=== PATIENT | male | born 1950 | race Caucasian/White ===

== ENCOUNTER 2017-04-28 12:05 | Inpatient (IN) | payer MEDICARE, OTHER ==
[~2017-04-28] VITALS: Ht 185.4 cm; Wt 115.2 kg
[~2017-04-28 12:05] MED LIST: ABILIFY2 MG ORAL; ACETAMINOPHEN120 MG ORAL; ASPIR 8181 MG ORAL; CLONIDINE 0.2M0.2 MG PO; COLACE100 MG ORAL; COZAAR50 MG ORAL; FUROSEMIDE20 M1 ORAL; GLUCOPHAGE500 MG ORAL; HUMULIN R100 UNIT/1 SUBQ; KCL2 MEQ/ML ORAL; LACTULOSE20 GM/301 PO; LANTUS SOL100 UNIT/1 SUBQ; METOPROLOL TART50 M1 ORAL; NORCO 5-325 TA1 EACH ORAL; NORVASC10 MG ORAL; PROZAC20 MG ORAL; RANITIDINE HCL150 MG ORAL; SIMVASTATIN10 MG ORAL; TRUSOPT10 ML BOTH EYES; VALIUM5 M1 ORAL; VIGAMOX1 DROP BOTH EYES
[2017-04-28] MEDS ORDERED: NORVASC10 MG ORAL (12:22)
[2017-04-28] MEDS ORDERED: GLUCOPHAGE500 MG ORAL (12:22)
[2017-04-28] MEDS ORDERED: HUMALOG 75/255 UNIT1 SUBQ (12:22)
[2017-04-28] MEDS ORDERED: LOPERAMIDE2 M1 PO (12:22)
[2017-04-28] MEDS ORDERED: AZOPT10 ML OP (12:22)
[2017-04-28] MEDS ORDERED: ACETAMINOPHEN325 M1 ORAL (12:22)
[2017-04-28] MEDS ORDERED: CRANBERRY TABL1 EACH PO (12:22)
[2017-04-28] MEDS ORDERED: CATAPRES0.1 MG ORAL (12:22)
[2017-04-28] MEDS ORDERED: ARTIFICIAL TEA1 EAC2 OP (12:22)
[2017-04-28] MEDS ORDERED: DULCOLAX10 MG RC (12:22)
[2017-04-28] MEDS ORDERED: COZAAR100 MG ORAL (12:22)
[2017-04-28 12:25] VITALS: BP 146/86
[2017-04-28] MEDS ORDERED: Albuterol ud Inhalation HHN ONE (12:30)
[2017-04-28] MEDS ORDERED: Ipratropium 0.02% Inh Soln 2.5ml UD HHN ONE (12:30)
--- NOTE | 2017-04-28 12:30 | Emergency Room Report ---
History of Present Illness General Chief Complaint: Male Urogenital Problems Source: Patient, Medical Record, EMS Present Illness HPI Patient presents with reports of increased erythema and discomfort to the penile shaft On discussion however patient is extremely short of breath, tachypneic with crackles and rhonchi No reports of vomiting Patient has previous CVA Denies any cough History is limited as the patient is not able to provide full history The note from the nursing facility reported the penile discomfort as noted above Patient denies any chest pain, Allergies: Coded Allergies: No Known Allergies (Unverified , 01/08/14) Patient History Limited by: medical condition Past Medical History: see triage record Pertinent Family History: unable to obtain Reviewed Nursing Documentation: PMH: Agreed, PSxH: Agreed Nursing Documentation-PMH Hx Cardiac Problems: Yes - Cardiomegaly, Hypercholesterolemia, Peripheral Vascular Disease Hx Hypertension: Yes Hx Diabetes: Yes - DM2 Hx Cancer: No Hx Gastrointestinal Problems: Yes - Gtube, Dysphagia, GERD w/o esophagitis Hx Neurological Problems: Yes - OCCIPITAL ENCEPHALOMALACIA,CEREBRAL HEMIPLEGIA , Hemiparesis Hx Cerebrovascular Accident: Yes - CVA/TIA WITH RIGHT HEMIPLEGIA H/O OCCIPITAL ENCEPHALOMALACIA, Review of Systems All Other Systems: limited - Other than the ones mentioned in the history of present illness all others are reviewed however they do stay limited due to the patient's mental status Physical Exam Vital Signs Date Time Temp Pulse Resp B/P (MAP) Pulse Ox O2 Delivery O2 Flow Rate FiO2 04/28/17 12:08 98.8 84 24 143/90 92 Room Air Sp02 EP Interpretation: reviewed, normal General Appearance: no apparent distress Head: normocephalic, atraumatic Eyes: bilateral eye PERRL, bilateral eye EOMI ENT: hearing grossly normal, normal pharynx Neck: full range of motion, supple Respiratory: crackles - Diffusely and appears mildly tachypneic, no obvious retractions Cardiovascular #1: regular rate, rhythm, other - Edema bilateral lower extremity Gastrointestinal: other - Mildly distended abdomen, nontender Musculoskeletal: other - Patient not moving lower extremity on either side, shows edema, questionable previous CVA Neurologic: alert, responsive Skin: other - Edematous in the scrotal area, bilateral lower extremity, no obvious excoriation of the penile shaft Lymphatic: no adenopathy Medical Decision Making Diagnostic Impression: Primary Impression: CHF (congestive heart failure) Additional Impression: Dermatitis ER Course Patient is a fairly complex patient with multiple differential to consideration including but not limited to cardiac cardiopulmonary and vascular emergencies The initial complaint with penile irritation was evaluated patient appears to have some mild excoriation And contact dermatitis however the patient's respirations appeared to be abnormal further workup reveals mild congestion Patient has acute intervention performed and admitted for further care Labs Test 05/01/17 05:15 05/02/17 16:17 White Blood Count 15.0 K/UL (4.8-10.8) Red Blood Count 5.53 M/UL (4.70-6.10) Hemoglobin 15.2 G/DL (14.2-18.0) Hematocrit 46.7 % (42.0-52.0) Mean Corpuscular Volume 84 FL (80-99) Mean Corpuscular Hemoglobin 27.5 PG (27.0-31.0) Mean Corpuscular Hemoglobin Concent 32.5 G/DL (32.0-36.0) Red Cell Distribution Width 13.6 % (11.6-14.8) Platelet Count 362 K/UL (150-450) Mean Platelet Volume 7.1 FL (6.5-10.1) Neutrophils (%) (Auto) 80.1 % (45.0-75.0) Lymphocytes (%) (Auto) 9.6 % (20.0-45.0) Monocytes (%) (Auto) 7.4 % (1.0-10.0) Eosinophils (%) (Auto) 2.1 % (0.0-3.0) Basophils (%) (Auto) 0.8 % (0.0-2.0) Sodium Level 136 MMOL/L (136-145) Potassium Level 5.2 MMOL/L (3.5-5.1) Chloride Level 98 MMOL/L (98-107) Carbon Dioxide Level 25 MMOL/L (21-32) Anion Gap 14 mmol/L (5-15) Blood Urea Nitrogen 73 mg/dL (7-18) Creatinine 2.4 MG/DL (0.55-1.30) Estimat Glomerular Filtration Rate 27.2 mL/min (>60) Glucose Level 211 MG/DL (74-106) Calcium Level 9.1 MG/DL (8.5-10.1) Total Bilirubin 0.4 MG/DL (0.2-1.0) Aspartate Amino Transf (AST/SGOT) 25 U/L (15-37) Alanine Aminotransferase (ALT/SGPT) 20 U/L (12-78) Alkaline Phosphatase 133 U/L (46-116) Pro-B-Type Natriuretic Peptide 271 pg/mL (0-125) Total Protein 6.9 G/DL (6.4-8.2) Albumin 2.8 G/DL (3.4-5.0) Globulin 4.1 g/dL Albumin/Globulin Ratio 0.7 (1.0-2.7) Urine Eosinophils None seen Urine Random Total Protein 1740 MG/DL (< 11.9) Urine Random Sodium 37 MEQ/L (20-110) Urine Creatinine 31.7 MG/DL (30.0-125.0) EKG Diagnostic Results Rate: normal Rhythm: NSR ST Segments: no acute changes Rhythm Strip Diag. Results EP Interpretation: yes Rate: 77 Rhythm: NSR, no PVC's, no ectopy Chest X-Ray Diagnostic Results Chest X-Ray Diagnostic Results : Chest X-Ray Ordered: Yes # of Views/Limited/Complete: 1 View Indication: Shortness of Breath EP Interpretation: Yes Interpretation: no consolidation, no effusion, no pneumothorax, other - mild congestion Impression: Other - mild congestion Last Vital Signs Date Time Temp Pulse Resp B/P (MAP) Pulse Ox O2 Delivery O2 Flow Rate FiO2 04/28/17 12:08 98.8 84 24 143/90 92 Room Air Status: improved Disposition: ADMITTED INPATIENT Condition: Serious AURELIANO HENDERSON D.O. Apr 28, 2017 12:30
[2017-04-28 12:37] LABS: BASOPHILS % (AUTO) 0.5 % (0.0-2.0); EOSINOPHILS % (AUTO) 3.8 % (0.0-3.0); HEMATOCRIT 47.1 % (42.0-52.0); HEMOGLOBIN 15.2 G/DL (14.2-18.0); LYMPHOCYTES % (AUTO) 16.4 % (20.0-45.0); MEAN CORPUSCULAR VOLUME 84 FL (80-99); MONOCYTES % (AUTO) 7.7 % (1.0-10.0); NEUTROPHILS % (AUTO) 71.6 % (45.0-75.0); PLATELET COUNT 368 K/UL (150-450); RED BLOOD COUNT 5.57 M/UL (4.70-6.10); WHITE BLOOD COUNT 14.5 K/UL (4.8-10.8)
[2017-04-28 12:52] LABS: ANION GAP 7 mmol/L (5-15); BLOOD UREA NITROGEN 45 mg/dL (7-18); CALCIUM 8.7 MG/DL (8.5-10.1); CARBON DIOXIDE 28 MMOL/L (21-32); CHLORIDE 102 MMOL/L (98-107); CREATININE 1.4 MG/DL (0.55-1.30); SODIUM 137 MMOL/L (136-145)
[2017-04-28 13:03] LABS: ALANINE AMINOTRANSFERASE 20 U/L (12-78); ALBUMIN 2.5 G/DL (3.4-5.0); ALBUMIN/GLOBULIN RATIO 0.5 (1.0-2.7); ALKALINE PHOSPHATASE 124 U/L (46-116); ASPARTATE AMINO TRANSFERASE 15 U/L (15-37); BILIRUBIN,TOTAL 0.3 MG/DL (0.2-1.0); CKMB 0.5 NG/ML (0.0-3.6); CREATINE KINASE 9 U/L (26-308)
[2017-04-28 13:13] LABS: APPEARANCE,URINE CLEAR; BILIRUBIN, URINE NEGATIVE (NEGATIVE); GLUCOSE, URINE (UA) NEGATIVE (NEGATIVE); KETONES,URINE NEGATIVE (NEGATIVE); LEUKOCYTE ESTERASE ,URINE 3+ (NEGATIVE); NITRITE,URINE NEGATIVE (NEGATIVE); PH,URINE 5 (4.5-8.0); PROTEIN,URINE 4+ (NEGATIVE); UROBILINOGEN,URINE NORMAL MG/DL (0.0-1.0)
[2017-04-28 13:29] LABS: COLOR,URINE YELLOW
[2017-04-28] MEDS ORDERED: HYDROcodone/Acetamin 10/325 tab ORAL ONE (14:30)
[2017-04-28 16:15] VITALS: BP 133/76
[2017-04-28 16:52] VITALS: BP 140/84
[2017-04-28 20:00] VITALS: BP 121/76
[2017-04-28] MEDS: Heparin 5000 units/ml inj SUBQ SCH (22:07)
[2017-04-28] MEDS: NovoLOG Insulin Flexpen SUBQ SCH (22:08)
[2017-04-29] VITALS: BP 130/78
[2017-04-29 04:00] VITALS: BP 125/75
[2017-04-29] MEDS: NovoLOG Insulin Flexpen SUBQ SCH ×4 (06:43→22:03)
[2017-04-29 09:00] VITALS: BP 136/60
[2017-04-29] MEDS ORDERED: Metoprolol Tartrate 50mg tab ORAL SCH ×2 (09:00→11:00)
[2017-04-29] MEDS ORDERED: Losartan 50mg tab ORAL SCH ×2 (09:00→11:00)
[2017-04-29] MEDS: Heparin 5000 units/ml inj SUBQ SCH ×2 (09:24→22:04)
--- NOTE | 2017-04-29 13:05 | Consultation ---
History of Present Illness General Date patient seen: Apr 29, 2017 Chief Complaint: dyspnea Referring physician: Dr. Curry Reason for Consultation: dyspnea Present Illness HPI 66 year old male with hx of CVA, psychiatric disorder, CHF, presented from snf with reports of increased erythema and discomfort to the penile shaft. Pt was also short of breath, tachypneic with crackles and rhonch. His CXR was negative. He is admitted to telemetry for further evaluation. Allergies: Coded Allergies: No Known Allergies (Unverified , 01/08/14) Medication History Scheduled Amlodipine Besylate (Norvasc), 10 MG ORAL DAILY, (Reported) Amlodipine Besylate (Norvasc), 10 MG ORAL DAILY, (Reported) Aripiprazole* (Abilify*), 2 MG ORAL DAILY, (Reported) Aspirin* (Aspir 81*), 81 MG ORAL DAILY, (Reported) Brinzolamide (Azopt), 10 ML OP TID, (Reported) Clonidine HCl (Clonidine HCl), 0.2 MG PO Q6HR, (Reported) Cranberry Conc/C/Bacill Coag (Cranberry Tablet), 2 EACH PO DAILY, (Reported) Diazepam (Diazepam), 5 MG ORAL QHS, (Reported) Docusate Sodium* (Colace*), 100 MG ORAL BID, (Reported) Dorzolamide Hcl* (Trusopt*), 1 DROP BOTH EYES BID Fluoxetine Hcl* (Prozac*), 30 MG ORAL DAILY, (Reported) Furosemide* (Lasix*), 20 MG ORAL DAILY, (Reported) Insulin Glargine (Lantus), 12 SUBQ Q12HR, (Reported) Insulin Human Lispro (Humalog), 0 SUBQ BID, (Reported) Lactulose (Lactulose*), 20 GM PO DAILY Losartan Potassium (Cozaar), 100 MG ORAL DAILY, (Reported) Losartan Potassium* (Cozaar*), 100 MG ORAL DAILY, (Reported) Metformin Hcl* (Glucophage*), 500 MG ORAL TIAC Metformin Hcl* (Glucophage*), 500 MG ORAL TID, (Reported) Metoprolol Tartrate* (Metoprolol Tartrate*), 50 MG ORAL DAILY, (Reported) Moxifloxacin HCl (Vigamox), 1 DROP BOTH EYES Q6HR Potassium Chloride (Potassium Chloride), 10 MEQ ORAL DAILY, (Reported) Ranitidine Hcl* (Zantac*), 150 MG ORAL TWICE A DAY Simvastatin (Zocor), 10 MG ORAL BEDTIME, (Reported) Scheduled PRN Acetaminophen* (Tylenol*), 325 MG ORAL Q4H PRN for Mild Pain/Temp > 100.5, ( Reported) Acetaminophen* (Acetaminophen 325MG Tablet*), 325 MG ORAL Q6H PRN for Fever/ Headache/Mild Pain, (Reported) Bisacodyl (Dulcolax), 10 MG RC DAILY PRN for Constipation, (Reported) Clonidine Hcl* (Catapres*), 0.1 MG ORAL EVERY 6 HOURS PRN for For High Blood Pressure, (Reported) Dextran 70/Hypromellose (Artificial Tears), 1 EACH OP EVERY 4 HOURS PRN for Dry Eyes, (Reported) Hydrocodone Bit/Acetaminophen 5-325* ([place] 5-325*), 1 TAB ORAL Q4H PRN for Moderate Pain (Pain Scale 4-6) Insulin Regular, Human (Humulin R), 0 SUBQ for Sliding Scale, (Reported) Loperamide Hcl (Loperamide), 2 MG PO NEEDED PRN for Diarrhea, (Reported) Patient History Healthcare decision maker Resuscitation status Advanced Directive on File No Past Medical/Surgical History Past Medical/Surgical History: (1) CHF (congestive heart failure) (2) Type II diabetes mellitus, uncontrolled (3) chronic ischemic multiple strokes Review of Systems All Other Systems: negative except mentioned in HPI Physical Exam General Appearance: WD/WN Lines, tubes and drains: peripheral, central line, other - suprapubic tube HEENT: normocephalic Neck: non-tender, normal alignment Respiratory/Chest: chest wall non-tender, lungs clear Breasts: no masses Cardiovascular/Chest: normal peripheral pulses Abdomen: normal bowel sounds Genitourinary/Rectal: normal genital exam Extremities: normal range of motion, trace edema 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 Last 24 Hour Vital Signs Date Time Temp Pulse Resp B/P (MAP) Pulse Ox O2 Delivery O2 Flow Rate FiO2 04/29/17 09:16 64 04/29/17 09:00 97.3 90 20 136/60 93 Room Air 04/29/17 04:00 97.0 91 20 125/75 99 Room Air 04/29/17 00:00 97.0 90 22 130/78 91 Room Air 04/28/17 20:00 97.5 88 21 121/76 90 Room Air 04/28/17 16:52 98.2 82 18 140/84 96 Room Air 04/28/17 16:15 98.2 78 20 133/76 100 Room Air 04/28/17 16:15 72 20 133/76 100 Room Air Intake and Output 04/28/17 04/29/17 19:00 07:00 Intake Total 472 ml Output Total 400 ml Balance 72 ml Intake Oral 472 ml Output Urine Total 400 ml # Voids 1 1 # Bowel Movements 1 Height (Feet): 6 Height (Inches): 1.00 Weight (Pounds): 254 Medications Current Medications Medications (Trade) Dose Ordered Sig/Henrik Route PRN Reason Start Time Stop Time Status Last Admin Dose Admin Acetaminophen (Tylenol) 650 mg Q8HR PRN ORAL Mild Pain/Temp > 100.5 04/28/17 18:00 05/28/17 17:59 Amlodipine Besylate (Norvasc) 10 mg DAILY ORAL 04/29/17 09:00 05/29/17 08:59 04/29/17 09:16 Dextrose (Dextrose 50%) STAT PRN IV Hypoglycemia 04/28/17 18:30 05/28/17 18:29 Furosemide (Lasix) 20 mg DAILY ORAL 04/29/17 09:00 05/29/17 08:59 04/29/17 09:17 Heparin Sodium (Porcine) (Heparin 5000 units/ml) 5,000 units EVERY 12 HOURS SUBQ 04/28/17 21:00 05/28/17 20:59 04/29/17 09:24 Insulin Aspart (NovoLOG) BEFORE MEALS AND HS SUBQ 04/28/17 21:00 05/28/17 20:59 04/29/17 06:43 Losartan Potassium (Cozaar) 100 mg DAILY@1100 ORAL 04/29/17 11:00 05/29/17 10:59 Metoprolol Tartrate (Lopressor) 50 mg DAILY@1100 ORAL 04/29/17 11:00 05/29/17 10:59 Potassium Chloride (K-Dur) 20 meq DAILY ORAL 04/29/17 09:00 05/29/17 08:59 04/29/17 09:17 Temazepam (Restoril) 15 mg HSPRN PRN ORAL Insomnia 04/28/17 18:45 05/05/17 23:59 Assessment/Plan Problem List: (1) Bronchitis ICD Codes: J40 - Bronchitis, not specified as acute or chronic SNOMED: 55731698 (2) ATN (acute tubular necrosis) ICD Codes: N17.0 - Acute kidney failure with tubular necrosis SNOMED: 59363046 (3) chronic ischemic multiple strokes (4) Type II diabetes mellitus, uncontrolled ICD Codes: E11.9 - Type II diabetes mellitus, uncontrolled SNOMED: 968173864 (5) CHF (congestive heart failure) ICD Codes: I50.9 - Heart failure, unspecified SNOMED: 65588816 Assessment/Plan respiratory treatment antitussives check sputum Urology evaluation psych evaluation. BALDEMAR POLANCO Apr 29, 2017 13:05
--- NOTE | 2017-04-29 13:24 | Wound Nurse Progress Note ---
Wound RN Progress Note Wound Consult Pt refused skin assessment. MEYL BEDOYA RN Apr 29, 2017 13:24
[2017-04-29] MEDS ORDERED: NovoLOG Insulin Flexpen SUBQ SCH (16:30)
--- NOTE | 2017-04-29 17:15 | History and Physical Report ---
DATE OF ADMISSION: 04/28/2017 TIME SEEN: At 2 p.m. CONSULTANTS: 1. River Brennan M.D. 2. Ani Barnes M.D. 3. Suraj Tate M.D. 4. Santos Salcido M.D. 5. Dr. Yousif. 6. Dr. Flores. CHIEF COMPLAINT: Penile shaft pain and wound, CHF and confusion. BRIEF HISTORY: This is a 66-year-old male from [facility], presented with above-mentioned diagnoses. The patient was diagnosed with the above and admitted to medical floor for further treatment. Currently, slightly agitated in bed, slightly confused, not talking much. PAST MEDICAL HISTORY: Includes weakness, diabetes, CVA with hemiplegia, diabetes, and ATN. PAST SURGICAL HISTORY: Unknown. MEDICATIONS: Include Cozaar, Lopressor, Norvasc, Lasix, K-Dur, heparin, Restoril, NovoLog, and Tylenol. ALLERGIES: Denies. SOCIAL HISTORY: No smoking. No alcohol. No intravenous drug use. FAMILY HISTORY: Noncontributory. REVIEW OF SYSTEMS: Unavailable. PHYSICAL EXAMINATION: GENERAL: Slightly anxious in bed, oriented x1, in no acute distress. VITAL SIGNS: Temperature is 97, pulse 90, respirations 20, and blood pressure 136/60. CARDIOVASCULAR: No murmur. LUNGS: Poor exchange. ABDOMEN: Bowel sounds distant. EXTREMITIES: No cyanosis, clubbing, or edema. PENILE EXAM: The patient refused. NEUROLOGIC: The patient moves all extremities, slightly weak. LABORATORY DATA: Labs show white count 14 otherwise CBC is normal. BUN and creatinine 45 and 1.4. Otherwise, albumin is 2.5. Urinalysis show 2+ occult blood and 3+ leukocyte esterase. ASSESSMENT: 1. Penile shaft pain and wound. 2. Congestive heart failure. 3. Malnutrition. 4. Confusion. 5. Diabetes. 6. Weakness. 7. Cerebrovascular accident with hemiplegia. 8. Acute tubular necrosis. PLAN: 1. Continue premedications. 2. Wound care. 3. Antibiotics per Infectious Disease. 4. OT, PT and dietary evaluation. 5. Resume home medications. 6. CBC and BMP in the morning. 7. Blood pressure, blood sugar, Pain control. 8. Dietary followup. 9. Dr. Brennan, Dr. Barnes, Dr. Tate, Dr. Salcido, Dr. Yousif, Dr. Flores, and Dr. Jane to consult. Oneil Curry D.O. DR: RA JOB#: [id number] CC:
--- NOTE | 2017-04-29 17:55 | Cardiology Progress Note ---
Assessment/Plan Assessment/Plan The patient is seen and examined, full consult note is dictated. Objective Last 24 Hour Vital Signs Date Time Temp Pulse Resp B/P (MAP) Pulse Ox O2 Delivery O2 Flow Rate FiO2 04/29/17 09:16 64 04/29/17 09:00 97.3 90 20 136/60 93 Room Air 04/29/17 04:00 97.0 91 20 125/75 99 Room Air 04/29/17 00:00 97.0 90 22 130/78 91 Room Air 04/28/17 20:00 97.5 88 21 121/76 90 Room Air Intake and Output 04/28/17 04/29/17 19:00 07:00 Intake Total 472 ml Output Total 400 ml Balance 72 ml Intake Oral 472 ml Output Urine Total 400 ml # Voids 1 1 # Bowel Movements 1 Microbiology Date/Time Source Procedure Growth Status 04/28/17 12:40 Blood Blood Culture - Preliminary Resulted 04/28/17 12:50 Urine,Clean Catch Urine Culture - Preliminary NO GROWTH Resulted ROXANA HILTON Apr 29, 2017 17:55
[2017-04-29] MEDS ORDERED: Heparin 5000 units/ml inj SUBQ SCH (21:00)
--- NOTE | 2017-04-29 21:20 | General Progress Note ---
Progress Note Progress Note patient examined full consult will be dictated SANDOR DELA CRUZ Apr 29, 2017 21:20
--- NOTE | 2017-04-29 21:48 | Diagnostic Imaging Report ---
Indication: Dyspnea Comparison: 01/19/2014 A single view chest radiograph was obtained. Findings: No definite infiltrate or pulmonary vascular congestion identified. Lungs are clear but hypoinflated limiting evaluation. The heart is enlarged. The aorta is mildly enlarged consistent with atherosclerotic vascular disease. The bones are osteopenic. Impression: No acute disease
--- NOTE | 2017-04-29 21:49 | Cardiology Report ---
APPROVED REPORT EKG Measurement Heart [id number] ID [id number] Normal sinus rhythm Left axis deviation Voltage criteria for left ventricular hypertrophy Inferior infarct, age undetermined Anterolateral infarct, age undetermined Abnormal ECG
--- NOTE | 2017-04-29 22:15 | Consultation ---
DATE OF CONSULTATION: 04/29/2017 CARDIOLOGY CONSULTATION CONSULTING PHYSICIAN: Suraj Tate M.D. ATTENDING/REFERRING PHYSICIAN: Oneil Curry D.O. REASON FOR CONSULTATION: Management of shortness of breath. HISTORY OF PRESENT ILLNESS: The patient is a very unfortunate 66-year-old gentleman who is transferred from nursing facility for pain in the penile shaft as well as shortness of breath and tachypnea. The patient is a poor historian and dysphasic due to 2 prior strokes affecting his speech. He is not so much cooperative with history and physical examination. This report is prepared by review of the old medical records. The patient denies any prior history of coronary artery disease or congestive heart failure. His vital signs on arrival to the emergency department was 143/90 mmHg and heart rate was 84 beats per minute. Initial 12-lead electrocardiogram was significant for sinus rhythm and QS changes in the lateral leads suggestive of possible old lateral wall infarct. There were no acute ischemic changes. He was admitted to non-telemetry floor for further evaluation and management. PAST MEDICAL HISTORY: 1. Cerebrovascular accident x2 with right hemiparesis. 2. Peripheral arterial disease, status post right foot amputation. 3. History of diabetes mellitus. 4. History of hypertension. 5. Dysphagia, status post PEG placement. 6. History of GERD. 7. History of anxiety. MEDICATIONS: List of medications at retirement, acetaminophen 320 mg q.4 h. p.r.n. temperature over 100.5, amlodipine 10 mg p.o. daily, Abilify 10 mg p.o. daily, aspirin 81 mg p.o. daily, bisacodyl 10 mg rectal daily p.r.n. constipation, Azopt 10 mL eye drops 3 times a day, clonidine 0.2 mg q.6 h., cranberry 2 tablets daily, Artificial Tears, Valium 5 mg p.o. at bedtime, Colace 100 mg p.o. twice daily, Trusopt eye drops both eyes, Prozac 30 mL daily, Lasix 20 mg p.o. daily, [place] 5/325 mg one tablet q.4 h. p.r.n. pain, Lantus insulin 12 units subcutaneous q.12 h., Humalog insulin twice daily, lactulose 20 g p.o. daily, loperamide 2 mg p.o. p.r.n. diarrhea, Cozaar 100 mg p.o. daily, losartan 100 mg p.o. daily, Glucophage 500 mg 3 times a day, metoprolol 50 mg p.o. daily, moxifloxacin 1 drop both eyes, potassium chloride 10 mEq p.o. daily, Zantac 150 mg twice daily and Zocor 10 mg p.o. at bedtime. ALLERGIES: No known drug allergies. SOCIAL HISTORY: There is no current history of tobacco, alcohol, or illicit drug use. FAMILY HISTORY: No premature coronary artery disease in first-degree relatives. REVIEW OF SYSTEMS: HEENT: Denies any headache, diplopia, or blurred vision. CONSTITUTIONAL: Denies any fever, chills, night sweats, or weight loss. CARDIOVASCULAR: Denies any chest pain, shortness of breath, PND, orthopnea, or leg swelling. PULMONARY: Denies any cough, hemoptysis, or wheezing. GASTROINTESTINAL: Denies any nausea, vomiting, diarrhea, constipation, abdominal pain, or GI bleed. GENITOURINARY: Denies any hematuria, dysuria, or incontinence. Pain in the penile shaft. NEUROLOGIC: He has right-sided weakness with slurred speech. Prior history of stroke. No signs of lateralization. MUSCULOSKELETAL: Amputation of the right foot is reported. PHYSICAL EXAMINATION: VITAL SIGNS: Blood pressure was 143/90, respirations 24, pulse of 84, temperature 98.8 degrees Fahrenheit, and O2 saturation 92% on room air. GENERAL: The patient is a very unfortunate 66-year-old gentleman, in no apparent respiratory distress. Not so cooperative with physical examination. HEENT: Atraumatic and normocephalic. Anicteric. Pupils are equal, round, and reactive to light and accommodation. Extraocular muscles intact. NECK: JVP less than 5 cm. No carotid bruit. Carotid upstrokes 2+ bilaterally. CARDIOVASCULAR: Normal S1 and S2. Regular rate and rhythm. No murmurs, gallops, or rubs. PMI is at fourth intercostal space in the midclavicular line. LUNGS: Clear to auscultation bilaterally. ABDOMEN: Soft, nontender, and nondistended. No hepatosplenomegaly. Positive bowel sounds. Positive G-tube. EXTREMITIES: No evidence of edema, clubbing, or cyanosis. There is 1+ bilateral edema. 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 LABORATORY AND DIAGNOSTIC FINDINGS: WBC of 14.5, hemoglobin of 15.2, hematocrit of 47.1, and platelet count is 368. Sodium is 137, potassium is 4.0, chloride 102, bicarbonate 28, BUN of 45, creatinine 1.4, glucose is 247, and calcium is 8.7. Troponin I is 0.004. ProBNP was 121. A 2D echocardiography from December 2013 shows normal LV systolic function with LVEF of approximately 70% to 75%. There is E to A-wave reversal suggestive of impaired LV relaxation and no wall motion abnormalities. Chest x-ray showed no acute cardiopulmonary disease. ASSESSMENT AND PLAN: The patient is a very unfortunate 66-year-old gentleman, who is seen in Cardiology consultation at the request of Dr. Curry. 1. Dyspnea. This is unlikely to be due to acute heart failure. The patient does not have any clinical criteria for heart failure. Normal beta-natriuretic peptide essentially rules out heart failure. The patient's 2D echocardiography done in 2013 was consistent with normal LV systolic function with LVEF of more than 75%. Chest x-ray on this admission also does not show presence of pulmonary edema. I would continue seeking out pulmonary causes for dyspnea. 2. Diabetes mellitus. 3. Hypertension. 4. Prior history of cerebrovascular accident. 5. A 12-lead ECG shows sinus rhythm. I would like to thank, Dr. Curry, for the courtesy of this consultation. Suraj Tate M.D. DR: SOFIA JOB#: [id number] CC:
--- NOTE | 2017-04-30 01:45 | Consultation ---
DATE OF CONSULTATION: 04/29/2017 NEPHROLOGY CONSULTATION CONSULTING PHYSICIAN: Kerry Jane M.D. REFERRING PHYSICIAN: Oneil Curry D.O. REASON FOR CONSULTATION: Fluid overload and acute renal failure. HISTORY OF PRESENT ILLNESS: The patient is an unfortunate male with past medical history significant for history of CHF, hypertension, history of diabetes, diabetic neuropathy, history of acute renal failure and history of CVA with hemiplegia. He presented to [facility] with increasing shortness of breath for past 2 days. He also complained of increasing swelling around his penile shaft. He complained of orthopnea or PND. The patient was admitted in the hospital, found to have abnormal electrolyte imbalance, and I was called for management of renal disease and electrolyte imbalance. PAST MEDICAL HISTORY: 1. History of acute renal failure. 2. History of hypertension. 3. History of dyslipidemia. 4. History of psychiatric disease. 5. History of CVA. 6. History of CHF. HOME MEDICATIONS: 1. Norvasc 10 mg p.o. daily. 2. Abilify 2 mg p.o. daily. 3. Aspirin 81 mg p.o. daily. 4. Azopt 10 mg daily. 5. Clonidine 0.2 mg p.o. daily. 6. Fluoxetine or Prozac 30 mg p.o. daily. 7. Lasix 20 mg p.o. daily. 8. Losartan 100 mg p.o. daily. 9. Metformin 500 mg p.o. b.i.d. 10. Metoprolol 50 mg p.o. daily. 11. Vigamox one drop in both eyes. 12. Potassium chloride 10 mEq daily. 13. Ranitidine 150 mg p.o. daily. 14. Zocor 10 mg p.o. daily. ALLERGIES: No known drug allergies. SOCIAL HISTORY: He [facility] in a [facility]. There is no current history of tobacco, alcohol, or drug use. FAMILY HISTORY: Noncontributory. REVIEW OF SYSTEMS: GENERAL: Complained of generalized weakness. Denied any fever, chills, or night sweats. HEAD AND NECK: Denies any dysphagia, odynophagia, blurry vision, headache, or neck stiffness. PULMONARY: Complained of shortness of breath, tachypnea, or dyspnea on exertion. Denies any cough or sputum. CARDIOVASCULAR: Denies any chest pain or palpitations. GASTROINTESTINAL: Denied any nausea, vomiting, diarrhea, hematemesis, or hematochezia. GENITOURINARY: Denies any dysuria, frequency, or hematuria. MUSCULOSKELETAL: Denies any weakness or numbness. PHYSICAL EXAMINATION: VITAL SIGNS: The patient had a temperature of 98, blood pressure of 125/75, pulse rate of 93, and respiratory rate of 18. HEAD AND NECK: No JVP. No LAD. No thyromegaly. Extraocular movement intact. Pupils are reactive to light and accommodation. LUNGS: Bilateral crackles. CARDIAC EXAMINATION: Regular rate and rhythm. S1 and S2. No murmur. No rub. ABDOMEN: Soft, nontender, and nondistended. EXTREMITIES: Trace edema. No clubbing. No cyanosis. LABORATORY VALUES: Sodium of 137, potassium of 4, chloride 102, bicarbonate 28, BUN of 45, creatinine of 1.4, and glucose of 247. Calcium of 8.7. AST of 15, ALT of 20, and alkaline phosphatase of 124. Total protein of 7.3. Albumin of 2.5. CBC revealed WBC count of 14,000, hemoglobin of 15.2, hematocrit of 47, and platelet count of 368. UA revealed a specific gravity of 1.020, pH of 6, negative for leukocytes and glucose, blood 2+, leukocyte esterase 3+, and WBC count of 10 to 15. ASSESSMENT: 1. Fluid overload. 2. Acute renal failure. 3. Rule out diabetic nephropathy with 4+ proteinuria, possible nephrotic range. 4. Hematuria. 5. Possible urinary tract infection. 6. Congestive heart failure. PLAN: Plan for the patient is to obtain UA. Check a random urine protein-creatinine ratio to calculate the proteinuria. Check the urine sodium and creatinine to calculate fractional excretion of sodium. Ultrasound of the kidney to evaluate the kidney size. Check A1c, recommended for this patient is 6-7. Check the lipid profile. Avoid any NSAIDs or nephrotoxics. Monitor renal function and electrolytes closely. Again, I would like to thank, Dr. Oneil Curry for allowing me to participate in the care of this patient. Kerry Jane M.D. DR: ANDRY JOB#: [id number] CC:
[2017-04-30] MEDS: NovoLOG Insulin Flexpen SUBQ SCH ×4 (06:37→21:10)
--- NOTE | 2017-04-30 08:54 | Nephrology Progress Note ---
Assessment/Plan Assessment 1. Fluid overload. 2. Acute renal failure. 3. Rule out diabetic nephropathy with 4+ proteinuria, possible nephrotic range. 4. Hematuria. 5. Possible urinary tract infection. 6. Congestive heart failure. Plan Plan to fallow up with urine study monitoring renal function and electrolyte check in and out put avoid any NSAID replace electrolyte as need it Subjective Constitutional: Reports: no symptoms HEENT: Reports: no symptoms Genitourinary: Reports: no symptoms Neurologic/Psychiatric: Reports: no symptoms Objective Objective Last 24 Hour Vital Signs Date Time Temp Pulse Resp B/P (MAP) Pulse Ox O2 Delivery O2 Flow Rate FiO2 04/29/17 09:16 64 04/29/17 09:00 97.3 90 20 136/60 93 Room Air Intake and Output 04/29/17 04/30/17 19:00 07:00 Intake Total 490 ml 360 ml Balance 490 ml 360 ml Intake Oral 490 ml 360 ml # Voids 1 1 Height (Feet): 6 Height (Inches): 1.00 Weight (Pounds): 254 Objective HEAD AND NECK: No JVP. No LAD. No thyromegaly. Extraocular movement intact. Pupils are reactive to light and accommodation. LUNGS: Bilateral crackles. CARDIAC EXAMINATION: Regular rate and rhythm. S1 and S2. No murmur. No rub. ABDOMEN: Soft, nontender, and nondistended. EXTREMITIES: Trace edema. No clubbing. No cyanosis. SANDOR DELA CRUZ Apr 30, 2017 08:54
[2017-04-30] MEDS: Heparin 5000 units/ml inj SUBQ SCH ×2 (09:00→21:10)
[2017-04-30] MEDS: Losartan 50mg tab ORAL SCH (11:00)
[2017-04-30] MEDS ORDERED: Losartan 50mg tab ORAL SCH (11:00)
[2017-04-30] MEDS ORDERED: Metoprolol Tartrate 50mg tab ORAL SCH (11:00)
[2017-04-30] MEDS: Metoprolol Tartrate 50mg tab ORAL SCH (11:00)
--- NOTE | 2017-04-30 11:37 | Consultation ---
History of Present Illness General Date patient seen: Apr 30, 2017 Time patient seen: 11:34 Chief Complaint: Male Urogenital Problems Referring physician: Dr. Curry Reason for Consultation: dyspnea Present Illness HPI 67 yo male, care home bound, apparently transferred for penile swelling and possible lesion. on examination in ED patient found to be dyspneic and evaluation for CHF started. On my evaluation patient refuses to converse. Signals he understands me and why I am here. He refused to allow me to examine his genitals. He refused to even allow me to look. Documentation has been seen in past 24 hours of patient refusing medications and evaluations. Allergies: Coded Allergies: No Known Allergies (Unverified , 01/08/14) Medication History Scheduled Amlodipine Besylate (Norvasc), 10 MG ORAL DAILY, (Reported) Amlodipine Besylate (Norvasc), 10 MG ORAL DAILY, (Reported) Aripiprazole* (Abilify*), 2 MG ORAL DAILY, (Reported) Aspirin* (Aspir 81*), 81 MG ORAL DAILY, (Reported) Brinzolamide (Azopt), 10 ML OP TID, (Reported) Clonidine HCl (Clonidine HCl), 0.2 MG PO Q6HR, (Reported) Cranberry Conc/C/Bacill Coag (Cranberry Tablet), 2 EACH PO DAILY, (Reported) Diazepam (Diazepam), 5 MG ORAL QHS, (Reported) Docusate Sodium* (Colace*), 100 MG ORAL BID, (Reported) Dorzolamide Hcl* (Trusopt*), 1 DROP BOTH EYES BID Fluoxetine Hcl* (Prozac*), 30 MG ORAL DAILY, (Reported) Furosemide* (Lasix*), 20 MG ORAL DAILY, (Reported) Insulin Glargine (Lantus), 12 SUBQ Q12HR, (Reported) Insulin Human Lispro (Humalog), 0 SUBQ BID, (Reported) Lactulose (Lactulose*), 20 GM PO DAILY Losartan Potassium (Cozaar), 100 MG ORAL DAILY, (Reported) Losartan Potassium* (Cozaar*), 100 MG ORAL DAILY, (Reported) Metformin Hcl* (Glucophage*), 500 MG ORAL TIAC Metformin Hcl* (Glucophage*), 500 MG ORAL TID, (Reported) Metoprolol Tartrate* (Metoprolol Tartrate*), 50 MG ORAL DAILY, (Reported) Moxifloxacin HCl (Vigamox), 1 DROP BOTH EYES Q6HR Potassium Chloride (Potassium Chloride), 10 MEQ ORAL DAILY, (Reported) Ranitidine Hcl* (Zantac*), 150 MG ORAL TWICE A DAY Simvastatin (Zocor), 10 MG ORAL BEDTIME, (Reported) Scheduled PRN Acetaminophen* (Tylenol*), 325 MG ORAL Q4H PRN for Mild Pain/Temp > 100.5, ( Reported) Acetaminophen* (Acetaminophen 325MG Tablet*), 325 MG ORAL Q6H PRN for Fever/ Headache/Mild Pain, (Reported) Bisacodyl (Dulcolax), 10 MG RC DAILY PRN for Constipation, (Reported) Clonidine Hcl* (Catapres*), 0.1 MG ORAL EVERY 6 HOURS PRN for For High Blood Pressure, (Reported) Dextran 70/Hypromellose (Artificial Tears), 1 EACH OP EVERY 4 HOURS PRN for Dry Eyes, (Reported) Hydrocodone Bit/Acetaminophen 5-325* ([place] 5-325*), 1 TAB ORAL Q4H PRN for Moderate Pain (Pain Scale 4-6) Insulin Regular, Human (Humulin R), 0 SUBQ for Sliding Scale, (Reported) Loperamide Hcl (Loperamide), 2 MG PO NEEDED PRN for Diarrhea, (Reported) Patient History Limited by: medical condition History Provided By: Medical Record Healthcare decision maker Resuscitation status Advanced Directive on File No Past Medical/Surgical History Past Medical/Surgical History: (1) Trigeminal neuralgia (2) Hemiplegia (3) DM (diabetes mellitus screen) (4) Altered mental status (5) Aphasia due to recent stroke (6) Leukocytosis Review of Systems All Other Systems: negative except mentioned in HPI Physical Exam Physical Exam Narrative refused physical exam Last 24 Hour Vital Signs Date Time Temp Pulse Resp B/P (MAP) Pulse Ox O2 Delivery O2 Flow Rate FiO2 04/30/17 09:00 64 136/60 Intake and Output 04/29/17 04/30/17 19:00 07:00 Intake Total 490 ml 360 ml Balance 490 ml 360 ml Intake Oral 490 ml 360 ml # Voids 1 1 Height (Feet): 6 Height (Inches): 1.00 Weight (Pounds): 254 Medications Current Medications Medications (Trade) Dose Ordered Sig/Henrik Route PRN Reason Start Time Stop Time Status Last Admin Dose Admin Acetaminophen (Tylenol) 650 mg Q8H PRN ORAL Mild Pain/Temp > 100.5 04/29/17 14:00 05/29/17 13:59 Amlodipine Besylate (Norvasc) 10 mg DAILY ORAL 04/30/17 09:00 05/30/17 08:59 Dextrose (Dextrose 50%) STAT PRN IV Hypoglycemia 04/29/17 13:30 05/28/17 13:29 Furosemide (Lasix) 20 mg DAILY ORAL 04/30/17 09:00 05/29/17 08:59 Heparin Sodium (Porcine) (Heparin 5000 units/ml) 5,000 units EVERY 12 HOURS SUBQ 04/29/17 21:00 05/28/17 20:59 04/29/17 22:04 Insulin Aspart (NovoLOG) BEFORE MEALS AND HS SUBQ 04/29/17 16:30 05/28/17 20:59 04/30/17 06:37 Losartan Potassium (Cozaar) 100 mg DAILY@1100 ORAL 04/30/17 11:00 05/29/17 10:59 Metoprolol Tartrate (Lopressor) 50 mg DAILY@1100 ORAL 04/30/17 11:00 05/29/17 10:59 Potassium Chloride (K-Dur) 20 meq DAILY ORAL 04/30/17 09:00 05/29/17 08:59 Temazepam (Restoril) 15 mg HSPRN PRN ORAL Insomnia 04/29/17 18:45 05/05/17 23:59 Assessment/Plan Status: stable Assessment/Plan 67 yo male with what sounds like CHF edema based on ER evaluation. Has refused wound eval, medications, and now my evaluation. 1. no recommendations. Jadiel Machuca M.D. Apr 30, 2017 11:37
--- NOTE | 2017-04-30 15:11 | General Progress Note ---
Assessment/Plan Problem List: (1) Malnutrition ICD Codes: E46 - Unspecified protein-calorie malnutrition SNOMED: 67670353 (2) Penile abrasion ICD Codes: S30.812A - Abrasion of penis, initial encounter SNOMED: 170654469 (3) CVA (cerebral vascular accident) ICD Codes: I63.9 - Cerebral infarction, unspecified SNOMED: 555486305 (4) ATN (acute tubular necrosis) ICD Codes: N17.0 - Acute kidney failure with tubular necrosis SNOMED: 60150250 (5) Hemiplegia ICD Codes: G81.90 - Hemiplegia, unspecified affecting unspecified side SNOMED: 09424312 (6) Weak ICD Codes: R53.1 - Weakness SNOMED: 08783571 (7) Diabetes ICD Codes: E11.9 - Type 2 diabetes mellitus without complications SNOMED: 56514425 (8) Weakness generalized ICD Codes: R53.1 - Weakness SNOMED: 62376733 (9) CHF (congestive heart failure) ICD Codes: I50.9 - Heart failure, unspecified SNOMED: 33550598 Status: stable, progressing, tolerating diet Assessment/Plan ot pt diet abx wound care cbc bmp am Subjective Constitutional: Reports: weakness Allergies: Coded Allergies: No Known Allergies (Unverified , 01/08/14) All Systems: reviewed and negative except above Subjective sleepy calm Objective Last 24 Hour Vital Signs Date Time Temp Pulse Resp B/P (MAP) Pulse Ox O2 Delivery O2 Flow Rate FiO2 04/30/17 09:00 64 136/60 Intake and Output 04/29/17 04/30/17 19:00 07:00 Intake Total 490 ml 360 ml Balance 490 ml 360 ml Intake Oral 490 ml 360 ml # Voids 1 1 Height (Feet): 6 Height (Inches): 1.00 Weight (Pounds): 254 General Appearance: lethargic EENT: normal ENT inspection Neck: normal alignment Cardiovascular: normal peripheral pulses, normal rate, regular rhythm Respiratory/Chest: chest wall non-tender, lungs clear, normal breath sounds Abdomen: normal bowel sounds, non tender, soft Extremities: normal inspection Edema: no edema noted Arm (L), no edema noted Arm (R), no edema noted Leg (L), no edema noted Leg (R), no edema noted Pedal (L), no edema noted Pedal (R), no edema noted Generalized Neurologic: motor weakness Skin: normal pigmentation, warm/dry STACY PRICE Apr 30, 2017 15:11
[2017-04-30 16:00] VITALS: BP 169/95
--- NOTE | 2017-04-30 16:32 | GI Initial Consult Note ---
VanessaNury Cortesoi NJluisPJluis 04/30/17 1632: History of Present Illness General Date patient seen: Apr 30, 2017 Time patient seen: 12:00 Reason for Hospitalization: Male Urogenital Problems Referring physician: Dr. Curry Reason for Consultation: Dysphagia Present Illness HPI Patient presents with reports of increased erythema and discomfort to the penile shaft On discussion however patient is extremely short of breath, tachypneic with crackles and rhonchi No reports of vomiting Patient has previous CVA Denies any cough History is limited as the patient is not able to provide full history The note from the nursing facility reported the penile discomfort as noted above Patient denies any chest pain, GI consulted for dysphagia/GT management. HPI noted above. ROS limited, AMS. Pt seen on floor, awake A&O agitated refusing to answer questions, currently on diet with noted coughing. The patient has GT, however, did not allow me to assess it. He presents today with leukocytosis and elevated alk phos. PEG was placed on Dec, 2013. Home Meds Active Scripts Ranitidine Hcl* (ZANTAC*) 150 Mg Tab, 150 MG ORAL TWICE A DAY, #1 TAB Prov:HI MICHELLE 01/12/14 Moxifloxacin HCl (Vigamox) 1 Drop Drops, 1 DROP BOTH EYES Q6HR, #1 ML Prov:ADAL MICHELLEShantanu 01/12/14 Metformin Hcl* (GLUCOPHAGE*) 500 Mg Tab, 500 MG ORAL TIAC, #1 TAB Prov:HI MICHELLE 01/12/14 Lactulose (LACTULOSE*) 20 Gm/30 Ml Syrp, 20 GM PO DAILY, #1 GM Prov:HI MICHELLE 01/12/14 Hydrocodone Bit/Acetaminophen 5-325* (NORCO 5-325*) 1 Tab Tab, 1 TAB ORAL Q4H Y for Moderate Pain (Pain Scale 4-6), #1 TAB Prov:HI MICHELLE 01/12/14 Dorzolamide Hcl* (TRUSOPT*) 1 Drop Drops, 1 DROP BOTH EYES BID, #1 ML Prov:HI MICHELLE 01/12/14 Reported Medications Amlodipine Besylate (Norvasc) 10 Mg Tablet, 10 MG ORAL DAILY, TAB 04/28/17 Loperamide Hcl (LOPERAMIDE) 2 Mg Tablet, 2 MG PO NEEDED Y for Diarrhea, TAB 04/28/17 Insulin Human Lispro (Humalog) 100 Unit/1 Ml Vial, 0 SUBQ BID, #1 UNIT 0 Refills 04/28/17 Metformin Hcl* (GLUCOPHAGE*) 500 Mg Tablet, 500 MG ORAL TID, TAB 04/28/17 Bisacodyl (DULCOLAX) 10 Mg Supp.rect, 10 MG RC DAILY Y for Constipation, SUPP 04/28/17 Cranberry Conc/C/Bacill Coag (CRANBERRY TABLET) 1 Each Tablet, 2 EACH PO DAILY, TAB 04/28/17 Losartan Potassium (COZAAR) 100 Mg Tablet, 100 MG ORAL DAILY, TAB 04/28/17 Clonidine Hcl* (CATAPRES*) 0.1 Mg Tablet, 0.1 MG ORAL EVERY 6 HOURS Y for For High Blood Pressure, TAB 04/28/17 Brinzolamide (AZOPT) 10 Ml Drops.susp, 10 ML OP TID 04/28/17 Dextran 70/Hypromellose (ARTIFICIAL TEARS) 1 Each Droperette, 1 EACH OP EVERY 4 HOURS Y for Dry Eyes 04/28/17 Acetaminophen* (ACETAMINOPHEN 325MG TABLET*) 325 Mg Tablet, 325 MG ORAL Q6H Y for Fever/Headache/Mild Pain, TAB 04/28/17 Metoprolol Tartrate* (METOPROLOL TARTRATE*) 50 Mg Tablet, 50 MG ORAL DAILY, TAB 01/09/14 Clonidine HCl (Clonidine HCl) 0.2 Mg Tab, 0.2 MG PO Q6HR, TAB 01/09/14 Potassium Chloride (Potassium Chloride) 2 Meq/Ml Vial, 10 MEQ ORAL DAILY, VIAL 01/09/14 Furosemide* (LASIX*) 20 Mg Tablet, 20 MG ORAL DAILY, TAB 01/09/14 Amlodipine Besylate (Norvasc) 10 Mg Tab, 10 MG ORAL DAILY, TAB 01/09/14 Losartan Potassium* (COZAAR*) 50 Mg Tablet, 100 MG ORAL DAILY, TAB 01/09/14 Docusate Sodium* (COLACE*) 100 Mg Capsule, 100 MG ORAL BID, CAP 01/09/14 Aspirin* (ASPIR 81*) 81 Mg Tablet.dr, 81 MG ORAL DAILY, TAB 01/09/14 Simvastatin (ZOCOR) 10 Mg Tablet, 10 MG ORAL BEDTIME, TAB 9/20/14 Insulin Regular, Human (HUMULIN R) 100 Unit/1 Ml Vial, 0 SUBQ Y for Sliding Scale, VIAL 01/09/14 Insulin Glargine (LANTUS) 100 Unit/1 Ml Insuln.pen, 12 SUBQ Q12HR, #1 EA 0 Refills 01/09/14 Fluoxetine Hcl* (PROZAC*) 20 Mg Capsule, 30 MG ORAL DAILY, CAP 01/09/14 Diazepam (Diazepam) 5 Mg Inj, 5 MG ORAL QHS 01/09/14 Aripiprazole* (ABILIFY*) 2 Mg Tablet, 2 MG ORAL DAILY, TAB 01/09/14 Acetaminophen* (TYLENOL*) 120 Mg Supp.rect, 325 MG ORAL Q4H Y for Mild Pain/ Temp > 100.5, SUPP 01/09/14 Med list reviewed/reconciled: Yes Allergies: Coded Allergies: No Known Allergies (Unverified , 01/08/14) Patient History Limited by: medical condition History Provided By: Medical Record PMH Narrative Limited by: medical condition Past Medical History: see triage record Pertinent Family History: unable to obtain Reviewed Nursing Documentation: PMH: Agreed, PSxH: Agreed Nursing Documentation-PMH Hx Cardiac Problems: Yes - Cardiomegaly, Hypercholesterolemia, Peripheral Vascular Disease Hx Hypertension: Yes Hx Diabetes: Yes - DM2 Hx Cancer: No Hx Gastrointestinal Problems: Yes - Gtube, Dysphagia, GERD w/o esophagitis Hx Neurological Problems: Yes - OCCIPITAL ENCEPHALOMALACIA,CEREBRAL HEMIPLEGIA , Hemiparesis Hx Cerebrovascular Accident: Yes - CVA/TIA WITH RIGHT HEMIPLEGIA H/O OCCIPITAL ENCEPHALOMALACIA, Social History: Denies: smoking, alcohol use, drug use, other Review of Systems All Other Systems: limited Physical Exam Vital Signs Date Time Temp Pulse Resp B/P (MAP) Pulse Ox O2 Delivery O2 Flow Rate FiO2 04/28/17 12:08 98.8 84 24 143/90 92 Room Air Sp02 EP Interpretation: reviewed, normal General Appearance: well appearing, no apparent distress, alert, other - agitated Head: normocephalic EENT: PERRL/EOMI, normal ENT inspection Neck: supple Respiratory: normal breath sounds, no respiratory distress Cardiovascular: normal rate Gastrointestinal: normal inspection, non tender, soft, normal bowel sounds, non -distended, gt - unable to assess Rectal: deferred Genitourinary: deferred Musculoskeletal: normal inspection, back normal Neurologic: normal inspection, alert, responsive Psychiatric: normal inspection, judgement/insight normal, memory normal Skin: normal inspection, normal color, no rash, warm/dry, palpation normal, well hydrated Lymphatic: normal inspection, no adenopathy Current Medications Current Medications Medications (Trade) Dose Ordered Sig/Henrik Route PRN Reason Start Time Stop Time Status Last Admin Dose Admin Acetaminophen (Tylenol) 650 mg Q8H PRN ORAL Mild Pain/Temp > 100.5 04/29/17 14:00 05/29/17 13:59 Amlodipine Besylate (Norvasc) 10 mg DAILY ORAL 04/30/17 09:00 05/30/17 08:59 Dextrose (Dextrose 50%) STAT PRN IV Hypoglycemia 04/29/17 13:30 05/28/17 13:29 Furosemide (Lasix) 20 mg DAILY ORAL 04/30/17 09:00 05/29/17 08:59 Heparin Sodium (Porcine) (Heparin 5000 units/ml) 5,000 units EVERY 12 HOURS SUBQ 04/29/17 21:00 05/28/17 20:59 04/29/17 22:04 Insulin Aspart (NovoLOG) BEFORE MEALS AND HS SUBQ 04/29/17 16:30 05/28/17 20:59 04/30/17 06:37 Losartan Potassium (Cozaar) 100 mg DAILY@1100 ORAL 04/30/17 11:00 05/29/17 10:59 Metoprolol Tartrate (Lopressor) 50 mg DAILY@1100 ORAL 04/30/17 11:00 05/29/17 10:59 Potassium Chloride (K-Dur) 20 meq DAILY ORAL 04/30/17 09:00 05/29/17 08:59 Temazepam (Restoril) 15 mg HSPRN PRN ORAL Insomnia 04/29/17 18:45 05/05/17 23:59 GI: Plan Problems: (1) Malnutrition (2) Weak (3) Weakness generalized (4) Altered mental status (5) Sepsis (6) Dysphagia (7) At high risk for aspiration Plan ST evaluation ordered >> will consider GT removal if patient passes. ADA diet strict aspiration precautions symptomatic treatment pain mgmt ppi fu labs Discussed with Dr. Bullard. Thank you for this patient referral, we will follow. KARINA BULLARD 05/02/17 0721: History of Present Illness General Reason for Hospitalization: Male Urogenital Problems Present Illness Home Meds Active Scripts Ranitidine Hcl* (ZANTAC*) 150 Mg Tab, 150 MG ORAL TWICE A DAY, #1 TAB Prov:QUEENIE MICHELLEShantanu 01/12/14 Moxifloxacin HCl (Vigamox) 1 Drop Drops, 1 DROP BOTH EYES Q6HR, #1 ML Prov:ADAL MICHELLEShantanu 01/12/14 Metformin Hcl* (GLUCOPHAGE*) 500 Mg Tab, 500 MG ORAL TIAC, #1 TAB Prov:ADAL MICHELLEShantanu 01/12/14 Lactulose (LACTULOSE*) 20 Gm/30 Ml Syrp, 20 GM PO DAILY, #1 GM Prov:ADAL MICHELLEShantanu 01/12/14 Hydrocodone Bit/Acetaminophen 5-325* (NOR[place] 5-325*) 1 Tab Tab, 1 TAB ORAL Q4H Y for Moderate Pain (Pain Scale 4-6), #1 TAB Prov:ADAL MICHELLEShantanu 01/12/14 Dorzolamide Hcl* (TRUSOPT*) 1 Drop Drops, 1 DROP BOTH EYES BID, #1 ML Prov:QUEENIE MICHELLEShantanu 01/12/14 Reported Medications Amlodipine Besylate (Norvasc) 10 Mg Tablet, 10 MG ORAL DAILY, TAB 04/28/17 Loperamide Hcl (LOPERAMIDE) 2 Mg Tablet, 2 MG PO NEEDED Y for Diarrhea, TAB 04/28/17 Insulin Human Lispro (Humalog) 100 Unit/1 Ml Vial, 0 SUBQ BID, #1 UNIT 0 Refills 04/28/17 Metformin Hcl* (GLUCOPHAGE*) 500 Mg Tablet, 500 MG ORAL TID, TAB 04/28/17 Bisacodyl (DULCOLAX) 10 Mg Supp.rect, 10 MG RC DAILY Y for Constipation, SUPP 04/28/17 Cranberry Conc/C/Bacill Coag (CRANBERRY TABLET) 1 Each Tablet, 2 EACH PO DAILY, TAB 04/28/17 Losartan Potassium (COZAAR) 100 Mg Tablet, 100 MG ORAL DAILY, TAB 04/28/17 Clonidine Hcl* (CATAPRES*) 0.1 Mg Tablet, 0.1 MG ORAL EVERY 6 HOURS Y for For High Blood Pressure, TAB 04/28/17 Brinzolamide (AZOPT) 10 Ml Drops.susp, 10 ML OP TID 04/28/17 Dextran 70/Hypromellose (ARTIFICIAL TEARS) 1 Each Droperette, 1 EACH OP EVERY 4 HOURS Y for Dry Eyes 04/28/17 Acetaminophen* (ACETAMINOPHEN 325MG TABLET*) 325 Mg Tablet, 325 MG ORAL Q6H Y for Fever/Headache/Mild Pain, TAB 04/28/17 Metoprolol Tartrate* (METOPROLOL TARTRATE*) 50 Mg Tablet, 50 MG ORAL DAILY, TAB 01/09/14 Clonidine HCl (Clonidine HCl) 0.2 Mg Tab, 0.2 MG PO Q6HR, TAB 01/09/14 Potassium Chloride (Potassium Chloride) 2 Meq/Ml Vial, 10 MEQ ORAL DAILY, VIAL 01/09/14 Furosemide* (LASIX*) 20 Mg Tablet, 20 MG ORAL DAILY, TAB 01/09/14 Amlodipine Besylate (Norvasc) 10 Mg Tab, 10 MG ORAL DAILY, TAB 01/09/14 Losartan Potassium* (COZAAR*) 50 Mg Tablet, 100 MG ORAL DAILY, TAB 01/09/14 Docusate Sodium* (COLACE*) 100 Mg Capsule, 100 MG ORAL BID, CAP 01/09/14 Aspirin* (ASPIR 81*) 81 Mg Tablet.dr, 81 MG ORAL DAILY, TAB 01/09/14 Simvastatin (ZOCOR) 10 Mg Tablet, 10 MG ORAL BEDTIME, TAB 01/09/14 Insulin Regular, Human (HUMULIN R) 100 Unit/1 Ml Vial, 0 SUBQ Y for Sliding Scale, VIAL 01/09/14 Insulin Glargine (LANTUS) 100 Unit/1 Ml Insuln.pen, 12 SUBQ Q12HR, #1 EA 0 Refills 01/09/14 Fluoxetine Hcl* (PROZAC*) 20 Mg Capsule, 30 MG ORAL DAILY, CAP 01/09/14 Diazepam (Diazepam) 5 Mg Inj, 5 MG ORAL QHS 01/09/14 Aripiprazole* (ABILIFY*) 2 Mg Tablet, 2 MG ORAL DAILY, TAB 01/09/14 Acetaminophen* (TYLENOL*) 120 Mg Supp.rect, 325 MG ORAL Q4H Y for Mild Pain/ Temp > 100.5, SUPP 01/09/14 Allergies: Coded Allergies: No Known Allergies (Unverified , 01/08/14) GI: Plan Plan The patient was seen and examined at bedside and all new and available data was reviewed in the patients chart. I agree with the above findings, impression and plan. (Patient seen earlier today. Signature stamp does not reflect patient encounter time.). - MD [facility] Crhis Alegria Apr 30, 2017 16:32 KARINA BULLARD May 02, 2017 07:21
--- NOTE | 2017-04-30 16:59 | Pulmonology Progress Note ---
Assessment/Plan Problems: (1) Bronchitis (2) ATN (acute tubular necrosis) (3) chronic ischemic multiple strokes (4) Type II diabetes mellitus, uncontrolled (5) CHF (congestive heart failure) Assessment/Plan no new complains refused all labs today US for abdominal pain refusing vitals tool Subjective ROS Limited/Unobtainable: No Constitutional: Reports: no symptoms HEENT: Repors: no symptoms Respiratory: Reports: no symptoms Allergies: Coded Allergies: No Known Allergies (Unverified , 01/08/14) Objective Last 24 Hour Vital Signs Date Time Temp Pulse Resp B/P (MAP) Pulse Ox O2 Delivery O2 Flow Rate FiO2 04/30/17 09:00 64 136/60 Intake and Output 04/29/17 04/30/17 19:00 07:00 Intake Total 490 ml 360 ml Balance 490 ml 360 ml Intake Oral 490 ml 360 ml # Voids 1 1 General Appearance: WD/WN HEENT: normocephalic Respiratory/Chest: chest wall non-tender, normal breath sounds, chest wall tender Cardiovascular: normal peripheral pulses, normal rate Abdomen: normal bowel sounds, soft, non tender, no organomegaly Genitourinary: normal external genitalia Extremities: no clubbing Skin: no lesions Neurologic/Psychiatric: director of 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 Complete Current Medications Medications (Trade) Dose Ordered Sig/Henrik Route PRN Reason Start Time Stop Time Status Last Admin Dose Admin Acetaminophen (Tylenol) 650 mg Q8H PRN ORAL Mild Pain/Temp > 100.5 04/29/17 14:00 05/29/17 13:59 Amlodipine Besylate (Norvasc) 10 mg DAILY ORAL 04/30/17 09:00 05/30/17 08:59 Dextrose (Dextrose 50%) STAT PRN IV Hypoglycemia 04/29/17 13:30 05/28/17 13:29 Furosemide (Lasix) 20 mg DAILY ORAL 04/30/17 09:00 05/29/17 08:59 Heparin Sodium (Porcine) (Heparin 5000 units/ml) 5,000 units EVERY 12 HOURS SUBQ 04/29/17 21:00 05/28/17 20:59 04/29/17 22:04 Insulin Aspart (NovoLOG) BEFORE MEALS AND HS SUBQ 04/29/17 16:30 05/28/17 20:59 04/30/17 06:37 Losartan Potassium (Cozaar) 100 mg DAILY@1100 ORAL 04/30/17 11:00 05/29/17 10:59 Metoprolol Tartrate (Lopressor) 50 mg DAILY@1100 ORAL 04/30/17 11:00 05/29/17 10:59 Potassium Chloride (K-Dur) 20 meq DAILY ORAL 04/30/17 09:00 05/29/17 08:59 Temazepam (Restoril) 15 mg HSPRN PRN ORAL Insomnia 04/29/17 18:45 05/05/17 23:59 BALDEMAR POLANCO Apr 30, 2017 16:59
[2017-04-30 20:00] VITALS: BP 143/90
[2017-05-01 04:00] VITALS: BP 134/86
[2017-05-01] MEDS ORDERED: LORazepam 1mg tab ORAL PRN (04:15)
[2017-05-01] MEDS: NovoLOG Insulin Flexpen SUBQ SCH ×4 (06:38→20:40)
[2017-05-01 07:37] LABS: BASOPHILS % (AUTO) 0.8 % (0.0-2.0); EOSINOPHILS % (AUTO) 2.1 % (0.0-3.0); HEMATOCRIT 46.7 % (42.0-52.0); HEMOGLOBIN 15.2 G/DL (14.2-18.0); LYMPHOCYTES % (AUTO) 9.6 % (20.0-45.0); MEAN CORPUSCULAR VOLUME 84 FL (80-99); MONOCYTES % (AUTO) 7.4 % (1.0-10.0); NEUTROPHILS % (AUTO) 80.1 % (45.0-75.0); PLATELET COUNT 362 K/UL (150-450); RED BLOOD COUNT 5.53 M/UL (4.70-6.10); RED CELL DISTRIBUTION WIDTH 13.6 % (11.6-14.8)
[2017-05-01 07:46] LABS: ALANINE AMINOTRANSFERASE 20 U/L (12-78); ALBUMIN 2.8 G/DL (3.4-5.0); ALBUMIN/GLOBULIN RATIO 0.7 (1.0-2.7); ALKALINE PHOSPHATASE 133 U/L (46-116); ANION GAP 14 mmol/L (5-15); ASPARTATE AMINO TRANSFERASE 25 U/L (15-37); BILIRUBIN,TOTAL 0.4 MG/DL (0.2-1.0); BLOOD UREA NITROGEN 73 mg/dL (7-18); CALCIUM 9.1 MG/DL (8.5-10.1); CARBON DIOXIDE 25 MMOL/L (21-32); CHLORIDE 98 MMOL/L (98-107); CREATININE 2.4 MG/DL (0.55-1.30); POTASSIUM 5.2 MMOL/L (3.5-5.1); SODIUM 136 MMOL/L (136-145)
[2017-05-01 08:00] VITALS: BP 165/104
--- NOTE | 2017-05-01 08:15 | Nephrology Progress Note ---
Assessment/Plan Assessment 1. Fluid overload. 2. Acute renal failure worsen 3. Rule out diabetic nephropathy with 4+ proteinuria, possible nephrotic range. 4. hyperkalemia 5. Possible urinary tract infection. 6. Congestive heart failure. Plan Plan Hold kcl,losrtan,lasix to fallow up with urine study monitoring renal function and electrolyte check in and out put avoid any NSAID replace electrolyte as need it Subjective Constitutional: Reports: no symptoms HEENT: Reports: no symptoms Genitourinary: Reports: no symptoms Neurologic/Psychiatric: Reports: no symptoms Subjective no acute events dines any complaints a Objective Objective Last 24 Hour Vital Signs Date Time Temp Pulse Resp B/P (MAP) Pulse Ox O2 Delivery O2 Flow Rate FiO2 05/01/17 04:00 97.8 105 20 134/86 94 04/30/17 20:00 98.1 99 20 143/90 91 04/30/17 16:00 98.4 101 20 169/95 94 04/30/17 09:00 64 136/60 Intake and Output 04/30/17 05/01/17 19:00 07:00 Intake Total 720 ml 300 ml Balance 720 ml 300 ml Intake Oral 720 ml 300 ml # Voids 3 4 Laboratory Tests 05/01/17 05:15: White Blood Count 15.0H, Red Blood Count 5.53, Hemoglobin 15.2, Hematocrit 46.7 , Mean Corpuscular Volume 84, Mean Corpuscular Hemoglobin 27.5, Mean Corpuscular Hemoglobin Concent 32.5, Red Cell Distribution Width 13.6, Platelet Count 362, Mean Platelet Volume 7.1, Neutrophils (%) (Auto) 80.1H, Lymphocytes ( %) (Auto) 9.6L, Monocytes (%) (Auto) 7.4, Eosinophils (%) (Auto) 2.1, Basophils (%) (Auto) 0.8, Sodium Level 136, Potassium Level 5.2H, Chloride Level 98, Carbon Dioxide Level 25, Anion Gap 14, Blood Urea Nitrogen 73H, Creatinine 2.4H , Estimat Glomerular Filtration Rate 27.2, Glucose Level 211H, Calcium Level 9.1 , Total Bilirubin 0.4, Aspartate Amino Transf (AST/SGOT) 25, Alanine Aminotransferase (ALT/SGPT) 20, Alkaline Phosphatase 133H, Pro-B-Type Natriuretic Peptide [Pending], Total Protein 6.9, Albumin 2.8L, Globulin 4.1, Albumin/Globulin Ratio 0.7L Height (Feet): 6 Height (Inches): 1.00 Weight (Pounds): 254 Objective HEAD AND NECK: No JVP. No LAD. No thyromegaly. Extraocular movement intact. Pupils are reactive to light and accommodation. LUNGS: Bilateral crackles. CARDIAC EXAMINATION: Regular rate and rhythm. S1 and S2. No murmur. No rub. ABDOMEN: Soft, nontender, and nondistended. EXTREMITIES: Trace edema. No clubbing. No cyanosis. SANDOR DELA CRUZ May 01, 2017 08:15
[2017-05-01] MEDS: ARIPiprazole 2mg tab ORAL SCH (09:00)
[2017-05-01] MEDS: Heparin 5000 units/ml inj SUBQ SCH ×2 (09:10→20:41)
[2017-05-01] MEDS: Losartan 50mg tab ORAL SCH ×2 (11:00→12:46)
[2017-05-01] MEDS: Metoprolol Tartrate 50mg tab ORAL SCH ×2 (11:00→12:47)
--- NOTE | 2017-05-01 11:50 | General Progress Note ---
Assessment/Plan Problem List: (1) Malnutrition ICD Codes: E46 - Unspecified protein-calorie malnutrition SNOMED: 16508715 (2) Penile abrasion ICD Codes: S30.812A - Abrasion of penis, initial encounter SNOMED: 872633205 (3) CVA (cerebral vascular accident) ICD Codes: I63.9 - Cerebral infarction, unspecified SNOMED: 243783418 (4) ATN (acute tubular necrosis) ICD Codes: N17.0 - Acute kidney failure with tubular necrosis SNOMED: 15357342 (5) Hemiplegia ICD Codes: G81.90 - Hemiplegia, unspecified affecting unspecified side SNOMED: 97905838 (6) Weak ICD Codes: R53.1 - Weakness SNOMED: 09018635 (7) Diabetes ICD Codes: E11.9 - Type 2 diabetes mellitus without complications SNOMED: 51354774 (8) Weakness generalized ICD Codes: R53.1 - Weakness SNOMED: 11883219 (9) CHF (congestive heart failure) ICD Codes: I50.9 - Heart failure, unspecified SNOMED: 41684458 Status: unchanged Assessment/Plan ot pt diet abx wound care cbc bmp am psyc transfer Subjective Constitutional: Reports: weakness Allergies: Coded Allergies: No Known Allergies (Unverified , 01/08/14) All Systems: reviewed and negative except above Subjective sleepy calm Objective Last 24 Hour Vital Signs Date Time Temp Pulse Resp B/P (MAP) Pulse Ox O2 Delivery O2 Flow Rate FiO2 05/01/17 09:05 110 155/95 05/01/17 08:00 98.7 116 20 165/104 95 05/01/17 04:00 97.8 105 20 134/86 94 04/30/17 20:00 98.1 99 20 143/90 91 04/30/17 16:00 98.4 101 20 169/95 94 Intake and Output 04/30/17 05/01/17 19:00 07:00 Intake Total 720 ml 300 ml Balance 720 ml 300 ml Intake Oral 720 ml 300 ml # Voids 3 4 Laboratory Tests 05/01/17 05:15: White Blood Count 15.0H, Red Blood Count 5.53, Hemoglobin 15.2, Hematocrit 46.7 , Mean Corpuscular Volume 84, Mean Corpuscular Hemoglobin 27.5, Mean Corpuscular Hemoglobin Concent 32.5, Red Cell Distribution Width 13.6, Platelet Count 362, Mean Platelet Volume 7.1, Neutrophils (%) (Auto) 80.1H, Lymphocytes ( %) (Auto) 9.6L, Monocytes (%) (Auto) 7.4, Eosinophils (%) (Auto) 2.1, Basophils (%) (Auto) 0.8, Sodium Level 136, Potassium Level 5.2H, Chloride Level 98, Carbon Dioxide Level 25, Anion Gap 14, Blood Urea Nitrogen 73H, Creatinine 2.4H , Estimat Glomerular Filtration Rate 27.2, Glucose Level 211H, Calcium Level 9.1 , Total Bilirubin 0.4, Aspartate Amino Transf (AST/SGOT) 25, Alanine Aminotransferase (ALT/SGPT) 20, Alkaline Phosphatase 133H, Pro-B-Type Natriuretic Peptide 271H, Total Protein 6.9, Albumin 2.8L, Globulin 4.1, Albumin /Globulin Ratio 0.7L Height (Feet): 6 Height (Inches): 1.00 Weight (Pounds): 254 General Appearance: lethargic EENT: normal ENT inspection Neck: normal alignment Cardiovascular: normal peripheral pulses, normal rate, regular rhythm Respiratory/Chest: chest wall non-tender, lungs clear, normal breath sounds Abdomen: normal bowel sounds, non tender, soft Extremities: normal inspection Edema: no edema noted Arm (L), no edema noted Arm (R), no edema noted Leg (L), no edema noted Leg (R), no edema noted Pedal (L), no edema noted Pedal (R), no edema noted Generalized Neurologic: motor weakness Skin: normal pigmentation, warm/dry STACY PRICE May 01, 2017 11:50
--- NOTE | 2017-05-01 12:03 | Diagnostic Imaging Report ---
Indication: Dyspnea Technique: XRAY Chest 1v Comparison: 718 Findings: Low lung volumes. Heart size and mediastinal contours appear stable. There is interval development of patchy right medial basilar airspace opacities. These findings may be artifactually exaggerated due to low lung volumes. No pleural effusion. No pneumothorax. No acute bony lesion appreciated. Impression: Interval development of patchy right basilar opacities, possibly exaggerated by low lung volumes. Subsegmental atelectasis may be considered, pneumonia not entirely excluded. Clinical correlation and follow-up exam recommended.
[2017-05-01] MEDS: Norco 5mg/325mg tab ORAL PRN (12:48)
[2017-05-01 13:00] VITALS: BP 155/95
--- NOTE | 2017-05-01 14:16 | GI Progress Note ---
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 Salcido. Assessment/Plan fu ST evaluation >> will consider GT removal if patient passes. ADA diet strict aspiration precautions symptomatic treatment pain mgmt ppi fu labs Subjective Subjective refusing care Objective Last 24 Hour Vital Signs Date Time Temp Pulse Resp B/P (MAP) Pulse Ox O2 Delivery O2 Flow Rate FiO2 05/01/17 13:00 98.7 115 20 155/95 96 05/01/17 12:47 110 155/95 05/01/17 12:46 155/95 05/01/17 09:05 110 155/95 05/01/17 08:00 98.7 116 20 165/104 95 05/01/17 04:00 97.8 105 20 134/86 94 04/30/17 20:00 98.1 99 20 143/90 91 04/30/17 16:00 98.4 101 20 169/95 94 Intake and Output 04/30/17 05/01/17 19:00 07:00 Intake Total 720 ml 300 ml Balance 720 ml 300 ml Intake Oral 720 ml 300 ml # Voids 3 4 Laboratory Tests Test 05/01/17 05:15 White Blood Count 15.0 K/UL (4.8-10.8) H Red Blood Count 5.53 M/UL (4.70-6.10) Hemoglobin 15.2 G/DL (14.2-18.0) Hematocrit 46.7 % (42.0-52.0) Mean Corpuscular Volume 84 FL (80-99) Mean Corpuscular Hemoglobin 27.5 PG (27.0-31.0) Mean Corpuscular Hemoglobin Concent 32.5 G/DL (32.0-36.0) Red Cell Distribution Width 13.6 % (11.6-14.8) Platelet Count 362 K/UL (150-450) Mean Platelet Volume 7.1 FL (6.5-10.1) Neutrophils (%) (Auto) 80.1 % (45.0-75.0) H Lymphocytes (%) (Auto) 9.6 % (20.0-45.0) L Monocytes (%) (Auto) 7.4 % (1.0-10.0) Eosinophils (%) (Auto) 2.1 % (0.0-3.0) Basophils (%) (Auto) 0.8 % (0.0-2.0) Sodium Level 136 MMOL/L (136-145) Potassium Level 5.2 MMOL/L (3.5-5.1) H Chloride Level 98 MMOL/L (98-107) Carbon Dioxide Level 25 MMOL/L (21-32) Anion Gap 14 mmol/L (5-15) Blood Urea Nitrogen 73 mg/dL (7-18) H Creatinine 2.4 MG/DL (0.55-1.30) H Estimat Glomerular Filtration Rate 27.2 mL/min (>60) Glucose Level 211 MG/DL (74-106) H Calcium Level 9.1 MG/DL (8.5-10.1) Total Bilirubin 0.4 MG/DL (0.2-1.0) Aspartate Amino Transf (AST/SGOT) 25 U/L (15-37) Alanine Aminotransferase (ALT/SGPT) 20 U/L (12-78) Alkaline Phosphatase 133 U/L (46-116) H Pro-B-Type Natriuretic Peptide 271 pg/mL (0-125) H Total Protein 6.9 G/DL (6.4-8.2) Albumin 2.8 G/DL (3.4-5.0) L Globulin 4.1 g/dL Albumin/Globulin Ratio 0.7 (1.0-2.7) L Height (Feet): 6 Height (Inches): 1.00 Weight (Pounds): 254 General Appearance: no apparent distress, alert, confused - non compliant Cardiovascular: normal rate Respiratory/Chest: no respiratory distress Abdominal Exam: site Nury Mendez N.P. May 01, 2017 14:16
--- NOTE | 2017-05-01 15:03 | Consultation ---
DATE OF CONSULTATION: 05/01/2017 CONSULTING PHYSICIAN: Rosa Yousif M.D. HISTORY OF PRESENT ILLNESS: The patient is a 67-year-old male patient with congestive heart failure. This patient came into the hospital primarily because he has a genital pain, congestive heart failure, and confusion. He came in from his longterm. He is slightly agitated, very confused, disorganized, very poor historian. His cognition has declined below baseline secondary to the progression of his medical illness and increased disorganized thought process and agitation. That is why, his attending physician has requested daily psychiatric consultation for this patient throughout hospital course and monitor his behavior and try to prevent any further decline in his cognition. MEDICAL HISTORY: Includes diabetes, status post CVA, and hemiplegia. He also has hypertension as well. ALLERGIES: No known drug allergies. SOCIAL HISTORY: Lives at [facility]. Financially supported by [employer] and Medicare. SUBSTANCE ABUSE HISTORY: Denies drug or alcohol use. PSYCHIATRIC HISTORY: Paranoid schizophrenia, rule out dementia with psychosis. MENTAL STATUS EXAMINATION: A 67-year-old male with psychomotor retardation. Mood is depressed. Affect guarded and restricted. Thought process disorganized and illogical. Thought content, continued to have paranoid delusions. Denies any current suicidal or homicidal thoughts. Insight and judgment is poor. Orientation x2. Speech is low. Volume is slurred. DIAGNOSIS: Paranoid schizophrenia with acute exacerbation, rule out dementia with psychosis. PLAN: My plan for this patient is I am going to restart him on Abilify 2 mg daily, Prozac 20 mg daily, and then also since he has intermittent bouts of agitation, I am also going to start this patient on Ativan 1 mg every six hours as needed for anxiety. He will continue to be followed by Psychiatry throughout hospital course. Chart reviewed. Discussed with staff. The patient was seen and assessed at bedside. I would like to thank Dr. Oneil Curry for this interesting consultation. Rosa Yousif M.D. : TREVOR JOB#: [id number] CC:
[2017-05-01 16:00] VITALS: BP 129/110
[2017-05-01] MEDS: cefTRIAXone 1 GM in D5W 55 ML IVPB SCH (16:00)
--- NOTE | 2017-05-01 16:09 | Pulmonology Progress Note ---
Assessment/Plan Problems: (1) Bronchitis (2) ATN (acute tubular necrosis) (3) chronic ischemic multiple strokes (4) Type II diabetes mellitus, uncontrolled (5) CHF (congestive heart failure) Assessment/Plan blood in the [place] no new complains refused all labs today refusing vitals tool checke electrolytes urology evaluation Subjective ROS Limited/Unobtainable: No Constitutional: Reports: no symptoms HEENT: Repors: no symptoms Respiratory: Reports: no symptoms Cardiovascular: Reports: no symptoms Gastrointestinal/Abdominal: Reports: no symptoms Allergies: Coded Allergies: No Known Allergies (Unverified , 01/08/14) Objective Last 24 Hour Vital Signs Date Time Temp Pulse Resp B/P (MAP) Pulse Ox O2 Delivery O2 Flow Rate FiO2 05/01/17 13:00 98.7 115 20 155/95 96 05/01/17 12:47 110 155/95 05/01/17 12:46 155/95 05/01/17 09:05 110 155/95 05/01/17 08:00 98.7 116 20 165/104 95 05/01/17 04:00 97.8 105 20 134/86 94 04/30/17 20:00 98.1 99 20 143/90 91 Intake and Output 04/30/17 05/01/17 19:00 07:00 Intake Total 720 ml 300 ml Balance 720 ml 300 ml Intake Oral 720 ml 300 ml # Voids 3 4 Objective General Appearance: WD/WN HEENT: normocephalic, anicteric Respiratory/Chest: chest wall non-tender, normal breath sounds Breasts: no masses Cardiovascular: regular rhythm Genitourinary: normal external genitalia Extremities: no clubbing Skin: no rash, no lesions Microbiology Date/Time Source Procedure Growth Status 04/28/17 16:48 Rectum VRE Culture - Final NO VANCOMYCIN RESISTANT ENTEROCOCCUS ... Complete Laboratory Tests 05/01/17 05:15: White Blood Count 15.0H, Red Blood Count 5.53, Hemoglobin 15.2, Hematocrit 46.7 , Mean Corpuscular Volume 84, Mean Corpuscular Hemoglobin 27.5, Mean Corpuscular Hemoglobin Concent 32.5, Red Cell Distribution Width 13.6, Platelet Count 362, Mean Platelet Volume 7.1, Neutrophils (%) (Auto) 80.1H, Lymphocytes ( %) (Auto) 9.6L, Monocytes (%) (Auto) 7.4, Eosinophils (%) (Auto) 2.1, Basophils (%) (Auto) 0.8, Sodium Level 136, Potassium Level 5.2H, Chloride Level 98, Carbon Dioxide Level 25, Anion Gap 14, Blood Urea Nitrogen 73H, Creatinine 2.4H , Estimat Glomerular Filtration Rate 27.2, Glucose Level 211H, Calcium Level 9.1 , Total Bilirubin 0.4, Aspartate Amino Transf (AST/SGOT) 25, Alanine Aminotransferase (ALT/SGPT) 20, Alkaline Phosphatase 133H, Pro-B-Type Natriuretic Peptide 271H, Total Protein 6.9, Albumin 2.8L, Globulin 4.1, Albumin /Globulin Ratio 0.7L Current Medications Medications (Trade) Dose Ordered Sig/Henrik Route PRN Reason Start Time Stop Time Status Last Admin Dose Admin Acetaminophen (Tylenol) 650 mg Q8H PRN ORAL Mild Pain/Temp > 100.5 04/29/17 14:00 05/29/17 13:59 Acetaminophen/ Hydrocodone Bitart ([place] 5/325) 1 tab Q6H PRN ORAL For Pain Scale 4-10 05/01/17 11:00 05/08/17 10:59 05/01/17 12:48 Amlodipine Besylate (Norvasc) 10 mg DAILY ORAL 04/30/17 09:00 05/30/17 08:59 05/01/17 09:05 Aripiprazole (Abilify) 2 mg DAILY ORAL 05/01/17 09:00 05/31/17 08:59 Ceftriaxone Sodium 1 gm/ Dextrose 55 ml @ 110 mls/hr Q24H IVPB 05/01/17 15:00 05/08/17 14:59 05/01/17 16:00 Dextrose (Dextrose 50%) STAT PRN IV Hypoglycemia 04/29/17 13:30 05/28/17 13:29 Fluoxetine HCl (PROzac) 20 mg DAILY ORAL 05/01/17 09:00 05/31/17 08:59 05/01/17 09:05 Furosemide (Lasix) 20 mg DAILY ORAL 04/30/17 09:00 05/29/17 08:59 05/01/17 09:04 Heparin Sodium (Porcine) (Heparin 5000 units/ml) 5,000 units EVERY 12 HOURS SUBQ 04/29/17 21:00 05/28/17 20:59 05/01/17 09:10 Insulin Aspart (NovoLOG) BEFORE MEALS AND HS SUBQ 04/29/17 16:30 05/28/17 20:59 05/01/17 06:38 Lorazepam (Ativan) 1 mg Q6H PRN ORAL For Anxiety 05/01/17 04:15 05/08/17 04:14 05/01/17 09:04 Losartan Potassium (Cozaar) 100 mg DAILY@1100 ORAL 04/30/17 11:00 05/29/17 10:59 05/01/17 12:46 Metoprolol Tartrate (Lopressor) 50 mg DAILY@1100 ORAL 04/30/17 11:00 05/29/17 10:59 05/01/17 12:47 Potassium Chloride (K-Dur) 20 meq DAILY ORAL 04/30/17 09:00 05/29/17 08:59 Temazepam (Restoril) 15 mg HSPRN PRN ORAL Insomnia 04/29/17 18:45 05/05/17 23:59 BALDEMAR POLANCO May 01, 2017 16:09
[2017-05-01 20:00] VITALS: BP 109/63
--- NOTE | 2017-05-01 22:01 | Consultation ---
DATE OF CONSULTATION: 04/30/2017 PSYCHOTHERAPY CONSULTATION PROGRESS NOTE CONSULTING PHYSICIAN: Leesa Anderson M.D. TREATING ATTENDING PHYSICIAN: Oneil Curry D.O. HISTORY OF PRESENT ILLNESS: This is a 67-year-old male patient from [facility]. The patient was brought into the hospital with congestive heart failure and dermatitis. The patient was also experiencing confusion and very helpless and for these reasons, he was referred for psychotherapeutic services. This clinician assessed this patient. The patient is confused and slightly disorganized, feeling very helpless, slightly depressed, poorly motivated, had poor energy, fatigue, tired, and has some underlying agitation as well with nursing staff. There is no indication of auditory or visual hallucinations. There is no indication of suicidal or homicidal thoughts of ideation for this patient. The patient has been confused and disorganized. He has been re-directable and able to maintain attention and concentration. PAST MEDICAL HISTORY: Includes a history of status post CVA, diabetes and hypertension. ALLERGIES: The patient has no known drug allergies. SUBSTANCE ABUSE HISTORY: There is no indication of alcohol use, illicit substance use, or smoking cigarettes. PSYCHIATRIC HISTORY: The patient has history of paranoid schizophrenia. The patient has been treated with psychotropic medications in the past. SOCIAL HISTORY: The patient is a 67-year-old male patient from [facility]. The patient is financially sustained through [employer]. He is a single male patient, recently . MENTAL STATUS EXAMINATION: The patient is alert and oriented to person and place. Mood is depressed. Affect blunted. Thought process, disorganized. Thought content, confused. Poor attention and concentration. Poor insight, judgment, and impulse control. DIAGNOSIS: Schizophrenia, paranoid type. PLAN: This clinician assessed this patient, assessed the patient's mental status. Provided the patient with reality orientation, redirection and supportive psychotherapy. Encouraging the patient to participate in treatment milieu. Continue with behavioral management. This clinician has reviewed the patient's chart and discussed the treatment with the treatment team addressing the patient's depression, confusion, as well as agitation. Leesa Anderson PsyD. DR: LAURO JOB#: [id number] CC:
--- NOTE | 2017-05-01 23:51 | Cardiology Progress Note ---
Assessment/Plan Assessment/Plan 1. Dyspnea. This is unlikely to be due to acute heart failure. The patient does not have any clinical criteria for heart failure. Normal beta-natriuretic peptide essentially rules out heart failure. The patient's 2D echocardiography done in 2013 was consistent with normal LV systolic function with LVEF of more than 75%. Chest x-ray on this admission also does not show presence of pulmonary edema. 2. Diabetes mellitus. 3. Hypertension. 4. Prior history of cerebrovascular accident. Subjective Subjective No cardiac events noted. Objective Last 24 Hour Vital Signs Date Time Temp Pulse Resp B/P (MAP) Pulse Ox O2 Delivery O2 Flow Rate FiO2 05/01/17 20:00 97.7 97 18 109/63 91 05/01/17 16:00 99.0 96 20 129/110 96 05/01/17 13:00 98.7 115 20 155/95 96 05/01/17 12:47 110 155/95 05/01/17 12:46 155/95 05/01/17 09:05 110 155/95 05/01/17 08:00 98.7 116 20 165/104 95 05/01/17 04:00 97.8 105 20 134/86 94 Intake and Output 04/30/17 05/01/17 19:00 07:00 Intake Total 720 ml 300 ml Balance 720 ml 300 ml Intake Oral 720 ml 300 ml # Voids 3 4 Laboratory Tests Test 05/01/17 05:15 White Blood Count 15.0 K/UL (4.8-10.8) H Red Blood Count 5.53 M/UL (4.70-6.10) Hemoglobin 15.2 G/DL (14.2-18.0) Hematocrit 46.7 % (42.0-52.0) Mean Corpuscular Volume 84 FL (80-99) Mean Corpuscular Hemoglobin 27.5 PG (27.0-31.0) Mean Corpuscular Hemoglobin Concent 32.5 G/DL (32.0-36.0) Red Cell Distribution Width 13.6 % (11.6-14.8) Platelet Count 362 K/UL (150-450) Mean Platelet Volume 7.1 FL (6.5-10.1) Neutrophils (%) (Auto) 80.1 % (45.0-75.0) H Lymphocytes (%) (Auto) 9.6 % (20.0-45.0) L Monocytes (%) (Auto) 7.4 % (1.0-10.0) Eosinophils (%) (Auto) 2.1 % (0.0-3.0) Basophils (%) (Auto) 0.8 % (0.0-2.0) Sodium Level 136 MMOL/L (136-145) Potassium Level 5.2 MMOL/L (3.5-5.1) H Chloride Level 98 MMOL/L (98-107) Carbon Dioxide Level 25 MMOL/L (21-32) Anion Gap 14 mmol/L (5-15) Blood Urea Nitrogen 73 mg/dL (7-18) H Creatinine 2.4 MG/DL (0.55-1.30) H Estimat Glomerular Filtration Rate 27.2 mL/min (>60) Glucose Level 211 MG/DL (74-106) H Calcium Level 9.1 MG/DL (8.5-10.1) Total Bilirubin 0.4 MG/DL (0.2-1.0) Aspartate Amino Transf (AST/SGOT) 25 U/L (15-37) Alanine Aminotransferase (ALT/SGPT) 20 U/L (12-78) Alkaline Phosphatase 133 U/L (46-116) H Pro-B-Type Natriuretic Peptide 271 pg/mL (0-125) H Total Protein 6.9 G/DL (6.4-8.2) Albumin 2.8 G/DL (3.4-5.0) L Globulin 4.1 g/dL Albumin/Globulin Ratio 0.7 (1.0-2.7) L Objective HEENT: Atraumatic and normocephalic. Anicteric. Pupils are equal, round, and reactive to light and accommodation. Extraocular muscles intact. NECK: JVP less than 5 cm. No carotid bruit. Carotid upstrokes 2+ bilaterally. CARDIOVASCULAR: Normal S1 and S2. Regular rate and rhythm. No murmurs, gallops, or rubs. PMI is at fourth intercostal space in the midclavicular line. LUNGS: Clear to auscultation bilaterally. ABDOMEN: Soft, nontender, and nondistended. No hepatosplenomegaly. Positive bowel sounds. Positive G-tube. EXTREMITIES: No evidence of edema, clubbing, or cyanosis. There is 1+ bilateral edema. 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 ROXANA HILTON May 01, 2017 23:51
[2017-05-02] VITALS: BP 123/59
--- NOTE | 2017-05-02 00:30 | Consultation ---
DATE OF CONSULTATION: 05/01/2017 INFECTIOUS DISEASE CONSULTATION CONSULTING PHYSICIAN: Teo Pérez M.D. PRIMARY ATTENDING PHYSICIAN: Oneil Curry D.O. REASON FOR CONSULTATION: UTI, urinary retention. HISTORY OF PRESENT ILLNESS: The patient is a 66-year-old male admitted on 04/28/2017, from a shelter facility with some genital pain and discomfort, also was tachypneic. The patient has history of CVA and also has some psychiatric problem. He did not let me see him for two days and today complaining of genital pain. PAST MEDICAL HISTORY: Significant for diabetes mellitus type 2, hypertension, and CVA with right-sided hemiparesis/hemiplegia. MEDICATIONS: [place], Prozac, Abilify, Ativan, losartan, metoprolol, amlodipine, Lasix, potassium chloride, heparin, insulin, and Tylenol. ALLERGIES: No known drug allergies. SOCIAL HISTORY: [facility] resident. REVIEW OF SYSTEMS: No fevers. No chills. He has pain in the lower abdomen, genital area including scrotum. PHYSICAL EXAMINATION: VITAL SIGNS: Temperature 98.7 degrees, pulse is 115, and blood pressure is 155/95. HEAD AND NECK: [place] conjunctivae. HEART: S1 and S2, tachycardic. LUNGS: Clear. ABDOMEN: Soft. Bladder is distended. GENITOURINARY: He has some hydrocele. Penile shaft is retracted and cannot be seen EXTREMITIES: He has trace edema of legs. LABORATORY AND DIAGNOSTIC DATA: Bladder exam showed 950 mL urine in the bladder. Sodium 136, potassium 5.2, chloride 98, bicarbonate 25, BUN 73, and creatinine 2.4. WBC 15, hemoglobin 15.2, hematocrit 46.7, and platelets 262,000. UA showed WBC of 10-50, leukocyte esterase positive. Blood culture x2, coagulase-negative Staph. Urine culture is pending. IMPRESSION: Pyuria, likely urinary tract infection. The patient seems to have urinary retention, obstructive uropathy, has acute renal failure, diabetes mellitus type 2, has cerebrovascular accident and right hemiplegia, and has psychiatric issue. RECOMMENDATION: Insert Chavez catheter. We will start empirically on ceftriaxone. We will follow up the culture. At the end of my exam, I thank Dr. Oneil Curry for involving me in the care of this patient. Teo Pérez M.D. DR: VIKKI JOB#: [id number] CC: DEB
[2017-05-02 04:00] VITALS: BP 112/60
[2017-05-02] MEDS: NovoLOG Insulin Flexpen SUBQ SCH ×4 (06:08→21:40)
[2017-05-02 08:00] VITALS: BP 127/44
--- NOTE | 2017-05-02 08:27 | Nephrology Progress Note ---
Assessment/Plan Assessment 1. Fluid overload. 2. Acute renal failure worsen 3. Rule out diabetic nephropathy with 4+ proteinuria, possible nephrotic range. 4. hyperkalemia 5. Possible urinary tract infection. 6. Congestive heart failure. Plan Plan check chem 7 Hold kcl,losrtan,lasix monitoring renal function and electrolyte check in and out put avoid any NSAID replace electrolyte as need it Subjective Constitutional: Reports: no symptoms HEENT: Reports: no symptoms Genitourinary: Reports: no symptoms Neurologic/Psychiatric: Reports: no symptoms Subjective no acute events dines any complaints a Objective Objective Last 24 Hour Vital Signs Date Time Temp Pulse Resp B/P (MAP) Pulse Ox O2 Delivery O2 Flow Rate FiO2 05/02/17 04:00 97.6 90 18 112/60 91 05/02/17 00:00 90 Room Air 05/02/17 00:00 96.4 92 18 123/59 90 05/01/17 20:00 97.7 97 18 109/63 91 05/01/17 20:00 91 Room Air 05/01/17 16:00 99.0 96 20 129/110 96 05/01/17 13:00 98.7 115 20 155/95 96 05/01/17 12:47 110 155/95 05/01/17 12:46 155/95 05/01/17 09:05 110 155/95 Intake and Output 05/01/17 05/02/17 19:00 07:00 Intake Total 500 ml 110 ml Output Total 200 ml Balance 500 ml -90 ml Intake Oral 500 ml 110 ml Output Urine Total 200 ml # Voids 2 # Bowel Movements 1 Height (Feet): 6 Height (Inches): 1.00 Weight (Pounds): 254 Objective HEAD AND NECK: No JVP. No LAD. No thyromegaly. Extraocular movement intact. Pupils are reactive to light and accommodation. LUNGS: Bilateral crackles. CARDIAC EXAMINATION: Regular rate and rhythm. S1 and S2. No murmur. No rub. ABDOMEN: Soft, nontender, and nondistended. EXTREMITIES: Trace edema. No clubbing. No cyanosis. SANDOR DELA CRUZ May 02, 2017 08:27
[2017-05-02] MEDS: Heparin 5000 units/ml inj SUBQ SCH ×2 (08:48→21:00)
[2017-05-02] MEDS: ARIPiprazole 2mg tab ORAL SCH (09:51)
[2017-05-02] MEDS: Metoprolol Tartrate 50mg tab ORAL SCH (11:00)
[2017-05-02] MEDS: Losartan 50mg tab ORAL SCH (11:29)
--- NOTE | 2017-05-02 12:30 | Consultation ---
DATE OF CONSULTATION: 05/02/2017 CONSULTING PHYSICIAN: Rosa Yousif M.D. HISTORY OF PRESENT ILLNESS: The patient is a 67-year-old male patient, who was admitted to [facility] secondary to congestive heart failure. He continues to have altered mental status. His cognition continues to decline below baseline. That is why, his attending physician has requested daily psychological consultation. MENTAL STATUS EXAMINATION: The patient is a 67-year-old male with psychomotor retardation. Mood is depressed. Affect guarded and restricted. Thought process disorganized and illogical. Denies any suicidal or homicidal thoughts at this time. His insight and judgment is poor. DIAGNOSIS: Paranoid schizophrenia with acute exacerbation. PLAN: Continue psychotropic meds to stabilize his mood and encourage him to interact appropriately with staff and other patient. Seen and assessed at the bedside. Chart reviewed and discussed with staff. Rosa Yousif M.D. DR: KIARA JOB#: [id number] CC:
--- NOTE | 2017-05-02 12:48 | Infectious Diseases Prog Note ---
Assessment/Plan Assessment/Plan A; UTI Urinary retention Acute renal failure Paranoid schizophrenia DM P; continue Rocephin add Fluconazole Subjective ROS Limited/Unobtainable: Yes Respiratory: Reports: dry cough Psychiatric: Reports: other - noncooperative Allergies: Coded Allergies: No Known Allergies (Unverified , 01/08/14) Objective Vital Signs Last 24 Hour Vital Signs Date Time Temp Pulse Resp B/P (MAP) Pulse Ox O2 Delivery O2 Flow Rate FiO2 05/02/17 11:29 127/44 05/02/17 11:00 88 127/44 05/02/17 09:50 88 127/44 05/02/17 08:00 97.0 88 20 127/44 92 05/02/17 04:00 97.6 90 18 112/60 91 05/02/17 00:00 90 Room Air 05/02/17 00:00 96.4 92 18 123/59 90 05/01/17 20:00 97.7 97 18 109/63 91 05/01/17 20:00 91 Room Air 05/01/17 16:00 99.0 96 20 129/110 96 05/01/17 13:00 98.7 115 20 155/95 96 05/01/17 12:47 110 155/95 05/01/17 12:46 155/95 Height (Feet): 6 Height (Inches): 1.00 Weight (Pounds): 254 General Appearance: no acute distress HEENT: mucous membranes moist Respiratory/Chest: lungs clear Cardiovascular: normal rate Abdomen: soft, non tender Extremities: other - R foot anputation, edema of legs Neurologic/Psychiatric: alert, responsive Current Medications Medications (Trade) Dose Ordered Sig/Henrik Route PRN Reason Start Time Stop Time Status Last Admin Dose Admin Acetaminophen (Tylenol) 650 mg Q8H PRN ORAL Mild Pain/Temp > 100.5 04/29/17 14:00 05/29/17 13:59 Acetaminophen/ Hydrocodone Bitart ([place] 5/325) 1 tab Q6H PRN ORAL For Pain Scale 4-10 05/01/17 11:00 05/08/17 10:59 05/01/17 12:48 Amlodipine Besylate (Norvasc) 10 mg DAILY ORAL 04/30/17 09:00 05/30/17 08:59 05/02/17 09:50 Aripiprazole (Abilify) 2 mg DAILY ORAL 05/01/17 09:00 05/31/17 08:59 05/02/17 09:51 Ceftriaxone Sodium 1 gm/ Dextrose 55 ml @ 110 mls/hr Q24H IVPB 05/01/17 15:00 05/08/17 14:59 05/01/17 16:00 Dextrose (Dextrose 50%) STAT PRN IV Hypoglycemia 04/29/17 13:30 05/28/17 13:29 Fluoxetine HCl (PROzac) 20 mg DAILY ORAL 05/01/17 09:00 05/31/17 08:59 05/02/17 09:50 Furosemide (Lasix) 20 mg DAILY ORAL 04/30/17 09:00 05/29/17 08:59 05/02/17 09:50 Heparin Sodium (Porcine) (Heparin 5000 units/ml) 5,000 units EVERY 12 HOURS SUBQ 04/29/17 21:00 05/28/17 20:59 05/01/17 09:10 Insulin Aspart (NovoLOG) BEFORE MEALS AND HS SUBQ 04/29/17 16:30 05/28/17 20:59 05/02/17 06:08 Lorazepam (Ativan) 1 mg Q6H PRN ORAL For Anxiety 05/01/17 04:15 05/08/17 04:14 05/01/17 09:04 Losartan Potassium (Cozaar) 100 mg DAILY@1100 ORAL 04/30/17 11:00 05/29/17 10:59 05/02/17 11:29 Metoprolol Tartrate (Lopressor) 50 mg DAILY@1100 ORAL 04/30/17 11:00 05/29/17 10:59 05/01/17 12:47 Potassium Chloride (K-Dur) 20 meq DAILY ORAL 04/30/17 09:00 05/29/17 08:59 Temazepam (Restoril) 15 mg HSPRN PRN ORAL Insomnia 04/29/17 18:45 05/05/17 23:59 ROSALIND ALVAREZ May 02, 2017 12:48
--- NOTE | 2017-05-02 13:43 | General Progress Note ---
Assessment/Plan Problem List: (1) Malnutrition ICD Codes: E46 - Unspecified protein-calorie malnutrition SNOMED: 92566954 (2) Penile abrasion ICD Codes: S30.812A - Abrasion of penis, initial encounter SNOMED: 854392590 (3) CVA (cerebral vascular accident) ICD Codes: I63.9 - Cerebral infarction, unspecified SNOMED: 456873782 (4) ATN (acute tubular necrosis) ICD Codes: N17.0 - Acute kidney failure with tubular necrosis SNOMED: 19259300 (5) Hemiplegia ICD Codes: G81.90 - Hemiplegia, unspecified affecting unspecified side SNOMED: 43669749 (6) Weak ICD Codes: R53.1 - Weakness SNOMED: 08200410 (7) Diabetes ICD Codes: E11.9 - Type 2 diabetes mellitus without complications SNOMED: 24179328 (8) Weakness generalized ICD Codes: R53.1 - Weakness SNOMED: 63359789 (9) CHF (congestive heart failure) ICD Codes: I50.9 - Heart failure, unspecified SNOMED: 05775155 Status: unchanged Assessment/Plan ot pt diet abx wound care cbc bmp am psyc transfer Subjective Constitutional: Reports: weakness Allergies: Coded Allergies: No Known Allergies (Unverified , 01/08/14) All Systems: reviewed and negative except above Subjective sleepy calm Objective Last 24 Hour Vital Signs Date Time Temp Pulse Resp B/P (MAP) Pulse Ox O2 Delivery O2 Flow Rate FiO2 05/02/17 11:29 127/44 05/02/17 11:00 88 127/44 05/02/17 09:50 88 127/44 05/02/17 08:00 97.0 88 20 127/44 92 05/02/17 04:00 97.6 90 18 112/60 91 05/02/17 00:00 90 Room Air 05/02/17 00:00 96.4 92 18 123/59 90 05/01/17 20:00 97.7 97 18 109/63 91 05/01/17 20:00 91 Room Air 05/01/17 16:00 99.0 96 20 129/110 96 Intake and Output 05/01/17 05/02/17 19:00 07:00 Intake Total 500 ml 110 ml Output Total 200 ml Balance 500 ml -90 ml Intake Oral 500 ml 110 ml Output Urine Total 200 ml # Voids 2 # Bowel Movements 1 Height (Feet): 6 Height (Inches): 1.00 Weight (Pounds): 254 General Appearance: lethargic EENT: normal ENT inspection Neck: normal alignment Cardiovascular: normal peripheral pulses, normal rate, regular rhythm Respiratory/Chest: chest wall non-tender, lungs clear, normal breath sounds Abdomen: normal bowel sounds, non tender, soft Extremities: normal inspection Edema: no edema noted Arm (L), no edema noted Arm (R), no edema noted Leg (L), no edema noted Leg (R), no edema noted Pedal (L), no edema noted Pedal (R), no edema noted Generalized Neurologic: motor weakness Skin: normal pigmentation, warm/dry STACY PRICE May 02, 2017 13:43
[2017-05-02] MEDS ORDERED: LORazepam Inj 2mg/ml 1ml IM ONE (14:00)
[2017-05-02] MEDS: Fluconazole 100mg tab ORAL SCH (14:01)
[2017-05-02] MEDS: cefTRIAXone 1 GM in D5W 55 ML IVPB SCH (14:47)
--- NOTE | 2017-05-02 15:57 | Diagnostic Imaging Report ---
Indication:Elevated Bun and Creatinine. Technique: Grayscale and duplex Doppler imaging of the kidneys performed. Comparison: None Findings: Moderate bilateral hydronephrosis demonstrated. The kidneys are symmetric measuring between 12 and 13 cm. No abnormal fluid collections are identified. There is a Chavez catheter present. IVC is not well seen. IMPRESSION: Bilateral hydronephrosis. Chavez catheter
[2017-05-02 16:00] VITALS: BP 115/75
--- NOTE | 2017-05-02 16:50 | GI Progress Note ---
Assessment/Plan Problems: (1) At high risk for aspiration ICD Codes: Z91.89 - At high risk for aspiration SNOMED: 004339510 (2) Dysphagia ICD Codes: R13.10 - Dysphagia SNOMED: 48288326 (3) Malnutrition ICD Codes: E46 - Unspecified protein-calorie malnutrition SNOMED: 81651769 (4) Diabetes ICD Codes: E11.9 - Type 2 diabetes mellitus without complications SNOMED: 63494685 (5) Aphasia due to recent stroke ICD Codes: I69.320 - Aphasia due to recent stroke SNOMED: 86943316 (6) Altered mental status ICD Codes: R41.82 - Altered mental status, unspecified SNOMED: 892408065 (7) DM (diabetes mellitus screen) ICD Codes: Z13.1 - DM (diabetes mellitus screen) SNOMED: 622570347 (8) Non-compliance with treatment ICD Codes: Z91.19 - Patient's noncompliance with other medical treatment and regimen SNOMED: 8458434 Status: unchanged Status Narrative Discussed with Dr. Salcido. Assessment/Plan PLAN >> will remove GT tomorrow pending video swallow ADA diet, tolerating strict aspiration precautions symptomatic treatment pain mgmt ppi fu labs The patient was seen and examined at bedside and all new and available data was reviewed in the patients chart. I agree with the above findings, impression and plan. (Patient seen earlier today. Signature stamp does not reflect patient encounter time.). - Messi Salcido MD Subjective Subjective limited, agitated Objective Last 24 Hour Vital Signs Date Time Temp Pulse Resp B/P (MAP) Pulse Ox O2 Delivery O2 Flow Rate FiO2 05/02/17 11:29 127/44 05/02/17 11:00 88 127/44 05/02/17 09:50 88 127/44 05/02/17 08:00 97.0 88 20 127/44 92 05/02/17 04:00 97.6 90 18 112/60 91 05/02/17 00:00 90 Room Air 05/02/17 00:00 96.4 92 18 123/59 90 05/01/17 20:00 97.7 97 18 109/63 91 05/01/17 20:00 91 Room Air Intake and Output 05/01/17 05/02/17 19:00 07:00 Intake Total 500 ml 110 ml Output Total 200 ml Balance 500 ml -90 ml Intake Oral 500 ml 110 ml Output Urine Total 200 ml # Voids 2 # Bowel Movements 1 Laboratory Tests Test 05/02/17 16:17 Urine Eosinophils Pending Urine Random Creatinine Pending Urine Random Microalbumin Pending Urine Random Total Protein Pending Urine Random Sodium Pending Urine Creatinine Pending Urine Microalbumin/Creatinine Ratio Pending Height (Feet): 6 Height (Inches): 1.00 Weight (Pounds): 254 General Appearance: WD/WN, no apparent distress, alert, agitated Cardiovascular: normal rate Respiratory/Chest: normal breath sounds, no respiratory distress Abdominal Exam: normal bowel sounds, non tender, soft, GT site - c/d/i Extremities: normal range of motion, non-tender Nury Mendez N.Hilary May 02, 2017 16:50 KARINA SALCIDO May 03, 2017 12:07
--- NOTE | 2017-05-02 19:23 | Cardiology Progress Note ---
Assessment/Plan Assessment/Plan 1. Dyspnea. This is unlikely to be due to acute heart failure. The patient does not have any clinical criteria for heart failure. Normal beta-natriuretic peptide essentially rules out heart failure. The patient's 2D echocardiography done in 2013 was consistent with normal LV systolic function with LVEF of more than 75%. Chest x-ray on this admission also does not show presence of pulmonary edema. 2. Diabetes mellitus. 3. Hypertension. 4. Prior history of cerebrovascular accident. Subjective Subjective No cardiac events noted. Not on telemetry bed. Objective Last 24 Hour Vital Signs Date Time Temp Pulse Resp B/P (MAP) Pulse Ox O2 Delivery O2 Flow Rate FiO2 05/02/17 16:00 97.5 102 20 115/75 93 05/02/17 11:29 127/44 05/02/17 11:00 88 127/44 05/02/17 09:50 88 127/44 05/02/17 08:00 97.0 88 20 127/44 92 05/02/17 04:00 97.6 90 18 112/60 91 05/02/17 00:00 90 Room Air 05/02/17 00:00 96.4 92 18 123/59 90 05/01/17 20:00 97.7 97 18 109/63 91 05/01/17 20:00 91 Room Air Intake and Output 05/01/17 05/02/17 19:00 07:00 Intake Total 500 ml 110 ml Output Total 200 ml Balance 500 ml -90 ml Intake Oral 500 ml 110 ml Output Urine Total 200 ml # Voids 2 # Bowel Movements 1 2D Echo: Echo from Jan 2014: EF 65-70%, RVSP 14 mmHg, Biatrial enlargement. Laboratory Tests Test 05/02/17 16:17 Urine Eosinophils None seen Urine Random Creatinine Pending Urine Random Microalbumin Pending Urine Random Total Protein 1740 MG/DL (< 11.9) H Urine Random Sodium 37 MEQ/L (20-110) Urine Creatinine 31.7 MG/DL (30.0-125.0) Urine Microalbumin/Creatinine Ratio Pending Objective HEENT: Atraumatic and normocephalic. Anicteric. Pupils are equal, round, and reactive to light and accommodation. Extraocular muscles intact. NECK: JVP less than 5 cm. No carotid bruit. Carotid upstrokes 2+ bilaterally. CARDIOVASCULAR: Normal S1 and S2. Regular rate and rhythm. No murmurs, gallops, or rubs. PMI is at fourth intercostal space in the midclavicular line. LUNGS: Clear to auscultation bilaterally. ABDOMEN: Soft, nontender, and nondistended. No hepatosplenomegaly. Positive bowel sounds. Positive G-tube. EXTREMITIES: No evidence of edema, clubbing, or cyanosis. There is 1+ bilateral edema. 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 ROXANA HILTON May 02, 2017 19:23
--- NOTE | 2017-05-02 19:45 | Pulmonology Progress Note ---
Assessment/Plan Problems: (1) Bronchitis (2) ATN (acute tubular necrosis) (3) chronic ischemic multiple strokes (4) Type II diabetes mellitus, uncontrolled (5) CHF (congestive heart failure) Assessment/Plan looks comfortable refusing vitals tool [place]cke electrolytes urology evaluation check electroltyes Subjective ROS Limited/Unobtainable: No Constitutional: Reports: no symptoms HEENT: Repors: no symptoms Respiratory: Reports: no symptoms Allergies: Coded Allergies: No Known Allergies (Unverified , 01/08/14) Objective Last 24 Hour Vital Signs Date Time Temp Pulse Resp B/P (MAP) Pulse Ox O2 Delivery O2 Flow Rate FiO2 05/02/17 16:00 97.5 102 20 115/75 93 05/02/17 11:29 127/44 05/02/17 11:00 88 127/44 05/02/17 09:50 88 127/44 05/02/17 08:00 97.0 88 20 127/44 92 05/02/17 04:00 97.6 90 18 112/60 91 05/02/17 00:00 90 Room Air 05/02/17 00:00 96.4 92 18 123/59 90 05/01/17 20:00 97.7 97 18 109/63 91 05/01/17 20:00 91 Room Air Intake and Output 05/01/17 05/02/17 19:00 07:00 Intake Total 500 ml 110 ml Output Total 200 ml Balance 500 ml -90 ml Intake Oral 500 ml 110 ml Output Urine Total 200 ml # Voids 2 # Bowel Movements 1 Objective General Appearance: WD/WN HEENT: normocephalic, anicteric Respiratory/Chest: chest wall non-tender, normal breath sounds Breasts: no masses Cardiovascular: regular rhythm Genitourinary: normal external genitalia Extremities: no clubbing Skin: no rash, no lesions Laboratory Tests 05/02/17 16:17: Urine Eosinophils None seen, Urine Random Creatinine [Pending], Urine Random Microalbumin [Pending], Urine Random Total Protein 1740H, Urine Random Sodium 37 , Urine Creatinine 31.7, Urine Microalbumin/Creatinine Ratio [Pending] Current Medications Medications (Trade) Dose Ordered Sig/Henrik Route PRN Reason Start Time Stop Time Status Last Admin Dose Admin Acetaminophen (Tylenol) 650 mg Q8H PRN ORAL Mild Pain/Temp > 100.5 04/29/17 14:00 05/29/17 13:59 Acetaminophen/ Hydrocodone Bitart ([place] 5/325) 1 tab Q6H PRN ORAL For Pain Scale 4-10 05/01/17 11:00 05/08/17 10:59 05/01/17 12:48 Amlodipine Besylate (Norvasc) 10 mg DAILY ORAL 04/30/17 09:00 05/30/17 08:59 05/02/17 09:50 Aripiprazole (Abilify) 2 mg DAILY ORAL 05/01/17 09:00 05/31/17 08:59 05/02/17 09:51 Ceftriaxone Sodium 1 gm/ Dextrose 55 ml @ 110 mls/hr Q24H IVPB 05/01/17 15:00 05/08/17 14:59 05/02/17 14:47 Dextrose (Dextrose 50%) STAT PRN IV Hypoglycemia 04/29/17 13:30 05/28/17 13:29 Fluconazole (Diflucan) 100 mg DAILY ORAL 05/02/17 14:00 05/09/17 13:59 05/02/17 14:01 Fluoxetine HCl (PROzac) 20 mg DAILY ORAL 05/01/17 09:00 05/31/17 08:59 05/02/17 09:50 Furosemide (Lasix) 20 mg DAILY ORAL 04/30/17 09:00 05/29/17 08:59 05/02/17 09:50 Heparin Sodium (Porcine) (Heparin 5000 units/ml) 5,000 units EVERY 12 HOURS SUBQ 04/29/17 21:00 05/28/17 20:59 05/01/17 09:10 Insulin Aspart (NovoLOG) BEFORE MEALS AND HS SUBQ 04/29/17 16:30 05/28/17 20:59 05/02/17 06:08 Lorazepam (Ativan) 1 mg Q6H PRN ORAL For Anxiety 05/01/17 04:15 05/08/17 04:14 05/01/17 09:04 Losartan Potassium (Cozaar) 100 mg DAILY@1100 ORAL 04/30/17 11:00 05/29/17 10:59 05/02/17 11:29 Metoprolol Tartrate (Lopressor) 50 mg DAILY@1100 ORAL 04/30/17 11:00 05/29/17 10:59 05/01/17 12:47 Potassium Chloride (K-Dur) 20 meq DAILY ORAL 04/30/17 09:00 05/29/17 08:59 Temazepam (Restoril) 15 mg HSPRN PRN ORAL Insomnia 04/29/17 18:45 05/05/17 23:59 BALDEMAR POLANCO May 02, 2017 19:44
[2017-05-03 04:00] VITALS: BP 122/72
[2017-05-03 06:17] LABS: BASOPHILS % (AUTO) 0.9 % (0.0-2.0); EOSINOPHILS % (AUTO) 2.7 % (0.0-3.0); HEMATOCRIT 41.9 % (42.0-52.0); HEMOGLOBIN 14.2 G/DL (14.2-18.0); LYMPHOCYTES % (AUTO) 19.1 % (20.0-45.0); MEAN CORPUSCULAR VOLUME 85 FL (80-99); MONOCYTES % (AUTO) 10.2 % (1.0-10.0); NEUTROPHILS % (AUTO) 67.2 % (45.0-75.0); PLATELET COUNT 341 K/UL (150-450); RED BLOOD COUNT 4.91 M/UL (4.70-6.10); RED CELL DISTRIBUTION WIDTH 14.2 % (11.6-14.8); WHITE BLOOD COUNT 11.8 K/UL (4.8-10.8)
[2017-05-03 06:33] LABS: ANION GAP 9 mmol/L (5-15); BLOOD UREA NITROGEN 59 mg/dL (7-18); CARBON DIOXIDE 28 MMOL/L (21-32); CHLORIDE 104 MMOL/L (98-107); CREATININE 1.6 MG/DL (0.55-1.30); POTASSIUM 4.1 MMOL/L (3.5-5.1); SODIUM 141 MMOL/L (136-145)
[2017-05-03] MEDS: NovoLOG Insulin Flexpen SUBQ SCH ×4 (06:42→21:45)
[2017-05-03 08:00] VITALS: BP 113/60
[2017-05-03] MEDS: Fluconazole 100mg tab ORAL SCH (08:58)
[2017-05-03] MEDS: Heparin 5000 units/ml inj SUBQ SCH ×2 (09:06→21:43)
[2017-05-03] MEDS: ARIPiprazole 2mg tab ORAL SCH (09:13)
--- NOTE | 2017-05-03 11:04 | Infectious Diseases Prog Note ---
Assessment/Plan Assessment/Plan A; UTI Urinary retention Bilateral hydronephrosis Acute renal failure Paranoid schizophrenia DM P; continue Rocephin & Fluconazole repeat UA, UC Subjective ROS Limited/Unobtainable: Yes Gastrointestinal/Abdominal: Reports: no symptoms Allergies: Coded Allergies: No Known Allergies (Unverified , 01/08/14) Objective Vital Signs Last 24 Hour Vital Signs Date Time Temp Pulse Resp B/P (MAP) Pulse Ox O2 Delivery O2 Flow Rate FiO2 05/03/17 08:58 80 122/72 05/03/17 08:00 97.7 87 20 113/60 91 05/03/17 04:00 80 21 122/72 93 Room Air 05/02/17 16:00 97.5 102 20 115/75 93 05/02/17 11:29 127/44 Height (Feet): 6 Height (Inches): 1.00 Weight (Pounds): 254 General Appearance: no acute distress HEENT: mucous membranes moist Respiratory/Chest: lungs clear Cardiovascular: normal rate Abdomen: soft, non tender Genitourinary: other - Chavez catheter, hematuria Extremities: no edema, other - foot amputation Neurologic/Psychiatric: alert, responsive Laboratory Tests Test 05/02/17 16:17 05/03/17 04:00 Urine Eosinophils None seen Urine Random Creatinine Pending Urine Random Microalbumin Pending Urine Random Total Protein 1740 MG/DL (< 11.9) H Urine Random Sodium 37 MEQ/L (20-110) Urine Creatinine 31.7 MG/DL (30.0-125.0) Urine Microalbumin/Creatinine Ratio Pending White Blood Count 11.8 K/UL (4.8-10.8) H Red Blood Count 4.91 M/UL (4.70-6.10) Hemoglobin 14.2 G/DL (14.2-18.0) Hematocrit 41.9 % (42.0-52.0) L Mean Corpuscular Volume 85 FL (80-99) Mean Corpuscular Hemoglobin 28.9 PG (27.0-31.0) Mean Corpuscular Hemoglobin Concent 33.8 G/DL (32.0-36.0) Red Cell Distribution Width 14.2 % (11.6-14.8) Platelet Count 341 K/UL (150-450) Mean Platelet Volume 7.2 FL (6.5-10.1) Neutrophils (%) (Auto) 67.2 % (45.0-75.0) Lymphocytes (%) (Auto) 19.1 % (20.0-45.0) L Monocytes (%) (Auto) 10.2 % (1.0-10.0) H Eosinophils (%) (Auto) 2.7 % (0.0-3.0) Basophils (%) (Auto) 0.9 % (0.0-2.0) Sodium Level 141 MMOL/L (136-145) Potassium Level 4.1 MMOL/L (3.5-5.1) Chloride Level 104 MMOL/L (98-107) Carbon Dioxide Level 28 MMOL/L (21-32) Anion Gap 9 mmol/L (5-15) Blood Urea Nitrogen 59 mg/dL (7-18) H Creatinine 1.6 MG/DL (0.55-1.30) H Estimat Glomerular Filtration Rate 43.5 mL/min (>60) Glucose Level 175 MG/DL (74-106) H Calcium Level 9.0 MG/DL (8.5-10.1) Current Medications Medications (Trade) Dose Ordered Sig/Henrik Route PRN Reason Start Time Stop Time Status Last Admin Dose Admin Acetaminophen (Tylenol) 650 mg Q8H PRN ORAL Mild Pain/Temp > 100.5 04/29/17 14:00 05/29/17 13:59 Acetaminophen/ Hydrocodone Bitart ([place] 5/325) 1 tab Q6H PRN ORAL For Pain Scale 4-10 05/01/17 11:00 05/08/17 10:59 05/01/17 12:48 Amlodipine Besylate (Norvasc) 10 mg DAILY ORAL 04/30/17 09:00 05/30/17 08:59 05/03/17 08:58 Aripiprazole (Abilify) 2 mg DAILY ORAL 05/01/17 09:00 05/31/17 08:59 05/03/17 09:13 Ceftriaxone Sodium 1 gm/ Dextrose 55 ml @ 110 mls/hr Q24H IVPB 05/01/17 15:00 05/08/17 14:59 05/02/17 14:47 Dextrose (Dextrose 50%) STAT PRN IV Hypoglycemia 04/29/17 13:30 05/28/17 13:29 Fluconazole (Diflucan) 100 mg DAILY ORAL 05/02/17 14:00 05/09/17 13:59 05/03/17 08:58 Fluoxetine HCl (PROzac) 20 mg DAILY ORAL 05/01/17 09:00 05/31/17 08:59 05/03/17 08:58 Furosemide (Lasix) 20 mg DAILY ORAL 04/30/17 09:00 05/29/17 08:59 05/03/17 08:59 Heparin Sodium (Porcine) (Heparin 5000 units/ml) 5,000 units EVERY 12 HOURS SUBQ 04/29/17 21:00 05/28/17 20:59 05/03/17 09:06 Insulin Aspart (NovoLOG) BEFORE MEALS AND HS SUBQ 04/29/17 16:30 05/28/17 20:59 05/03/17 06:42 Lorazepam (Ativan) 1 mg Q6H PRN ORAL For Anxiety 05/01/17 04:15 05/08/17 04:14 05/01/17 09:04 Losartan Potassium (Cozaar) 100 mg DAILY@1100 ORAL 04/30/17 11:00 05/29/17 10:59 05/02/17 11:29 Metoprolol Tartrate (Lopressor) 50 mg DAILY@1100 ORAL 04/30/17 11:00 05/29/17 10:59 05/01/17 12:47 Potassium Chloride (K-Dur) 20 meq DAILY ORAL 04/30/17 09:00 05/29/17 08:59 05/03/17 08:58 Temazepam (Restoril) 15 mg HSPRN PRN ORAL Insomnia 04/29/17 18:45 05/05/17 23:59 ROSALIND ALVAREZ May 03, 2017 11:04
[2017-05-03] MEDS: Metoprolol Tartrate 50mg tab ORAL SCH (11:40)
[2017-05-03] MEDS: Losartan 50mg tab ORAL SCH (11:40)
[2017-05-03] MEDS: Norco 5mg/325mg tab ORAL PRN (11:51)
[2017-05-03 12:00] VITALS: BP 119/66
--- NOTE | 2017-05-03 12:21 | Nephrology Progress Note ---
Assessment/Plan Assessment 1. Fluid overload. 2. Acute renal failure improving 3. Rule out diabetic nephropathy with 4+ proteinuria, possible nephrotic range. 4. hyperkalemia 5. Possible urinary tract infection. 6. Congestive heart failure. Plan Plan check chem 7 Hold kcl,losrtan,lasix monitoring renal function and electrolyte check in and out put avoid any NSAID replace electrolyte as need it Subjective HEENT: Reports: no symptoms Genitourinary: Reports: no symptoms Neurologic/Psychiatric: Reports: no symptoms Subjective no acute events dines any complaints a Objective Objective Last 24 Hour Vital Signs Date Time Temp Pulse Resp B/P (MAP) Pulse Ox O2 Delivery O2 Flow Rate FiO2 05/03/17 11:40 81 119/86 05/03/17 11:40 122/72 05/03/17 08:58 80 122/72 05/03/17 08:00 97.7 87 20 113/60 91 05/03/17 04:00 80 21 122/72 93 Room Air 05/02/17 16:00 97.5 102 20 115/75 93 Intake and Output 05/02/17 05/03/17 19:00 07:00 Intake Total 240 ml 240 ml Output Total 2750 ml 1600 ml Balance -2510 ml -1360 ml Intake Oral 240 ml 240 ml Output Urine Total 2750 ml 1600 ml Laboratory Tests 05/02/17 16:17: Urine Eosinophils None seen, Urine Random Creatinine [Pending], Urine Random Microalbumin [Pending], Urine Random Total Protein 1740H, Urine Random Sodium 37 , Urine Creatinine 31.7, Urine Microalbumin/Creatinine Ratio [Pending] 05/03/17 04:00: White Blood Count 11.8H, Red Blood Count 4.91, Hemoglobin 14.2, Hematocrit 41.9L , Mean Corpuscular Volume 85, Mean Corpuscular Hemoglobin 28.9, Mean Corpuscular Hemoglobin Concent 33.8, Red Cell Distribution Width 14.2, Platelet Count 341, Mean Platelet Volume 7.2, Neutrophils (%) (Auto) 67.2, Lymphocytes (% ) (Auto) 19.1L, Monocytes (%) (Auto) 10.2H, Eosinophils (%) (Auto) 2.7, Basophils (%) (Auto) 0.9, Sodium Level 141, Potassium Level 4.1, Chloride Level 104, Carbon Dioxide Level 28, Anion Gap 9, Blood Urea Nitrogen 59H, Creatinine 1.6H, Estimat Glomerular Filtration Rate 43.5, Glucose Level 175H, Calcium Level 9.0 Height (Feet): 6 Height (Inches): 1.00 Weight (Pounds): 254 Objective HEAD AND NECK: No JVP. No LAD. No thyromegaly. Extraocular movement intact. Pupils are reactive to light and accommodation. LUNGS: Bilateral crackles. CARDIAC EXAMINATION: Regular rate and rhythm. S1 and S2. No murmur. No rub. ABDOMEN: Soft, nontender, and nondistended. EXTREMITIES: Trace edema. No clubbing. No cyanosis. SANDOR DELA CRUZ May 03, 2017 12:21
--- NOTE | 2017-05-03 13:47 | GI Progress Note ---
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 Salcido. Assessment/Plan refused video swallow GT removed today >> GT site pressure dressing change BID/prn ADA diet, tolerating strict aspiration precautions symptomatic treatment pain mgmt ppi fu labs okay for DC per GI standpoint Subjective Subjective limited, agitated Objective Last 24 Hour Vital Signs Date Time Temp Pulse Resp B/P (MAP) Pulse Ox O2 Delivery O2 Flow Rate FiO2 05/03/17 12:00 97.5 81 19 119/66 94 05/03/17 11:40 81 119/86 05/03/17 11:40 122/72 05/03/17 08:58 80 122/72 05/03/17 08:00 97.7 87 20 113/60 91 05/03/17 04:00 80 21 122/72 93 Room Air 05/02/17 16:00 97.5 102 20 115/75 93 Intake and Output 05/02/17 05/03/17 19:00 07:00 Intake Total 240 ml 240 ml Output Total 2750 ml 1600 ml Balance -2510 ml -1360 ml Intake Oral 240 ml 240 ml Output Urine Total 2750 ml 1600 ml Laboratory Tests Test 05/02/17 16:17 05/03/17 04:00 Urine Eosinophils None seen Urine Random Creatinine Pending Urine Random Microalbumin Pending Urine Random Total Protein 1740 MG/DL (< 11.9) H Urine Random Sodium 37 MEQ/L (20-110) Urine Creatinine 31.7 MG/DL (30.0-125.0) Urine Microalbumin/Creatinine Ratio Pending White Blood Count 11.8 K/UL (4.8-10.8) H Red Blood Count 4.91 M/UL (4.70-6.10) Hemoglobin 14.2 G/DL (14.2-18.0) Hematocrit 41.9 % (42.0-52.0) L Mean Corpuscular Volume 85 FL (80-99) Mean Corpuscular Hemoglobin 28.9 PG (27.0-31.0) Mean Corpuscular Hemoglobin Concent 33.8 G/DL (32.0-36.0) Red Cell Distribution Width 14.2 % (11.6-14.8) Platelet Count 341 K/UL (150-450) Mean Platelet Volume 7.2 FL (6.5-10.1) Neutrophils (%) (Auto) 67.2 % (45.0-75.0) Lymphocytes (%) (Auto) 19.1 % (20.0-45.0) L Monocytes (%) (Auto) 10.2 % (1.0-10.0) H Eosinophils (%) (Auto) 2.7 % (0.0-3.0) Basophils (%) (Auto) 0.9 % (0.0-2.0) Sodium Level 141 MMOL/L (136-145) Potassium Level 4.1 MMOL/L (3.5-5.1) Chloride Level 104 MMOL/L (98-107) Carbon Dioxide Level 28 MMOL/L (21-32) Anion Gap 9 mmol/L (5-15) Blood Urea Nitrogen 59 mg/dL (7-18) H Creatinine 1.6 MG/DL (0.55-1.30) H Estimat Glomerular Filtration Rate 43.5 mL/min (>60) Glucose Level 175 MG/DL (74-106) H Calcium Level 9.0 MG/DL (8.5-10.1) Height (Feet): 6 Height (Inches): 1.00 Weight (Pounds): 254 General Appearance: WD/WN, no apparent distress, alert, obese Cardiovascular: normal rate Respiratory/Chest: normal breath sounds, no respiratory distress Abdominal Exam: normal bowel sounds, non tender, soft, GT site - removed today Extremities: normal range of motion, non-tender Nury Mendez N.P. May 03, 2017 13:47
--- NOTE | 2017-05-03 15:27 | General Progress Note ---
Assessment/Plan Problem List: (1) Malnutrition ICD Codes: E46 - Unspecified protein-calorie malnutrition SNOMED: 10421313 (2) Penile abrasion ICD Codes: S30.812A - Abrasion of penis, initial encounter SNOMED: 535402794 (3) CVA (cerebral vascular accident) ICD Codes: I63.9 - Cerebral infarction, unspecified SNOMED: 955288775 (4) ATN (acute tubular necrosis) ICD Codes: N17.0 - Acute kidney failure with tubular necrosis SNOMED: 76359378 (5) Hemiplegia ICD Codes: G81.90 - Hemiplegia, unspecified affecting unspecified side SNOMED: 13014417 (6) Weak ICD Codes: R53.1 - Weakness SNOMED: 17315087 (7) Diabetes ICD Codes: E11.9 - Type 2 diabetes mellitus without complications SNOMED: 88118062 (8) Weakness generalized ICD Codes: R53.1 - Weakness SNOMED: 17020349 (9) CHF (congestive heart failure) ICD Codes: I50.9 - Heart failure, unspecified SNOMED: 68211411 Status: stable, progressing, tolerating diet Assessment/Plan ot pt diet abx wound care cbc bmp am psyc transfer vs dc plan Subjective Constitutional: Reports: weakness Allergies: Coded Allergies: No Known Allergies (Unverified , 01/08/14) All Systems: reviewed and negative except above Subjective sleepy calm Objective Last 24 Hour Vital Signs Date Time Temp Pulse Resp B/P (MAP) Pulse Ox O2 Delivery O2 Flow Rate FiO2 05/03/17 12:00 97.5 81 19 119/66 94 05/03/17 11:40 81 119/86 05/03/17 11:40 122/72 05/03/17 08:58 80 122/72 05/03/17 08:00 97.7 87 20 113/60 91 05/03/17 04:00 80 21 122/72 93 Room Air 05/02/17 16:00 97.5 102 20 115/75 93 Intake and Output 05/02/17 05/03/17 19:00 07:00 Intake Total 240 ml 240 ml Output Total 2750 ml 1600 ml Balance -2510 ml -1360 ml Intake Oral 240 ml 240 ml Output Urine Total 2750 ml 1600 ml Laboratory Tests 05/02/17 16:17: Urine Eosinophils None seen, Urine Random Total Protein 1740H, Urine Random Sodium 37, Urine Creatinine 31.7 05/03/17 04:00: White Blood Count 11.8H, Red Blood Count 4.91, Hemoglobin 14.2, Hematocrit 41.9L , Mean Corpuscular Volume 85, Mean Corpuscular Hemoglobin 28.9, Mean Corpuscular Hemoglobin Concent 33.8, Red Cell Distribution Width 14.2, Platelet Count 341, Mean Platelet Volume 7.2, Neutrophils (%) (Auto) 67.2, Lymphocytes (% ) (Auto) 19.1L, Monocytes (%) (Auto) 10.2H, Eosinophils (%) (Auto) 2.7, Basophils (%) (Auto) 0.9, Sodium Level 141, Potassium Level 4.1, Chloride Level 104, Carbon Dioxide Level 28, Anion Gap 9, Blood Urea Nitrogen 59H, Creatinine 1.6H, Estimat Glomerular Filtration Rate 43.5, Glucose Level 175H, Calcium Level 9.0 Height (Feet): 6 Height (Inches): 1.00 Weight (Pounds): 254 General Appearance: lethargic EENT: normal ENT inspection Neck: normal alignment Cardiovascular: normal peripheral pulses, normal rate, regular rhythm Respiratory/Chest: chest wall non-tender, lungs clear, normal breath sounds Abdomen: normal bowel sounds, non tender, soft Extremities: normal inspection Edema: no edema noted Arm (L), no edema noted Arm (R), no edema noted Leg (L), no edema noted Leg (R), no edema noted Pedal (L), no edema noted Pedal (R), no edema noted Generalized Neurologic: motor weakness Skin: normal pigmentation, warm/dry STACY PRICE May 03, 2017 15:27
[2017-05-03 16:00] VITALS: BP 103/53
[2017-05-03] MEDS: cefTRIAXone 1 GM in D5W 55 ML IVPB SCH (16:15)
--- NOTE | 2017-05-03 18:44 | Pulmonology Progress Note ---
Assessment/Plan Problems: (1) Bronchitis (2) ATN (acute tubular necrosis) (3) chronic ischemic multiple strokes (4) Type II diabetes mellitus, uncontrolled (5) CHF (congestive heart failure) Assessment/Plan no new complains looks comfortable refusing vitals tool checke electrolytes check electroltyes dc planning soon Subjective ROS Limited/Unobtainable: No Constitutional: Reports: no symptoms HEENT: Repors: no symptoms Allergies: Coded Allergies: No Known Allergies (Unverified , 01/08/14) Objective Last 24 Hour Vital Signs Date Time Temp Pulse Resp B/P (MAP) Pulse Ox O2 Delivery O2 Flow Rate FiO2 05/03/17 16:00 97.0 63 21 103/53 92 05/03/17 16:00 Room Air 05/03/17 12:00 97.5 81 19 119/66 94 05/03/17 12:00 Room Air 05/03/17 11:40 81 119/86 05/03/17 11:40 122/72 05/03/17 08:58 80 122/72 05/03/17 08:00 97.7 87 20 113/60 91 05/03/17 08:00 Room Air 05/03/17 04:00 80 21 122/72 93 Room Air Intake and Output 05/02/17 05/03/17 19:00 07:00 Intake Total 240 ml 240 ml Output Total 2750 ml 1600 ml Balance -2510 ml -1360 ml Intake Oral 240 ml 240 ml Output Urine Total 2750 ml 1600 ml Objective General Appearance: WD/WN HEENT: normocephalic, anicteric Respiratory/Chest: chest wall non-tender, normal breath sounds Breasts: no masses Cardiovascular: regular rhythm Genitourinary: normal external genitalia Extremities: no clubbing Skin: no rash, no lesions Laboratory Tests 05/03/17 04:00: White Blood Count 11.8H, Red Blood Count 4.91, Hemoglobin 14.2, Hematocrit 41.9L , Mean Corpuscular Volume 85, Mean Corpuscular Hemoglobin 28.9, Mean Corpuscular Hemoglobin Concent 33.8, Red Cell Distribution Width 14.2, Platelet Count 341, Mean Platelet Volume 7.2, Neutrophils (%) (Auto) 67.2, Lymphocytes (% ) (Auto) 19.1L, Monocytes (%) (Auto) 10.2H, Eosinophils (%) (Auto) 2.7, Basophils (%) (Auto) 0.9, Sodium Level 141, Potassium Level 4.1, Chloride Level 104, Carbon Dioxide Level 28, Anion Gap 9, Blood Urea Nitrogen 59H, Creatinine 1.6H, Estimat Glomerular Filtration Rate 43.5, Glucose Level 175H, Calcium Level 9.0 Current Medications Medications (Trade) Dose Ordered Sig/Henrik Route PRN Reason Start Time Stop Time Status Last Admin Dose Admin Acetaminophen (Tylenol) 650 mg Q8H PRN ORAL Mild Pain/Temp > 100.5 04/29/17 14:00 05/29/17 13:59 Acetaminophen/ Hydrocodone Bitart ([place] 5/325) 1 tab Q6H PRN ORAL For Pain Scale 4-10 05/01/17 11:00 05/08/17 10:59 05/03/17 11:51 Amlodipine Besylate (Norvasc) 10 mg DAILY ORAL 04/30/17 09:00 05/30/17 08:59 05/03/17 08:58 Aripiprazole (Abilify) 2 mg DAILY ORAL 05/01/17 09:00 05/31/17 08:59 05/03/17 09:13 Ceftriaxone Sodium 1 gm/ Dextrose 55 ml @ 110 mls/hr Q24H IVPB 05/01/17 15:00 05/08/17 14:59 05/03/17 16:15 Dextrose (Dextrose 50%) STAT PRN IV Hypoglycemia 04/29/17 13:30 05/28/17 13:29 Fluconazole (Diflucan) 100 mg DAILY ORAL 05/02/17 14:00 05/09/17 13:59 05/03/17 08:58 Fluoxetine HCl (PROzac) 20 mg DAILY ORAL 05/01/17 09:00 05/31/17 08:59 05/03/17 08:58 Furosemide (Lasix) 20 mg DAILY ORAL 04/30/17 09:00 05/29/17 08:59 05/03/17 08:59 Heparin Sodium (Porcine) (Heparin 5000 units/ml) 5,000 units EVERY 12 HOURS SUBQ 04/29/17 21:00 05/28/17 20:59 05/03/17 09:06 Insulin Aspart (NovoLOG) BEFORE MEALS AND HS SUBQ 04/29/17 16:30 05/28/17 20:59 05/03/17 16:45 Lorazepam (Ativan) 1 mg Q6H PRN ORAL For Anxiety 05/01/17 04:15 05/08/17 04:14 05/01/17 09:04 Losartan Potassium (Cozaar) 100 mg DAILY@1100 ORAL 04/30/17 11:00 05/29/17 10:59 05/03/17 11:40 Metoprolol Tartrate (Lopressor) 50 mg DAILY@1100 ORAL 04/30/17 11:00 05/29/17 10:59 05/03/17 11:40 Potassium Chloride (K-Dur) 20 meq DAILY ORAL 04/30/17 09:00 05/29/17 08:59 05/03/17 08:58 Temazepam (Restoril) 15 mg HSPRN PRN ORAL Insomnia 04/29/17 18:45 05/05/17 23:59 BALDEMAR POLANCO May 03, 2017 18:44
[2017-05-03 20:00] VITALS: BP 123/75
--- NOTE | 2017-05-03 21:52 | Cardiology Progress Note ---
Assessment/Plan Assessment/Plan 1. Dyspnea unlikely heart failure, beta-natriuretic peptide is normal, LVEF >75% . Chest x-ray on this admission also does not show presence of pulmonary edema. 2. Diabetes mellitus. 3. Hypertension. 4. Prior history of cerebrovascular accident. Subjective Subjective No cardiac events noted. Not on telemetry bed. Objective Last 24 Hour Vital Signs Date Time Temp Pulse Resp B/P (MAP) Pulse Ox O2 Delivery O2 Flow Rate FiO2 05/03/17 16:00 97.0 63 21 103/53 92 05/03/17 16:00 Room Air 05/03/17 12:00 97.5 81 19 119/66 94 05/03/17 12:00 Room Air 05/03/17 11:40 81 119/86 05/03/17 11:40 122/72 05/03/17 08:58 80 122/72 05/03/17 08:00 97.7 87 20 113/60 91 05/03/17 08:00 Room Air 05/03/17 04:00 80 21 122/72 93 Room Air Intake and Output 05/02/17 05/03/17 19:00 07:00 Intake Total 240 ml 240 ml Output Total 2750 ml 1600 ml Balance -2510 ml -1360 ml Intake Oral 240 ml 240 ml Output Urine Total 2750 ml 1600 ml 2D Echo: Echo from Jan 2014: EF 65-70%, RVSP 14 mmHg, Biatrial enlargement. Laboratory Tests Test 05/03/17 04:00 White Blood Count 11.8 K/UL (4.8-10.8) H Red Blood Count 4.91 M/UL (4.70-6.10) Hemoglobin 14.2 G/DL (14.2-18.0) Hematocrit 41.9 % (42.0-52.0) L Mean Corpuscular Volume 85 FL (80-99) Mean Corpuscular Hemoglobin 28.9 PG (27.0-31.0) Mean Corpuscular Hemoglobin Concent 33.8 G/DL (32.0-36.0) Red Cell Distribution Width 14.2 % (11.6-14.8) Platelet Count 341 K/UL (150-450) Mean Platelet Volume 7.2 FL (6.5-10.1) Neutrophils (%) (Auto) 67.2 % (45.0-75.0) Lymphocytes (%) (Auto) 19.1 % (20.0-45.0) L Monocytes (%) (Auto) 10.2 % (1.0-10.0) H Eosinophils (%) (Auto) 2.7 % (0.0-3.0) Basophils (%) (Auto) 0.9 % (0.0-2.0) Sodium Level 141 MMOL/L (136-145) Potassium Level 4.1 MMOL/L (3.5-5.1) Chloride Level 104 MMOL/L (98-107) Carbon Dioxide Level 28 MMOL/L (21-32) Anion Gap 9 mmol/L (5-15) Blood Urea Nitrogen 59 mg/dL (7-18) H Creatinine 1.6 MG/DL (0.55-1.30) H Estimat Glomerular Filtration Rate 43.5 mL/min (>60) Glucose Level 175 MG/DL (74-106) H Calcium Level 9.0 MG/DL (8.5-10.1) Objective HEENT: Atraumatic and normocephalic. Anicteric. Pupils are equal, round, and reactive to light and accommodation. Extraocular muscles intact. NECK: JVP less than 5 cm. No carotid bruit. Carotid upstrokes 2+ bilaterally. CARDIOVASCULAR: Normal S1 and S2. Regular rate and rhythm. No murmurs, gallops, or rubs. PMI is at fourth intercostal space in the midclavicular line. LUNGS: Clear to auscultation bilaterally. ABDOMEN: Soft, nontender, and nondistended. No hepatosplenomegaly. Positive bowel sounds. Positive G-tube. EXTREMITIES: No evidence of edema, clubbing, or cyanosis. There is 1+ bilateral edema. 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 ROXANA HILTON May 03, 2017 21:52
[2017-05-04] VITALS: BP 121/73
[2017-05-04 04:00] VITALS: BP 124/76
[2017-05-04] MEDS: NovoLOG Insulin Flexpen SUBQ SCH ×4 (06:28→21:15)
[2017-05-04 07:04] LABS: BASOPHILS % (AUTO) 0.8 % (0.0-2.0); EOSINOPHILS % (AUTO) 5.4 % (0.0-3.0); HEMATOCRIT 42.7 % (42.0-52.0); HEMOGLOBIN 14.3 G/DL (14.2-18.0); LYMPHOCYTES % (AUTO) 17.9 % (20.0-45.0); MEAN CORPUSCULAR VOLUME 85 FL (80-99); MONOCYTES % (AUTO) 5.1 % (1.0-10.0); NEUTROPHILS % (AUTO) 70.9 % (45.0-75.0); PLATELET COUNT 394 K/UL (150-450); RED BLOOD COUNT 5.02 M/UL (4.70-6.10); WHITE BLOOD COUNT 10.7 K/UL (4.8-10.8)
[2017-05-04 07:39] LABS: ANION GAP 11 mmol/L (5-15); BLOOD UREA NITROGEN 41 mg/dL (7-18); CALCIUM 9.6 MG/DL (8.5-10.1); CARBON DIOXIDE 27 MMOL/L (21-32); CHLORIDE 104 MMOL/L (98-107); CREATININE 1.2 MG/DL (0.55-1.30); POTASSIUM 3.8 MMOL/L (3.5-5.1); SODIUM 142 MMOL/L (136-145)
--- NOTE | 2017-05-04 07:42 | General Progress Note ---
Assessment/Plan Problem List: (1) Malnutrition ICD Codes: E46 - Unspecified protein-calorie malnutrition SNOMED: 92513267 (2) Penile abrasion ICD Codes: S30.812A - Abrasion of penis, initial encounter SNOMED: 454029749 (3) CVA (cerebral vascular accident) ICD Codes: I63.9 - Cerebral infarction, unspecified SNOMED: 601918187 (4) ATN (acute tubular necrosis) ICD Codes: N17.0 - Acute kidney failure with tubular necrosis SNOMED: 62439931 (5) Hemiplegia ICD Codes: G81.90 - Hemiplegia, unspecified affecting unspecified side SNOMED: 35661935 (6) Weak ICD Codes: R53.1 - Weakness SNOMED: 25890278 (7) Diabetes ICD Codes: E11.9 - Type 2 diabetes mellitus without complications SNOMED: 98674126 (8) Weakness generalized ICD Codes: R53.1 - Weakness SNOMED: 32180663 (9) CHF (congestive heart failure) ICD Codes: I50.9 - Heart failure, unspecified SNOMED: 53362846 Status: doing well, stable, progressing Assessment/Plan ot pt diet abx wound care cbc bmp am psyc transfer vs dc plan Subjective Constitutional: Reports: weakness Allergies: Coded Allergies: No Known Allergies (Unverified , 01/08/14) All Systems: reviewed and negative except above Subjective sleepy calm Objective Last 24 Hour Vital Signs Date Time Temp Pulse Resp B/P (MAP) Pulse Ox O2 Delivery O2 Flow Rate FiO2 05/04/17 04:00 96.8 67 19 124/76 93 Room Air 05/04/17 00:00 97.9 70 19 121/73 93 Room Air 05/03/17 20:00 98.2 69 20 123/75 92 Room Air 05/03/17 16:00 97.0 63 21 103/53 92 05/03/17 16:00 Room Air 05/03/17 12:00 97.5 81 19 119/66 94 05/03/17 12:00 Room Air 05/03/17 11:40 81 119/86 05/03/17 11:40 122/72 05/03/17 08:58 80 122/72 05/03/17 08:00 97.7 87 20 113/60 91 05/03/17 08:00 Room Air Intake and Output 05/03/17 05/04/17 19:00 07:00 Intake Total 1000 ml 360 ml Output Total 1450 ml 1100 ml Balance -450 ml -740 ml Intake Oral 1000 ml 360 ml Output Urine Total 1450 ml 1100 ml Laboratory Tests 05/04/17 05:10: White Blood Count 10.7, Red Blood Count 5.02, Hemoglobin 14.3, Hematocrit 42.7, Mean Corpuscular Volume 85, Mean Corpuscular Hemoglobin 28.5, Mean Corpuscular Hemoglobin Concent 33.5, Red Cell Distribution Width 14.0, Platelet Count 394, Mean Platelet Volume 7.3, Neutrophils (%) (Auto) 70.9, Lymphocytes (%) (Auto) 17.9L, Monocytes (%) (Auto) 5.1, Eosinophils (%) (Auto) 5.4H, Basophils (%) ( Auto) 0.8 05/04/17 05:20: Sodium Level [Pending], Potassium Level [Pending], Chloride Level [Pending], Carbon Dioxide Level [Pending], Blood Urea Nitrogen [Pending], Creatinine [ Pending], Estimat Glomerular Filtration Rate [Pending], Glucose Level [Pending] , Calcium Level [Pending] Height (Feet): 6 Height (Inches): 1.00 Weight (Pounds): 254 General Appearance: confused EENT: normal ENT inspection Neck: normal alignment Cardiovascular: normal peripheral pulses, normal rate, regular rhythm Respiratory/Chest: chest wall non-tender, lungs clear, normal breath sounds Abdomen: normal bowel sounds, non tender, soft Extremities: normal inspection Edema: no edema noted Arm (L), no edema noted Arm (R), no edema noted Leg (L), no edema noted Leg (R), no edema noted Pedal (L), no edema noted Pedal (R), no edema noted Generalized Neurologic: motor weakness Skin: normal pigmentation, warm/dry STACY PRICE May 04, 2017 07:42
[2017-05-04 08:49] VITALS: BP 140/72
[2017-05-04] MEDS: ARIPiprazole 2mg tab ORAL SCH (09:18)
[2017-05-04] MEDS: Fluconazole 100mg tab ORAL SCH (09:18)
[2017-05-04] MEDS: Norco 5mg/325mg tab ORAL PRN (09:19)
[2017-05-04] MEDS: Heparin 5000 units/ml inj SUBQ SCH ×2 (09:25→21:14)
[2017-05-04 11:52] VITALS: BP 155/87
[2017-05-04] MEDS: Metoprolol Tartrate 50mg tab ORAL SCH (12:06)
[2017-05-04] MEDS: Losartan 50mg tab ORAL SCH (12:06)
--- NOTE | 2017-05-04 12:49 | Nephrology Progress Note ---
Assessment/Plan Assessment 1. Fluid overload. 2. Acute renal failure improving 3. Rule out diabetic nephropathy with 4+ proteinuria, possible nephrotic range. 4. hyperkalemia 5. Possible urinary tract infection. 6. Congestive heart failure. Plan Plan check chem 7 monitoring renal function and electrolyte check in and out put avoid any NSAID replace electrolyte as need it Subjective Constitutional: Reports: no symptoms HEENT: Reports: no symptoms Genitourinary: Reports: no symptoms Neurologic/Psychiatric: Reports: no symptoms Subjective no acute events dines any complaints a Objective Objective Last 24 Hour Vital Signs Date Time Temp Pulse Resp B/P (MAP) Pulse Ox O2 Delivery O2 Flow Rate FiO2 05/04/17 12:06 92 155/87 05/04/17 12:06 155/87 05/04/17 11:52 98.4 92 20 155/87 93 05/04/17 09:17 86 140/72 05/04/17 08:49 97.3 86 20 140/72 93 05/04/17 04:00 96.8 67 19 124/76 93 Room Air 05/04/17 00:00 97.9 70 19 121/73 93 Room Air 05/03/17 20:00 98.2 69 20 123/75 92 Room Air 05/03/17 16:00 97.0 63 21 103/53 92 05/03/17 16:00 Room Air Intake and Output 05/03/17 05/04/17 19:00 07:00 Intake Total 1000 ml 360 ml Output Total 1450 ml 1100 ml Balance -450 ml -740 ml Intake Oral 1000 ml 360 ml Output Urine Total 1450 ml 1100 ml Laboratory Tests 05/04/17 05:10: White Blood Count 10.7, Red Blood Count 5.02, Hemoglobin 14.3, Hematocrit 42.7, Mean Corpuscular Volume 85, Mean Corpuscular Hemoglobin 28.5, Mean Corpuscular Hemoglobin Concent 33.5, Red Cell Distribution Width 14.0, Platelet Count 394, Mean Platelet Volume 7.3, Neutrophils (%) (Auto) 70.9, Lymphocytes (%) (Auto) 17.9L, Monocytes (%) (Auto) 5.1, Eosinophils (%) (Auto) 5.4H, Basophils (%) ( Auto) 0.8 05/04/17 05:20: Sodium Level 142, Potassium Level 3.8, Chloride Level 104, Carbon Dioxide Level 27, Anion Gap 11, Blood Urea Nitrogen 41H, Creatinine 1.2, Estimat Glomerular Filtration Rate > 60, Glucose Level 156H, Calcium Level 9.6 Height (Feet): 6 Height (Inches): 1.00 Weight (Pounds): 254 Objective HEAD AND NECK: No JVP. No LAD. No thyromegaly. Extraocular movement intact. Pupils are reactive to light and accommodation. LUNGS: Bilateral crackles. CARDIAC EXAMINATION: Regular rate and rhythm. S1 and S2. No murmur. No rub. ABDOMEN: Soft, nontender, and nondistended. EXTREMITIES: Trace edema. No clubbing. No cyanosis. SANDOR DELA CRUZ May 04, 2017 12:49
--- NOTE | 2017-05-04 16:00 | Pulmonology Progress Note ---
Assessment/Plan Problems: (1) Bronchitis (2) ATN (acute tubular necrosis) (3) chronic ischemic multiple strokes (4) Type II diabetes mellitus, uncontrolled (5) CHF (congestive heart failure) Assessment/Plan looks comfortable refusing vitals tool checke electrolytes urology evaluation check electroltyes Subjective ROS Limited/Unobtainable: No Constitutional: Reports: no symptoms Respiratory: Reports: no symptoms Allergies: Coded Allergies: No Known Allergies (Unverified , 01/08/14) Objective Last 24 Hour Vital Signs Date Time Temp Pulse Resp B/P (MAP) Pulse Ox O2 Delivery O2 Flow Rate FiO2 05/04/17 12:06 92 155/87 05/04/17 12:06 155/87 05/04/17 11:52 98.4 92 20 155/87 93 05/04/17 09:17 86 140/72 05/04/17 08:49 97.3 86 20 140/72 93 05/04/17 04:00 96.8 67 19 124/76 93 Room Air 05/04/17 00:00 97.9 70 19 121/73 93 Room Air 05/03/17 20:00 98.2 69 20 123/75 92 Room Air Intake and Output 05/03/17 05/04/17 19:00 07:00 Intake Total 1000 ml 360 ml Output Total 1450 ml 1100 ml Balance -450 ml -740 ml Intake Oral 1000 ml 360 ml Output Urine Total 1450 ml 1100 ml Objective General Appearance: WD/WN HEENT: normocephalic, anicteric Respiratory/Chest: chest wall non-tender, normal breath sounds Breasts: no masses Cardiovascular: regular rhythm Genitourinary: normal external genitalia Extremities: no clubbing Skin: no rash, no lesions Laboratory Tests 05/04/17 05:10: White Blood Count 10.7, Red Blood Count 5.02, Hemoglobin 14.3, Hematocrit 42.7, Mean Corpuscular Volume 85, Mean Corpuscular Hemoglobin 28.5, Mean Corpuscular Hemoglobin Concent 33.5, Red Cell Distribution Width 14.0, Platelet Count 394, Mean Platelet Volume 7.3, Neutrophils (%) (Auto) 70.9, Lymphocytes (%) (Auto) 17.9L, Monocytes (%) (Auto) 5.1, Eosinophils (%) (Auto) 5.4H, Basophils (%) ( Auto) 0.8 05/04/17 05:20: Sodium Level 142, Potassium Level 3.8, Chloride Level 104, Carbon Dioxide Level 27, Anion Gap 11, Blood Urea Nitrogen 41H, Creatinine 1.2, Estimat Glomerular Filtration Rate > 60, Glucose Level 156H, Calcium Level 9.6 Current Medications Medications (Trade) Dose Ordered Sig/Henrik Route PRN Reason Start Time Stop Time Status Last Admin Dose Admin Acetaminophen (Tylenol) 650 mg Q8H PRN ORAL Mild Pain/Temp > 100.5 04/29/17 14:00 05/29/17 13:59 Acetaminophen/ Hydrocodone Bitart ([place] 5/325) 1 tab Q6H PRN ORAL For Pain Scale 4-10 05/01/17 11:00 05/08/17 10:59 05/04/17 09:19 Amlodipine Besylate (Norvasc) 10 mg DAILY ORAL 04/30/17 09:00 05/30/17 08:59 05/04/17 09:17 Aripiprazole (Abilify) 2 mg DAILY ORAL 05/01/17 09:00 05/31/17 08:59 05/04/17 09:18 Ceftriaxone Sodium 1 gm/ Dextrose 55 ml @ 110 mls/hr Q24H IVPB 05/01/17 15:00 05/08/17 14:59 05/03/17 16:15 Dextrose (Dextrose 50%) STAT PRN IV Hypoglycemia 04/29/17 13:30 05/28/17 13:29 Fluconazole (Diflucan) 100 mg DAILY ORAL 05/02/17 14:00 05/09/17 13:59 05/04/17 09:18 Fluoxetine HCl (PROzac) 20 mg DAILY ORAL 05/01/17 09:00 05/31/17 08:59 05/04/17 09:17 Furosemide (Lasix) 20 mg DAILY ORAL 04/30/17 09:00 05/29/17 08:59 05/04/17 09:18 Heparin Sodium (Porcine) (Heparin 5000 units/ml) 5,000 units EVERY 12 HOURS SUBQ 04/29/17 21:00 05/28/17 20:59 05/04/17 09:25 Insulin Aspart (NovoLOG) BEFORE MEALS AND HS SUBQ 04/29/17 16:30 05/28/17 20:59 05/04/17 12:25 Lorazepam (Ativan) 1 mg Q6H PRN ORAL For Anxiety 05/01/17 04:15 05/08/17 04:14 05/01/17 09:04 Losartan Potassium (Cozaar) 100 mg DAILY@1100 ORAL 04/30/17 11:00 05/29/17 10:59 05/04/17 12:06 Metoprolol Tartrate (Lopressor) 50 mg DAILY@1100 ORAL 04/30/17 11:00 05/29/17 10:59 05/04/17 12:06 Potassium Chloride (K-Dur) 20 meq DAILY ORAL 04/30/17 09:00 05/29/17 08:59 05/04/17 09:17 Temazepam (Restoril) 15 mg HSPRN PRN ORAL Insomnia 04/29/17 18:45 05/05/17 23:59 BALDEMAR POLANCO May 04, 2017 16:00
[2017-05-04] MEDS: cefTRIAXone 1 GM in D5W 55 ML IVPB SCH (16:20)
[2017-05-04] MEDS ORDERED: Tubing IV Secondary IV ONE ×2 (16:30→18:11)
[2017-05-04] MEDS ORDERED: NS 275ml ONE ×2 (16:30→18:11)
[2017-05-04] MEDS ORDERED: NS Irrig 4000ml IRRIG ONE (18:11)
[2017-05-04 20:04] VITALS: BP 129/84
--- NOTE | 2017-05-05 01:01 | Progress Note ---
DATE: 05/04/2017 SUBJECTIVE: A 67-year-old male patient with congestive heart failure. This patient continues to have some confusion, disorganized thought process, and mood lability. He is confused and disorganized and because of decline in cognition, his attending physician requested daily psychiatric consultation for this patient. MENTAL STATUS EXAMINATION: A 67-year-old male with psychomotor retardation. Mood is depressed. Affect guarded and restricted. Thought process disorganized and illogical. Denies any current suicidal or homicidal thoughts. Insight and judgment is poor. DIAGNOSIS: Paranoid schizophrenia, acute exacerbation. PLAN: Continue titrating up with his medications to stabilize his mood, reduce mood lability, and prevent any further decline in his cognition. Chart reviewed and discussed with staff. Rosa Yousif M.D. DR: Lizette JOB#: [id number] CC:
[2017-05-05] MEDS: NovoLOG Insulin Flexpen SUBQ SCH ×4 (06:29→20:17)
[2017-05-05 07:36] LABS: BASOPHILS % (AUTO) 0.7 % (0.0-2.0); EOSINOPHILS % (AUTO) 2.7 % (0.0-3.0); HEMATOCRIT 43.6 % (42.0-52.0); HEMOGLOBIN 14.9 G/DL (14.2-18.0); LYMPHOCYTES % (AUTO) 11.3 % (20.0-45.0); MEAN CORPUSCULAR VOLUME 85 FL (80-99); MONOCYTES % (AUTO) 5.8 % (1.0-10.0); NEUTROPHILS % (AUTO) 79.6 % (45.0-75.0); PLATELET COUNT 430 K/UL (150-450); RED BLOOD COUNT 5.16 M/UL (4.70-6.10); RED CELL DISTRIBUTION WIDTH 13.9 % (11.6-14.8); WHITE BLOOD COUNT 11.9 K/UL (4.8-10.8)
--- NOTE | 2017-05-05 07:59 | General Progress Note ---
Assessment/Plan Problem List: (1) Malnutrition ICD Codes: E46 - Unspecified protein-calorie malnutrition SNOMED: 34729378 (2) Penile abrasion ICD Codes: S30.812A - Abrasion of penis, initial encounter SNOMED: 385124479 (3) CVA (cerebral vascular accident) ICD Codes: I63.9 - Cerebral infarction, unspecified SNOMED: 202299393 (4) ATN (acute tubular necrosis) ICD Codes: N17.0 - Acute kidney failure with tubular necrosis SNOMED: 37652715 (5) Hemiplegia ICD Codes: G81.90 - Hemiplegia, unspecified affecting unspecified side SNOMED: 39829705 (6) Weak ICD Codes: R53.1 - Weakness SNOMED: 66086317 (7) Diabetes ICD Codes: E11.9 - Type 2 diabetes mellitus without complications SNOMED: 12518473 (8) Weakness generalized ICD Codes: R53.1 - Weakness SNOMED: 16570356 (9) CHF (congestive heart failure) ICD Codes: I50.9 - Heart failure, unspecified SNOMED: 17936205 Status: unchanged Assessment/Plan ot pt diet abx wound care cbc bmp am psyc transfer vs dc plan Subjective Constitutional: Reports: weakness Allergies: Coded Allergies: No Known Allergies (Unverified , 01/08/14) All Systems: reviewed and negative except above Subjective sleepy calm Objective Last 24 Hour Vital Signs Date Time Temp Pulse Resp B/P (MAP) Pulse Ox O2 Delivery O2 Flow Rate FiO2 05/04/17 20:04 97.7 74 20 129/84 93 05/04/17 12:06 92 155/87 05/04/17 12:06 155/87 05/04/17 11:52 98.4 92 20 155/87 93 05/04/17 09:17 86 140/72 05/04/17 08:49 97.3 86 20 140/72 93 Intake and Output 05/04/17 05/05/17 19:00 07:00 Intake Total 960 ml 600 ml Output Total 400 ml 2300 ml Balance 560 ml -1700 ml Intake Oral 960 ml 600 ml Output Urine Total 400 ml 2300 ml Laboratory Tests 05/05/17 05:40: White Blood Count 11.9H, Red Blood Count 5.16, Hemoglobin 14.9, Hematocrit 43.6 , Mean Corpuscular Volume 85, Mean Corpuscular Hemoglobin 28.9, Mean Corpuscular Hemoglobin Concent 34.1, Red Cell Distribution Width 13.9, Platelet Count 430, Mean Platelet Volume 6.4L, Neutrophils (%) (Auto) 79.6H, Lymphocytes (%) (Auto) 11.3L, Monocytes (%) (Auto) 5.8, Eosinophils (%) (Auto) 2.7, Basophils (%) (Auto) 0.7, Sodium Level [Pending], Potassium Level [Pending], Chloride Level [Pending], Carbon Dioxide Level [Pending], Blood Urea Nitrogen [ Pending], Creatinine [Pending], Estimat Glomerular Filtration Rate [Pending], Glucose Level [Pending], Calcium Level [Pending] Height (Feet): 6 Height (Inches): 1.00 Weight (Pounds): 254 General Appearance: lethargic, confused EENT: normal ENT inspection Neck: normal alignment Cardiovascular: normal peripheral pulses, normal rate, regular rhythm Respiratory/Chest: chest wall non-tender, lungs clear, normal breath sounds Abdomen: normal bowel sounds, non tender, soft Extremities: normal inspection Edema: no edema noted Arm (L), no edema noted Arm (R), no edema noted Leg (L), no edema noted Leg (R), no edema noted Pedal (L), no edema noted Pedal (R), no edema noted Generalized Neurologic: motor weakness Skin: normal pigmentation, warm/dry STACY PRICE May 05, 2017 07:59
[2017-05-05 08:03] VITALS: BP 128/44
[2017-05-05 08:10] LABS: ANION GAP 13 mmol/L (5-15); BLOOD UREA NITROGEN 40 mg/dL (7-18); CARBON DIOXIDE 25 MMOL/L (21-32); CHLORIDE 102 MMOL/L (98-107); CREATININE 1.4 MG/DL (0.55-1.30); SODIUM 140 MMOL/L (136-145)
[2017-05-05] MEDS: ARIPiprazole 2mg tab ORAL SCH (08:35)
[2017-05-05] MEDS: Fluconazole 100mg tab ORAL SCH (08:35)
[2017-05-05] MEDS: Heparin 5000 units/ml inj SUBQ SCH ×2 (08:46→20:27)
[2017-05-05] MEDS: Norco 5mg/325mg tab ORAL PRN ×2 (08:56→17:52)
[2017-05-05] MEDS: Metoprolol Tartrate 50mg tab ORAL SCH (10:47)
[2017-05-05] MEDS: Losartan 50mg tab ORAL SCH (10:48)
[2017-05-05 12:00] VITALS: BP 120/53
--- NOTE | 2017-05-05 12:41 | Infectious Diseases Prog Note ---
Assessment/Plan Assessment/Plan A; UTI Urinary retention Bilateral hydronephrosis Gross hematuria Acute renal failure Paranoid schizophrenia DM P; continue Rocephin & Fluconazole will f/u UC Urologic evaluation Subjective ROS Limited/Unobtainable: Yes Constitutional: Reports: no symptoms, other Respiratory: Reports: no symptoms Gastrointestinal/Abdominal: Reports: no symptoms Genitourinary: Reports: no symptoms Allergies: Coded Allergies: No Known Allergies (Unverified , 01/08/14) Objective Vital Signs Last 24 Hour Vital Signs Date Time Temp Pulse Resp B/P (MAP) Pulse Ox O2 Delivery O2 Flow Rate FiO2 05/05/17 10:48 128/44 05/05/17 10:47 87 128/44 05/05/17 08:35 87 128/44 05/05/17 08:03 96.5 87 19 128/44 95 05/04/17 20:04 97.7 74 20 129/84 93 Height (Feet): 6 Height (Inches): 1.00 Weight (Pounds): 254 HEENT: mucous membranes moist Respiratory/Chest: lungs clear Cardiovascular: normal rate Abdomen: soft, non tender Genitourinary: other - Chavez, gross hematuria Extremities: no edema Neurologic/Psychiatric: alert, responsive Microbiology Date/Time Source Procedure Growth Status 05/03/17 08:00 Indwelling Cath Urine Culture - Preliminary Gram Negative Bacillus 1 Resulted Laboratory Tests Test 05/05/17 05:40 White Blood Count 11.9 K/UL (4.8-10.8) H Red Blood Count 5.16 M/UL (4.70-6.10) Hemoglobin 14.9 G/DL (14.2-18.0) Hematocrit 43.6 % (42.0-52.0) Mean Corpuscular Volume 85 FL (80-99) Mean Corpuscular Hemoglobin 28.9 PG (27.0-31.0) Mean Corpuscular Hemoglobin Concent 34.1 G/DL (32.0-36.0) Red Cell Distribution Width 13.9 % (11.6-14.8) Platelet Count 430 K/UL (150-450) Mean Platelet Volume 6.4 FL (6.5-10.1) L Neutrophils (%) (Auto) 79.6 % (45.0-75.0) H Lymphocytes (%) (Auto) 11.3 % (20.0-45.0) L Monocytes (%) (Auto) 5.8 % (1.0-10.0) Eosinophils (%) (Auto) 2.7 % (0.0-3.0) Basophils (%) (Auto) 0.7 % (0.0-2.0) Sodium Level 140 MMOL/L (136-145) Potassium Level 4.0 MMOL/L (3.5-5.1) Chloride Level 102 MMOL/L (98-107) Carbon Dioxide Level 25 MMOL/L (21-32) Anion Gap 13 mmol/L (5-15) Blood Urea Nitrogen 40 mg/dL (7-18) H Creatinine 1.4 MG/DL (0.55-1.30) H Estimat Glomerular Filtration Rate 50.7 mL/min (>60) Glucose Level 204 MG/DL (74-106) H Calcium Level 10.0 MG/DL (8.5-10.1) Current Medications Medications (Trade) Dose Ordered Sig/Henrik Route PRN Reason Start Time Stop Time Status Last Admin Dose Admin Acetaminophen (Tylenol) 650 mg Q8H PRN ORAL Mild Pain/Temp > 100.5 04/29/17 14:00 05/29/17 13:59 Acetaminophen/ Hydrocodone Bitart ([place] 5/325) 1 tab Q6H PRN ORAL For Pain Scale 4-10 05/01/17 11:00 05/08/17 10:59 05/05/17 08:56 Amlodipine Besylate (Norvasc) 10 mg DAILY ORAL 04/30/17 09:00 05/30/17 08:59 05/05/17 08:35 Aripiprazole (Abilify) 2 mg DAILY ORAL 05/01/17 09:00 05/31/17 08:59 05/05/17 08:35 Ceftriaxone Sodium 1 gm/ Dextrose 55 ml @ 110 mls/hr Q24H IVPB 05/01/17 15:00 05/08/17 14:59 05/04/17 16:20 Dextrose (Dextrose 50%) STAT PRN IV Hypoglycemia 04/29/17 13:30 05/28/17 13:29 Fluconazole (Diflucan) 100 mg DAILY ORAL 05/02/17 14:00 05/09/17 13:59 05/05/17 08:35 Fluoxetine HCl (PROzac) 20 mg DAILY ORAL 05/01/17 09:00 05/31/17 08:59 05/05/17 08:36 Furosemide (Lasix) 20 mg DAILY ORAL 04/30/17 09:00 05/29/17 08:59 05/05/17 08:35 Heparin Sodium (Porcine) (Heparin 5000 units/ml) 5,000 units EVERY 12 HOURS SUBQ 04/29/17 21:00 05/28/17 20:59 05/05/17 08:46 Insulin Aspart (NovoLOG) BEFORE MEALS AND HS SUBQ 04/29/17 16:30 05/28/17 20:59 05/05/17 11:28 Lorazepam (Ativan) 1 mg Q6H PRN ORAL For Anxiety 05/01/17 04:15 05/08/17 04:14 05/01/17 09:04 Losartan Potassium (Cozaar) 100 mg DAILY@1100 ORAL 04/30/17 11:00 05/29/17 10:59 05/05/17 10:48 Metoprolol Tartrate (Lopressor) 50 mg DAILY@1100 ORAL 04/30/17 11:00 05/29/17 10:59 05/05/17 10:47 Potassium Chloride (K-Dur) 20 meq DAILY ORAL 04/30/17 09:00 05/29/17 08:59 05/05/17 08:35 Temazepam (Restoril) 15 mg HSPRN PRN ORAL Insomnia 04/29/17 18:45 05/05/17 23:59 ROSALIND ALVAREZ May 05, 2017 12:41
--- NOTE | 2017-05-05 14:05 | Pulmonology Progress Note ---
Assessment/Plan Problems: (1) Bronchitis (2) ATN (acute tubular necrosis) (3) chronic ischemic multiple strokes (4) Type II diabetes mellitus, uncontrolled (5) CHF (congestive heart failure) Assessment/Plan no new complains looks comfortable refusing vitals tool checke electrolytes check electroltyes dc planning soon Subjective ROS Limited/Unobtainable: No Allergies: Coded Allergies: No Known Allergies (Unverified , 01/08/14) Objective Last 24 Hour Vital Signs Date Time Temp Pulse Resp B/P (MAP) Pulse Ox O2 Delivery O2 Flow Rate FiO2 05/05/17 12:00 97.8 67 18 120/53 93 Room Air 05/05/17 10:48 128/44 05/05/17 10:47 87 128/44 05/05/17 08:35 87 128/44 05/05/17 08:03 96.5 87 19 128/44 95 05/04/17 20:04 97.7 74 20 129/84 93 Intake and Output 05/04/17 05/05/17 19:00 07:00 Intake Total 960 ml 600 ml Output Total 400 ml 2300 ml Balance 560 ml -1700 ml Intake Oral 960 ml 600 ml Output Urine Total 400 ml 2300 ml Objective General Appearance: WD/WN HEENT: normocephalic, anicteric Respiratory/Chest: chest wall non-tender, normal breath sounds Breasts: no masses Cardiovascular: regular rhythm Genitourinary: normal external genitalia Extremities: no clubbing Skin: no rash, no lesions Microbiology Date/Time Source Procedure Growth Status 05/03/17 08:00 Indwelling Cath Urine Culture - Preliminary Gram Negative Bacillus 1 Resulted Laboratory Tests 05/05/17 05:40: White Blood Count 11.9H, Red Blood Count 5.16, Hemoglobin 14.9, Hematocrit 43.6 , Mean Corpuscular Volume 85, Mean Corpuscular Hemoglobin 28.9, Mean Corpuscular Hemoglobin Concent 34.1, Red Cell Distribution Width 13.9, Platelet Count 430, Mean Platelet Volume 6.4L, Neutrophils (%) (Auto) 79.6H, Lymphocytes (%) (Auto) 11.3L, Monocytes (%) (Auto) 5.8, Eosinophils (%) (Auto) 2.7, Basophils (%) (Auto) 0.7, Sodium Level 140, Potassium Level 4.0, Chloride Level 102, Carbon Dioxide Level 25, Anion Gap 13, Blood Urea Nitrogen 40H, Creatinine 1.4H, Estimat Glomerular Filtration Rate 50.7, Glucose Level 204H, Calcium Level 10.0 Current Medications Medications (Trade) Dose Ordered Sig/Henrik Route PRN Reason Start Time Stop Time Status Last Admin Dose Admin Acetaminophen (Tylenol) 650 mg Q8H PRN ORAL Mild Pain/Temp > 100.5 04/29/17 14:00 05/29/17 13:59 Acetaminophen/ Hydrocodone Bitart ([place] 5/325) 1 tab Q6H PRN ORAL For Pain Scale 4-10 05/01/17 11:00 05/08/17 10:59 05/05/17 08:56 Amlodipine Besylate (Norvasc) 10 mg DAILY ORAL 04/30/17 09:00 05/30/17 08:59 05/05/17 08:35 Aripiprazole (Abilify) 2 mg DAILY ORAL 05/01/17 09:00 05/31/17 08:59 05/05/17 08:35 Ceftriaxone Sodium 1 gm/ Dextrose 55 ml @ 110 mls/hr Q24H IVPB 05/01/17 15:00 05/08/17 14:59 05/04/17 16:20 Dextrose (Dextrose 50%) STAT PRN IV Hypoglycemia 04/29/17 13:30 05/28/17 13:29 Fluconazole (Diflucan) 100 mg DAILY ORAL 05/02/17 14:00 05/09/17 13:59 05/05/17 08:35 Fluoxetine HCl (PROzac) 20 mg DAILY ORAL 05/01/17 09:00 05/31/17 08:59 05/05/17 08:36 Furosemide (Lasix) 20 mg DAILY ORAL 04/30/17 09:00 05/29/17 08:59 05/05/17 08:35 Heparin Sodium (Porcine) (Heparin 5000 units/ml) 5,000 units EVERY 12 HOURS SUBQ 04/29/17 21:00 05/28/17 20:59 05/05/17 08:46 Insulin Aspart (NovoLOG) BEFORE MEALS AND HS SUBQ 04/29/17 16:30 05/28/17 20:59 05/05/17 11:28 Lorazepam (Ativan) 1 mg Q6H PRN ORAL For Anxiety 05/01/17 04:15 05/08/17 04:14 05/01/17 09:04 Losartan Potassium (Cozaar) 100 mg DAILY@1100 ORAL 04/30/17 11:00 05/29/17 10:59 05/05/17 10:48 Metoprolol Tartrate (Lopressor) 50 mg DAILY@1100 ORAL 04/30/17 11:00 05/29/17 10:59 05/05/17 10:47 Potassium Chloride (K-Dur) 20 meq DAILY ORAL 04/30/17 09:00 05/29/17 08:59 05/05/17 08:35 Temazepam (Restoril) 15 mg HSPRN PRN ORAL Insomnia 04/29/17 18:45 05/05/17 23:59 BALDEMAR POLANCO May 05, 2017 14:05
--- NOTE | 2017-05-05 14:19 | Nephrology Progress Note ---
Assessment/Plan Assessment 1. Fluid overload. 2. Acute renal failure worsen 3. Rule out diabetic nephropathy with 4+ proteinuria, possible nephrotic range. 4. hyperkalemia 5. Possible urinary tract infection. 6. Congestive heart failure. Plan Plan check chem 7 monitoring renal function and electrolyte check in and out put avoid any NSAID replace electrolyte as need it Subjective Constitutional: Reports: no symptoms Genitourinary: Reports: no symptoms Neurologic/Psychiatric: Reports: no symptoms Subjective no acute events dines any complaints a Objective Objective Last 24 Hour Vital Signs Date Time Temp Pulse Resp B/P (MAP) Pulse Ox O2 Delivery O2 Flow Rate FiO2 05/05/17 12:00 97.8 67 18 120/53 93 Room Air 05/05/17 10:48 128/44 05/05/17 10:47 87 128/44 05/05/17 08:35 87 128/44 05/05/17 08:03 96.5 87 19 128/44 95 05/04/17 20:04 97.7 74 20 129/84 93 Intake and Output 05/04/17 05/05/17 19:00 07:00 Intake Total 960 ml 600 ml Output Total 400 ml 2300 ml Balance 560 ml -1700 ml Intake Oral 960 ml 600 ml Output Urine Total 400 ml 2300 ml Laboratory Tests 05/05/17 05:40: White Blood Count 11.9H, Red Blood Count 5.16, Hemoglobin 14.9, Hematocrit 43.6 , Mean Corpuscular Volume 85, Mean Corpuscular Hemoglobin 28.9, Mean Corpuscular Hemoglobin Concent 34.1, Red Cell Distribution Width 13.9, Platelet Count 430, Mean Platelet Volume 6.4L, Neutrophils (%) (Auto) 79.6H, Lymphocytes (%) (Auto) 11.3L, Monocytes (%) (Auto) 5.8, Eosinophils (%) (Auto) 2.7, Basophils (%) (Auto) 0.7, Sodium Level 140, Potassium Level 4.0, Chloride Level 102, Carbon Dioxide Level 25, Anion Gap 13, Blood Urea Nitrogen 40H, Creatinine 1.4H, Estimat Glomerular Filtration Rate 50.7, Glucose Level 204H, Calcium Level 10.0 Height (Feet): 6 Height (Inches): 1.00 Weight (Pounds): 254 Objective HEAD AND NECK: No JVP. No LAD. No thyromegaly. Extraocular movement intact. Pupils are reactive to light and accommodation. LUNGS: Bilateral crackles. CARDIAC EXAMINATION: Regular rate and rhythm. S1 and S2. No murmur. No rub. ABDOMEN: Soft, nontender, and nondistended. EXTREMITIES: Trace edema. No clubbing. No cyanosis. SANDOR DELA CRUZ May 05, 2017 14:19
[2017-05-05 16:05] VITALS: BP 128/74
[2017-05-05] MEDS: cefTRIAXone 1 GM in D5W 55 ML IVPB SCH (16:05)
[2017-05-05 20:00] VITALS: BP 121/72
--- NOTE | 2017-05-05 23:53 | Cardiology Progress Note ---
Assessment/Plan Assessment/Plan 1. Dyspnea unlikely heart failure, beta-natriuretic peptide is normal, LVEF >75% . Chest x-ray on this admission with no evidence of pulmonary edema. 2. Diabetes mellitus, consider adding ASA and statins. 3. Hypertension, continue amlodipine, metoprolol and losartan. 4. Prior history of cerebrovascular accident, ASA for secondary preventive measures. Subjective Subjective No cardiac events noted. No chest pain or SOB reported. Objective Last 24 Hour Vital Signs Date Time Temp Pulse Resp B/P (MAP) Pulse Ox O2 Delivery O2 Flow Rate FiO2 05/05/17 20:00 97.5 78 16 121/72 91 Room Air 05/05/17 16:05 97.9 72 18 128/74 92 Nasal Cannula 05/05/17 12:00 97.8 67 18 120/53 93 Room Air 05/05/17 10:48 128/44 05/05/17 10:47 87 128/44 05/05/17 08:35 87 128/44 05/05/17 08:03 96.5 87 19 128/44 95 Intake and Output 05/04/17 05/05/17 19:00 07:00 Intake Total 960 ml 600 ml Output Total 400 ml 2300 ml Balance 560 ml -1700 ml Intake Oral 960 ml 600 ml Output Urine Total 400 ml 2300 ml 2D Echo: Echo from Jan 2014: EF 65-70%, RVSP 14 mmHg, Biatrial enlargement. Laboratory Tests Test 05/05/17 05:40 White Blood Count 11.9 K/UL (4.8-10.8) H Red Blood Count 5.16 M/UL (4.70-6.10) Hemoglobin 14.9 G/DL (14.2-18.0) Hematocrit 43.6 % (42.0-52.0) Mean Corpuscular Volume 85 FL (80-99) Mean Corpuscular Hemoglobin 28.9 PG (27.0-31.0) Mean Corpuscular Hemoglobin Concent 34.1 G/DL (32.0-36.0) Red Cell Distribution Width 13.9 % (11.6-14.8) Platelet Count 430 K/UL (150-450) Mean Platelet Volume 6.4 FL (6.5-10.1) L Neutrophils (%) (Auto) 79.6 % (45.0-75.0) H Lymphocytes (%) (Auto) 11.3 % (20.0-45.0) L Monocytes (%) (Auto) 5.8 % (1.0-10.0) Eosinophils (%) (Auto) 2.7 % (0.0-3.0) Basophils (%) (Auto) 0.7 % (0.0-2.0) Sodium Level 140 MMOL/L (136-145) Potassium Level 4.0 MMOL/L (3.5-5.1) Chloride Level 102 MMOL/L (98-107) Carbon Dioxide Level 25 MMOL/L (21-32) Anion Gap 13 mmol/L (5-15) Blood Urea Nitrogen 40 mg/dL (7-18) H Creatinine 1.4 MG/DL (0.55-1.30) H Estimat Glomerular Filtration Rate 50.7 mL/min (>60) Glucose Level 204 MG/DL (74-106) H Calcium Level 10.0 MG/DL (8.5-10.1) Microbiology Date/Time Source Procedure Growth Status 05/03/17 08:00 Indwelling Cath Urine Culture - Preliminary Gram Negative Bacillus 1 Resulted Objective HEENT: Atraumatic and normocephalic. Anicteric. Pupils are equal, round, and reactive to light and accommodation. Extraocular muscles intact. NECK: JVP less than 5 cm. No carotid bruit. Carotid upstrokes 2+ bilaterally. CARDIOVASCULAR: Normal S1 and S2. Regular rate and rhythm. No murmurs, gallops, or rubs. PMI is at fourth intercostal space in the midclavicular line. LUNGS: Clear to auscultation bilaterally. ABDOMEN: Soft, nontender, and nondistended. No hepatosplenomegaly. Positive bowel sounds. Positive G-tube. EXTREMITIES: No evidence of edema, clubbing, or cyanosis. There is 1+ bilateral edema. 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 ROXANA HILTON May 05, 2017 23:53
[2017-05-06 00:36] VITALS: BP 127/65
[2017-05-06 04:00] VITALS: BP 136/78
[2017-05-06] MEDS: Norco 5mg/325mg tab ORAL PRN ×2 (06:22→14:05)
[2017-05-06] MEDS: NovoLOG Insulin Flexpen SUBQ SCH ×3 (06:25→16:37)
[2017-05-06 07:53] LABS: BASOPHILS % (AUTO) 0.8 % (0.0-2.0); EOSINOPHILS % (AUTO) 3.7 % (0.0-3.0); HEMATOCRIT 44.6 % (42.0-52.0); HEMOGLOBIN 14.8 G/DL (14.2-18.0); LYMPHOCYTES % (AUTO) 18.6 % (20.0-45.0); MEAN CORPUSCULAR VOLUME 85 FL (80-99); PLATELET COUNT 359 K/UL (150-450); RED BLOOD COUNT 5.22 M/UL (4.70-6.10); RED CELL DISTRIBUTION WIDTH 14.2 % (11.6-14.8); WHITE BLOOD COUNT 11.4 K/UL (4.8-10.8)
--- NOTE | 2017-05-06 07:57 | General Progress Note ---
Assessment/Plan Problem List: (1) Malnutrition ICD Codes: E46 - Unspecified protein-calorie malnutrition SNOMED: 75272880 (2) Penile abrasion ICD Codes: S30.812A - Abrasion of penis, initial encounter SNOMED: 805581089 (3) CVA (cerebral vascular accident) ICD Codes: I63.9 - Cerebral infarction, unspecified SNOMED: 822930158 (4) ATN (acute tubular necrosis) ICD Codes: N17.0 - Acute kidney failure with tubular necrosis SNOMED: 86751380 (5) Hemiplegia ICD Codes: G81.90 - Hemiplegia, unspecified affecting unspecified side SNOMED: 59754626 (6) Weak ICD Codes: R53.1 - Weakness SNOMED: 42087149 (7) Diabetes ICD Codes: E11.9 - Type 2 diabetes mellitus without complications SNOMED: 90609559 (8) Weakness generalized ICD Codes: R53.1 - Weakness SNOMED: 33779690 (9) CHF (congestive heart failure) ICD Codes: I50.9 - Heart failure, unspecified SNOMED: 90070775 Status: unchanged Assessment/Plan ot pt diet abx wound care cbc bmp am psyc transfer vs dc plan Subjective Constitutional: Reports: weakness Allergies: Coded Allergies: No Known Allergies (Unverified , 01/08/14) All Systems: reviewed and negative except above Subjective sleepy calm Objective Last 24 Hour Vital Signs Date Time Temp Pulse Resp B/P (MAP) Pulse Ox O2 Delivery O2 Flow Rate FiO2 05/06/17 07:21 97.9 05/06/17 04:00 99.7 80 18 136/78 92 Room Air 05/06/17 00:36 97.9 79 18 127/65 93 Room Air 05/05/17 20:00 97.5 78 16 121/72 91 Room Air 05/05/17 16:05 97.9 72 18 128/74 92 Nasal Cannula 05/05/17 12:00 97.8 67 18 120/53 93 Room Air 05/05/17 10:48 128/44 05/05/17 10:47 87 128/44 05/05/17 08:35 87 128/44 05/05/17 08:03 96.5 87 19 128/44 95 Intake and Output 05/05/17 05/06/17 19:00 07:00 Intake Total 360 ml 360 ml Output Total 2000 ml 750 ml Balance -1640 ml -390 ml Intake Oral 360 ml 360 ml Output Urine Total 2000 ml 750 ml Laboratory Tests 05/06/17 01:20: Urine Random Creatinine [Pending], Urine Random Microalbumin [Pending], Urine Microalbumin/Creatinine Ratio [Pending] 05/06/17 05:05: White Blood Count [Pending], Red Blood Count [Pending], Hemoglobin [Pending], Hematocrit [Pending], Mean Corpuscular Volume [Pending], Mean Corpuscular Hemoglobin [Pending], Mean Corpuscular Hemoglobin Concent [Pending], Red Cell Distribution Width [Pending], Platelet Count [Pending], Mean Platelet Volume [ Pending], Neutrophils (%) (Auto) [Pending], Lymphocytes (%) (Auto) [Pending], Monocytes (%) (Auto) [Pending], Eosinophils (%) (Auto) [Pending], Basophils (%) (Auto) [Pending], Sodium Level [Pending], Potassium Level [Pending], Chloride Level [Pending], Carbon Dioxide Level [Pending], Blood Urea Nitrogen [Pending], Creatinine [Pending], Estimat Glomerular Filtration Rate [Pending], Glucose Level [Pending], Calcium Level [Pending] Height (Feet): 6 Height (Inches): 1.00 Weight (Pounds): 254 General Appearance: lethargic, confused EENT: normal ENT inspection Neck: normal alignment Cardiovascular: normal peripheral pulses, normal rate, regular rhythm Respiratory/Chest: chest wall non-tender, lungs clear, normal breath sounds Abdomen: normal bowel sounds, non tender, soft Extremities: normal inspection Edema: no edema noted Arm (L), no edema noted Arm (R), no edema noted Leg (L), no edema noted Leg (R), no edema noted Pedal (L), no edema noted Pedal (R), no edema noted Generalized Neurologic: motor weakness Skin: normal pigmentation, warm/dry STACY PRICE May 06, 2017 07:57
[2017-05-06 08:00] VITALS: BP 120/77
--- NOTE | 2017-05-06 08:00 | Progress Note ---
DATE: 05/05/2017 SUBJECTIVE: The patient is a 67-year-old male patient with congestive heart failure. The patient continues to have altered mental status and confusion, mood lability secondary to the progression of his medical illness and also because his cognition has declined below his baseline, his attending physician has requested daily psychiatric consultation. MENTAL STATUS EXAMINATION: The patient is a 67-year-old male with psychomotor retardation. Mood is irritable, agitated. Affect guarded and restricted. Thought process is disorganized and illogical. He denies any suicidal or homicidal ideations. Insight and judgement is poor. DIAGNOSIS: Paranoid schizophrenia with acute exacerbation, rule out dementia with psychosis. PLAN: Continue titrating up with 00:40 disorganized thought process and 00:44. Rosa Yousif M.D. DR: HUEY JOB#: [id number] CC:
--- NOTE | 2017-05-06 08:00 | Progress Note ---
DATE: 05/03/2017 SUBJECTIVE: The patient is a 67-year-old male patient with congestive heart failure. The patient has altered mental status, confusion, and mood lability. DIAGNOSIS: Paranoid schizophrenia with acute exacerbation. cognition has declined below baseline secondary to the progression of his medical illness. PLAN: Plan is to continue titrating up on his medications to stabilize his mood. Chart was reviewed and discussed with staff. Rosa Yousif M.D. DR: HUEY JOB#: [id number] CC:
[2017-05-06 08:18] LABS: ANION GAP 10 mmol/L (5-15); BLOOD UREA NITROGEN 29 mg/dL (7-18); CALCIUM 9.3 MG/DL (8.5-10.1); CARBON DIOXIDE 28 MMOL/L (21-32); CHLORIDE 104 MMOL/L (98-107); CREATININE 1.3 MG/DL (0.55-1.30); POTASSIUM 3.8 MMOL/L (3.5-5.1); SODIUM 142 MMOL/L (136-145)
[2017-05-06] MEDS ORDERED: Aspirin EC 81mg tab ORAL SCH (09:00)
[2017-05-06] MEDS: ARIPiprazole 2mg tab ORAL SCH (09:50)
[2017-05-06] MEDS: Fluconazole 100mg tab ORAL SCH (09:50)
[2017-05-06] MEDS: Heparin 5000 units/ml inj SUBQ SCH (09:53)
[2017-05-06] MEDS: Losartan 50mg tab ORAL SCH (11:36)
[2017-05-06] MEDS: Metoprolol Tartrate 50mg tab ORAL SCH (11:36)
[2017-05-06 12:00] VITALS: BP 135/90
--- NOTE | 2017-05-06 12:27 | Nephrology Progress Note ---
Assessment/Plan Assessment 1. Fluid overload. 2. Acute renal failure stable 3. Rule out diabetic nephropathy with 4+ proteinuria, 4. hyperkalemia resolved 5. Possible urinary tract infection. 6. Congestive heart failure. Plan Plan check chem 7 monitoring renal function and electrolyte check in and out put avoid any NSAID replace electrolyte as need it Subjective Constitutional: Reports: no symptoms HEENT: Reports: no symptoms Genitourinary: Reports: no symptoms Neurologic/Psychiatric: Reports: no symptoms Subjective alert and awake dines any problem Objective Objective Last 24 Hour Vital Signs Date Time Temp Pulse Resp B/P (MAP) Pulse Ox O2 Delivery O2 Flow Rate FiO2 05/06/17 11:36 80 136/78 05/06/17 11:36 136/78 05/06/17 09:51 80 136/78 05/06/17 08:00 97.7 84 20 120/77 92 05/06/17 07:21 97.9 05/06/17 04:00 99.7 80 18 136/78 92 Room Air 05/06/17 00:36 97.9 79 18 127/65 93 Room Air 05/05/17 20:00 97.5 78 16 121/72 91 Room Air 05/05/17 16:05 97.9 72 18 128/74 92 Nasal Cannula Intake and Output 05/05/17 05/06/17 19:00 07:00 Intake Total 360 ml 360 ml Output Total 2000 ml 750 ml Balance -1640 ml -390 ml Intake Oral 360 ml 360 ml Output Urine Total 2000 ml 750 ml Laboratory Tests 05/06/17 01:20: Urine Random Creatinine [Pending], Urine Random Microalbumin [Pending], Urine Microalbumin/Creatinine Ratio [Pending] 05/06/17 05:05: White Blood Count 11.4H, Red Blood Count 5.22, Hemoglobin 14.8, Hematocrit 44.6 , Mean Corpuscular Volume 85, Mean Corpuscular Hemoglobin 28.3, Mean Corpuscular Hemoglobin Concent 33.1, Red Cell Distribution Width 14.2, Platelet Count 359, Mean Platelet Volume 5.9L, Neutrophils (%) (Auto) 71.0, Lymphocytes ( %) (Auto) 18.6L, Monocytes (%) (Auto) 6.0, Eosinophils (%) (Auto) 3.7H, Basophils (%) (Auto) 0.8, Sodium Level 142, Potassium Level 3.8, Chloride Level 104, Carbon Dioxide Level 28, Anion Gap 10, Blood Urea Nitrogen 29H, Creatinine 1.3, Estimat Glomerular Filtration Rate 55.2, Glucose Level 208H, Calcium Level 9.3 Height (Feet): 6 Height (Inches): 1.00 Weight (Pounds): 254 Objective HEAD AND NECK: No JVP. No LAD. No thyromegaly. Extraocular movement intact. Pupils are reactive to light and accommodation. LUNGS: Bilateral crackles. CARDIAC EXAMINATION: Regular rate and rhythm. S1 and S2. No murmur. No rub. ABDOMEN: Soft, nontender, and nondistended. EXTREMITIES: Trace edema. No clubbing. No cyanosis. SANDOR DELA CRUZ May 06, 2017 12:27
--- NOTE | 2017-05-06 12:52 | GI Progress Note ---
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 Salcido. Assessment/Plan refused video swallow GT removed today >> GT site pressure dressing change BID/prn ADA diet, tolerating strict aspiration precautions symptomatic treatment pain mgmt ppi fu labs okay for DC per GI standpoint Subjective Gastrointestinal/Abdominal: Reports: no symptoms Subjective limited, agitated tolerating diet Objective Last 24 Hour Vital Signs Date Time Temp Pulse Resp B/P (MAP) Pulse Ox O2 Delivery O2 Flow Rate FiO2 05/06/17 12:00 97.5 84 21 135/90 93 05/06/17 11:36 80 136/78 05/06/17 11:36 136/78 05/06/17 09:51 80 136/78 05/06/17 08:00 97.7 84 20 120/77 92 05/06/17 07:21 97.9 05/06/17 04:00 99.7 80 18 136/78 92 Room Air 05/06/17 00:36 97.9 79 18 127/65 93 Room Air 05/05/17 20:00 97.5 78 16 121/72 91 Room Air 05/05/17 16:05 97.9 72 18 128/74 92 Nasal Cannula Intake and Output 05/05/17 05/06/17 18:59 06:59 Intake Total 360 ml 360 ml Output Total 2000 ml 750 ml Balance -1640 ml -390 ml Intake Oral 360 ml 360 ml Output Urine Total 2000 ml 750 ml Laboratory Tests Test 05/06/17 01:20 05/06/17 05:05 Urine Random Creatinine Pending Urine Random Microalbumin Pending Urine Microalbumin/Creatinine Ratio Pending White Blood Count 11.4 K/UL (4.8-10.8) H Red Blood Count 5.22 M/UL (4.70-6.10) Hemoglobin 14.8 G/DL (14.2-18.0) Hematocrit 44.6 % (42.0-52.0) Mean Corpuscular Volume 85 FL (80-99) Mean Corpuscular Hemoglobin 28.3 PG (27.0-31.0) Mean Corpuscular Hemoglobin Concent 33.1 G/DL (32.0-36.0) Red Cell Distribution Width 14.2 % (11.6-14.8) Platelet Count 359 K/UL (150-450) Mean Platelet Volume 5.9 FL (6.5-10.1) L Neutrophils (%) (Auto) 71.0 % (45.0-75.0) Lymphocytes (%) (Auto) 18.6 % (20.0-45.0) L Monocytes (%) (Auto) 6.0 % (1.0-10.0) Eosinophils (%) (Auto) 3.7 % (0.0-3.0) H Basophils (%) (Auto) 0.8 % (0.0-2.0) Sodium Level 142 MMOL/L (136-145) Potassium Level 3.8 MMOL/L (3.5-5.1) Chloride Level 104 MMOL/L (98-107) Carbon Dioxide Level 28 MMOL/L (21-32) Anion Gap 10 mmol/L (5-15) Blood Urea Nitrogen 29 mg/dL (7-18) H Creatinine 1.3 MG/DL (0.55-1.30) Estimat Glomerular Filtration Rate 55.2 mL/min (>60) Glucose Level 208 MG/DL (74-106) H Calcium Level 9.3 MG/DL (8.5-10.1) Height (Feet): 6 Height (Inches): 1.00 Weight (Pounds): 254 General Appearance: WD/WN, no apparent distress, alert Cardiovascular: normal rate Respiratory/Chest: normal breath sounds, no respiratory distress Abdominal Exam: normal bowel sounds, non tender, soft Extremities: normal range of motion, non-tender Nury Mendez N.P. May 06, 2017 12:52
--- NOTE | 2017-05-06 12:56 | Pulmonology Progress Note ---
Assessment/Plan Problems: (1) Bronchitis (2) ATN (acute tubular necrosis) (3) chronic ischemic multiple strokes (4) Type II diabetes mellitus, uncontrolled (5) CHF (congestive heart failure) Assessment/Plan no new complains looks comfortable refusing vitals tool checke electrolytes check electroltyes dc planning soon Subjective ROS Limited/Unobtainable: No Allergies: Coded Allergies: No Known Allergies (Unverified , 01/08/14) Objective Last 24 Hour Vital Signs Date Time Temp Pulse Resp B/P (MAP) Pulse Ox O2 Delivery O2 Flow Rate FiO2 05/06/17 12:00 97.5 84 21 135/90 93 05/06/17 11:36 80 136/78 05/06/17 11:36 136/78 05/06/17 09:51 80 136/78 05/06/17 08:00 97.7 84 20 120/77 92 05/06/17 07:21 97.9 05/06/17 04:00 99.7 80 18 136/78 92 Room Air 05/06/17 00:36 97.9 79 18 127/65 93 Room Air 05/05/17 20:00 97.5 78 16 121/72 91 Room Air 05/05/17 16:05 97.9 72 18 128/74 92 Nasal Cannula Intake and Output 05/05/17 05/06/17 19:00 07:00 Intake Total 360 ml 360 ml Output Total 2000 ml 750 ml Balance -1640 ml -390 ml Intake Oral 360 ml 360 ml Output Urine Total 2000 ml 750 ml Objective General Appearance: WD/WN HEENT: normocephalic, anicteric Respiratory/Chest: chest wall non-tender, normal breath sounds Breasts: no masses Cardiovascular: regular rhythm Genitourinary: normal external genitalia Extremities: no clubbing Skin: no rash, no lesions Laboratory Tests 05/06/17 01:20: Urine Random Creatinine [Pending], Urine Random Microalbumin [Pending], Urine Microalbumin/Creatinine Ratio [Pending] 05/06/17 05:05: White Blood Count 11.4H, Red Blood Count 5.22, Hemoglobin 14.8, Hematocrit 44.6 , Mean Corpuscular Volume 85, Mean Corpuscular Hemoglobin 28.3, Mean Corpuscular Hemoglobin Concent 33.1, Red Cell Distribution Width 14.2, Platelet Count 359, Mean Platelet Volume 5.9L, Neutrophils (%) (Auto) 71.0, Lymphocytes ( %) (Auto) 18.6L, Monocytes (%) (Auto) 6.0, Eosinophils (%) (Auto) 3.7H, Basophils (%) (Auto) 0.8, Sodium Level 142, Potassium Level 3.8, Chloride Level 104, Carbon Dioxide Level 28, Anion Gap 10, Blood Urea Nitrogen 29H, Creatinine 1.3, Estimat Glomerular Filtration Rate 55.2, Glucose Level 208H, Calcium Level 9.3 Current Medications Medications (Trade) Dose Ordered Sig/Henrik Route PRN Reason Start Time Stop Time Status Last Admin Dose Admin Acetaminophen (Tylenol) 650 mg Q8H PRN ORAL Mild Pain/Temp > 100.5 04/29/17 14:00 05/29/17 13:59 Acetaminophen/ Hydrocodone Bitart ([place] 5/325) 1 tab Q6H PRN ORAL For Pain Scale 4-10 05/01/17 11:00 05/08/17 10:59 05/06/17 06:22 Amlodipine Besylate (Norvasc) 10 mg DAILY ORAL 04/30/17 09:00 05/30/17 08:59 05/06/17 09:51 Aripiprazole (Abilify) 2 mg DAILY ORAL 05/01/17 09:00 05/31/17 08:59 05/06/17 09:50 Aspirin (Ecotrin) 81 mg DAILY ORAL 05/06/17 09:00 06/05/17 08:59 05/06/17 09:50 Atorvastatin Calcium (Lipitor) 20 mg BEDTIME ORAL 05/06/17 21:00 06/05/17 20:59 Ceftriaxone Sodium 1 gm/ Dextrose 55 ml @ 110 mls/hr Q24H IVPB 05/01/17 15:00 05/08/17 14:59 05/05/17 16:05 Dextrose (Dextrose 50%) STAT PRN IV Hypoglycemia 04/29/17 13:30 05/28/17 13:29 Fluconazole (Diflucan) 100 mg DAILY ORAL 05/02/17 14:00 05/09/17 13:59 05/06/17 09:50 Fluoxetine HCl (PROzac) 20 mg DAILY ORAL 05/01/17 09:00 05/31/17 08:59 05/06/17 09:50 Furosemide (Lasix) 20 mg DAILY ORAL 04/30/17 09:00 05/29/17 08:59 05/06/17 09:50 Heparin Sodium (Porcine) (Heparin 5000 units/ml) 5,000 units EVERY 12 HOURS SUBQ 04/29/17 21:00 05/28/17 20:59 05/06/17 09:53 Insulin Aspart (NovoLOG) BEFORE MEALS AND HS SUBQ 04/29/17 16:30 05/28/17 20:59 05/06/17 11:37 Lorazepam (Ativan) 1 mg Q6H PRN ORAL For Anxiety 05/01/17 04:15 05/08/17 04:14 05/01/17 09:04 Losartan Potassium (Cozaar) 100 mg DAILY@1100 ORAL 04/30/17 11:00 05/29/17 10:59 05/06/17 11:36 Metoprolol Tartrate (Lopressor) 50 mg DAILY@1100 ORAL 04/30/17 11:00 05/29/17 10:59 05/06/17 11:36 Potassium Chloride (K-Dur) 20 meq DAILY ORAL 04/30/17 09:00 05/29/17 08:59 05/06/17 09:51 BALDEMAR POLANCO May 06, 2017 12:56
--- NOTE | 2017-05-06 14:02 | Wound Care Consultation ---
Wound Assessment Wound Assessment : Wound Number: 1 Wound Present on Admission: Yes New Wound: No Status Change of Wound: No Wound Location Body Site: sacral Wound Type: pressure ulcer Lynn Test: Does not Lynn Pressure Ulcer Stage: I - scattered redness with dry flaky skin Percent of Wound [place]/Red: 100 Wound Drainage Amount: None Wound Drainage Odor: None/Absent Tissue Surrounding Wound: Intact Wound General Appearance: Reddened - dry flaky skin Wound Comment patient refused initial skin assessment, asked pt if able to perform skin assessment explained risks and benefits agreed at this time. #1 sacral stage 1 redness scattered with dry flaky skin - protocol stage 1. Recommendation. -Local wound care per protocol -Turn and reposition. -Keep clean and dry. -Optimize nutrition. -Pressure reducing mattress. -Assess and notify MD if any change of condition to skin is noted. MONI CARBALLO May 06, 2017 14:02
[2017-05-06] MEDS: cefTRIAXone 1 GM in D5W 55 ML IVPB SCH (15:00)
[2017-05-06] MEDS ORDERED: LEVAQUIN500 MG ORAL (15:22)
[2017-05-06 16:00] VITALS: BP 119/75
[2017-05-06] MEDS ORDERED: Atorvastatin 20mg tab ORAL SCH (21:00)
--- NOTE | 2017-05-06 22:00 | Progress Note ---
DATE: 05/06/2017 SUBJECTIVE: This is a 67-year-old male patient admitted secondary to congestive heart failure, but he still has altered mental status, confusion, and disorganized thought process. His cognition has declined below baseline secondary to the progression of his medical illness. MENTAL STATUS EXAMINATION: This is a 67-year-old male with psychomotor retardation. Mood is euthymic. Affect is appropriate. Denies auditory or visual hallucinations or delusions. Denies suicidal or homicidal thoughts. Insight and judgment is fair. DIAGNOSIS: Paranoid schizophrenia with acute exacerbation, rule out dementia with psychosis. PLAN: We have psychiatrically cleared this patient for discharge as he appears to be at baseline as of now. He is psychiatrically cleared to return back to his facility. Chart reviewed and discussed with staff. Rosa Yousif M.D. DR: CARO JOB#: [id number] CC:
--- NOTE | 2017-05-06 23:57 | Cardiology Progress Note ---
Assessment/Plan Assessment/Plan 1. Dyspnea unlikely heart failure, beta-natriuretic peptide is normal, LVEF >75% . Chest x-ray on this admission with no evidence of pulmonary edema. 2. Diabetes mellitus, consider adding ASA and statins. 3. Hypertension, continue amlodipine, metoprolol and losartan. 4. Prior history of cerebrovascular accident, ASA for secondary preventive measures. Subjective Subjective Clinically the same. No chest pain or SOB reported. Objective Last 24 Hour Vital Signs Date Time Temp Pulse Resp B/P (MAP) Pulse Ox O2 Delivery O2 Flow Rate FiO2 05/06/17 16:00 97.2 70 20 119/75 90 05/06/17 12:00 97.5 84 21 135/90 93 05/06/17 11:36 80 136/78 05/06/17 11:36 136/78 05/06/17 09:51 80 136/78 05/06/17 08:00 97.7 84 20 120/77 92 05/06/17 07:21 97.9 05/06/17 04:00 99.7 80 18 136/78 92 Room Air 05/06/17 00:36 97.9 79 18 127/65 93 Room Air Intake and Output 05/05/17 05/06/17 19:00 07:00 Intake Total 360 ml 360 ml Output Total 2000 ml 750 ml Balance -1640 ml -390 ml Intake Oral 360 ml 360 ml Output Urine Total 2000 ml 750 ml 2D Echo: Echo from Jan 2014: EF 65-70%, RVSP 14 mmHg, Biatrial enlargement. Laboratory Tests Test 05/06/17 01:20 05/06/17 05:05 Urine Random Creatinine Pending Urine Random Microalbumin Pending Urine Microalbumin/Creatinine Ratio Pending White Blood Count 11.4 K/UL (4.8-10.8) H Red Blood Count 5.22 M/UL (4.70-6.10) Hemoglobin 14.8 G/DL (14.2-18.0) Hematocrit 44.6 % (42.0-52.0) Mean Corpuscular Volume 85 FL (80-99) Mean Corpuscular Hemoglobin 28.3 PG (27.0-31.0) Mean Corpuscular Hemoglobin Concent 33.1 G/DL (32.0-36.0) Red Cell Distribution Width 14.2 % (11.6-14.8) Platelet Count 359 K/UL (150-450) Mean Platelet Volume 5.9 FL (6.5-10.1) L Neutrophils (%) (Auto) 71.0 % (45.0-75.0) Lymphocytes (%) (Auto) 18.6 % (20.0-45.0) L Monocytes (%) (Auto) 6.0 % (1.0-10.0) Eosinophils (%) (Auto) 3.7 % (0.0-3.0) H Basophils (%) (Auto) 0.8 % (0.0-2.0) Sodium Level 142 MMOL/L (136-145) Potassium Level 3.8 MMOL/L (3.5-5.1) Chloride Level 104 MMOL/L (98-107) Carbon Dioxide Level 28 MMOL/L (21-32) Anion Gap 10 mmol/L (5-15) Blood Urea Nitrogen 29 mg/dL (7-18) H Creatinine 1.3 MG/DL (0.55-1.30) Estimat Glomerular Filtration Rate 55.2 mL/min (>60) Glucose Level 208 MG/DL (74-106) H Calcium Level 9.3 MG/DL (8.5-10.1) Objective HEENT: Atraumatic and normocephalic. Anicteric. Pupils are equal, round, and reactive to light and accommodation. Extraocular muscles intact. NECK: JVP less than 5 cm. No carotid bruit. Carotid upstrokes 2+ bilaterally. CARDIOVASCULAR: Normal S1 and S2. Regular rate and rhythm. No murmurs, gallops, or rubs. PMI is at fourth intercostal space in the midclavicular line. LUNGS: Clear to auscultation bilaterally. ABDOMEN: Soft, nontender, and nondistended. No hepatosplenomegaly. Positive bowel sounds. Positive G-tube. EXTREMITIES: No evidence of edema, clubbing, or cyanosis. There is 1+ bilateral edema. 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 ROXANA HILTON May 06, 2017 23:57
--- NOTE | 2017-05-07 07:15 | Consultation ---
DATE OF CONSULTATION: 05/06/2017 NOTE: POOR AUDIO HEMATOLOGY/ONCOLOGY CONSULTATION CONSULTING PHYSICIAN: Guillermo Ugalde M.D. REQUESTING PHYSICIAN: Oneil Curry D.O. REASON FOR CONSULTATION: Evaluation of hematuria. IDENTIFICATION DATA: Dear Dr. Oneil Curry, The patient is a pleasant 67-year-old male, admitted to the hospital from senior living facility discomfort and tachypnea with a history of CVA. He also has some psychiatric issues, right-sided hemiparesis noted. The patient noted to have some hematuria and Hematology Service was consulted for potential evaluation of malignancy. The patient to be discharged today. Renal ultrasound completed. Bilateral hydronephrosis is noted with a Chavez catheter in place. PAST MEDICAL HISTORY: , diabetes mellitus, and hypertension. ALLERGIES: No known drug allergies. SOCIAL HISTORY: He lives in [facility], financially supported by [facility] and Medicare. No alcohol, tobacco, or illicit drug use. LABORATORY AND DIAGNOSTIC DATA: Labs have been reviewed. WBC of 11.4, hemoglobin 14.8, hematocrit 40.3, and platelet count 259,000. BUN of 29 and creatinine 1.3. Urinalysis . Total protein 1740. ASSESSMENT AND RECOMMENDATIONS: 1. Leukocytosis, likely secondary to underlying infection from trauma. At this time mild. Okay to discharge. No evidence of malignancy. 2. Hematuria, likely related to Chavez catheter trauma, stable for discharge. 3. Stage I sacral decubitus ulceration, being seen by wound care team. 4. Acute tubular necrosis with elevated creatinine, currently improved. 5. Type 2 diabetes mellitus, poorly controlled. Seek better control in outpatient setting. Blood sugar goal between 80 and 120. 6. Congestive heart failure. Cardiology Service is following. 7. The patient is stable for discharge from Hematology perspective. Thank you again Guillermo Ugalde M.D. DR: Alexx JOB#: [id number] CC:
--- NOTE | 2017-05-08 23:48 | Discharge Summary 2 SIG ---
DATE OF ADMISSION: 04/28/2017 DATE OF DISCHARGE: 05/06/2017 REASON FOR ADMISSION: 67-year-old male with past medical history significant for hypertension, diabetes, peripheral vascular disease, high cholesterol, cardiomegaly, dysphagia, G-tube, gastroesophageal reflux disease, encephalopathy, and CVA with right hemiplegia presented with penile shaft pain and shortness of breath. Upon evaluation in the emergency room, the patient was tachypneic, pulse oximetry was only 92% on the room air. The penile exam revealed edema. No obvious excoriation of the penile shaft. WBC - 15. Potassium- 5.2, BUN- 73 and creatinine -2.4. Pro BNP -271. EKG revealed normal sinus rate. No acute ischemic changes. Chest x-ray revealed cardiomegaly with mild congestion. Blood glucose - 271 The patient was admitted with diagnoses of penile shaft dermatitis with pain, congestive heart failure, bronchitis, malnutrition, diabetes, cerebrovascular accident with hemiplegia, acute renal failure, diabetes mellitus type 2, uncontrolled; and CVA with right hemiplegia. HOSPITAL COURSE: The patient was admitted. Cardiology, air intelligence specialist, psychiatry, Urology, Nephrology, Pulmonology and GI consults along with ID consult were requested. ID seen and evaluated the patient. At that time, urinalysis was ordered, which revealed few bacteria, but showed evidence of pyuria, +3 leukocyte esterase, and +4 protein. Urine culture initially was positive with Michelle and then positive with Pseudomonas. The patient was on antibiotics. Prior to discharge antibiotics were changed to oral to complete the course. Penile shaft with abrasion, no evidence of infection. Renal ultrasound revealed bilateral hydronephrosis. Childcare Administrator closely followed. The patient probably had a diabetic neuropathy since demonstrated 4+ protein. Hyperkalemia resolved. Renal parameters and electrolytes were closely monitored. Electrolytes corrected as needed. All nephrotoxics were avoided, especially nonsteroid anti-inflammatory medications. All medications were renally dosed. Prior to discharge, acute renal failure resolved. BUN from initial 73 down to 29 and creatinine from 2.4 down to 1.3. Urology evaluation was requested for bilateral hydronephrosis and urinary retention, as recommended by hot pipe gauger. However, the patient declined urology evaluation and declined urologist to examine him. Chavez catheter was inserted. Radio Talk Show Host closely followed the patient patient with history of congestive heart failure, hypertension. Per radioisotope production operator, dyspnea that patient experienced was unlikely due to the heart failure since pro BNP was within normal limits. Echocardiogram revealed preserved ejection fraction of 75%. Chest x-ray revealed no gross evidence of pulmonary edema. Volumes and cardiorenal parameters were closely monitored. Blood pressure was managed with calcium channel jaciel, beta-jaciel and ARB, and it remained stable. Aspirin and statin were added to existing regimen for secondary prevention of CVA. Ob/Gyn Nurse closely followed, diagnosed patient with bronchitis. Dyspnea was possibly due to bronchitis and resolved as patient clinically improved. Supplemental oxygen titrated to keep pulse oximetry above 92%, pulmonary toilet provided as needed. Antitussive provided on as needed basis. DVT prophylaxis provided. Blood sugar was managed with sliding scale of insulin. Psychiatrist seen and evaluated the patient, diagnosed the patient with paranoid schizophrenia with acute exacerbation and optimized his psychiatric medication regimen. GI closely followed the patient. The patient refused video swallow evaluation. Patient had swallow evaluation, and diet was recommended with strict aspiration/reflux precautions. G-tube was discontinued. G-tube site pressure dressing was applied and to be changed twice a day and as needed at [facility]. The patient was started on diabetic diet with texture as recommended by speech therapist, and able to tolerate diet. Strict aspiration and reflux precautions were maintained. Symptomatic treatment w3as provided. Pain management addressed. The patient started on PPI. Bowel regimen instituted. Hemoglobin and hematocrit remained stable. GI cleared the patient for discharge. In terms of malnutrition, dietary evaluation was completed, and receiving clerk recommendations were implemented. Wound care nurse seen the patient for the sacral decubitus stage I , present on admission. Wound care provided as per wound care nurse recommendation. Patient was noncompliant with treatment, declined swallow evaluation, declined vital signs measurement at the end, declined some blood work. Patient was discharged with Chavez catheter. Outpatient follwo up with urologist if patient agrees. Patient ws stable for discharge. FINAL DIAGNOSES: 1. Acute renal failure, resolved. 2. Possible diabetic nephropathy with +4 proteinuria. 3. Hyperkalemia, resolved. 4. Bronchitis 4. Urinary tract infection with Michelle and Pseudomonas. 5. Bilateral hydronephrosis. 6. Urinary retention. 7. History of cerebrovascular accident with right hemiplegia. 8. Congestive heart failure 9. Diabetes mellitus, out of control. 10. Paranoid schizophrenia with acute exacerbation. 11. Malnutrition. 12. Dysphagia, status post percutaneous endoscopic gastrostomy removal. 13. Hypertension. 14. Sacral decubitus stage I present on admission. 15. Encephalopathy. 16. Penile shaft abrasion, improving 17. Malnutrition DISCHARGE MEDICATIONS: See medication reconciliation list. DISCHARGE INSTRUCTIONS: The patient was [facility]. Follow up with medical doctor at the facility. Oneil Curry D.O. I have been assigned to dictate discharge summary on this account and I was not involved in the patient's management. Danita ClarkNorth General HospitalJeff N.P. DR: ALEX JOB#: [id number] CC: DEB
== END 2017-05-06 17:20 | DRG 682 ==
LOC: EDBD 12:05 → EDUNIT# 12:05 → EMR 13:04 → 2E 13:10 → EDBEDREQ 14:47 → 3E 04-29 13:10 → 4W 05-01 18:57
DX: N17.0 Acute kidney failure with tubular necrosis (principal); G93.40 Encephalopathy, unspecified; L89.151 Pressure ulcer of sacral region, stage 1; E46 Unspecified protein-calorie malnutrition; E11.21 Type 2 diabetes mellitus with diabetic nephropathy; I69.351 Hemiplegia and hemiparesis following cerebral infarction affecting right dominant side; I50.9 Heart failure, unspecified; R13.10 Dysphagia, unspecified; N39.0 Urinary tract infection, site not specified; B37.49 Other urogenital candidiasis; F20.0 Paranoid schizophrenia; J40 Bronchitis, not specified as acute or chronic; N13.30 Unspecified hydronephrosis; E11.65 Type 2 diabetes mellitus with hyperglycemia; E87.5 Hyperkalemia; Z86.73 Personal history of transient ischemic attack (TIA), and cerebral infarction without residual deficits; K21.9 Gastro-esophageal reflux disease without esophagitis; I10 Essential (primary) hypertension; I73.9 Peripheral vascular disease, unspecified; B96.5 Pseudomonas (aeruginosa) (mallei) (pseudomallei) as the cause of diseases classified elsewhere; R33.9 Retention of urine, unspecified; N48.89 Other specified disorders of penis; I69.321 Dysphasia following cerebral infarction; Z89.431 Acquired absence of right foot; Z91.19 Patient's noncompliance with other medical treatment and regimen; S30.812A Abrasion of penis, initial encounter; X58.XXXA Exposure to other specified factors, initial encounter
CPT/HCPCS: 36415; 71045; 76775; 80048; 80053; 81003; 82043; 82044; 82550; 82553; 82570; 82962; 83690; 83880; 84300; 84484; 85025; 87040; 87081; 87086; 87181; 89050; 92610; 93005; 99285; J1815; J8499

== ENCOUNTER 2017-05-22 22:07 | Inpatient (IN) | payer MEDICARE, OTHER ==
[~2017-05-22] VITALS: Ht 175.3 cm; Wt 117.9 kg
[~2017-05-22 22:07] MED LIST changes: +ACETAMINOPHEN325 M1 ORAL; +ARTIFICIAL TEA1 EAC2 OP; +AZOPT10 ML OP; +CATAPRES0.1 MG ORAL; +COZAAR100 MG ORAL; +CRANBERRY TABL1 EACH PO; +DULCOLAX10 MG RC; +HUMALOG 75/255 UNIT1 SUBQ; +LEVAQUIN500 MG ORAL; +LOPERAMIDE2 M1 PO
[2017-05-22] MEDS ORDERED: Vancomycin 1.5gm/D5W 250ml 250 ML IVPB ONE (22:45)
[2017-05-22] MEDS ORDERED: Acetaminophen 650 MG SUPP RECTAL ONE (22:45)
[2017-05-22] MEDS ORDERED: Cefepime HCl 2 GM in NS 110 ML IV ONE (22:45)
[2017-05-22 23:06] LABS: BASOPHILS % (AUTO) 0.8 % (0.0-2.0); EOSINOPHILS % (AUTO) 0.4 % (0.0-3.0); HEMATOCRIT 40.5 % (42.0-52.0); HEMOGLOBIN 13.2 G/DL (14.2-18.0); LYMPHOCYTES % (AUTO) 7.7 % (20.0-45.0); MEAN CORPUSCULAR VOLUME 84 FL (80-99); MONOCYTES % (AUTO) 6.7 % (1.0-10.0); NEUTROPHILS % (AUTO) 84.6 % (45.0-75.0); PLATELET COUNT 271 K/UL (150-450); RED BLOOD COUNT 4.85 M/UL (4.70-6.10); WHITE BLOOD COUNT 15.8 K/UL (4.8-10.8)
--- NOTE | 2017-05-22 23:13 | Emergency Room Report ---
History of Present Illness General Chief Complaint: Upper Respiratory Illness Source: Patient Present Illness HPI 67-year-old male, history of CVA with right-sided weakness, coming from [facility], normal mental status is with slurred speech however awake and alert oriented x3, patient coming in because of low grade fever, cough and congestion. Has had productive cough, also found to be hypoxic on room air 85% , came up to 100% with nasal cannula. Patient also complaining of some shortness of breath. States that he was a smoker many years ago, no diagnosis of COPD Patient also lower abdomen, complaining of abdominal pain for the last 2 days, denies any nausea vomiting or diarrhea Allergies: Coded Allergies: No Known Allergies (Unverified , 01/08/14) Patient History Past Medical History: see triage record Past Surgical History: none Pertinent Family History: none Reviewed Nursing Documentation: PMH: Agreed, PSxH: Agreed Nursing Documentation-PMH Hx Cardiac Problems: Yes - Cardiomegaly, Hypercholesterolemia, Peripheral Vascular Disease Hx Hypertension: Yes Hx Diabetes: Yes - DM2 Hx Cancer: No Hx Neurological Problems: Yes - OCCIPITAL ENCEPHALOMALACIA,CEREBRAL HEMIPLEGIA , Hemiparesis Hx Cerebrovascular Accident: Yes - CVA/TIA WITH RIGHT HEMIPLEGIA H/O OCCIPITAL ENCEPHALOMALACIA, Review of Systems All Other Systems: negative except mentioned in HPI Physical Exam Vital Signs Date Time Temp Pulse Resp B/P (MAP) Pulse Ox O2 Delivery O2 Flow Rate FiO2 05/22/17 22:16 100.8 104 18 132/86 94 Nasal Cannula 4.0 Sp02 EP Interpretation: abnormal General Appearance: alert, moderate distress, other - Chronically ill appearing middle aged male, appears to be in respiratory distress, with slurred speech however able to answer questions, appears to be short of breath speaking in 3-4 word sentences Head: normocephalic, atraumatic Eyes: bilateral eye normal inspection, bilateral eye PERRL, bilateral eye EOMI ENT: normal ENT inspection, normal pharynx, normal voice, moist mucus membranes Neck: normal inspection, full range of motion, supple Respiratory: respiratory distress, other - Poor v inspiratory effort however crackles auscultated at the lung bases Cardiovascular #1: normal inspection, regular rate, rhythm, normal capillary refill Cardiovascular #2: 2+ radial (R), 2+ radial (L) Gastrointestinal: other - Round abdomen, soft, tender bilateral lower quadrants , no guarding no rebound, normal bowel sounds Musculoskeletal: normal inspection, back normal, normal range of motion, non- tender Neurologic: other - Slurred speech, however oriented x3, right-sided weakness Psychiatric: normal inspection, judgement/insight normal, memory normal Skin: normal inspection, normal color, no rash, warm/dry, well hydrated, normal turgor Procedures Critical Care Time Critical Care Time 40 minutes of CC time 67-year-old male, respiratory distress, febrile VS: Febrile, hypoxic, tachypneic PLAN: IV access, labs, lactate, troponin, Blood/Urine Cx, Abx, IVF Anticipate admission to Tele vs. PAULINE CC time also includes review of labs, review of EMR, discussion with family and paperwork from SNF, d/w hospitalist CC could include dosing of pressors, additional Abx CC time does not include procedures Medical Decision Making Diagnostic Impression: Primary Impression: Respiratory distress Additional Impressions: Hypoxia Pneumonia Sepsis UTI (urinary tract infection) ER Course 67-year-old male, cough congestion hypoxia, also with abdominal pain DDX: Viral respiratory illness, PNA, bacteremia Also his abdominal pain: Appendicitis / colitis / diverticulitis /UTI Plan: O2 via nasal cannula Obtain labs including cbc, bmp, blood culture, blood gas, lactate, ua, ucx CXR EKG Broad spectrum ABX ER course: Pt's airway remains patent, supplemental O2 provided by NC Patient's BP has remained stable with MAP > 65 Given broad spectrum abx +UTI and also possible PNA only given 1L NS - not given full 30cc/kg as not sure of heart function Sepsis Re-examination Time: 12 AM VS: Temp 102 HR 108 BP 120/80 RR 20 CVS: RRR Respiratory: Crackles bilaterally Peripheral pulses: 2+ radial Capillary refill: <2 seconds Skin exam: warm, dry, no rash, not mottled Disposition: Patient will admitted to telemetry Patient requires close monitoring of respiratory/hemodynamic status and continuation of IV antibiotics. D/W Hospitalist Dr Curry Please note that this Emergency Department Report was dictated using [employer] technology software, occasionally this can lead to erroneous entry secondary to interpretation by the dictation equipment. EKG Diagnostic Results EP Interpretation: Yes Rate: Tachycardic Rhythm: NSR ST Segments: No acute changes ASA given to patient: No Rhythm Strip EP Interpretation: Yes Rate: 105 Rhythm: NSR, no PVCs, no ectopy Chest X-ray CXR: Ordered: Yes 1 view Indication: Shortness of breath EP interpretation: Yes Interpretation: Poor inspiration, unable to fully evaluate lung bases, cannot rule out underlying pneumonia Impression: See above Electronically signed by Steph Haile MD Laboratory Tests Test 05/22/17 22:40 05/22/17 23:30 White Blood Count 15.8 K/UL (4.8-10.8) H Red Blood Count 4.85 M/UL (4.70-6.10) Hemoglobin 13.2 G/DL (14.2-18.0) L Hematocrit 40.5 % (42.0-52.0) L Mean Corpuscular Volume 84 FL (80-99) Mean Corpuscular Hemoglobin 27.3 PG (27.0-31.0) Mean Corpuscular Hemoglobin Concent 32.7 G/DL (32.0-36.0) Red Cell Distribution Width 14.0 % (11.6-14.8) Platelet Count 271 K/UL (150-450) Mean Platelet Volume 6.9 FL (6.5-10.1) Neutrophils (%) (Auto) 84.6 % (45.0-75.0) H Lymphocytes (%) (Auto) 7.7 % (20.0-45.0) L Monocytes (%) (Auto) 6.7 % (1.0-10.0) Eosinophils (%) (Auto) 0.4 % (0.0-3.0) Basophils (%) (Auto) 0.8 % (0.0-2.0) Sodium Level 138 MMOL/L (136-145) Potassium Level 4.1 MMOL/L (3.5-5.1) Chloride Level 101 MMOL/L (98-107) Carbon Dioxide Level 31 MMOL/L (21-32) Anion Gap 6 mmol/L (5-15) Blood Urea Nitrogen 24 mg/dL (7-18) H Creatinine 1.1 MG/DL (0.55-1.30) Estimate Glomerular Filtration Rate > 60 mL/min (>60) Glucose Level 328 MG/DL (74-106) H Lactic Acid Level 2.60 mmol/L (0.66-2.22) H Calcium Level 9.4 MG/DL (8.5-10.1) Total Bilirubin 0.5 MG/DL (0.2-1.0) Aspartate Amino Transferase (AST) 18 U/L (15-37) Alanine Aminotransferase (ALT) 17 U/L (12-78) Alkaline Phosphatase 108 U/L (46-116) Troponin I 0.000 ng/mL (0.000-0.056) Pro-B-Type Natriuretic Peptide 489 pg/mL (0-125) H Total Protein 7.0 G/DL (6.4-8.2) Albumin 2.4 G/DL (3.4-5.0) L Globulin 4.6 g/dL Albumin/Globulin Ratio 0.5 (1.0-2.7) L Lipase 107 U/L (73-393) Urine Color Yellow Urine Appearance Cloudy Urine pH 6 (4.5-8.0) Urine Specific [place] 1.015 (1.005-1.035) Urine Protein 3+ (NEGATIVE) H Urine Glucose (UA) 2+ (NEGATIVE) H Urine Ketones Negative (NEGATIVE) Urine Occult Blood 2+ (NEGATIVE) H Urine Nitrite Negative (NEGATIVE) Urine Bilirubin Negative (NEGATIVE) Urine Urobilinogen Normal MG/DL (0.0-1.0) Urine Leukocyte Esterase 3+ (NEGATIVE) H Urine RBC 5-10 /HPF (0 - 0) H Urine WBC Tntc /HPF (0 - 0) H Urine Squamous Epithelial Cells None /LPF (NONE/OCC) Urine Bacteria Moderate /HPF (NONE) H Urine Yeast Many /HPF (NONE) H Last Vital Signs Date Time Temp Pulse Resp B/P (MAP) Pulse Ox O2 Delivery O2 Flow Rate FiO2 05/22/17 22:16 100.8 104 18 132/86 94 Nasal Cannula 4.0 Disposition: ADMITTED INPATIENT Condition: Steph Peraza M.D. May 22, 2017 23:13
[2017-05-22 23:17] LABS: ANION GAP 6 mmol/L (5-15); BLOOD UREA NITROGEN 24 mg/dL (7-18); CALCIUM 9.4 MG/DL (8.5-10.1); CARBON DIOXIDE 31 MMOL/L (21-32); CHLORIDE 101 MMOL/L (98-107); CREATININE 1.1 MG/DL (0.55-1.30); POTASSIUM 4.1 MMOL/L (3.5-5.1); SODIUM 138 MMOL/L (136-145)
[2017-05-22 23:28] LABS: ALANINE AMINOTRANSFERASE 17 U/L (12-78); ALBUMIN 2.4 G/DL (3.4-5.0); ALBUMIN/GLOBULIN RATIO 0.5 (1.0-2.7); ALKALINE PHOSPHATASE 108 U/L (46-116); ASPARTATE AMINO TRANSFERASE 18 U/L (15-37); BILIRUBIN,TOTAL 0.5 MG/DL (0.2-1.0)
[2017-05-22 23:50] LABS: BILIRUBIN, URINE NEGATIVE (NEGATIVE); GLUCOSE, URINE (UA) 2+ (NEGATIVE); KETONES,URINE NEGATIVE (NEGATIVE); LEUKOCYTE ESTERASE ,URINE 3+ (NEGATIVE); NITRITE,URINE NEGATIVE (NEGATIVE); PH,URINE 6 (4.5-8.0); PROTEIN,URINE 3+ (NEGATIVE); UROBILINOGEN,URINE NORMAL MG/DL (0.0-1.0)
[2017-05-22 23:58] LABS: APPEARANCE,URINE CLOUDY; COLOR,URINE YELLOW
[2017-05-23] MEDS ORDERED: Cefepime 2gm ONE (00:15)
[2017-05-23] MEDS ORDERED: Albuterol/Ipratropium 3ml neb HHN PRN (00:30)
[2017-05-23] MEDS ORDERED: Miralax 17gm pkt ORAL PRN (00:30)
[2017-05-23] MEDS ORDERED: Nitroglycerin Subl 0.4mg tab SL PRN (00:30)
[2017-05-23 00:34] VITALS: BP 131/77
[2017-05-23] MEDS ORDERED: VITAMIN C500 M1 ORAL (00:53)
[2017-05-23] MEDS ORDERED: MULTIVITAMINS1 EAC8 ORAL (00:53)
[2017-05-23] MEDS ORDERED: TIMOLOL MALEATE5 M2 OP (00:53)
[2017-05-23] MEDS ORDERED: VIGAMOX1 DROP BOTH EYES (00:53)
[2017-05-23] MEDS ORDERED: MILK OF MA2400 MG/10 ORAL (00:53)
[2017-05-23 02:18] VITALS: BP 152/66
[2017-05-23 04:00] VITALS: BP 132/64
[2017-05-23] MEDS: cloNIDine 0.2mg Tab ORAL SCH ×4 (05:58→23:53)
[2017-05-23] MEDS: NovoLOG Insulin Flexpen SUBQ SCH ×4 (06:00→21:00)
[2017-05-23 08:00] VITALS: BP 116/69
[2017-05-23] MEDS ORDERED: Cefepime HCl 2 GM in D5W 110 ML IV SCH (09:00)
--- NOTE | 2017-05-23 10:15 | Diagnostic Imaging Report ---
Indication: Shortness of breath Technique: XRAY Chest 1v Comparison: 05/01/2017 Findings: Low lung volumes. Heart size and mediastinal contours appear stable. There is interstitial opacification/edema, possibly exaggerated due to low lung volumes. There is streaky bibasilar axis. No large pleural effusion. No definite pneumothorax. No acute osseous abnormality seen. Impression: Limited exam as low lung volumes. Question interstitial opacification/edema. Streaky basilar opacities, possibly subsegmental atelectasis. Additional etiologies not excluded. Clinical correlation and follow-up exam recommended.
[2017-05-23] MEDS: Losartan 50mg tab ORAL SCH (10:16)
[2017-05-23] MEDS: FLUoxetine 10mg cap ORAL SCH (10:16)
[2017-05-23] MEDS: ARIPiprazole 2mg tab ORAL SCH (10:16)
[2017-05-23] MEDS: Heparin 5000 units/ml inj SUBQ SCH ×2 (10:30→21:01)
[2017-05-23] MEDS: Cefepime HCl 2 GM in NS 110 ML IV SCH ×2 (10:38→20:52)
[2017-05-23 12:00] VITALS: BP 112/49
[2017-05-23] MEDS: Vancomycin 1250mg/D5W 250ml IVPB SCH (14:12)
[2017-05-23] MEDS ORDERED: Morphine Sulfate 4mg/ml Inj IVP PRN (15:00)
[2017-05-23] MEDS: Norco 5mg/325mg tab ORAL PRN ×2 (15:33→20:54)
--- NOTE | 2017-05-23 16:11 | Diagnostic Imaging Report ---
Indication: Pain Technique: CT of the abdomen and pelvis utilizing automated exposure control with intravenous contrast. Venous scanning performed. CT dose: Total DLP 1263.35 mGycm; CTDI vol 19.95 mGy Comparison: None Findings: There are patchy airspace consolidations with air bronchograms in the bilateral lower lobes. These may represent atelectasis or pneumonia. Heart is borderline enlarged. Coronary arterial calcifications noted. Enlarged main pulmonary artery may reflect pulmonary arterial hypertension. There is hyperdensity partially visualized in the medial right upper extremity which may represent contrast infiltration related to injection (series 3 image #41). Liver is enlarged, measuring 23 cm in length. Spleen gallbladder, adrenal glands and pancreas grossly unremarkable. Chavez catheter balloon inflated within the prosthetic urethra with distention of the bladder and bilateral hydroureteronephrosis with perinephric stranding. These findings suggest obstructive uropathy. Superimposed infection not excluded. Chavez repositioning recommended. There is no evidence of bowel obstruction. No free intraperitoneal air or fluid. There is copious stool in the colon. There is a small fat-containing umbilical hernia. There is degenerative change of the spine with grade 1 anterolisthesis of L5 on S1 related to bilateral pars defects at this level. Thoracic aorta is normal in caliber with scattered atherosclerotic calcification. IMPRESSION: Chavez catheter balloon inflated within the prosthetic urethra with distention of the bladder and bilateral hydroureteronephrosis with perinephric stranding. These findings suggest obstructive uropathy. Superimposed infection not excluded. Chavez repositioning recommended. Hyperdensity partially visualized in the medial right upper extremity possibly related to IV contrast infiltration. Correlate with physical exam. Bilateral airspace opacities possibly related to pneumonia or atelectasis. Clinical correlation and follow-up exam recommended. Hepatomegaly. Enlarged main pulmonary possibly related to pulmonary arterial hypertension. Additional findings as above. This corresponds with the statrad preliminary report. The CT scanner at [facility] is accredited by the [employer] and the scans are performed using protocols designed to limit radiation exposure to as low as reasonably achievable to attain images of sufficient resolution adequate for diagnostic evaluation.
--- NOTE | 2017-05-23 17:21 | Consultation ---
History of Present Illness General Chief Complaint: Upper Respiratory Illness Present Illness HPI 67-year-old male, history of CVA with right-sided weakness, coming from half-way, normal mental status with slurred speech however awake and alert oriented x3, patient coming in because of low grade fever, cough and congestion. Has had productive cough, also found to be hypoxic on room air 85%, came up to 100% with nasal cannula. Patient also complaining of some shortness of breath. Allergies: Coded Allergies: No Known Allergies (Unverified , 01/08/14) Medication History Scheduled Amlodipine Besylate (Norvasc), 10 MG ORAL DAILY, (Reported) Amlodipine Besylate (Norvasc), 10 MG ORAL DAILY, (Reported) Aripiprazole* (Abilify*), 2 MG ORAL DAILY, (Reported) Ascorbic Acid* (Vitamin C*), 500 MG ORAL TWICE A DAY, (Reported) Aspirin* (Aspir 81*), 81 MG ORAL DAILY, (Reported) Brinzolamide (Azopt), 10 ML OP TID, (Reported) Clonidine HCl (Clonidine HCl), 0.2 MG PO Q6HR, (Reported) Cranberry Conc/C/Bacill Coag (Cranberry Tablet), 2 EACH PO DAILY, (Reported) Diazepam (Diazepam), 5 MG ORAL QHS, (Reported) Docusate Sodium* (Colace*), 100 MG ORAL BID, (Reported) Dorzolamide Hcl* (Trusopt*), 1 DROP BOTH EYES BID Fluoxetine Hcl* (Prozac*), 30 MG ORAL DAILY, (Reported) Furosemide* (Lasix*), 20 MG ORAL DAILY, (Reported) Insulin Glargine (Lantus), 12 SUBQ Q12HR, (Reported) Insulin Human Lispro (Humalog), 0 SUBQ BID, (Reported) Lactulose (Lactulose*), 20 GM PO DAILY Levofloxacin* (Levaquin*), 500 MG ORAL DAILY, (Reported) Losartan Potassium (Cozaar), 100 MG ORAL DAILY, (Reported) Losartan Potassium* (Cozaar*), 100 MG ORAL DAILY, (Reported) Magnesium Hydroxide* (Milk Of Magnesia*), Unknown Dose ORAL DAILY, (Reported) Metformin Hcl* (Glucophage*), 500 MG ORAL TIAC Metformin Hcl* (Glucophage*), 500 MG ORAL TID, (Reported) Metoprolol Tartrate* (Metoprolol Tartrate*), 50 MG ORAL DAILY, (Reported) Moxifloxacin HCl (Vigamox), 1 DROP BOTH EYES Q6HR Moxifloxacin HCl (Vigamox), 1 DROP BOTH EYES EVERY 6 HOURS, (Reported) Multivitamin With Minerals (Multivitamins With Minerals*), 1 TAB ORAL DAILY, ( Reported) Potassium Chloride (Potassium Chloride), 10 MEQ ORAL DAILY, (Reported) Ranitidine Hcl* (Zantac*), 150 MG ORAL TWICE A DAY Simvastatin (Zocor), 10 MG ORAL BEDTIME, (Reported) Scheduled PRN Acetaminophen* (Tylenol*), 325 MG ORAL Q4H PRN for Mild Pain/Temp > 100.5, ( Reported) Acetaminophen* (Acetaminophen 325MG Tablet*), 325 MG ORAL Q6H PRN for Fever/ Headache/Mild Pain, (Reported) Bisacodyl (Dulcolax), 10 MG RC DAILY PRN for Constipation, (Reported) Clonidine Hcl* (Catapres*), 0.1 MG ORAL EVERY 6 HOURS PRN for For High Blood Pressure, (Reported) Dextran 70/Hypromellose (Artificial Tears), 1 EACH OP EVERY 4 HOURS PRN for Dry Eyes, (Reported) Hydrocodone Bit/Acetaminophen 5-325* ([place] 5-325*), 1 TAB ORAL Q4H PRN for Moderate Pain (Pain Scale 4-6) Insulin Regular, Human (Humulin R), 0 SUBQ for Sliding Scale, (Reported) Loperamide Hcl (Loperamide), 2 MG PO NEEDED PRN for Diarrhea, (Reported) Miscellaneous Medications Timolol Maleate (Timolol Maleate), Unknown Dose OP, (Reported) Patient History Healthcare decision maker Resuscitation status Full Code Advanced Directive on File No Past Medical/Surgical History Past Medical/Surgical History: (1) Type II diabetes mellitus, uncontrolled (2) Hemiplegia (3) CVA (cerebral vascular accident) (4) Non-compliance with treatment Review of Systems Constitutional: Reports: weakness Respiratory: Reports: shortness of breath, wheezing Physical Exam General Appearance: WD/WN Lines, tubes and drains: peripheral HEENT: normocephalic, atraumatic Neck: non-tender, normal alignment Respiratory/Chest: chest wall non-tender, lungs clear Breasts: no masses Cardiovascular/Chest: normal peripheral pulses, normal rate Abdomen: normal bowel sounds, non tender Genitourinary/Rectal: normal genital exam Last 24 Hour Vital Signs Date Time Temp Pulse Resp B/P (MAP) Pulse Ox O2 Delivery O2 Flow Rate FiO2 05/23/17 12:00 80 05/23/17 12:00 112/49 05/23/17 12:00 98.1 79 20 112/49 97 Nasal Cannula 4.0 05/23/17 10:16 116/69 05/23/17 10:16 82 116/69 05/23/17 08:00 98.8 82 20 116/69 95 Nasal Cannula 4.0 05/23/17 08:00 83 05/23/17 05:58 128/71 05/23/17 04:12 79 05/23/17 04:00 98.6 81 20 132/64 97 Nasal Cannula 4.0 05/23/17 02:19 102.1 94 24 131/77 93 Nasal Cannula 4.0 05/23/17 02:18 94 24 152/66 97 Nasal Cannula 4.0 05/23/17 00:34 102.1 103 24 131/77 93 Nasal Cannula 4.0 05/23/17 00:31 102.1 05/22/17 22:20 104 18 Nasal Cannula 4.0 05/22/17 22:16 100.8 104 18 132/86 94 Nasal Cannula 4.0 Intake and Output 05/22/17 05/23/17 19:00 07:00 Intake Total 110 ml Output Total 1420 ml Balance -1310 ml IV Total 110 ml Output Urine Total 1420 ml Laboratory Tests Test 05/22/17 22:40 05/22/17 23:30 White Blood Count 15.8 K/UL (4.8-10.8) H Red Blood Count 4.85 M/UL (4.70-6.10) Hemoglobin 13.2 G/DL (14.2-18.0) L Hematocrit 40.5 % (42.0-52.0) L Mean Corpuscular Volume 84 FL (80-99) Mean Corpuscular Hemoglobin 27.3 PG (27.0-31.0) Mean Corpuscular Hemoglobin Concent 32.7 G/DL (32.0-36.0) Red Cell Distribution Width 14.0 % (11.6-14.8) Platelet Count 271 K/UL (150-450) Mean Platelet Volume 6.9 FL (6.5-10.1) Neutrophils (%) (Auto) 84.6 % (45.0-75.0) H Lymphocytes (%) (Auto) 7.7 % (20.0-45.0) L Monocytes (%) (Auto) 6.7 % (1.0-10.0) Eosinophils (%) (Auto) 0.4 % (0.0-3.0) Basophils (%) (Auto) 0.8 % (0.0-2.0) Sodium Level 138 MMOL/L (136-145) Potassium Level 4.1 MMOL/L (3.5-5.1) Chloride Level 101 MMOL/L (98-107) Carbon Dioxide Level 31 MMOL/L (21-32) Anion Gap 6 mmol/L (5-15) Blood Urea Nitrogen 24 mg/dL (7-18) H Creatinine 1.1 MG/DL (0.55-1.30) Estimat Glomerular Filtration Rate > 60 mL/min (>60) Glucose Level 328 MG/DL (74-106) H Lactic Acid Level 2.60 mmol/L (0.66-2.22) H Calcium Level 9.4 MG/DL (8.5-10.1) Total Bilirubin 0.5 MG/DL (0.2-1.0) Aspartate Amino Transf (AST/SGOT) 18 U/L (15-37) Alanine Aminotransferase (ALT/SGPT) 17 U/L (12-78) Alkaline Phosphatase 108 U/L (46-116) Troponin I 0.000 ng/mL (0.000-0.056) Pro-B-Type Natriuretic Peptide 489 pg/mL (0-125) H Total Protein 7.0 G/DL (6.4-8.2) Albumin 2.4 G/DL (3.4-5.0) L Globulin 4.6 g/dL Albumin/Globulin Ratio 0.5 (1.0-2.7) L Lipase 107 U/L (73-393) Urine Color Yellow Urine Appearance Cloudy Urine pH 6 (4.5-8.0) Urine Specific [place] 1.015 (1.005-1.035) Urine Protein 3+ (NEGATIVE) H Urine Glucose (UA) 2+ (NEGATIVE) H Urine Ketones Negative (NEGATIVE) Urine Occult Blood 2+ (NEGATIVE) H Urine Nitrite Negative (NEGATIVE) Urine Bilirubin Negative (NEGATIVE) Urine Urobilinogen Normal MG/DL (0.0-1.0) Urine Leukocyte Esterase 3+ (NEGATIVE) H Urine RBC 5-10 /HPF (0 - 0) H Urine WBC Tntc /HPF (0 - 0) H Urine Squamous Epithelial Cells None /LPF (NONE/OCC) Urine Bacteria Moderate /HPF (NONE) H Urine Yeast Many /HPF (NONE) H Height (Feet): 5 Height (Inches): 9.00 Weight (Pounds): 260 Medications Current Medications Medications (Trade) Dose Ordered Sig/Henrik Route PRN Reason Start Time Stop Time Status Last Admin Dose Admin Acetaminophen (Tylenol) 650 mg Q4H PRN ORAL fever 05/23/17 00:30 06/22/17 00:29 Acetaminophen/ Hydrocodone Bitart ([place] 5/325) 1 tab Q4H PRN ORAL Moderate Pain (Pain Scale 4-6) 05/23/17 15:00 05/30/17 14:59 05/23/17 15:33 Albuterol/ Ipratropium (Albuterol/ Ipratropium) 3 ml Q4H PRN HHN Shortness of Breath 05/23/17 00:30 05/28/17 00:29 Amlodipine Besylate (Norvasc) 10 mg DAILY ORAL 05/23/17 09:00 06/22/17 08:59 05/23/17 10:16 Aripiprazole (Abilify) 2 mg DAILY ORAL 05/23/17 09:00 06/22/17 08:59 05/23/17 10:16 Cefepime HCl 2 gm/ Sodium Chloride 110 ml @ 220 mls/hr EVERY 12 HOURS IV 05/23/17 09:00 05/30/17 08:59 05/23/17 10:38 Clonidine HCl (Catapres tab) 0.2 mg Q6HR ORAL 05/23/17 06:00 06/22/17 05:59 05/23/17 05:58 Dextrose (Dextrose 50%) STAT PRN IV Hypoglycemia 05/23/17 00:30 06/22/17 00:29 Fluoxetine HCl (PROzac) 30 mg DAILY ORAL 05/23/17 09:00 06/22/17 08:59 05/23/17 10:16 Heparin Sodium (Porcine) (Heparin 5000 units/ml) 5,000 units EVERY 12 HOURS SUBQ 05/23/17 09:00 06/22/17 08:59 05/23/17 10:30 Insulin Aspart (NovoLOG) BEFORE MEALS AND HS SUBQ 05/23/17 06:30 06/22/17 06:29 05/23/17 17:06 Losartan Potassium (Cozaar) 100 mg DAILY ORAL 05/23/17 09:00 06/22/17 08:59 05/23/17 10:16 Metoprolol Tartrate (Lopressor) 25 mg Q12HR ORAL 05/23/17 21:00 06/22/17 20:59 Morphine Sulfate (Morphine Sulfate) 2 mg Q4H PRN IVP Severe Pain (Pain Scale 7-10) 05/23/17 15:00 05/30/17 14:59 Nitroglycerin (Ntg) 0.4 mg Q5M PRN SL Prn Chest Pain 05/23/17 00:30 06/22/17 00:29 Ondansetron HCl (Zofran) 4 mg Q6H PRN IVP Nausea & Vomiting 05/23/17 00:30 06/22/17 00:29 Polyethylene Glycol (Miralax) 17 gm DAILYPRN PRN ORAL Constipation 05/23/17 00:30 06/22/17 00:29 Temazepam (Restoril) 15 mg HSPRN PRN ORAL Insomnia 05/23/17 00:30 05/30/17 00:29 Vancomycin HCl (Vanco rx to dose) 1 ea DAILY PRN MISC protocol 05/23/17 03:00 06/22/17 02:59 Vancomycin HCl/ Dextrose 250 ml @ 166.667 mls/hr Q12H IVPB 05/23/17 13:30 05/28/17 13:29 05/23/17 14:12 Assessment/Plan Problem List: (1) Sepsis ICD Codes: A41.9 - Sepsis SNOMED: 72463885 (2) Bronchitis ICD Codes: J40 - Bronchitis, not specified as acute or chronic SNOMED: 02026028 (3) ATN (acute tubular necrosis) ICD Codes: N17.0 - Acute kidney failure with tubular necrosis SNOMED: 77226845 (4) DM (diabetes mellitus screen) ICD Codes: Z13.1 - DM (diabetes mellitus screen) SNOMED: 019284460 (5) Weakness generalized ICD Codes: R53.1 - Weakness SNOMED: 60876262 Assessment/Plan respiratory treatment [place] culture IV abx telemetry monitoring check sputum titrate fio2 to sat of 92% BALDEMAR POLANCO May 23, 2017 17:21
[2017-05-23 20:00] VITALS: BP 125/62
[2017-05-23] MEDS: Metoprolol 25mg tab ORAL SCH (20:53)
[2017-05-24] MEDS ORDERED: Vancomycin 1 GM in D5W 275 ML IV SCH (00:30)
[2017-05-24] MEDS: Vancomycin 1250mg/D5W 250ml IVPB SCH (00:49)
[2017-05-24 04:00] VITALS: BP 118/66
[2017-05-24] MEDS: cloNIDine 0.2mg Tab ORAL SCH ×3 (06:10→17:28)
[2017-05-24] MEDS: NovoLOG Insulin Flexpen SUBQ SCH ×4 (06:10→20:12)
--- NOTE | 2017-05-24 06:28 | General Progress Note ---
Assessment/Plan Problem List: (1) Leukocytosis ICD Codes: D72.829 - Leukocytosis SNOMED: 305433066 (2) Weakness generalized ICD Codes: R53.1 - Weakness SNOMED: 64747458 (3) Diabetes ICD Codes: E11.9 - Type 2 diabetes mellitus without complications SNOMED: 84383793 (4) Sepsis ICD Codes: A41.9 - Sepsis SNOMED: 48488279 (5) CVA (cerebral vascular accident) ICD Codes: I63.9 - Cerebral infarction, unspecified SNOMED: 294914159 Assessment/Plan continue to hold Metformin due to lactic acidosis start Levemir 18 units daily start Starlix 120 mg ac tid continue NISS Subjective Allergies: Coded Allergies: No Known Allergies (Unverified , 01/08/14) All Systems: reviewed and negative except above Subjective admitted from SNF with sepsis and bronchitis hx of T2DM on Lantus and Metformin as OP lactic acid is elevated Objective Last 24 Hour Vital Signs Date Time Temp Pulse Resp B/P (MAP) Pulse Ox O2 Delivery O2 Flow Rate FiO2 05/24/17 06:10 132/76 05/24/17 04:00 70 05/24/17 04:00 97.2 72 20 118/66 99 05/24/17 00:00 72 05/23/17 23:53 125/62 05/23/17 20:53 80 125/62 05/23/17 20:00 100.4 80 20 125/62 92 05/23/17 19:50 86 05/23/17 17:49 97 Nasal Cannula 4.0 36 05/23/17 17:48 Nasal Cannula 4.0 36 05/23/17 16:00 81 05/23/17 12:00 80 05/23/17 12:00 112/49 05/23/17 12:00 98.1 79 20 112/49 97 Nasal Cannula 4.0 05/23/17 10:16 116/69 05/23/17 10:16 82 116/69 05/23/17 08:00 98.8 82 20 116/69 95 Nasal Cannula 4.0 05/23/17 08:00 83 Intake and Output 05/23/17 05/24/17 19:00 07:00 Intake Total 490 ml Output Total 800 ml Balance -310 ml Intake Oral 490 ml Output Urine Total 800 ml Height (Feet): 5 Height (Inches): 9.00 Weight (Pounds): 260 General Appearance: no apparent distress Neck: normal alignment Cardiovascular: normal rate Respiratory/Chest: decreased breath sounds Abdomen: normal bowel sounds Edema: 1+ Arm (L), 1+ Arm (R), 1+ Leg (L), 1+ Leg (R), 1+ Pedal (L), 1+ Pedal ( R), 1+ Generalized Objective Current Medications Medications (Trade) Dose Ordered Sig/Henrik Route PRN Reason Start Time Stop Time Status Last Admin Dose Admin Acetaminophen (Tylenol) 650 mg Q4H PRN ORAL fever 05/23/17 00:30 06/22/17 00:29 Acetaminophen/ Hydrocodone Bitart ([place] 5/325) 1 tab Q4H PRN ORAL Moderate Pain (Pain Scale 4-6) 05/23/17 15:00 05/30/17 14:59 05/23/17 20:54 Albuterol/ Ipratropium (Albuterol/ Ipratropium) 3 ml Q4H PRN HHN Shortness of Breath 05/23/17 00:30 05/28/17 00:29 Amlodipine Besylate (Norvasc) 10 mg DAILY ORAL 05/23/17 09:00 06/22/17 08:59 05/23/17 10:16 Aripiprazole (Abilify) 2 mg DAILY ORAL 05/23/17 09:00 06/22/17 08:59 05/23/17 10:16 Cefepime HCl 2 gm/ Sodium Chloride 110 ml @ 220 mls/hr EVERY 12 HOURS IV 05/23/17 09:00 05/30/17 08:59 05/23/17 20:52 Clonidine HCl (Catapres tab) 0.2 mg Q6HR ORAL 05/23/17 06:00 06/22/17 05:59 05/24/17 06:10 Dextrose (Dextrose 50%) STAT PRN IV Hypoglycemia 05/23/17 00:30 06/22/17 00:29 Fluoxetine HCl (PROzac) 30 mg DAILY ORAL 05/23/17 09:00 06/22/17 08:59 05/23/17 10:16 Heparin Sodium (Porcine) (Heparin 5000 units/ml) 5,000 units EVERY 12 HOURS SUBQ 05/23/17 09:00 06/22/17 08:59 2/1/18 21:01 Insulin Aspart (NovoLOG) BEFORE MEALS AND HS SUBQ 05/23/17 06:30 06/22/17 06:29 05/24/17 06:10 Losartan Potassium (Cozaar) 100 mg DAILY ORAL 05/23/17 09:00 06/22/17 08:59 05/23/17 10:16 Metoprolol Tartrate (Lopressor) 25 mg Q12HR ORAL 05/23/17 21:00 06/22/17 20:59 05/23/17 20:53 Morphine Sulfate (Morphine Sulfate) 2 mg Q4H PRN IVP Severe Pain (Pain Scale 7-10) 05/23/17 15:00 05/30/17 14:59 05/24/17 02:38 Nitroglycerin (Ntg) 0.4 mg Q5M PRN SL Prn Chest Pain 05/23/17 00:30 06/22/17 00:29 Ondansetron HCl (Zofran) 4 mg Q6H PRN IVP Nausea & Vomiting 05/23/17 00:30 06/22/17 00:29 Polyethylene Glycol (Miralax) 17 gm DAILYPRN PRN ORAL Constipation 05/23/17 00:30 06/22/17 00:29 Temazepam (Restoril) 15 mg HSPRN PRN ORAL Insomnia 05/23/17 00:30 05/30/17 00:29 Vancomycin HCl (Vanco rx to dose) 1 ea DAILY PRN MISC protocol 05/23/17 03:00 06/22/17 02:59 Vancomycin HCl/ Dextrose 250 ml @ 166.667 mls/hr Q12H IVPB 05/23/17 13:30 05/28/17 13:29 05/24/17 00:49 Item Value Date Time Bedside Blood Glucose 251 mg/dl H 05/24/17 0610 Bedside Blood Glucose 262 mg/dl H 05/23/17 2100 Bedside Blood Glucose 284 mg/dl H 05/23/17 1706 Bedside Blood Glucose 252 mg/dl H 05/23/17 0615 DELANEY WRIGHT May 24, 2017 06:28
[2017-05-24 07:32] LABS: BASOPHILS % (AUTO) 0.8 % (0.0-2.0); EOSINOPHILS % (AUTO) 2.8 % (0.0-3.0); HEMATOCRIT 35.9 % (42.0-52.0); HEMOGLOBIN 11.8 G/DL (14.2-18.0); LYMPHOCYTES % (AUTO) 19.7 % (20.0-45.0); MEAN CORPUSCULAR VOLUME 85 FL (80-99); MONOCYTES % (AUTO) 6.5 % (1.0-10.0); NEUTROPHILS % (AUTO) 70.2 % (45.0-75.0); PLATELET COUNT 254 K/UL (150-450); RED BLOOD COUNT 4.24 M/UL (4.70-6.10); RED CELL DISTRIBUTION WIDTH 14.7 % (11.6-14.8); WHITE BLOOD COUNT 9.9 K/UL (4.8-10.8)
[2017-05-24 07:57] VITALS: BP 108/67
[2017-05-24] MEDS: Cefepime HCl 2 GM in NS 110 ML IV SCH ×2 (07:59→20:09)
[2017-05-24] MEDS: Metoprolol 25mg tab ORAL SCH ×2 (07:59→20:09)
[2017-05-24] MEDS: Losartan 50mg tab ORAL SCH (07:59)
[2017-05-24] MEDS: ARIPiprazole 2mg tab ORAL SCH (08:09)
[2017-05-24] MEDS: FLUoxetine 10mg cap ORAL SCH (08:09)
[2017-05-24] MEDS: Heparin 5000 units/ml inj SUBQ SCH ×2 (08:12→20:11)
[2017-05-24 08:31] LABS: ALANINE AMINOTRANSFERASE 15 U/L (12-78); ALBUMIN/GLOBULIN RATIO 0.5 (1.0-2.7); ALKALINE PHOSPHATASE 88 U/L (46-116); ANION GAP 3 mmol/L (5-15); ASPARTATE AMINO TRANSFERASE 14 U/L (15-37); BILIRUBIN,TOTAL 0.3 MG/DL (0.2-1.0); BLOOD UREA NITROGEN 28 mg/dL (7-18); CALCIUM 8.7 MG/DL (8.5-10.1); CARBON DIOXIDE 34 MMOL/L (21-32); CHLORIDE 102 MMOL/L (98-107); POTASSIUM 4.3 MMOL/L (3.5-5.1); SODIUM 139 MMOL/L (136-145)
[2017-05-24] MEDS ORDERED: Levemir Flexpen SUBQ SCH (09:00)
--- NOTE | 2017-05-24 10:31 | Infectious Diseases Prog Note ---
Assessment/Plan Assessment/Plan A; Sepsis Complicated UTI Pneumonia/atelectasis Bilateral hydronephrosis Uncontrolled DM Paranoid schizophrenia P; Continue Cefepime, discontinue Vancomycin Will f/u cultures Subjective ROS Limited/Unobtainable: Yes Constitutional: Reports: fever, other - low grade fever last night Allergies: Coded Allergies: No Known Allergies (Unverified , 01/08/14) Objective Vital Signs Last 24 Hour Vital Signs Date Time Temp Pulse Resp B/P (MAP) Pulse Ox O2 Delivery O2 Flow Rate FiO2 05/24/17 08:01 71 05/24/17 07:59 73 108/67 05/24/17 07:59 108/67 05/24/17 07:59 73 108/67 05/24/17 07:57 98.8 73 20 108/67 91 Nasal Cannula 3.0 05/24/17 06:10 132/76 05/24/17 04:00 70 05/24/17 04:00 97.2 72 20 118/66 99 05/24/17 00:00 72 05/23/17 23:53 125/62 05/23/17 20:53 80 125/62 05/23/17 20:00 100.4 80 20 125/62 92 05/23/17 19:50 86 05/23/17 17:49 97 Nasal Cannula 4.0 36 05/23/17 17:48 Nasal Cannula 4.0 36 05/23/17 16:00 81 05/23/17 12:00 80 05/23/17 12:00 112/49 05/23/17 12:00 98.1 79 20 112/49 97 Nasal Cannula 4.0 Height (Feet): 5 Height (Inches): 9.00 Weight (Pounds): 260 General Appearance: no acute distress HEENT: mucous membranes moist Respiratory/Chest: lungs clear Cardiovascular: normal rate Abdomen: soft, non tender Genitourinary: other - Chavez catheter, hematuria resolving Extremities: other - edema of legs, right foot amputation Microbiology Date/Time Source Procedure Growth Status 05/22/17 22:40 Blood Blood Culture - Preliminary NO GROWTH AFTER 24 HOURS Resulted 05/22/17 22:30 Blood Blood Culture - Preliminary NO GROWTH AFTER 24 HOURS Resulted 05/22/17 23:30 Urine,Clean Catch Urine Culture - Preliminary Gram Negative Bacillus 1 Resulted Laboratory Tests Test 05/24/17 06:55 White Blood Count 9.9 K/UL (4.8-10.8) Red Blood Count 4.24 M/UL (4.70-6.10) L Hemoglobin 11.8 G/DL (14.2-18.0) L Hematocrit 35.9 % (42.0-52.0) L Mean Corpuscular Volume 85 FL (80-99) Mean Corpuscular Hemoglobin 27.9 PG (27.0-31.0) Mean Corpuscular Hemoglobin Concent 33.0 G/DL (32.0-36.0) Red Cell Distribution Width 14.7 % (11.6-14.8) Platelet Count 254 K/UL (150-450) Mean Platelet Volume 7.1 FL (6.5-10.1) Neutrophils (%) (Auto) 70.2 % (45.0-75.0) Lymphocytes (%) (Auto) 19.7 % (20.0-45.0) L Monocytes (%) (Auto) 6.5 % (1.0-10.0) Eosinophils (%) (Auto) 2.8 % (0.0-3.0) Basophils (%) (Auto) 0.8 % (0.0-2.0) Sodium Level 139 MMOL/L (136-145) Potassium Level 4.3 MMOL/L (3.5-5.1) Chloride Level 102 MMOL/L (98-107) Carbon Dioxide Level 34 MMOL/L (21-32) H Anion Gap 3 mmol/L (5-15) L Blood Urea Nitrogen 28 mg/dL (7-18) H Creatinine 1.0 MG/DL (0.55-1.30) Estimat Glomerular Filtration Rate > 60 mL/min (>60) Glucose Level 191 MG/DL (74-106) #H Calcium Level 8.7 MG/DL (8.5-10.1) Total Bilirubin 0.3 MG/DL (0.2-1.0) Aspartate Amino Transf (AST/SGOT) 14 U/L (15-37) L Alanine Aminotransferase (ALT/SGPT) 15 U/L (12-78) Alkaline Phosphatase 88 U/L (46-116) Total Protein 6.3 G/DL (6.4-8.2) L Albumin 2.0 G/DL (3.4-5.0) L Globulin 4.3 g/dL Albumin/Globulin Ratio 0.5 (1.0-2.7) L Current Medications Medications (Trade) Dose Ordered Sig/Henrik Route PRN Reason Start Time Stop Time Status Last Admin Dose Admin Acetaminophen (Tylenol) 650 mg Q4H PRN ORAL fever 05/23/17 00:30 06/22/17 00:29 Acetaminophen/ Hydrocodone Bitart ([place] 5/325) 1 tab Q4H PRN ORAL Moderate Pain (Pain Scale 4-6) 05/23/17 15:00 05/30/17 14:59 05/23/17 20:54 Albuterol/ Ipratropium (Albuterol/ Ipratropium) 3 ml Q4H PRN HHN Shortness of Breath 05/23/17 00:30 05/28/17 00:29 Amlodipine Besylate (Norvasc) 10 mg DAILY ORAL 05/23/17 09:00 06/22/17 08:59 05/23/17 10:16 Aripiprazole (Abilify) 2 mg DAILY ORAL 05/23/17 09:00 06/22/17 08:59 05/24/17 08:09 Cefepime HCl 2 gm/ Sodium Chloride 110 ml @ 220 mls/hr EVERY 12 HOURS IV 05/23/17 09:00 05/30/17 08:59 05/24/17 07:59 Clonidine HCl (Catapres tab) 0.2 mg Q6HR ORAL 05/23/17 06:00 06/22/17 05:59 05/24/17 06:10 Dextrose (Dextrose 50%) STAT PRN IV Hypoglycemia 05/24/17 06:30 06/23/17 06:29 Fluoxetine HCl (PROzac) 30 mg DAILY ORAL 05/23/17 09:00 06/22/17 08:59 05/24/17 08:09 Heparin Sodium (Porcine) (Heparin 5000 units/ml) 5,000 units EVERY 12 HOURS SUBQ 05/23/17 09:00 06/22/17 08:59 05/24/17 08:12 Insulin Aspart (NovoLOG) BEFORE MEALS AND HS SUBQ 05/23/17 06:30 06/22/17 06:29 05/24/17 06:10 Insulin Detemir (Levemir) 18 units DAILY SUBQ 05/24/17 09:00 06/23/17 08:59 05/24/17 08:27 Losartan Potassium (Cozaar) 100 mg DAILY ORAL 05/23/17 09:00 06/22/17 08:59 05/23/17 10:16 Metoprolol Tartrate (Lopressor) 25 mg Q12HR ORAL 05/23/17 21:00 06/22/17 20:59 05/23/17 20:53 Morphine Sulfate (Morphine Sulfate) 2 mg Q4H PRN IVP Severe Pain (Pain Scale 7-10) 05/23/17 15:00 05/30/17 14:59 05/24/17 02:38 Nateglinide (Starlix) 120 mg TIAC ORAL 05/24/17 07:30 06/23/17 07:29 05/24/17 07:31 Nitroglycerin (Ntg) 0.4 mg Q5M PRN SL Prn Chest Pain 05/23/17 00:30 06/22/17 00:29 Ondansetron HCl (Zofran) 4 mg Q6H PRN IVP Nausea & Vomiting 05/23/17 00:30 06/22/17 00:29 Polyethylene Glycol (Miralax) 17 gm DAILYPRN PRN ORAL Constipation 05/23/17 00:30 06/22/17 00:29 Temazepam (Restoril) 15 mg HSPRN PRN ORAL Insomnia 05/23/17 00:30 05/30/17 00:29 Vancomycin HCl (Vanco rx to dose) 1 ea DAILY PRN MISC protocol 05/23/17 03:00 06/22/17 02:59 Vancomycin HCl/ Dextrose 250 ml @ 166.667 mls/hr Q12H IVPB 05/23/17 13:30 05/28/17 13:29 05/24/17 00:49 ROSALIND ALVAREZ May 24, 2017 10:31
--- NOTE | 2017-05-24 11:35 | General Progress Note ---
Assessment/Plan Problem List: (1) Malnutrition ICD Codes: E46 - Unspecified protein-calorie malnutrition SNOMED: 81064975 (2) Weak ICD Codes: R53.1 - Weakness SNOMED: 13483965 (3) Sepsis ICD Codes: A41.9 - Sepsis SNOMED: 39490868 (4) Pneumonia ICD Codes: J18.9 - Pneumonia, unspecified organism SNOMED: 714272419 (5) Respiratory distress ICD Codes: R06.00 - Respiratory distress SNOMED: 106280821 (6) Weakness generalized ICD Codes: R53.1 - Weakness SNOMED: 23897114 (7) ATN (acute tubular necrosis) ICD Codes: N17.0 - Acute kidney failure with tubular necrosis SNOMED: 30755211 Status: unchanged Assessment/Plan o2 pulm tx abx ot pt diet cbc bmp amd Subjective Constitutional: Reports: weakness Allergies: Coded Allergies: No Known Allergies (Unverified , 01/08/14) All Systems: reviewed and negative except above Subjective sleepy calm Objective Last 24 Hour Vital Signs Date Time Temp Pulse Resp B/P (MAP) Pulse Ox O2 Delivery O2 Flow Rate FiO2 05/24/17 08:01 71 05/24/17 07:59 73 108/67 05/24/17 07:59 108/67 05/24/17 07:59 73 108/67 05/24/17 07:57 98.8 73 20 108/67 91 Nasal Cannula 3.0 05/24/17 06:10 132/76 05/24/17 04:00 70 05/24/17 04:00 97.2 72 20 118/66 99 05/24/17 00:00 72 05/23/17 23:53 125/62 05/23/17 20:53 80 125/62 05/23/17 20:00 100.4 80 20 125/62 92 05/23/17 19:50 86 05/23/17 17:49 97 Nasal Cannula 4.0 36 05/23/17 17:48 Nasal Cannula 4.0 36 05/23/17 16:00 81 05/23/17 12:00 80 05/23/17 12:00 112/49 05/23/17 12:00 98.1 79 20 112/49 97 Nasal Cannula 4.0 Intake and Output 05/23/17 05/24/17 19:00 07:00 Intake Total 490 ml Output Total 800 ml 700 ml Balance -310 ml -700 ml Intake Oral 490 ml Output Urine Total 800 ml 700 ml Laboratory Tests 05/24/17 06:55: White Blood Count 9.9, Red Blood Count 4.24L, Hemoglobin 11.8L, Hematocrit 35.9L , Mean Corpuscular Volume 85, Mean Corpuscular Hemoglobin 27.9, Mean Corpuscular Hemoglobin Concent 33.0, Red Cell Distribution Width 14.7, Platelet Count 254, Mean Platelet Volume 7.1, Neutrophils (%) (Auto) 70.2, Lymphocytes (% ) (Auto) 19.7L, Monocytes (%) (Auto) 6.5, Eosinophils (%) (Auto) 2.8, Basophils (%) (Auto) 0.8, Sodium Level 139, Potassium Level 4.3, Chloride Level 102, Carbon Dioxide Level 34H, Anion Gap 3L, Blood Urea Nitrogen 28H, Creatinine 1.0 , Estimat Glomerular Filtration Rate > 60, Glucose Level 191#H, Calcium Level 8.7, Total Bilirubin 0.3, Aspartate Amino Transf (AST/SGOT) 14L, Alanine Aminotransferase (ALT/SGPT) 15, Alkaline Phosphatase 88, Total Protein 6.3L, Albumin 2.0L, Globulin 4.3, Albumin/Globulin Ratio 0.5L Height (Feet): 5 Height (Inches): 9.00 Weight (Pounds): 260 General Appearance: lethargic EENT: normal ENT inspection Neck: normal alignment Cardiovascular: normal peripheral pulses, normal rate, regular rhythm Respiratory/Chest: chest wall non-tender, lungs clear, decreased breath sounds Abdomen: normal bowel sounds, non tender, soft Extremities: normal inspection Edema: no edema noted Arm (L), no edema noted Arm (R), no edema noted Leg (L), no edema noted Leg (R), no edema noted Pedal (L), no edema noted Pedal (R), no edema noted Generalized Neurologic: motor weakness Skin: normal pigmentation, warm/dry STACY PRICE May 24, 2017 11:35
[2017-05-24 12:12] VITALS: BP 130/67
--- NOTE | 2017-05-24 12:56 | Consultation ---
DATE OF CONSULTATION: 05/23/2017 INFECTIOUS DISEASE CONSULTATION CONSULTING PHYSICIAN: Teo Pérez M.D. PRIMARY ATTENDING PHYSICIAN: Oneil Curry D.O. REASON FOR CONSULT: Sepsis, urinary tract infection. HISTORY OF PRESENT ILLNESS: The patient is a 67-year-old white male, admitted to the nursing facility last night with fever, coughing, congestion, hypoxemia, had a temperature of 102.1. The patient has a history of paranoid schizophrenia and was recently discharged from [facility] on 05/06/2017. On previous admission, he had urinary retention, urinary tract infection with Pseudomonas, but the patient does not let urologist for evaluation. SOCIAL HISTORY: prison resident. No alcohol, drug abuse, or smoking. REVIEW OF SYSTEMS: The patient complains of pain in the genital area and suprapubic area. PHYSICAL EXAMINATION: VITAL SIGNS: Temperature 98.2, pulse 82, blood pressure 116/69, and maximum temperature is 102.1. GENERAL APPEARANCE: No acute distress. Awake, alert, and obese. HEAD AND NECK: [place] conjunctiva. HEART: Regular. Normal rate. LUNGS: Clear. ABDOMEN: Soft, nontender, and obese. EXTREMITIES: No edema. Has amputation of right foot. GENITOURINARY: He has Chavez catheter and gross hematuria. LABORATORY DATA: WBC 15.8, hemoglobin 13.2, hematocrit 40.5, and platelets 271. Sodium 138, potassium 4.1, chloride 101, bicarbonate 31, BUN 24, creatinine 1.1, and glucose 328. Lactic acid 2.6. UA showed WBC too numerous to count, RBCs 5 to 10, protein 2+, and glucose 2+. IMPRESSION: 1. Sepsis with fever, leukocytosis, lactic acidosis. Source of infection seems to be urinary tract infection. 2. The patient has history of urinary retention in the past. 3. Uncontrolled diabetes mellitus. 4. Chronic obstructive pulmonary disease. 5. History of cerebrovascular accident and right-sided weakness. 6. Obesity. 7. Paranoid schizophrenia. RECOMMENDATIONS: We will continue with cefepime and vancomycin. We will follow up the cultures. Suggest urologic evaluation. At the end of my exam, I thank Dr. Oneil Curry, for involving me in the care of this patient. Teo Pérez M.D. DR: NICO JOB#: [id number] CC:
--- NOTE | 2017-05-24 13:44 | Wound Care Consultation ---
Wound Assessment Wound Assessment : Wound Number: 1 Wound Present on Admission: Yes New Wound: No Status Change of Wound: No Wound Location Body Site Modif: mid Wound Location Body Site: sacral Wound Type: pressure ulcer Lynn Test: Does not Lynn Pressure Ulcer Stage: Deep Tissue Injury Wound Thickness: Full Thickness Wound Length: 5.5 Wound Width: 5.5 Wound Depth: utd Percent of Wound Purple/Maroon: 100 Wound Drainage Amount: None Wound Drainage Odor: None/Absent Tissue Surrounding Wound: Erythemic Wound General Appearance: Reddened - Maroon/Purple Wound Comment #1 Sacral area DTI pressure ulcer. Maroon/purple in color Recommendation -Local wound care per protocol -Keep clean and dry -Turn and reposition -Offload both heels -Heel protector on both heels -Optimize nutrition -Low air loss mattress -Assess and f/u accordingly for any changes MELY BEDOYA RN May 24, 2017 13:44
[2017-05-24 16:00] VITALS: BP 125/64
--- NOTE | 2017-05-24 17:45 | Consultation ---
DATE OF CONSULTATION: 05/24/2017 UROLOGY CONSULTATION ATTENDING/CONSULTING PHYSICIAN: Oneil Curry D.O. CHIEF COMPLAINT/HISTORY OF PRESENT ILLNESS: I was asked by Dr. Curry to evaluate this 67-year-old unfortunate gentleman regarding history of gross hematuria and improper Chavez catheter placement. Briefly, the patient has a history of multiple medical issues including a previous CVA with right-sided hemiplegia. [facility]- grade fever, cough and congestion consistent with pneumonia. A Chavez catheter was placed, but his urine output was noted to be bloody. A CT scan revealed that the Chavez was within the prostate, as such I was asked to evaluate the patient. The patient cannot communicate much due to stroke and cannot provide much information. Most of the information is gathered from the chart. PAST MEDICAL HISTORY: 1. CVA. 2. Previous tobacco use. 3. Cardiomegaly. 4. Hypercholesterolemia. 5. Peripheral vascular disease. 6. Diabetes mellitus. PAST SURGICAL HISTORY: None. MEDICATIONS: Please see the chart for current medications administration details. Briefly, the patient is receiving subcutaneous heparin. ALLERGIES: No known drug allergies. SOCIAL HISTORY: Notable for previous tobacco use. No history of alcohol or drug use. FAMILY HISTORY: Noncontributory. REVIEW OF SYSTEMS: A 12-system review of systems was limited by the patient's inability to communicate much, but was essentially unremarkable outside what was described above. PHYSICAL EXAMINATION: GENERAL: The patient is an older gentleman, awake, alert, appears oriented, no obvious distress. HEENT: NC/AT. EOMI. NECK: Supple. Full range of motion. Oropharynx clear. CHEST: Within normal limits. ABDOMEN: Morbidly obese, nontender, and nondistended. EXTREMITIES: Warm and well perfused. No cyanosis, clubbing or edema. BACK: No CVA tenderness to percussion. NEUROLOGIC: Notable for right hemiplegia after a stroke. GENITOURINARY: Reveals a normal male phallus. No discharge, lesions, or curvature. There is a Chavez catheter in place with now clear yet, but scant urine output. There are bilateral descended testes and cord structures. No masses or tenderness to palpation. LABORATORY AND DIAGNOSTIC DATA: White blood cell count 9.9, hematocrit 35.9, and platelets 254. Sodium 139, potassium 4.3, chloride 102, bicarbonate 34, BUN 28, creatinine 1.0 and glucose 191. Calcium 8.7. LFTs within normal limits. Urinalysis, specific gravity 1.015, pH 6. Dip test notable for 3+ protein, 2+ glucose, 2+ occult blood, and 3+ leukocyte esterase. Microanalysis with 5 to 10 red blood cells per high-power field, too numerous to count white blood cells per high-power field, and moderate bacteria seen. Diagnostic imaging, CT scan of the abdomen and pelvis reveals a Chavez catheter balloon inflated within the prostatic urethra with distention of the bladder and bilateral hydroureteronephrosis with perinephric stranding suggestive of obstructive uropathy. Reposition the Chavez is recommended. ASSESSMENT AND PLAN: In summary, the patient is a 67-year-old gentleman with a history of previous stroke, who presented with evidence of pneumonia. A Chavez catheter was placed, but it was within the urethra. This resulted in gross hematuria. Physical exam reveals a morbidly obese gentleman with a Chavez catheter that is not draining very well. Laboratory data is essentially unremarkable. Diagnostic imaging reveals findings as described above. Today at the bedside, I deflated and repositioned the Chavez catheter within the patient's bladder. Once I did so, more urine output was returned. Catheter was irrigated by hand and irrigated easily indicating now good position within the bladder. It was inflated again and left to gravity drainage. I would recommend holding the patient's subcutaneous heparin for 2 to 3 more days given his recent hematuria. We should continue on antibiotics for his pneumonia as necessary and this will also treat any urine infection, which may be present. Thank you for allowing me to participate in the care of this unfortunate gentleman. Please do not hesitate to contact me with any questions that you may further have regarding his care. I will be happy to see him with you as needed. River Brennan M.D. DR: TATUM JOB#: [id number] CC:
--- NOTE | 2017-05-24 18:17 | Pulmonology Progress Note ---
Assessment/Plan Problems: (1) Sepsis (2) Bronchitis (3) ATN (acute tubular necrosis) (4) DM (diabetes mellitus screen) (5) Weakness generalized Assessment/Plan improving continue abx check cutlrues all notes reviewed dvt prophylaxis check electroltyes Subjective ROS Limited/Unobtainable: No Constitutional: Reports: no symptoms HEENT: Repors: no symptoms Allergies: Coded Allergies: No Known Allergies (Unverified , 01/08/14) Objective Last 24 Hour Vital Signs Date Time Temp Pulse Resp B/P (MAP) Pulse Ox O2 Delivery O2 Flow Rate FiO2 05/24/17 17:28 125/72 05/24/17 16:59 79 05/24/17 16:00 98.4 80 19 125/64 97 Nasal Cannula 3.0 05/24/17 12:58 130/67 05/24/17 12:12 98.8 81 19 130/67 97 05/24/17 11:34 76 05/24/17 08:01 71 05/24/17 07:59 73 108/67 05/24/17 07:59 108/67 05/24/17 07:59 73 108/67 05/24/17 07:57 98.8 73 20 108/67 91 Nasal Cannula 3.0 05/24/17 06:10 132/76 05/24/17 04:00 70 05/24/17 04:00 97.2 72 20 118/66 99 05/24/17 00:00 72 05/23/17 23:53 125/62 05/23/17 20:53 80 125/62 05/23/17 20:00 100.4 80 20 125/62 92 05/23/17 19:50 86 Intake and Output 05/23/17 05/24/17 19:00 07:00 Intake Total 490 ml Output Total 800 ml 700 ml Balance -310 ml -700 ml Intake Oral 490 ml Output Urine Total 800 ml 700 ml Objective General Appearance: WD/WN Lines, tubes and drains: peripheral HEENT: normocephalic, atraumatic Neck: non-tender, normal alignment Respiratory/Chest: chest wall non-tender, lungs clear Breasts: no masses Cardiovascular/Chest: normal peripheral pulses, normal rate Abdomen: normal bowel sounds, non tender Genitourinary/Rectal: normal genital exam General Appearance: WD/WN Microbiology Date/Time Source Procedure Growth Status 1/31/18 22:40 Blood Blood Culture - Preliminary NO GROWTH AFTER 24 HOURS Resulted 05/22/17 22:30 Blood Blood Culture - Preliminary NO GROWTH AFTER 24 HOURS Resulted 05/22/17 23:30 Urine,Clean Catch Urine Culture - Preliminary Gram Negative Bacillus 1 Resulted Laboratory Tests 05/24/17 06:55: White Blood Count 9.9, Red Blood Count 4.24L, Hemoglobin 11.8L, Hematocrit 35.9L , Mean Corpuscular Volume 85, Mean Corpuscular Hemoglobin 27.9, Mean Corpuscular Hemoglobin Concent 33.0, Red Cell Distribution Width 14.7, Platelet Count 254, Mean Platelet Volume 7.1, Neutrophils (%) (Auto) 70.2, Lymphocytes (% ) (Auto) 19.7L, Monocytes (%) (Auto) 6.5, Eosinophils (%) (Auto) 2.8, Basophils (%) (Auto) 0.8, Sodium Level 139, Potassium Level 4.3, Chloride Level 102, Carbon Dioxide Level 34H, Anion Gap 3L, Blood Urea Nitrogen 28H, Creatinine 1.0 , Estimat Glomerular Filtration Rate > 60, Glucose Level 191#H, Calcium Level 8.7, Total Bilirubin 0.3, Aspartate Amino Transf (AST/SGOT) 14L, Alanine Aminotransferase (ALT/SGPT) 15, Alkaline Phosphatase 88, Total Protein 6.3L, Albumin 2.0L, Globulin 4.3, Albumin/Globulin Ratio 0.5L Current Medications Medications (Trade) Dose Ordered Sig/Henrik Route PRN Reason Start Time Stop Time Status Last Admin Dose Admin Acetaminophen (Tylenol) 650 mg Q4H PRN ORAL fever 05/23/17 00:30 06/22/17 00:29 Acetaminophen/ Hydrocodone Bitart ([place] 5/325) 1 tab Q4H PRN ORAL Moderate Pain (Pain Scale 4-6) 05/23/17 15:00 05/30/17 14:59 05/23/17 20:54 Albuterol/ Ipratropium (Albuterol/ Ipratropium) 3 ml Q4H PRN HHN Shortness of Breath 05/23/17 00:30 05/28/17 00:29 Amlodipine Besylate (Norvasc) 10 mg DAILY ORAL 05/23/17 09:00 06/22/17 08:59 2/1/18 10:16 Aripiprazole (Abilify) 2 mg DAILY ORAL 05/23/17 09:00 06/22/17 08:59 05/24/17 08:09 Cefepime HCl 2 gm/ Sodium Chloride 110 ml @ 220 mls/hr EVERY 12 HOURS IV 05/23/17 09:00 05/30/17 08:59 05/24/17 07:59 Clonidine HCl (Catapres tab) 0.2 mg Q6HR ORAL 05/23/17 06:00 06/22/17 05:59 05/24/17 17:28 Dextrose (Dextrose 50%) STAT PRN IV Hypoglycemia 05/24/17 06:30 06/23/17 06:29 Fluoxetine HCl (PROzac) 30 mg DAILY ORAL 05/23/17 09:00 06/22/17 08:59 05/24/17 08:09 Heparin Sodium (Porcine) (Heparin 5000 units/ml) 5,000 units EVERY 12 HOURS SUBQ 05/23/17 09:00 06/22/17 08:59 05/24/17 08:12 Insulin Aspart (NovoLOG) BEFORE MEALS AND HS SUBQ 05/23/17 06:30 06/22/17 06:29 05/24/17 16:26 Insulin Detemir (Levemir) 18 units DAILY SUBQ 05/24/17 09:00 06/23/17 08:59 05/24/17 08:27 Losartan Potassium (Cozaar) 100 mg DAILY ORAL 05/23/17 09:00 06/22/17 08:59 05/23/17 10:16 Metoprolol Tartrate (Lopressor) 25 mg Q12HR ORAL 05/23/17 21:00 06/22/17 20:59 05/23/17 20:53 Morphine Sulfate (Morphine Sulfate) 2 mg Q4H PRN IVP Severe Pain (Pain Scale 7-10) 05/23/17 15:00 05/30/17 14:59 05/24/17 02:38 Nateglinide (Starlix) 120 mg TIAC ORAL 05/24/17 07:30 06/23/17 07:29 05/24/17 16:32 Nitroglycerin (Ntg) 0.4 mg Q5M PRN SL Prn Chest Pain 05/23/17 00:30 06/22/17 00:29 Ondansetron HCl (Zofran) 4 mg Q6H PRN IVP Nausea & Vomiting 05/23/17 00:30 06/22/17 00:29 Polyethylene Glycol (Miralax) 17 gm DAILYPRN PRN ORAL Constipation 05/23/17 00:30 06/22/17 00:29 Temazepam (Restoril) 15 mg HSPRN PRN ORAL Insomnia 05/23/17 00:30 05/30/17 00:29 BALDEMAR POLANCO May 24, 2017 18:17
[2017-05-24 20:00] VITALS: BP 125/64
--- NOTE | 2017-05-24 20:00 | History and Physical Report ---
DATE OF ADMISSION: 05/22/2017 TIME SEEN: On 05/23/2017 at 1 p.m. CONSULTANTS: 1. Ani Barnes M.D. 2. Dr. Flores. 3. River Brennan M.D. CHIEF COMPLAINT: Weakness, hypoxia, pneumonia, sepsis, and hematuria. BRIEF HISTORY: This is a 67-year-old male from [facility], who presented with the above-mentioned diagnoses, admitted to telemetry for further care. Currently, he is slightly anxious in bed, complaining of bloody urine. No complaint. REVIEW OF SYSTEMS: No chest pain. Slight shortness of breath. No nausea, vomiting, or diarrhea. PAST MEDICAL HISTORY: Includes weakness, CVA, DM type 2, ATN, malnutrition, and hypertension. PAST SURGICAL HISTORY: Unknown. MEDICATIONS: Include vancomycin, Norvasc, Abilify, Prozac, Cozaar, Lopressor, cefepime, insulin, hydrocodone, albuterol, and morphine. ALLERGIES: Denies. SOCIAL HISTORY: No smoking. No alcohol. No intravenous drug abuse. FAMILY HISTORY: Noncontributory. PHYSICAL EXAMINATION: GENERAL: Slightly anxious in bed, oriented x2, in no acute distress. VITAL SIGNS: Shows temperature is 98, pulse 89, respirations 20, and blood pressure 112/49. CARDIOVASCULAR: No murmur. LUNGS: Poor air exchange. ABDOMEN: Bowel sounds distant. EXTREMITIES: No cyanosis, clubbing, or edema. NEUROLOGIC: The patient moves all extremities. Slightly weak. LABORATORY AND DIAGNOSTIC DATA: Labs at this time show white count 15, hemoglobin and hematocrit 13/40, and platelets 271,000. BUN 24 and glucose 328. BNP is 49. Urinalysis showed 3+ leukocyte esterase. ASSESSMENT: 1. Pneumonia. 2. Sepsis. 3. Hypoxia. 4. Anemia. 5. Hematuria. 6. Weakness. 7. Cerebrovascular accident. 8. Diabetes type 2. 9. Hypertension. 10. Acute tubular necrosis. 11. Malnutrition. PLAN: 1. Continue pre-admit medications. 2. O2 and pulmonary treatment as needed. 3. OT, PT, and dietary followup. 4. CBC and BMP in the morning. 5. Dr. Barnes, Dr. Flores, Dr. Brennan, Dr. Yousif, and Dr. Valentino to consult. 6. We will continue to follow this patient. Oneil Curry D.O. DR: ALEJANDRO JOB#: [id number] CC:
[2017-05-25] VITALS: BP 123/63
[2017-05-25] MEDS ORDERED: Nitroglycerin Subl 0.4mg tab SL PRN (01:15)
[2017-05-25 04:09] VITALS: BP 122/65
[2017-05-25] MEDS ORDERED: Albuterol/Ipratropium 3ml neb HHN PRN (04:30)
[2017-05-25] MEDS ORDERED: cloNIDine 0.2mg Tab ORAL SCH (06:00)
[2017-05-25 08:00] VITALS: BP 119/55
[2017-05-25 08:13] LABS: ANION GAP 6 mmol/L (5-15); BLOOD UREA NITROGEN 33 mg/dL (7-18); CALCIUM 8.8 MG/DL (8.5-10.1); CARBON DIOXIDE 30 MMOL/L (21-32); CHLORIDE 104 MMOL/L (98-107); CREATININE 0.9 MG/DL (0.55-1.30); POTASSIUM 3.8 MMOL/L (3.5-5.1); SODIUM 140 MMOL/L (136-145)
[2017-05-25 08:31] LABS: BASOPHILS % (AUTO) 0.7 % (0.0-2.0); EOSINOPHILS % (AUTO) 0.9 % (0.0-3.0); HEMATOCRIT 32.9 % (42.0-52.0); LYMPHOCYTES % (AUTO) 20.3 % (20.0-45.0); MEAN CORPUSCULAR VOLUME 84 FL (80-99); MONOCYTES % (AUTO) 5.5 % (1.0-10.0); NEUTROPHILS % (AUTO) 72.6 % (45.0-75.0); PLATELET COUNT 238 K/UL (150-450); RED BLOOD COUNT 3.94 M/UL (4.70-6.10); RED CELL DISTRIBUTION WIDTH 14.2 % (11.6-14.8); WHITE BLOOD COUNT 10.3 K/UL (4.8-10.8)
--- NOTE | 2017-05-25 08:37 | Pulmonology Progress Note ---
Assessment/Plan Assessment/Plan ASSESSMENT Sepsis (with fever, leukocytosis, elevated lactic acid) UTI bronchitis possible PNA DM OOC COPD obstructive uropathy with gross hematuria 2 to malposition of Chavez-resolved possible dysphagia with aspiration risk HTN CVA with RSW morbid obesity paranoid schizophrenia sacral DTU POA PLAN OF CARE O2 HHN prn Fup with CXR urine cx + Proteus, blood cx prel negative, sputum cx if able abx, ID follows CT A/P noted urology consult appreciated F/c repositioned and irrigated per urology recs will hold heparin for 2-3 days , resume heparin on Saturday change diet to pureed strict aspiration precautions with 1 to 1 feeding swallow eval on Saturday BS management with Starlix and Levemir, SSI prn, hold Metformin 2 to lactic acidosis~ BP management with CCB and ARB wound care as per wound nurse recs case discussed and evaluated by supervising physician Subjective Allergies: Coded Allergies: No Known Allergies (Unverified , 01/08/14) Subjective transferred to [facility] floor leukocytosis resolved, afebrile per nurse coughing with regular consistency diet Objective Last 24 Hour Vital Signs Date Time Temp Pulse Resp B/P (MAP) Pulse Ox O2 Delivery O2 Flow Rate FiO2 05/25/17 04:09 100.0 71 20 122/65 100 Nasal Cannula 05/25/17 00:00 98.4 70 20 123/63 94 Nasal Cannula 3.0 05/24/17 20:09 81 118/59 05/24/17 20:00 98.4 77 20 125/64 94 Nasal Cannula 3.0 05/24/17 19:22 94 Nasal Cannula 3.0 36 05/24/17 19:22 Nasal Cannula 3.0 36 05/24/17 19:21 79 19 Nasal Cannula 3.0 36 05/24/17 17:28 125/72 05/24/17 16:59 79 05/24/17 16:00 98.4 80 19 125/64 97 Nasal Cannula 3.0 05/24/17 12:58 130/67 05/24/17 12:12 98.8 81 19 130/67 97 05/24/17 11:34 76 Intake and Output 05/24/17 05/25/17 19:00 07:00 Intake Total 560 ml 480 ml Output Total 1550 ml 900 ml Balance -990 ml -420 ml Intake Oral 340 ml 480 ml IV Total 220 ml Output Urine Total 1550 ml 900 ml # Voids 2 General Appearance: no acute distress, other - bedridden, obese male HEENT: normocephalic, atraumatic, anicteric Respiratory/Chest: lungs clear, no respiratory distress Cardiovascular: normal rate Abdomen: normal bowel sounds, soft, non tender - obese Extremities: other - trace edema LLE, Rt foot amputated Neurologic/Psychiatric: abnormal gait, other - awake, poorly responsive, R side weakness Musculoskeletal: atrophy - BLE, other - R foot amputated, stump clean Microbiology Date/Time Source Procedure Growth Status 05/22/17 22:40 Blood Blood Culture - Preliminary NO GROWTH AFTER 24 HOURS Resulted 05/22/17 22:30 Blood Blood Culture - Preliminary NO GROWTH AFTER 24 HOURS Resulted 05/22/17 23:30 Urine,Clean Catch Urine Culture - Preliminary Gram Negative Bacillus 1 Resulted Current Medications Medications (Trade) Dose Ordered Sig/Henrik Route PRN Reason Start Time Stop Time Status Last Admin Dose Admin Acetaminophen (Tylenol) 650 mg Q4H PRN ORAL fever 05/25/17 04:30 06/22/17 00:29 Acetaminophen/ Hydrocodone Bitart ([place] 5/325) 1 tab Q4H PRN ORAL Moderate Pain (Pain Scale 4-6) 05/25/17 03:00 05/30/17 14:59 Albuterol/ Ipratropium (Albuterol/ Ipratropium) 3 ml Q4H PRN HHN Shortness of Breath 05/25/17 04:30 05/28/17 00:29 Amlodipine Besylate (Norvasc) 10 mg DAILY ORAL 05/25/17 09:00 06/22/17 08:59 Aripiprazole (Abilify) 2 mg DAILY ORAL 05/25/17 09:00 06/22/17 08:59 Cefepime HCl 2 gm/ Sodium Chloride 110 ml @ 220 mls/hr EVERY 12 HOURS IV 05/25/17 09:00 05/30/17 08:59 Clonidine HCl (Catapres tab) 0.2 mg Q6HR ORAL 05/25/17 06:00 06/22/17 05:59 Dextrose (Dextrose 50%) STAT PRN IV Hypoglycemia 05/25/17 06:30 06/23/17 06:29 Fluoxetine HCl (PROzac) 30 mg DAILY ORAL 05/25/17 09:00 06/22/17 08:59 Insulin Aspart (NovoLOG) BEFORE MEALS AND HS SUBQ 05/25/17 06:30 06/22/17 06:29 Insulin Detemir (Levemir) 18 units DAILY SUBQ 05/25/17 09:00 06/23/17 08:59 Losartan Potassium (Cozaar) 100 mg DAILY ORAL 05/25/17 09:00 06/22/17 08:59 Metoprolol Tartrate (Lopressor) 25 mg Q12HR ORAL 05/25/17 09:00 06/22/17 20:59 Morphine Sulfate (Morphine Sulfate) 2 mg Q4H PRN IVP Severe Pain (Pain Scale 7-10) 05/25/17 03:00 05/30/17 14:59 Nateglinide (Starlix) 120 mg TIAC ORAL 05/25/17 06:30 06/23/17 07:29 Nitroglycerin (Ntg) 0.4 mg Q5M PRN SL Prn Chest Pain 05/25/17 01:15 06/22/17 00:29 Ondansetron HCl (Zofran) 4 mg Q6H PRN IVP Nausea & Vomiting 05/25/17 06:30 06/22/17 00:29 Polyethylene Glycol (Miralax) 17 gm DAILYPRN PRN ORAL Constipation 05/26/17 00:30 06/22/17 00:29 Temazepam (Restoril) 15 mg HSPRN PRN ORAL Insomnia 05/26/17 00:30 05/30/17 00:29 Danita Blunt NP (Vanchte[place]) May 25, 2017 08:37
[2017-05-25] MEDS ORDERED: Levemir Flexpen SUBQ SCH (09:00)
--- NOTE | 2017-05-25 09:03 | General Progress Note ---
Assessment/Plan Problem List: (1) Malnutrition ICD Codes: E46 - Unspecified protein-calorie malnutrition SNOMED: 42305033 (2) Weak ICD Codes: R53.1 - Weakness SNOMED: 09440152 (3) Sepsis ICD Codes: A41.9 - Sepsis SNOMED: 93881107 (4) Pneumonia ICD Codes: J18.9 - Pneumonia, unspecified organism SNOMED: 687997732 (5) Respiratory distress ICD Codes: R06.00 - Respiratory distress SNOMED: 104549054 (6) Weakness generalized ICD Codes: R53.1 - Weakness SNOMED: 54198416 (7) ATN (acute tubular necrosis) ICD Codes: N17.0 - Acute kidney failure with tubular necrosis SNOMED: 08549108 Status: stable, progressing, tolerating diet Assessment/Plan o2 pulm tx abx ot pt diet cbc bmp am dc plan Subjective Constitutional: Reports: weakness Allergies: Coded Allergies: No Known Allergies (Unverified , 01/08/14) All Systems: reviewed and negative except above Subjective sleepy calm Objective Last 24 Hour Vital Signs Date Time Temp Pulse Resp B/P (MAP) Pulse Ox O2 Delivery O2 Flow Rate FiO2 05/25/17 08:00 99.1 69 22 119/55 94 05/25/17 04:09 100.0 71 20 122/65 100 Nasal Cannula 05/25/17 00:00 98.4 70 20 123/63 94 Nasal Cannula 3.0 05/24/17 20:09 81 118/59 05/24/17 20:00 98.4 77 20 125/64 94 Nasal Cannula 3.0 05/24/17 19:22 94 Nasal Cannula 3.0 36 05/24/17 19:22 Nasal Cannula 3.0 36 05/24/17 19:21 79 19 Nasal Cannula 3.0 36 05/24/17 17:28 125/72 05/24/17 16:59 79 05/24/17 16:00 98.4 80 19 125/64 97 Nasal Cannula 3.0 05/24/17 12:58 130/67 05/24/17 12:12 98.8 81 19 130/67 97 05/24/17 11:34 76 Intake and Output 05/24/17 05/25/17 19:00 07:00 Intake Total 560 ml 480 ml Output Total 1550 ml 900 ml Balance -990 ml -420 ml Intake Oral 340 ml 480 ml IV Total 220 ml Output Urine Total 1550 ml 900 ml # Voids 2 Laboratory Tests 05/25/17 06:53: White Blood Count 10.3, Red Blood Count 3.94L, Hemoglobin 11.0L, Hematocrit 32.9L, Mean Corpuscular Volume 84, Mean Corpuscular Hemoglobin 27.9, Mean Corpuscular Hemoglobin Concent 33.4, Red Cell Distribution Width 14.2, Platelet Count 238, Mean Platelet Volume 7.0, Neutrophils (%) (Auto) 72.6, Lymphocytes (% ) (Auto) 20.3, Monocytes (%) (Auto) 5.5, Eosinophils (%) (Auto) 0.9, Basophils ( %) (Auto) 0.7, Sodium Level 140, Potassium Level 3.8, Chloride Level 104, Carbon Dioxide Level 30, Anion Gap 6, Blood Urea Nitrogen 33H, Creatinine 0.9, Estimat Glomerular Filtration Rate > 60, Glucose Level 212H, Calcium Level 8.8 Height (Feet): 5 Height (Inches): 9.00 Weight (Pounds): 260 General Appearance: lethargic EENT: normal ENT inspection Neck: normal alignment Cardiovascular: normal peripheral pulses, normal rate, regular rhythm Respiratory/Chest: chest wall non-tender, lungs clear, normal breath sounds Abdomen: normal bowel sounds, non tender, soft Extremities: normal inspection Edema: no edema noted Arm (L), no edema noted Arm (R), no edema noted Leg (L), no edema noted Leg (R), no edema noted Pedal (L), no edema noted Pedal (R), no edema noted Generalized Neurologic: motor weakness Skin: normal pigmentation, warm/dry STACY PRICE May 25, 2017 09:03
[2017-05-25] MEDS: FLUoxetine 10mg cap ORAL SCH (09:29)
[2017-05-25] MEDS: Losartan 50mg tab ORAL SCH (09:29)
[2017-05-25] MEDS: Cefepime HCl 2 GM in NS 110 ML IV SCH ×2 (09:29→20:35)
[2017-05-25] MEDS: Metoprolol 25mg tab ORAL SCH ×2 (09:30→20:35)
[2017-05-25] MEDS: ARIPiprazole 2mg tab ORAL SCH (10:19)
[2017-05-25 12:00] VITALS: BP 102/58
[2017-05-25] MEDS: NovoLOG Insulin Flexpen SUBQ SCH ×3 (12:17→20:37)
[2017-05-25] MEDS ORDERED: LORazepam 1mg tab ORAL PRN (15:45)
[2017-05-25 16:00] VITALS: BP 120/62
[2017-05-25] MEDS ORDERED: Tubing IV Secondary IV ONE (16:48)
[2017-05-25] MEDS: cloNIDine 0.2mg Tab ORAL SCH ×2 (18:20→23:56)
[2017-05-25 20:51] VITALS: BP 124/68
[2017-05-26] VITALS: BP 123/68
[2017-05-26] MEDS ORDERED: Miralax 17gm pkt ORAL PRN (00:30)
[2017-05-26 04:00] VITALS: BP 136/74
--- NOTE | 2017-05-26 05:37 | General Progress Note ---
Assessment/Plan Problem List: (1) Malnutrition ICD Codes: E46 - Unspecified protein-calorie malnutrition SNOMED: 19440375 (2) Weak ICD Codes: R53.1 - Weakness SNOMED: 63651563 (3) Sepsis ICD Codes: A41.9 - Sepsis SNOMED: 73316821 (4) Pneumonia ICD Codes: J18.9 - Pneumonia, unspecified organism SNOMED: 466195045 (5) Respiratory distress ICD Codes: R06.00 - Respiratory distress SNOMED: 852968422 (6) Weakness generalized ICD Codes: R53.1 - Weakness SNOMED: 51041369 (7) ATN (acute tubular necrosis) ICD Codes: N17.0 - Acute kidney failure with tubular necrosis SNOMED: 93753623 Status: unchanged Assessment/Plan o2 pulm tx abx ot pt diet cbc bmp am dc plan Subjective Constitutional: Reports: weakness Allergies: Coded Allergies: No Known Allergies (Unverified , 01/08/14) All Systems: reviewed and negative except above Subjective sleepy calm Objective Last 24 Hour Vital Signs Date Time Temp Pulse Resp B/P (MAP) Pulse Ox O2 Delivery O2 Flow Rate FiO2 05/26/17 00:00 98.2 66 20 123/68 96 Nasal Cannula 3.0 05/25/17 23:56 123/68 05/25/17 20:51 98.6 69 20 124/68 95 Nasal Cannula 3.0 05/25/17 20:35 69 124/68 05/25/17 18:20 120/62 05/25/17 16:50 Nasal Cannula 3.0 05/25/17 16:00 98.1 68 22 120/62 92 05/25/17 12:00 98.1 61 20 102/58 94 05/25/17 09:30 69 119/55 05/25/17 09:30 69 119/55 05/25/17 09:29 119/55 05/25/17 08:00 99.1 69 22 119/55 94 Intake and Output 05/25/17 05/26/17 19:00 07:00 Intake Total 480 ml 110 ml Output Total 850 ml Balance -370 ml 110 ml Intake Oral 480 ml IV Total 110 ml Output Urine Total 850 ml Laboratory Tests 05/25/17 06:53: White Blood Count 10.3, Red Blood Count 3.94L, Hemoglobin 11.0L, Hematocrit 32.9L, Mean Corpuscular Volume 84, Mean Corpuscular Hemoglobin 27.9, Mean Corpuscular Hemoglobin Concent 33.4, Red Cell Distribution Width 14.2, Platelet Count 238, Mean Platelet Volume 7.0, Neutrophils (%) (Auto) 72.6, Lymphocytes (% ) (Auto) 20.3, Monocytes (%) (Auto) 5.5, Eosinophils (%) (Auto) 0.9, Basophils ( %) (Auto) 0.7, Sodium Level 140, Potassium Level 3.8, Chloride Level 104, Carbon Dioxide Level 30, Anion Gap 6, Blood Urea Nitrogen 33H, Creatinine 0.9, Estimat Glomerular Filtration Rate > 60, Glucose Level 212H, Calcium Level 8.8 Height (Feet): 5 Height (Inches): 9.00 Weight (Pounds): 260 General Appearance: lethargic EENT: normal ENT inspection Neck: normal alignment Cardiovascular: normal peripheral pulses, normal rate, regular rhythm Respiratory/Chest: chest wall non-tender, lungs clear, normal breath sounds Abdomen: normal bowel sounds, non tender, soft Extremities: normal inspection Edema: no edema noted Arm (L), no edema noted Arm (R), no edema noted Leg (L), no edema noted Leg (R), no edema noted Pedal (L), no edema noted Pedal (R), no edema noted Generalized Neurologic: responsive, motor weakness Skin: normal pigmentation, warm/dry STACY PRICE May 26, 2017 05:37
[2017-05-26] MEDS: cloNIDine 0.2mg Tab ORAL SCH ×4 (05:52→23:53)
[2017-05-26] MEDS: NovoLOG Insulin Flexpen SUBQ SCH ×4 (05:58→20:40)
[2017-05-26 08:00] VITALS: BP 122/69
[2017-05-26 08:15] LABS: BASOPHILS % (AUTO) 0.5 % (0.0-2.0); EOSINOPHILS % (AUTO) 2.4 % (0.0-3.0); HEMATOCRIT 31.5 % (42.0-52.0); HEMOGLOBIN 10.8 G/DL (14.2-18.0); LYMPHOCYTES % (AUTO) 17.3 % (20.0-45.0); MEAN CORPUSCULAR VOLUME 83 FL (80-99); MONOCYTES % (AUTO) 4.9 % (1.0-10.0); NEUTROPHILS % (AUTO) 74.9 % (45.0-75.0); PLATELET COUNT 236 K/UL (150-450); RED BLOOD COUNT 3.81 M/UL (4.70-6.10); RED CELL DISTRIBUTION WIDTH 13.8 % (11.6-14.8); WHITE BLOOD COUNT 10.3 K/UL (4.8-10.8)
[2017-05-26 08:23] LABS: ANION GAP 4 mmol/L (5-15); BLOOD UREA NITROGEN 27 mg/dL (7-18); CALCIUM 8.6 MG/DL (8.5-10.1); CARBON DIOXIDE 30 MMOL/L (21-32); CHLORIDE 103 MMOL/L (98-107); CREATININE 0.7 MG/DL (0.55-1.30); POTASSIUM 3.9 MMOL/L (3.5-5.1); SODIUM 137 MMOL/L (136-145)
[2017-05-26] MEDS: ARIPiprazole 2mg tab ORAL SCH (08:47)
[2017-05-26] MEDS: Losartan 50mg tab ORAL SCH (08:48)
[2017-05-26] MEDS: FLUoxetine 10mg cap ORAL SCH (08:48)
[2017-05-26] MEDS: Metoprolol 25mg tab ORAL SCH ×2 (08:48→20:37)
[2017-05-26] MEDS: Cefepime HCl 2 GM in NS 110 ML IV SCH ×2 (08:50→20:37)
[2017-05-26] MEDS: Levemir Flexpen SUBQ SCH ×3 (09:01→17:16)
--- NOTE | 2017-05-26 11:02 | Infectious Diseases Prog Note ---
Assessment/Plan Assessment/Plan A; Sepsis Complicated UTI with proteus Pneumonia/atelectasis Bilateral hydronephrosis Uncontrolled DM Paranoid schizophrenia P; Continue Cefepime, repeat CXR Subjective ROS Limited/Unobtainable: Yes Respiratory: Reports: productive cough Gastrointestinal/Abdominal: Reports: other - pain Genitourinary: Reports: other - discomfort with Chavez catheter Allergies: Coded Allergies: No Known Allergies (Unverified , 01/08/14) Objective Vital Signs Last 24 Hour Vital Signs Date Time Temp Pulse Resp B/P (MAP) Pulse Ox O2 Delivery O2 Flow Rate FiO2 05/26/17 08:48 67 122/69 05/26/17 08:48 122/69 05/26/17 08:48 67 122/69 05/26/17 08:00 97.9 67 19 122/69 94 05/26/17 05:52 119/70 05/26/17 04:00 97.5 66 20 136/74 96 Nasal Cannula 3.0 05/26/17 00:00 98.2 66 20 123/68 96 Nasal Cannula 3.0 05/25/17 23:56 123/68 05/25/17 20:51 98.6 69 20 124/68 95 Nasal Cannula 3.0 05/25/17 20:35 69 124/68 05/25/17 18:20 120/62 05/25/17 16:50 Nasal Cannula 3.0 05/25/17 16:00 98.1 68 22 120/62 92 05/25/17 12:00 98.1 61 20 102/58 94 Height (Feet): 5 Height (Inches): 9.00 Weight (Pounds): 260 General Appearance: no acute distress HEENT: mucous membranes moist Respiratory/Chest: lungs clear Cardiovascular: normal rate Abdomen: soft, non tender Genitourinary: other - Chavez catheter Extremities: other - edema of legs, R foot amputation Neurologic/Psychiatric: alert, responsive Laboratory Tests Test 05/26/17 06:10 White Blood Count 10.3 K/UL (4.8-10.8) Red Blood Count 3.81 M/UL (4.70-6.10) L Hemoglobin 10.8 G/DL (14.2-18.0) L Hematocrit 31.5 % (42.0-52.0) L Mean Corpuscular Volume 83 FL (80-99) Mean Corpuscular Hemoglobin 28.4 PG (27.0-31.0) Mean Corpuscular Hemoglobin Concent 34.4 G/DL (32.0-36.0) Red Cell Distribution Width 13.8 % (11.6-14.8) Platelet Count 236 K/UL (150-450) Mean Platelet Volume 7.2 FL (6.5-10.1) Neutrophils (%) (Auto) 74.9 % (45.0-75.0) Lymphocytes (%) (Auto) 17.3 % (20.0-45.0) L Monocytes (%) (Auto) 4.9 % (1.0-10.0) Eosinophils (%) (Auto) 2.4 % (0.0-3.0) Basophils (%) (Auto) 0.5 % (0.0-2.0) Sodium Level 137 MMOL/L (136-145) Potassium Level 3.9 MMOL/L (3.5-5.1) Chloride Level 103 MMOL/L (98-107) Carbon Dioxide Level 30 MMOL/L (21-32) Anion Gap 4 mmol/L (5-15) L Blood Urea Nitrogen 27 mg/dL (7-18) H Creatinine 0.7 MG/DL (0.55-1.30) Estimat Glomerular Filtration Rate > 60 mL/min (>60) Glucose Level 206 MG/DL (74-106) H Calcium Level 8.6 MG/DL (8.5-10.1) Current Medications Medications (Trade) Dose Ordered Sig/Henrik Route PRN Reason Start Time Stop Time Status Last Admin Dose Admin Acetaminophen (Tylenol) 650 mg Q4H PRN ORAL fever 05/25/17 04:30 06/22/17 00:29 Acetaminophen/ Hydrocodone Bitart ([place] 5/325) 1 tab Q4H PRN ORAL Moderate Pain (Pain Scale 4-6) 05/25/17 03:00 05/30/17 14:59 Albuterol/ Ipratropium (Albuterol/ Ipratropium) 3 ml Q4H PRN HHN Shortness of Breath 05/25/17 04:30 05/28/17 00:29 Amlodipine Besylate (Norvasc) 10 mg DAILY ORAL 05/25/17 09:00 06/22/17 08:59 05/26/17 08:48 Aripiprazole (Abilify) 2 mg DAILY ORAL 05/25/17 09:00 06/22/17 08:59 05/26/17 08:47 Cefepime HCl 2 gm/ Sodium Chloride 110 ml @ 220 mls/hr EVERY 12 HOURS IV 05/25/17 09:00 05/30/17 08:59 05/26/17 08:50 Clonidine HCl (Catapres tab) 0.2 mg Q6HR ORAL 05/25/17 18:00 06/24/17 17:59 05/26/17 05:52 Dextrose (Dextrose 50%) STAT PRN IV Hypoglycemia 05/25/17 06:30 06/23/17 06:29 Fluoxetine HCl (PROzac) 30 mg DAILY ORAL 05/25/17 09:00 06/22/17 08:59 05/26/17 08:48 Insulin Aspart (NovoLOG) BEFORE MEALS AND HS SUBQ 05/25/17 06:30 06/22/17 06:29 05/26/17 05:58 Insulin Detemir (Levemir) 20 units BID SUBQ 05/26/17 09:00 06/25/17 08:59 05/26/17 09:01 Lorazepam (Ativan) 1 mg Q6H PRN ORAL For Anxiety 05/25/17 15:45 06/01/17 15:44 Losartan Potassium (Cozaar) 100 mg DAILY ORAL 05/25/17 09:00 06/22/17 08:59 05/26/17 08:48 Metoprolol Tartrate (Lopressor) 25 mg Q12HR ORAL 05/25/17 09:00 06/22/17 20:59 05/26/17 08:48 Morphine Sulfate (Morphine Sulfate) 2 mg Q4H PRN IVP Severe Pain (Pain Scale 7-10) 05/25/17 03:00 05/30/17 14:59 Nateglinide (Starlix) 120 mg TIAC ORAL 05/25/17 06:30 06/23/17 07:29 05/26/17 05:52 Nitroglycerin (Ntg) 0.4 mg Q5M PRN SL Prn Chest Pain 05/25/17 01:15 06/22/17 00:29 Ondansetron HCl (Zofran) 4 mg Q6H PRN IVP Nausea & Vomiting 05/25/17 06:30 06/22/17 00:29 Polyethylene Glycol (Miralax) 17 gm DAILYPRN PRN ORAL Constipation 05/26/17 00:30 06/22/17 00:29 Temazepam (Restoril) 15 mg HSPRN PRN ORAL Insomnia 05/26/17 00:30 05/30/17 00:29 ROSALIND ALVAREZ May 26, 2017 11:02
[2017-05-26] MEDS: Norco 5mg/325mg tab ORAL PRN (11:21)
[2017-05-26 12:00] VITALS: BP 129/56
--- NOTE | 2017-05-26 13:36 | Pulmonology Progress Note ---
Assessment/Plan Assessment/Plan ASSESSMENT Sepsis (with fever, leukocytosis, elevated lactic acid) Proteus UTI bronchitis possible PNA DM OOC COPD obstructive uropathy with gross hematuria 2 to malposition of Chavez-resolved possible dysphagia with aspiration risk HTN CVA with RSW morbid obesity paranoid schizophrenia sacral DTU POA PLAN OF CARE O2 HHN prn Fup with CXR in am urine cx + Proteus, blood cx prel negative, sputum cx if able abx, ID follows CT A/P noted urology consult appreciated F/c repositioned and irrigated per urology recs will hold heparin for 2-3 days , resume heparin on Saturday change diet to pureed strict aspiration precautions with 1 to 1 feeding swallow eval on Saturday BS management with Starlix and Levemir, SSI prn, hold Metformin 2 to lactic acidosis~ BP management with CCB and ARB wound care as per wound nurse recs case discussed and evaluated by supervising physician Subjective Allergies: Coded Allergies: No Known Allergies (Unverified , 01/08/14) Subjective leukocytosis resolved, afebrile per nurse coughing with regular consistency diet Objective Last 24 Hour Vital Signs Date Time Temp Pulse Resp B/P (MAP) Pulse Ox O2 Delivery O2 Flow Rate FiO2 05/26/17 12:27 129/56 05/26/17 12:23 Nasal Cannula 3.0 05/26/17 12:20 98.1 05/26/17 12:00 98.1 64 20 129/56 95 05/26/17 08:48 67 122/69 05/26/17 08:48 122/69 05/26/17 08:48 67 122/69 05/26/17 08:00 97.9 67 19 122/69 94 05/26/17 05:52 119/70 05/26/17 04:00 97.5 66 20 136/74 96 Nasal Cannula 3.0 05/26/17 00:00 98.2 66 20 123/68 96 Nasal Cannula 3.0 05/25/17 23:56 123/68 05/25/17 20:51 98.6 69 20 124/68 95 Nasal Cannula 3.0 05/25/17 20:35 69 124/68 05/25/17 18:20 120/62 05/25/17 16:50 Nasal Cannula 3.0 05/25/17 16:00 98.1 68 22 120/62 92 Intake and Output 05/25/17 05/26/17 19:00 07:00 Intake Total 480 ml 110 ml Output Total 850 ml 1000 ml Balance -370 ml -890 ml Intake Oral 480 ml IV Total 110 ml Output Urine Total 850 ml 1000 ml Objective General Appearance: no acute distress, other - bedridden, obese male HEENT: normocephalic, atraumatic, anicteric Respiratory/Chest: lungs clear, no respiratory distress Cardiovascular: normal rate Abdomen: normal bowel sounds, soft, non tender - obese Extremities: trace edema LLE, R foot amputated Neurologic/Psychiatric: abnormal gait, other - awake, poorly responsive, R side weakness Musculoskeletal: atrophy - BLE, other - R foot amputated, stump clean Laboratory Tests 05/26/17 06:10: White Blood Count 10.3, Red Blood Count 3.81L, Hemoglobin 10.8L, Hematocrit 31.5L, Mean Corpuscular Volume 83, Mean Corpuscular Hemoglobin 28.4, Mean Corpuscular Hemoglobin Concent 34.4, Red Cell Distribution Width 13.8, Platelet Count 236, Mean Platelet Volume 7.2, Neutrophils (%) (Auto) 74.9, Lymphocytes (% ) (Auto) 17.3L, Monocytes (%) (Auto) 4.9, Eosinophils (%) (Auto) 2.4, Basophils (%) (Auto) 0.5, Sodium Level 137, Potassium Level 3.9, Chloride Level 103, Carbon Dioxide Level 30, Anion Gap 4L, Blood Urea Nitrogen 27H, Creatinine 0.7, Estimat Glomerular Filtration Rate > 60, Glucose Level 206H, Calcium Level 8.6 Current Medications Medications (Trade) Dose Ordered Sig/Henrik Route PRN Reason Start Time Stop Time Status Last Admin Dose Admin Acetaminophen (Tylenol) 650 mg Q4H PRN ORAL fever 05/25/17 04:30 06/22/17 00:29 Acetaminophen/ Hydrocodone Bitart ([place] 5/325) 1 tab Q4H PRN ORAL Moderate Pain (Pain Scale 4-6) 05/25/17 03:00 05/30/17 14:59 05/26/17 11:21 Albuterol/ Ipratropium (Albuterol/ Ipratropium) 3 ml Q4H PRN HHN Shortness of Breath 05/25/17 04:30 05/28/17 00:29 Amlodipine Besylate (Norvasc) 10 mg DAILY ORAL 05/25/17 09:00 06/22/17 08:59 05/26/17 08:48 Aripiprazole (Abilify) 2 mg DAILY ORAL 05/25/17 09:00 06/22/17 08:59 05/26/17 08:47 Cefepime HCl 2 gm/ Sodium Chloride 110 ml @ 220 mls/hr EVERY 12 HOURS IV 05/25/17 09:00 05/30/17 08:59 05/26/17 08:50 Clonidine HCl (Catapres tab) 0.2 mg Q6HR ORAL 05/25/17 18:00 06/24/17 17:59 05/26/17 12:27 Dextrose (Dextrose 50%) STAT PRN IV Hypoglycemia 05/25/17 06:30 06/23/17 06:29 Fluoxetine HCl (PROzac) 30 mg DAILY ORAL 05/25/17 09:00 06/22/17 08:59 05/26/17 08:48 Insulin Aspart (NovoLOG) BEFORE MEALS AND HS SUBQ 05/25/17 06:30 06/22/17 06:29 05/26/17 11:30 Insulin Detemir (Levemir) 20 units BID SUBQ 05/26/17 09:00 06/25/17 08:59 05/26/17 09:01 Lorazepam (Ativan) 1 mg Q6H PRN ORAL For Anxiety 05/25/17 15:45 06/01/17 15:44 Losartan Potassium (Cozaar) 100 mg DAILY ORAL 05/25/17 09:00 06/22/17 08:59 05/26/17 08:48 Metoprolol Tartrate (Lopressor) 25 mg Q12HR ORAL 05/25/17 09:00 06/22/17 20:59 05/26/17 08:48 Morphine Sulfate (Morphine Sulfate) 2 mg Q4H PRN IVP Severe Pain (Pain Scale 7-10) 05/25/17 03:00 05/30/17 14:59 Nateglinide (Starlix) 120 mg TIAC ORAL 05/25/17 06:30 06/23/17 07:29 05/26/17 11:18 Nitroglycerin (Ntg) 0.4 mg Q5M PRN SL Prn Chest Pain 05/25/17 01:15 06/22/17 00:29 Ondansetron HCl (Zofran) 4 mg Q6H PRN IVP Nausea & Vomiting 05/25/17 06:30 06/22/17 00:29 Polyethylene Glycol (Miralax) 17 gm DAILYPRN PRN ORAL Constipation 05/26/17 00:30 06/22/17 00:29 05/26/17 12:36 Temazepam (Restoril) 15 mg HSPRN PRN ORAL Insomnia 05/26/17 00:30 05/30/17 00:29 Jose Raul ([facility])Danita NP May 26, 2017 13:36
[2017-05-26 16:00] VITALS: BP 109/54
[2017-05-26] MEDS ORDERED: Albuterol/Ipratropium 3ml neb HHN PRN (16:30)
--- NOTE | 2017-05-26 16:57 | Cardiology Report ---
APPROVED REPORT EKG Measurement Heart [id number] Sinus tachycardia Left axis deviation Possible Inferior infarct, age undetermined Possible Anterolateral infarct, age undetermined Abnormal ECG
[2017-05-26 20:00] VITALS: BP 108/55
--- NOTE | 2017-05-26 23:05 | Consultation ---
DATE OF CONSULTATION: 05/25/2017 PSYCHIATRIC CONSULTATION HISTORY OF PRESENT ILLNESS: This is a 67-year-old male patient with pneumonia. This patient was admitted to the hospital. I saw and assessed him at the bedside. Admission psychiatric consultation was requested by Dr. Oneil Curry. This patient is a male patient, who came in with weakness, pneumonia, sepsis and hematuria, but he came in because he has been very anxious, irritable, agitated. Cognition overall declined below baseline. In addition to that, he has overlying diagnosis of paranoid schizophrenia, rule out dementia with psychosis. Because of decline in his cognition and a psychiatric diagnosis, Dr. Oneil Curry has requested daily psychiatric consultation with this patient throughout hospital course to manage behavior, mood lability and prevent any further decline in his cognition. Seen and assessed the patient at the bedside. He is very confused. He is also disorganized and slightly agitated. The basis of cognition has declined below his baseline. ALLERGIES: No known drug allergies. SOCIAL HISTORY: The patient lives in a [facility]. Financially supported by Medicare. SUBSTANCE ABUSE HISTORY: There is no history of any drug or alcohol use. PSYCHIATRIC HISTORY: History of paranoid schizophrenia, rule out dementia with psychosis. He has had psychiatric admissions. MEDICAL HISTORY: 1. Diabetes type 2. 2. Acute tubular necrosis. 3. Hypertension. 4. Weakness. 5. Status post CVA. ALLERGIES: No known drug allergies. FAMILY PSYCHIATRIC HISTORY: Denies. Strength is moderately better. impulsive and does not support system. MENTAL STATUS EXAMINATION: Appearance is disheveled. Attitude is irritable and agitated. Affect is guarded and restricted. Intellect is poor. Mood is depressed and anxious. Motor activity, psychomotor retardation. Memory 2/3 after 3/3 word recall, so poor memory. Insight and judgment are poor. Orientation x2. No signs of any suicidal or homicidal thoughts. DIAGNOSIS: Major depressive disorder with psychotic features, rule out pseudodementia, rule out bipolar 2, but medical history includes urinary tract infection, acute tubular necrosis, hypoxia and psychosocial stressors and financial stressors. PLAN: So, the plan for this patient is to continue providing supportive therapy 15 to 20 minutes today for supportive therapy, but also I am going to treat him with Prozac at 30 mg p.o. daily and then I am also going to treat this patient with Abilify 2 mg daily and to help stabilize his mood and to reduce agitation and anxiety. I am also going to add Ativan 1 mg every 6 hours p.r.n. anxiety and agitation. Provide him with supportive therapy and encourage him to interact appropriately with staff. Provide therapy for 15 and 20 minutes. Seen and assessed at the bedside. Chart reviewed and discussed with the staff. I would like to thank, Dr. Oneil Curry for this interesting consultation. I will be happy to follow this patient with you throughout his hospital course. Chart reviewed and discussed with the staff. The patient was seen and assessed at the bedside. Rosa Yousif M.D. DR: Tre JOB#: [id number] CC:
[2017-05-27] VITALS (7 sets, daily range): BP systolic 111–133; BP diastolic 54–75
--- NOTE | 2017-05-27 | Progress Note ---
DATE: 05/26/2017 SUBJECTIVE: The patient is a 67-year-old male with pneumonia and hypoxia, but his cognition has declined below baseline secondary to the stress and his medical illness, so his attending has requested daily psychiatric consultation. MENTAL STATUS EXAMINATION: The patient is a 67-year-old male with psychomotor agitation. Mood is irritable, agitated. Affect guarded and restricted. Thought process is disorganized and illogical. He denies any suicidal or homicidal thoughts. His insight and judgement is poor. DIAGNOSIS: Major depressive disorder with psychotic features, rule out pseudodementia. PLAN: Treat with Abilify mg daily to stabilize his mood and Prozac 30 mg daily, provide him with and supportive therapy and encourage him to interact appropriately with staff and other patients. Chart reviewed and discussed with the staff. Seen and assessed in his room. Rosa Yousif M.D. DR: Amelie JOB#: [id number] CC:
[2017-05-27] MEDS: Morphine Sulfate 4mg/ml Inj IVP PRN ×4 (03:44→19:41)
[2017-05-27] MEDS: NovoLOG Insulin Flexpen SUBQ SCH ×4 (05:53→20:23)
[2017-05-27] MEDS: cloNIDine 0.2mg Tab ORAL SCH ×3 (05:54→17:49)
[2017-05-27 08:04] LABS: ANION GAP 7 mmol/L (5-15); BASOPHILS % (AUTO) 0.5 % (0.0-2.0); BLOOD UREA NITROGEN 21 mg/dL (7-18); CALCIUM 9.2 MG/DL (8.5-10.1); CARBON DIOXIDE 28 MMOL/L (21-32); CHLORIDE 103 MMOL/L (98-107); CREATININE 0.6 MG/DL (0.55-1.30); EOSINOPHILS % (AUTO) 1.8 % (0.0-3.0); HEMATOCRIT 34.6 % (42.0-52.0); HEMOGLOBIN 11.8 G/DL (14.2-18.0); MEAN CORPUSCULAR VOLUME 83 FL (80-99); MONOCYTES % (AUTO) 5.8 % (1.0-10.0); NEUTROPHILS % (AUTO) 78.9 % (45.0-75.0); PLATELET COUNT 260 K/UL (150-450); POTASSIUM 4.3 MMOL/L (3.5-5.1); RED BLOOD COUNT 4.19 M/UL (4.70-6.10); RED CELL DISTRIBUTION WIDTH 13.7 % (11.6-14.8); SODIUM 138 MMOL/L (136-145); WHITE BLOOD COUNT 12.9 K/UL (4.8-10.8)
[2017-05-27] MEDS: Cefepime HCl 2 GM in NS 110 ML IV SCH ×2 (08:38→20:24)
[2017-05-27] MEDS: ARIPiprazole 2mg tab ORAL SCH (08:38)
[2017-05-27] MEDS: Losartan 50mg tab ORAL SCH (08:39)
[2017-05-27] MEDS: FLUoxetine 10mg cap ORAL SCH (08:39)
[2017-05-27] MEDS: Heparin 5000 units/ml inj SUBQ SCH ×2 (08:55→20:22)
[2017-05-27] MEDS: Levemir Flexpen SUBQ SCH ×2 (08:57→17:58)
[2017-05-27] MEDS: Metoprolol 25mg tab ORAL SCH ×2 (09:00→20:22)
--- NOTE | 2017-05-27 12:29 | Infectious Diseases Prog Note ---
Assessment/Plan Assessment/Plan A; Sepsis Complicated UTI with proteus Pneumonia/atelectasis Bilateral hydronephrosis Uncontrolled DM Paranoid schizophrenia P; Continue Cefepime, Subjective ROS Limited/Unobtainable: Yes Gastrointestinal/Abdominal: Reports: other - epigastric pain Allergies: Coded Allergies: No Known Allergies (Unverified , 01/08/14) Objective Vital Signs Last 24 Hour Vital Signs Date Time Temp Pulse Resp B/P (MAP) Pulse Ox O2 Delivery O2 Flow Rate FiO2 05/27/17 12:10 97.3 62 18 121/65 97 Nasal Cannula 2.0 05/27/17 09:00 64 129/75 05/27/17 08:39 129/75 05/27/17 08:38 64 129/75 05/27/17 08:00 97.5 64 20 129/75 94 Nasal Cannula 2.0 05/27/17 07:57 Nasal Cannula 3.0 32 05/27/17 07:52 62 18 Nasal Cannula 3.0 36 05/27/17 07:52 94 Nasal Cannula 3.0 32 05/27/17 05:54 133/75 05/27/17 04:00 94 Nasal Cannula 3.0 05/27/17 04:00 97.0 65 20 133/75 05/27/17 00:00 98.1 63 18 111/71 94 05/27/17 00:00 Nasal Cannula 3.0 05/26/17 23:53 114/60 05/26/17 20:37 64 108/55 05/26/17 20:00 97.5 64 19 108/55 91 05/26/17 20:00 94 Nasal Cannula 3.0 05/26/17 19:53 95 Nasal Cannula 3.0 36 05/26/17 19:53 Nasal Cannula 3.0 36 05/26/17 19:52 83 18 Nasal Cannula 3.0 36 05/26/17 17:11 129/56 05/26/17 16:00 63 109/54 Nasal Cannula 3.0 05/26/17 12:27 129/56 Height (Feet): 5 Height (Inches): 9.00 Weight (Pounds): 260 General Appearance: no acute distress HEENT: mucous membranes moist Respiratory/Chest: lungs clear Cardiovascular: normal rate Abdomen: distended Extremities: other - edema of legs, R foot amputation Neurologic/Psychiatric: other - R heiplegia, slurred speech Laboratory Tests Test 05/27/17 06:10 White Blood Count 12.9 K/UL (4.8-10.8) H Red Blood Count 4.19 M/UL (4.70-6.10) L Hemoglobin 11.8 G/DL (14.2-18.0) L Hematocrit 34.6 % (42.0-52.0) L Mean Corpuscular Volume 83 FL (80-99) Mean Corpuscular Hemoglobin 28.2 PG (27.0-31.0) Mean Corpuscular Hemoglobin Concent 34.2 G/DL (32.0-36.0) Red Cell Distribution Width 13.7 % (11.6-14.8) Platelet Count 260 K/UL (150-450) Mean Platelet Volume 6.9 FL (6.5-10.1) Neutrophils (%) (Auto) 78.9 % (45.0-75.0) H Lymphocytes (%) (Auto) 13.0 % (20.0-45.0) L Monocytes (%) (Auto) 5.8 % (1.0-10.0) Eosinophils (%) (Auto) 1.8 % (0.0-3.0) Basophils (%) (Auto) 0.5 % (0.0-2.0) Sodium Level 138 MMOL/L (136-145) Potassium Level 4.3 MMOL/L (3.5-5.1) Chloride Level 103 MMOL/L (98-107) Carbon Dioxide Level 28 MMOL/L (21-32) Anion Gap 7 mmol/L (5-15) Blood Urea Nitrogen 21 mg/dL (7-18) H Creatinine 0.6 MG/DL (0.55-1.30) Estimat Glomerular Filtration Rate > 60 mL/min (>60) Glucose Level 115 MG/DL (74-106) H Calcium Level 9.2 MG/DL (8.5-10.1) Current Medications Medications (Trade) Dose Ordered Sig/Henrik Route PRN Reason Start Time Stop Time Status Last Admin Dose Admin Acetaminophen (Tylenol) 650 mg Q4H PRN ORAL fever 05/25/17 04:30 06/22/17 00:29 Acetaminophen/ Hydrocodone Bitart ([place] 5/325) 1 tab Q4H PRN ORAL Moderate Pain (Pain Scale 4-6) 05/25/17 03:00 05/30/17 14:59 05/26/17 11:21 Albuterol/ Ipratropium (Albuterol/ Ipratropium) 3 ml Q4H PRN HHN Shortness of Breath 05/26/17 16:30 05/28/17 16:29 Amlodipine Besylate (Norvasc) 10 mg DAILY ORAL 05/25/17 09:00 06/22/17 08:59 05/27/17 08:38 Aripiprazole (Abilify) 2 mg DAILY ORAL 05/25/17 09:00 06/22/17 08:59 05/27/17 08:38 Cefepime HCl 2 gm/ Sodium Chloride 110 ml @ 220 mls/hr EVERY 12 HOURS IV 05/25/17 09:00 05/30/17 08:59 05/27/17 08:38 Clonidine HCl (Catapres tab) 0.2 mg Q6HR ORAL 05/25/17 18:00 06/24/17 17:59 05/27/17 05:54 Dextrose (Dextrose 50%) STAT PRN IV Hypoglycemia 05/25/17 06:30 06/23/17 06:29 Fluoxetine HCl (PROzac) 30 mg DAILY ORAL 05/25/17 09:00 06/22/17 08:59 05/27/17 08:39 Heparin Sodium (Porcine) (Heparin 5000 units/ml) 5,000 units EVERY 12 HOURS SUBQ 05/27/17 09:00 06/26/17 08:59 05/27/17 08:55 Insulin Aspart (NovoLOG) BEFORE MEALS AND HS SUBQ 05/25/17 06:30 06/22/17 06:29 05/27/17 11:52 Insulin Detemir (Levemir) 20 units BID SUBQ 05/26/17 09:00 06/25/17 08:59 05/27/17 08:57 Lorazepam (Ativan) 1 mg Q6H PRN ORAL For Anxiety 05/25/17 15:45 06/01/17 15:44 Losartan Potassium (Cozaar) 100 mg DAILY ORAL 05/25/17 09:00 06/22/17 08:59 05/27/17 08:39 Metoprolol Tartrate (Lopressor) 25 mg Q12HR ORAL 05/25/17 09:00 06/22/17 20:59 05/26/17 08:48 Morphine Sulfate (Morphine Sulfate) 2 mg Q4H PRN IVP Severe Pain (Pain Scale 7-10) 05/25/17 03:00 05/30/17 14:59 05/27/17 08:37 Nateglinide (Starlix) 120 mg TIAC ORAL 05/25/17 06:30 06/23/17 07:29 05/27/17 05:51 Nitroglycerin (Ntg) 0.4 mg Q5M PRN SL Prn Chest Pain 05/25/17 01:15 06/22/17 00:29 Ondansetron HCl (Zofran) 4 mg Q6H PRN IVP Nausea & Vomiting 05/25/17 06:30 06/22/17 00:29 Polyethylene Glycol (Miralax) 17 gm DAILYPRN PRN ORAL Constipation 05/26/17 00:30 06/22/17 00:29 05/26/17 12:36 Temazepam (Restoril) 15 mg HSPRN PRN ORAL Insomnia 05/26/17 00:30 05/30/17 00:29 ROSALIND ALVAREZ May 27, 2017 12:29
--- NOTE | 2017-05-27 12:54 | General Progress Note ---
Assessment/Plan Problem List: (1) Malnutrition ICD Codes: E46 - Unspecified protein-calorie malnutrition SNOMED: 24036000 (2) Weak ICD Codes: R53.1 - Weakness SNOMED: 51047848 (3) Sepsis ICD Codes: A41.9 - Sepsis SNOMED: 33426044 (4) Pneumonia ICD Codes: J18.9 - Pneumonia, unspecified organism SNOMED: 429445808 (5) Respiratory distress ICD Codes: R06.00 - Respiratory distress SNOMED: 156693814 (6) Weakness generalized ICD Codes: R53.1 - Weakness SNOMED: 82627364 (7) ATN (acute tubular necrosis) ICD Codes: N17.0 - Acute kidney failure with tubular necrosis SNOMED: 69100263 Status: unchanged Assessment/Plan o2 pulm tx abx ot pt diet cbc bmp am dc plan Subjective Respiratory: Reports: shortness of breath Allergies: Coded Allergies: No Known Allergies (Unverified , 01/08/14) All Systems: reviewed and negative except above Subjective o2nc sl agitated Objective Last 24 Hour Vital Signs Date Time Temp Pulse Resp B/P (MAP) Pulse Ox O2 Delivery O2 Flow Rate FiO2 05/27/17 12:10 97.3 62 18 121/65 97 Nasal Cannula 2.0 05/27/17 09:00 64 129/75 05/27/17 08:39 129/75 05/27/17 08:38 64 129/75 05/27/17 08:00 97.5 64 20 129/75 94 Nasal Cannula 2.0 05/27/17 07:57 Nasal Cannula 3.0 32 05/27/17 07:52 62 18 Nasal Cannula 3.0 36 05/27/17 07:52 94 Nasal Cannula 3.0 32 05/27/17 05:54 133/75 05/27/17 04:00 94 Nasal Cannula 3.0 05/27/17 04:00 97.0 65 20 133/75 05/27/17 00:00 98.1 63 18 111/71 94 05/27/17 00:00 Nasal Cannula 3.0 05/26/17 23:53 114/60 05/26/17 20:37 64 108/55 05/26/17 20:00 97.5 64 19 108/55 91 05/26/17 20:00 94 Nasal Cannula 3.0 05/26/17 19:53 95 Nasal Cannula 3.0 36 05/26/17 19:53 Nasal Cannula 3.0 36 05/26/17 19:52 83 18 Nasal Cannula 3.0 36 05/26/17 17:11 129/56 05/26/17 16:00 63 109/54 Nasal Cannula 3.0 Intake and Output 05/26/17 05/27/17 19:00 07:00 Intake Total 330 ml 110 ml Output Total 900 ml 700 ml Balance -570 ml -590 ml Intake Oral 330 ml IV Total 110 ml Output Urine Total 900 ml 700 ml Laboratory Tests 05/27/17 06:10: White Blood Count 12.9H, Red Blood Count 4.19L, Hemoglobin 11.8L, Hematocrit 34.6L, Mean Corpuscular Volume 83, Mean Corpuscular Hemoglobin 28.2, Mean Corpuscular Hemoglobin Concent 34.2, Red Cell Distribution Width 13.7, Platelet Count 260, Mean Platelet Volume 6.9, Neutrophils (%) (Auto) 78.9H, Lymphocytes ( %) (Auto) 13.0L, Monocytes (%) (Auto) 5.8, Eosinophils (%) (Auto) 1.8, Basophils (%) (Auto) 0.5, Sodium Level 138, Potassium Level 4.3, Chloride Level 103, Carbon Dioxide Level 28, Anion Gap 7, Blood Urea Nitrogen 21H, Creatinine 0.6, Estimat Glomerular Filtration Rate > 60, Glucose Level 115H, Calcium Level 9.2 Height (Feet): 5 Height (Inches): 9.00 Weight (Pounds): 260 General Appearance: lethargic EENT: normal ENT inspection Neck: normal alignment Cardiovascular: normal peripheral pulses, normal rate, regular rhythm Respiratory/Chest: decreased breath sounds Abdomen: normal bowel sounds, non tender, soft Extremities: normal inspection Edema: no edema noted Arm (L), no edema noted Arm (R), no edema noted Leg (L), no edema noted Leg (R), no edema noted Pedal (L), no edema noted Pedal (R), no edema noted Generalized Neurologic: motor weakness Skin: normal pigmentation, warm/dry STACY PRICE May 27, 2017 12:54
--- NOTE | 2017-05-27 15:14 | Diagnostic Imaging Report ---
Indication: Reason For Exam: COUGH Technique: One view of the chest Comparison: 05/22/2017 Findings: There is bilateral basilar atelectasis. The heart is enlarged. The aorta is tortuous. The patient's chin obscures the left lung apex and upper mediastinum. There is borderline interstitial congestion which appears similar to the previous study. Impression: Unchanged, over one day, findings as above.
--- NOTE | 2017-05-27 15:45 | Progress Note ---
DATE: 05/27/2017 SUBJECTIVE: The patient is a 67-year-old male with pneumonia and hypoxia, but because of his illness cognition has declined below baseline that is why his attending has requested daily psychiatric consultation. MENTAL STATUS EXAMINATION: The patient is a 67-year-old male patient with psychomotor agitation. Mood is irritable and agitated. Affect is guarded and restricted. Intellect is poor. Mood is depressed and anxious. Motor activity, psychomotor agitation. Attention span is poor. Orientation x2. Speech is of low volume and slurred. Denies suicidal or homicidal thoughts. Insight and judgement is poor. DIAGNOSIS: Major depression with psychotic features, rule out pseudodementia. PLAN: The plan for this patient is to treat him with Abilify 2 mg daily and Prozac 30 mg daily. A 15 to 20 minutes for supportive therapy and encourage him to interact appropriately with staff and other patients. Chart reviewed and discussed with the staff. Rosa Yousif M.D. DR: TREVOR JOB#: [id number] CC:
--- NOTE | 2017-05-27 18:47 | Pulmonology Progress Note ---
Assessment/Plan Problems: (1) Sepsis (2) Bronchitis (3) ATN (acute tubular necrosis) (4) DM (diabetes mellitus screen) (5) Weakness generalized Assessment/Plan improving continue abx check cutlrues all notes reviewed dvt prophylaxis check electroltyes cxr reviewed 05/27: same mild chf as seen in previous studies. Subjective ROS Limited/Unobtainable: No Interval Events: no new complains Allergies: Coded Allergies: No Known Allergies (Unverified , 01/08/14) Objective Last 24 Hour Vital Signs Date Time Temp Pulse Resp B/P (MAP) Pulse Ox O2 Delivery O2 Flow Rate FiO2 05/27/17 17:49 114/61 05/27/17 16:00 97.2 62 18 114/61 96 Nasal Cannula 2.0 05/27/17 12:10 97.3 62 18 121/65 97 Nasal Cannula 2.0 05/27/17 09:00 64 129/75 05/27/17 08:39 129/75 05/27/17 08:38 64 129/75 05/27/17 08:00 97.5 64 20 129/75 94 Nasal Cannula 2.0 05/27/17 07:57 Nasal Cannula 3.0 32 05/27/17 07:52 62 18 Nasal Cannula 3.0 36 05/27/17 07:52 94 Nasal Cannula 3.0 32 05/27/17 05:54 133/75 05/27/17 04:00 94 Nasal Cannula 3.0 05/27/17 04:00 97.0 65 20 133/75 05/27/17 00:00 98.1 63 18 111/71 94 05/27/17 00:00 Nasal Cannula 3.0 05/26/17 23:53 114/60 05/26/17 20:37 64 108/55 05/26/17 20:00 97.5 64 19 108/55 91 05/26/17 20:00 94 Nasal Cannula 3.0 05/26/17 19:53 95 Nasal Cannula 3.0 36 05/26/17 19:53 Nasal Cannula 3.0 36 05/26/17 19:52 83 18 Nasal Cannula 3.0 36 Intake and Output 05/26/17 05/27/17 19:00 07:00 Intake Total 330 ml 110 ml Output Total 900 ml 700 ml Balance -570 ml -590 ml Intake Oral 330 ml IV Total 110 ml Output Urine Total 900 ml 700 ml Objective General Appearance: WD/WN Lines, tubes and drains: peripheral HEENT: normocephalic, atraumatic Neck: non-tender, normal alignment Respiratory/Chest: chest wall non-tender, lungs clear Breasts: no masses Cardiovascular/Chest: normal peripheral pulses, normal rate Abdomen: normal bowel sounds, non tender Genitourinary/Rectal: normal genital exam Laboratory Tests 05/27/17 06:10: White Blood Count 12.9H, Red Blood Count 4.19L, Hemoglobin 11.8L, Hematocrit 34.6L, Mean Corpuscular Volume 83, Mean Corpuscular Hemoglobin 28.2, Mean Corpuscular Hemoglobin Concent 34.2, Red Cell Distribution Width 13.7, Platelet Count 260, Mean Platelet Volume 6.9, Neutrophils (%) (Auto) 78.9H, Lymphocytes ( %) (Auto) 13.0L, Monocytes (%) (Auto) 5.8, Eosinophils (%) (Auto) 1.8, Basophils (%) (Auto) 0.5, Sodium Level 138, Potassium Level 4.3, Chloride Level 103, Carbon Dioxide Level 28, Anion Gap 7, Blood Urea Nitrogen 21H, Creatinine 0.6, Estimat Glomerular Filtration Rate > 60, Glucose Level 115H, Calcium Level 9.2 Current Medications Medications (Trade) Dose Ordered Sig/Henrik Route PRN Reason Start Time Stop Time Status Last Admin Dose Admin Acetaminophen (Tylenol) 650 mg Q4H PRN ORAL fever 05/25/17 04:30 06/22/17 00:29 Acetaminophen/ Hydrocodone Bitart ([place] 5/325) 1 tab Q4H PRN ORAL Moderate Pain (Pain Scale 4-6) 05/25/17 03:00 05/30/17 14:59 05/26/17 11:21 Albuterol/ Ipratropium (Albuterol/ Ipratropium) 3 ml Q4H PRN HHN Shortness of Breath 05/26/17 16:30 05/28/17 16:29 Amlodipine Besylate (Norvasc) 10 mg DAILY ORAL 05/25/17 09:00 06/22/17 08:59 05/27/17 08:38 Aripiprazole (Abilify) 2 mg DAILY ORAL 05/25/17 09:00 06/22/17 08:59 05/27/17 08:38 Cefepime HCl 2 gm/ Sodium Chloride 110 ml @ 220 mls/hr EVERY 12 HOURS IV 05/25/17 09:00 05/30/17 08:59 05/27/17 08:38 Clonidine HCl (Catapres tab) 0.2 mg Q6HR ORAL 05/25/17 18:00 06/24/17 17:59 05/27/17 05:54 Dextrose (Dextrose 50%) STAT PRN IV Hypoglycemia 05/25/17 06:30 06/23/17 06:29 Fluoxetine HCl (PROzac) 30 mg DAILY ORAL 05/25/17 09:00 06/22/17 08:59 05/27/17 08:39 Heparin Sodium (Porcine) (Heparin 5000 units/ml) 5,000 units EVERY 12 HOURS SUBQ 05/27/17 09:00 06/26/17 08:59 05/27/17 08:55 Insulin Aspart (NovoLOG) BEFORE MEALS AND HS SUBQ 05/25/17 06:30 06/22/17 06:29 05/27/17 11:52 Insulin Detemir (Levemir) 20 units BID SUBQ 05/26/17 09:00 06/25/17 08:59 05/27/17 17:58 Lorazepam (Ativan) 1 mg Q6H PRN ORAL For Anxiety 05/25/17 15:45 06/01/17 15:44 Losartan Potassium (Cozaar) 100 mg DAILY ORAL 05/25/17 09:00 06/22/17 08:59 05/27/17 08:39 Metoprolol Tartrate (Lopressor) 25 mg Q12HR ORAL 05/25/17 09:00 06/22/17 20:59 05/26/17 08:48 Morphine Sulfate (Morphine Sulfate) 2 mg Q4H PRN IVP Severe Pain (Pain Scale 7-10) 05/25/17 03:00 05/30/17 14:59 05/27/17 14:45 Nateglinide (Starlix) 120 mg TIAC ORAL 05/25/17 06:30 06/23/17 07:29 05/27/17 05:51 Nitroglycerin (Ntg) 0.4 mg Q5M PRN SL Prn Chest Pain 05/25/17 01:15 06/22/17 00:29 Ondansetron HCl (Zofran) 4 mg Q6H PRN IVP Nausea & Vomiting 05/25/17 06:30 06/22/17 00:29 Polyethylene Glycol (Miralax) 17 gm DAILYPRN PRN ORAL Constipation 05/26/17 00:30 06/22/17 00:29 05/26/17 12:36 Temazepam (Restoril) 15 mg HSPRN PRN ORAL Insomnia 05/26/17 00:30 05/30/17 00:29 BALDEMAR POLANCO May 27, 2017 18:46
[2017-05-27] MEDS ORDERED: Tubing IV Secondary IV ONE (19:01)
--- NOTE | 2017-05-27 21:47 | General Progress Note ---
Assessment/Plan Problem List: (1) Leukocytosis ICD Codes: D72.829 - Leukocytosis SNOMED: 301123377 (2) Weakness generalized ICD Codes: R53.1 - Weakness SNOMED: 91582176 (3) Diabetes ICD Codes: E11.9 - Type 2 diabetes mellitus without complications SNOMED: 76544940 (4) Sepsis ICD Codes: A41.9 - Sepsis SNOMED: 69814078 (5) CVA (cerebral vascular accident) ICD Codes: I63.9 - Cerebral infarction, unspecified SNOMED: 244931087 Assessment/Plan reduce Starlix to 60 mg ac tid reduce Levemir to 15 units bid continue NISS Subjective ROS Limited/Unobtainable: Yes Allergies: Coded Allergies: No Known Allergies (Unverified , 01/08/14) All Systems: reviewed and negative except above Subjective events noted Objective Last 24 Hour Vital Signs Date Time Temp Pulse Resp B/P (MAP) Pulse Ox O2 Delivery O2 Flow Rate FiO2 05/27/17 20:30 Nasal Cannula 3.0 05/27/17 20:27 96 Nasal Cannula 3.0 36 05/27/17 20:27 Nasal Cannula 3.0 36 05/27/17 20:27 68 18 Nasal Cannula 3.0 36 05/27/17 20:22 64 111/58 05/27/17 20:17 97.2 64 18 111/58 96 05/27/17 17:49 114/61 05/27/17 16:00 97.2 62 18 114/61 96 Nasal Cannula 2.0 05/27/17 12:10 97.3 62 18 121/65 97 Nasal Cannula 2.0 05/27/17 09:00 64 129/75 05/27/17 08:39 129/75 05/27/17 08:38 64 129/75 05/27/17 08:00 97.5 64 20 129/75 94 Nasal Cannula 2.0 05/27/17 07:57 Nasal Cannula 3.0 32 05/27/17 07:52 62 18 Nasal Cannula 3.0 36 05/27/17 07:52 94 Nasal Cannula 3.0 32 05/27/17 05:54 133/75 05/27/17 04:00 94 Nasal Cannula 3.0 05/27/17 04:00 97.0 65 20 133/75 05/27/17 00:00 98.1 63 18 111/71 94 05/27/17 00:00 Nasal Cannula 3.0 05/26/17 23:53 114/60 Intake and Output 05/26/17 05/27/17 19:00 07:00 Intake Total 330 ml 110 ml Output Total 900 ml 700 ml Balance -570 ml -590 ml Intake Oral 330 ml IV Total 110 ml Output Urine Total 900 ml 700 ml Laboratory Tests 05/27/17 06:10: White Blood Count 12.9H, Red Blood Count 4.19L, Hemoglobin 11.8L, Hematocrit 34.6L, Mean Corpuscular Volume 83, Mean Corpuscular Hemoglobin 28.2, Mean Corpuscular Hemoglobin Concent 34.2, Red Cell Distribution Width 13.7, Platelet Count 260, Mean Platelet Volume 6.9, Neutrophils (%) (Auto) 78.9H, Lymphocytes ( %) (Auto) 13.0L, Monocytes (%) (Auto) 5.8, Eosinophils (%) (Auto) 1.8, Basophils (%) (Auto) 0.5, Sodium Level 138, Potassium Level 4.3, Chloride Level 103, Carbon Dioxide Level 28, Anion Gap 7, Blood Urea Nitrogen 21H, Creatinine 0.6, Estimat Glomerular Filtration Rate > 60, Glucose Level 115H, Calcium Level 9.2 Height (Feet): 5 Height (Inches): 9.00 Weight (Pounds): 260 General Appearance: no apparent distress Neck: normal alignment Cardiovascular: normal rate Respiratory/Chest: decreased breath sounds Objective Current Medications Medications (Trade) Dose Ordered Sig/Henrik Route PRN Reason Start Time Stop Time Status Last Admin Dose Admin Acetaminophen (Tylenol) 650 mg Q4H PRN ORAL fever 05/25/17 04:30 06/22/17 00:29 Acetaminophen/ Hydrocodone Bitart ([place] 5/325) 1 tab Q4H PRN ORAL Moderate Pain (Pain Scale 4-6) 05/25/17 03:00 05/30/17 14:59 05/26/17 11:21 Albuterol/ Ipratropium (Albuterol/ Ipratropium) 3 ml Q4H PRN HHN Shortness of Breath 05/26/17 16:30 05/28/17 16:29 Amlodipine Besylate (Norvasc) 10 mg DAILY ORAL 05/25/17 09:00 06/22/17 08:59 05/27/17 08:38 Aripiprazole (Abilify) 2 mg DAILY ORAL 05/25/17 09:00 06/22/17 08:59 05/27/17 08:38 Cefepime HCl 2 gm/ Sodium Chloride 110 ml @ 220 mls/hr EVERY 12 HOURS IV 05/25/17 09:00 05/30/17 08:59 05/27/17 20:24 Clonidine HCl (Catapres tab) 0.2 mg Q6HR ORAL 05/25/17 18:00 06/24/17 17:59 05/27/17 05:54 Dextrose (Dextrose 50%) STAT PRN IV Hypoglycemia 05/25/17 06:30 06/23/17 06:29 Fluoxetine HCl (PROzac) 30 mg DAILY ORAL 05/25/17 09:00 06/22/17 08:59 05/27/17 08:39 Heparin Sodium (Porcine) (Heparin 5000 units/ml) 5,000 units EVERY 12 HOURS SUBQ 05/27/17 09:00 06/26/17 08:59 05/27/17 20:22 Insulin Aspart (NovoLOG) BEFORE MEALS AND HS SUBQ 05/25/17 06:30 06/22/17 06:29 05/27/17 20:23 Insulin Detemir (Levemir) 20 units BID SUBQ 05/26/17 09:00 06/25/17 08:59 05/27/17 17:58 Lorazepam (Ativan) 1 mg Q6H PRN ORAL For Anxiety 05/25/17 15:45 06/01/17 15:44 Losartan Potassium (Cozaar) 100 mg DAILY ORAL 05/25/17 09:00 06/22/17 08:59 05/27/17 08:39 Metoprolol Tartrate (Lopressor) 25 mg Q12HR ORAL 05/25/17 09:00 06/22/17 20:59 05/27/17 20:22 Morphine Sulfate (Morphine Sulfate) 2 mg Q4H PRN IVP Severe Pain (Pain Scale 7-10) 05/25/17 03:00 05/30/17 14:59 05/27/17 19:41 Nateglinide (Starlix) 120 mg TIAC ORAL 05/25/17 06:30 06/23/17 07:29 2/5/18 05:51 Nitroglycerin (Ntg) 0.4 mg Q5M PRN SL Prn Chest Pain 05/25/17 01:15 06/22/17 00:29 Ondansetron HCl (Zofran) 4 mg Q6H PRN IVP Nausea & Vomiting 05/25/17 06:30 06/22/17 00:29 Polyethylene Glycol (Miralax) 17 gm DAILYPRN PRN ORAL Constipation 05/26/17 00:30 06/22/17 00:29 05/26/17 12:36 Temazepam (Restoril) 15 mg HSPRN PRN ORAL Insomnia 05/26/17 00:30 05/30/17 00:29 Item Value Date Time Bedside Blood Glucose 122 mg/dl H 05/27/17 2100 Bedside Blood Glucose 137 mg/dl H 05/27/17 1758 Bedside Blood Glucose 190 mg/dl H 05/27/17 1152 Bedside Blood Glucose 139 mg/dl H 05/27/17 0857 Bedside Blood Glucose 139 mg/dl H 05/27/17 0600 DELANEY WRIGHT May 27, 2017 21:47
[2017-05-28] MEDS: Morphine Sulfate 4mg/ml Inj IVP PRN ×2 (01:07→05:53)
[2017-05-28 04:17] VITALS: BP 125/62
[2017-05-28] MEDS: Nateglinide 60mg tab ORAL SCH ×3 (05:52→17:26)
[2017-05-28] MEDS: cloNIDine 0.2mg Tab ORAL SCH ×4 (05:53→17:34)
[2017-05-28] MEDS: NovoLOG Insulin Flexpen SUBQ SCH ×4 (06:23→21:06)
--- NOTE | 2017-05-28 07:00 | Geriatric Medicine Prog Note ---
DATE: 05/27/2017 SUBJECTIVE: The patient _is improving____0 0:12. OBJECTIVE: VITAL SIGNS: Blood pressure 100/71, pulse 73, 00:19. LUNGS: Clear. CARDIOVASCULAR: Heart sounds are regular. ABDOMEN: Slightly distended. LABORATORY DATA: Glucose 175. ASSESSMENT: Diabetes mellitus, improved controlled. PLAN: Continue detemir insulin 20 units 24 hours 00:28 NovoLog q.i.d. before meals and at bedtime. Mic Gilliland M.D. DR: ANTONIO JOB#: [id number] CC: DEB
[2017-05-28 08:12] VITALS: BP 145/69
[2017-05-28] MEDS: FLUoxetine 10mg cap ORAL SCH (08:55)
[2017-05-28] MEDS: ARIPiprazole 2mg tab ORAL SCH (08:55)
[2017-05-28] MEDS: Losartan 50mg tab ORAL SCH (08:56)
[2017-05-28] MEDS: Metoprolol 25mg tab ORAL SCH ×2 (09:00→21:03)
[2017-05-28] MEDS: Levemir Flexpen SUBQ SCH ×2 (09:00→17:38)
[2017-05-28] MEDS: Cefepime HCl 2 GM in NS 110 ML IV SCH (09:02)
[2017-05-28] MEDS: Heparin 5000 units/ml inj SUBQ SCH ×2 (09:07→21:05)
[2017-05-28 10:37] LABS: BASOPHILS % (AUTO) 0.8 % (0.0-2.0); EOSINOPHILS % (AUTO) 2.5 % (0.0-3.0); HEMATOCRIT 34.4 % (42.0-52.0); HEMOGLOBIN 11.7 G/DL (14.2-18.0); MEAN CORPUSCULAR VOLUME 83 FL (80-99); MONOCYTES % (AUTO) 5.5 % (1.0-10.0); NEUTROPHILS % (AUTO) 73.2 % (45.0-75.0); PLATELET COUNT 292 K/UL (150-450); RED BLOOD COUNT 4.17 M/UL (4.70-6.10); RED CELL DISTRIBUTION WIDTH 13.4 % (11.6-14.8); WHITE BLOOD COUNT 9.5 K/UL (4.8-10.8)
[2017-05-28 11:00] LABS: ANION GAP 5 mmol/L (5-15); BLOOD UREA NITROGEN 12 mg/dL (7-18); CARBON DIOXIDE 29 MMOL/L (21-32); CHLORIDE 104 MMOL/L (98-107); CREATININE 0.5 MG/DL (0.55-1.30); POTASSIUM 3.9 MMOL/L (3.5-5.1); SODIUM 138 MMOL/L (136-145)
[2017-05-28 12:14] VITALS: BP 137/80
--- NOTE | 2017-05-28 13:01 | General Progress Note ---
Assessment/Plan Problem List: (1) Malnutrition ICD Codes: E46 - Unspecified protein-calorie malnutrition SNOMED: 35798112 (2) Weak ICD Codes: R53.1 - Weakness SNOMED: 93465062 (3) Sepsis ICD Codes: A41.9 - Sepsis SNOMED: 54309474 (4) Pneumonia ICD Codes: J18.9 - Pneumonia, unspecified organism SNOMED: 355302068 (5) Respiratory distress ICD Codes: R06.00 - Respiratory distress SNOMED: 231770705 (6) Weakness generalized ICD Codes: R53.1 - Weakness SNOMED: 91563838 (7) ATN (acute tubular necrosis) ICD Codes: N17.0 - Acute kidney failure with tubular necrosis SNOMED: 46599167 Status: stable, progressing, tolerating diet Assessment/Plan o2 pulm tx abx ot pt diet dc if clear Subjective Constitutional: Reports: weakness Allergies: Coded Allergies: No Known Allergies (Unverified , 01/08/14) All Systems: reviewed and negative except above Subjective o2nc sleepy Objective Last 24 Hour Vital Signs Date Time Temp Pulse Resp B/P (MAP) Pulse Ox O2 Delivery O2 Flow Rate FiO2 05/28/17 12:14 97.9 71 18 137/80 94 Nasal Cannula 2.0 05/28/17 11:23 139/80 05/28/17 11:08 96 Nasal Cannula 3.0 36 05/28/17 11:08 Nasal Cannula 3.0 36 05/28/17 11:07 69 18 Nasal Cannula 3.0 36 05/28/17 09:00 55 145/69 05/28/17 08:56 145/69 05/28/17 08:56 55 145/69 05/28/17 08:12 98.1 55 20 145/69 96 Room Air 05/28/17 05:53 128/68 05/28/17 04:17 97.2 63 18 125/62 96 05/28/17 00:00 Nasal Cannula 3.0 05/28/17 00:00 117/54 05/27/17 23:57 97.2 64 18 117/54 96 05/27/17 20:30 Nasal Cannula 3.0 05/27/17 20:27 96 Nasal Cannula 3.0 36 05/27/17 20:27 Nasal Cannula 3.0 36 05/27/17 20:27 68 18 Nasal Cannula 3.0 36 05/27/17 20:22 64 111/58 05/27/17 20:17 97.2 64 18 111/58 96 05/27/17 17:49 114/61 05/27/17 16:00 97.2 62 18 114/61 96 Nasal Cannula 2.0 Intake and Output 05/27/17 05/28/17 19:00 07:00 Intake Total 950 ml 230 ml Output Total 700 ml 600 ml Balance 250 ml -370 ml Intake Oral 840 ml 120 ml IV Total 110 ml 110 ml Output Urine Total 700 ml 600 ml Laboratory Tests 05/28/17 09:50: White Blood Count 9.5, Red Blood Count 4.17L, Hemoglobin 11.7L, Hematocrit 34.4L , Mean Corpuscular Volume 83, Mean Corpuscular Hemoglobin 28.0, Mean Corpuscular Hemoglobin Concent 33.9, Red Cell Distribution Width 13.4, Platelet Count 292, Mean Platelet Volume 7.0, Neutrophils (%) (Auto) 73.2, Lymphocytes (% ) (Auto) 18.0L, Monocytes (%) (Auto) 5.5, Eosinophils (%) (Auto) 2.5, Basophils (%) (Auto) 0.8, Sodium Level 138, Potassium Level 3.9, Chloride Level 104, Carbon Dioxide Level 29, Anion Gap 5, Blood Urea Nitrogen 12, Creatinine 0.5L, Estimat Glomerular Filtration Rate > 60, Glucose Level 107H, Calcium Level 9.0 Height (Feet): 5 Height (Inches): 9.00 Weight (Pounds): 260 General Appearance: lethargic EENT: normal ENT inspection Neck: normal alignment Cardiovascular: normal peripheral pulses, normal rate, regular rhythm Respiratory/Chest: chest wall non-tender, lungs clear, normal breath sounds Abdomen: normal bowel sounds, non tender, soft Extremities: normal inspection Edema: no edema noted Arm (L), no edema noted Arm (R), no edema noted Leg (L), no edema noted Leg (R), no edema noted Pedal (L), no edema noted Pedal (R), no edema noted Generalized Neurologic: motor weakness Skin: normal pigmentation, warm/dry STACY PRICE May 28, 2017 13:01
--- NOTE | 2017-05-28 13:03 | Infectious Diseases Prog Note ---
Assessment/Plan Assessment/Plan A; Sepsis Complicated UTI with proteus treated Pneumonia/atelectasis Bilateral hydronephrosis Uncontrolled DM Paranoid schizophrenia P; discontinue Cefepime, Subjective ROS Limited/Unobtainable: Yes Constitutional: Reports: anorexia Respiratory: Reports: productive cough Gastrointestinal/Abdominal: Reports: no symptoms Genitourinary: Reports: no symptoms Allergies: Coded Allergies: No Known Allergies (Unverified , 01/08/14) Objective Vital Signs Last 24 Hour Vital Signs Date Time Temp Pulse Resp B/P (MAP) Pulse Ox O2 Delivery O2 Flow Rate FiO2 05/28/17 12:14 97.9 71 18 137/80 94 Nasal Cannula 2.0 05/28/17 11:23 139/80 05/28/17 11:08 96 Nasal Cannula 3.0 36 05/28/17 11:08 Nasal Cannula 3.0 36 05/28/17 11:07 69 18 Nasal Cannula 3.0 36 05/28/17 09:00 55 145/69 05/28/17 08:56 145/69 05/28/17 08:56 55 145/69 05/28/17 08:12 98.1 55 20 145/69 96 Room Air 05/28/17 05:53 128/68 05/28/17 04:17 97.2 63 18 125/62 96 05/28/17 00:00 Nasal Cannula 3.0 05/28/17 00:00 117/54 05/27/17 23:57 97.2 64 18 117/54 96 05/27/17 20:30 Nasal Cannula 3.0 05/27/17 20:27 96 Nasal Cannula 3.0 36 05/27/17 20:27 Nasal Cannula 3.0 36 05/27/17 20:27 68 18 Nasal Cannula 3.0 36 05/27/17 20:22 64 111/58 05/27/17 20:17 97.2 64 18 111/58 96 05/27/17 17:49 114/61 05/27/17 16:00 97.2 62 18 114/61 96 Nasal Cannula 2.0 Height (Feet): 5 Height (Inches): 9.00 Weight (Pounds): 260 General Appearance: no acute distress HEENT: mucous membranes moist Respiratory/Chest: lungs clear Cardiovascular: normal rate Abdomen: soft, non tender Genitourinary: other - Chavez catheter Extremities: other - edema of legs Neurologic/Psychiatric: alert, responsive Laboratory Tests Test 05/28/17 09:50 White Blood Count 9.5 K/UL (4.8-10.8) Red Blood Count 4.17 M/UL (4.70-6.10) L Hemoglobin 11.7 G/DL (14.2-18.0) L Hematocrit 34.4 % (42.0-52.0) L Mean Corpuscular Volume 83 FL (80-99) Mean Corpuscular Hemoglobin 28.0 PG (27.0-31.0) Mean Corpuscular Hemoglobin Concent 33.9 G/DL (32.0-36.0) Red Cell Distribution Width 13.4 % (11.6-14.8) Platelet Count 292 K/UL (150-450) Mean Platelet Volume 7.0 FL (6.5-10.1) Neutrophils (%) (Auto) 73.2 % (45.0-75.0) Lymphocytes (%) (Auto) 18.0 % (20.0-45.0) L Monocytes (%) (Auto) 5.5 % (1.0-10.0) Eosinophils (%) (Auto) 2.5 % (0.0-3.0) Basophils (%) (Auto) 0.8 % (0.0-2.0) Sodium Level 138 MMOL/L (136-145) Potassium Level 3.9 MMOL/L (3.5-5.1) Chloride Level 104 MMOL/L (98-107) Carbon Dioxide Level 29 MMOL/L (21-32) Anion Gap 5 mmol/L (5-15) Blood Urea Nitrogen 12 mg/dL (7-18) Creatinine 0.5 MG/DL (0.55-1.30) L Estimat Glomerular Filtration Rate > 60 mL/min (>60) Glucose Level 107 MG/DL (74-106) H Calcium Level 9.0 MG/DL (8.5-10.1) Current Medications Medications (Trade) Dose Ordered Sig/Henrik Route PRN Reason Start Time Stop Time Status Last Admin Dose Admin Acetaminophen (Tylenol) 650 mg Q4H PRN ORAL fever 05/25/17 04:30 06/22/17 00:29 Acetaminophen/ Hydrocodone Bitart ([place] 5/325) 1 tab Q4H PRN ORAL Moderate Pain (Pain Scale 4-6) 05/25/17 03:00 05/30/17 14:59 05/26/17 11:21 Albuterol/ Ipratropium (Albuterol/ Ipratropium) 3 ml Q4H PRN HHN Shortness of Breath 05/26/17 16:30 05/28/17 16:29 Amlodipine Besylate (Norvasc) 10 mg DAILY ORAL 05/25/17 09:00 06/22/17 08:59 05/28/17 08:56 Aripiprazole (Abilify) 2 mg DAILY ORAL 05/25/17 09:00 06/22/17 08:59 05/28/17 08:55 Cefepime HCl 2 gm/ Sodium Chloride 110 ml @ 220 mls/hr EVERY 12 HOURS IV 05/25/17 09:00 05/30/17 08:59 05/28/17 09:02 Clonidine HCl (Catapres tab) 0.2 mg Q6HR ORAL 05/25/17 18:00 06/24/17 17:59 05/28/17 11:23 Dextrose (Dextrose 50%) STAT PRN IV Hypoglycemia 05/25/17 06:30 06/23/17 06:29 Fluoxetine HCl (PROzac) 30 mg DAILY ORAL 05/25/17 09:00 06/22/17 08:59 05/28/17 08:55 Heparin Sodium (Porcine) (Heparin 5000 units/ml) 5,000 units EVERY 12 HOURS SUBQ 05/27/17 09:00 06/26/17 08:59 05/28/17 09:07 Insulin Aspart (NovoLOG) BEFORE MEALS AND HS SUBQ 05/25/17 06:30 06/22/17 06:29 05/27/17 20:23 Insulin Detemir (Levemir) 15 units BID SUBQ 05/28/17 09:00 06/27/17 08:59 Lorazepam (Ativan) 1 mg Q6H PRN ORAL For Anxiety 05/25/17 15:45 06/01/17 15:44 Losartan Potassium (Cozaar) 100 mg DAILY ORAL 05/25/17 09:00 06/22/17 08:59 05/28/17 08:56 Metoprolol Tartrate (Lopressor) 25 mg Q12HR ORAL 05/25/17 09:00 06/22/17 20:59 05/27/17 20:22 Morphine Sulfate (Morphine Sulfate) 2 mg Q4H PRN IVP Severe Pain (Pain Scale 7-10) 05/25/17 03:00 05/30/17 14:59 05/28/17 05:53 Nateglinide (Starlix) 60 mg TIAC ORAL 05/28/17 06:30 06/27/17 06:29 05/28/17 11:16 Nitroglycerin (Ntg) 0.4 mg Q5M PRN SL Prn Chest Pain 05/25/17 01:15 06/22/17 00:29 Ondansetron HCl (Zofran) 4 mg Q6H PRN IVP Nausea & Vomiting 05/25/17 06:30 06/22/17 00:29 05/28/17 09:20 Polyethylene Glycol (Miralax) 17 gm DAILYPRN PRN ORAL Constipation 05/26/17 00:30 06/22/17 00:29 05/26/17 12:36 Temazepam (Restoril) 15 mg HSPRN PRN ORAL Insomnia 05/26/17 00:30 05/30/17 00:29 ROSALIND ALVAREZ May 28, 2017 13:03
[2017-05-28] MEDS: Norco 5mg/325mg tab ORAL PRN ×2 (13:15→19:47)
[2017-05-28 16:00] VITALS: BP 141/68
--- NOTE | 2017-05-28 17:15 | Progress Note ---
DATE: 05/28/2017 SUBJECTIVE: This is a 67-year-old patient with pneumonia and hypoxia. This is a male patient with confusion and disorganized thought process secondary to stress of his medical order. This patient has some confusion and disorganized thought process with mood lability and that is why he does require daily psychiatric consultation at this time. MENTAL STATUS EXAMINATION: The patient is a 67-year-old male with psychomotor retardation. Mood is depressed. Affect guarded and restricted. Thought process disorganized and illogical. Denies any current suicidal or homicidal thoughts. Insight and judgement is poor. Paranoid delusions. DIAGNOSIS: Major depression with psychotic features, rule out severe dementia, rule out bipolar 2. PLAN: Plan for this patient is to treat him with medication regimen of Prozac 30 daily as well as Abilify 2 mg daily and Ativan 1 mg every 6 hours p.r.n. anxiety and agitation. Encourage the patient to interact appropriately with staff. Chart reviewed. Discussed with staff. 15 to 20 minutes of supportive therapy provided. Seen and assessed at bedside. Rosa Yousif M.D. DR: JACLYN JOB#: [id number] CC:
--- NOTE | 2017-05-28 19:45 | Pulmonology Progress Note ---
Assessment/Plan Problems: (1) Sepsis (2) Bronchitis (3) ATN (acute tubular necrosis) (4) DM (diabetes mellitus screen) (5) Weakness generalized Assessment/Plan improving continue abx check cutlrues all notes reviewed dvt prophylaxis check electroltyes all reviewed Subjective ROS Limited/Unobtainable: No Constitutional: Reports: no symptoms HEENT: Repors: no symptoms Allergies: Coded Allergies: No Known Allergies (Unverified , 01/08/14) Objective Last 24 Hour Vital Signs Date Time Temp Pulse Resp B/P (MAP) Pulse Ox O2 Delivery O2 Flow Rate FiO2 05/28/17 17:34 141/68 05/28/17 16:00 97.7 65 20 141/68 95 Nasal Cannula 2.0 05/28/17 14:14 97.9 05/28/17 12:14 97.9 71 18 137/80 94 Nasal Cannula 2.0 05/28/17 11:23 139/80 05/28/17 11:08 96 Nasal Cannula 3.0 36 05/28/17 11:08 Nasal Cannula 3.0 36 05/28/17 11:07 69 18 Nasal Cannula 3.0 36 05/28/17 09:00 55 145/69 05/28/17 08:56 145/69 05/28/17 08:56 55 145/69 05/28/17 08:12 98.1 55 20 145/69 96 Room Air 05/28/17 05:53 128/68 05/28/17 04:17 97.2 63 18 125/62 96 05/28/17 00:00 Nasal Cannula 3.0 05/28/17 00:00 117/54 05/27/17 23:57 97.2 64 18 117/54 96 05/27/17 20:30 Nasal Cannula 3.0 05/27/17 20:27 96 Nasal Cannula 3.0 36 05/27/17 20:27 Nasal Cannula 3.0 36 05/27/17 20:27 68 18 Nasal Cannula 3.0 36 05/27/17 20:22 64 111/58 05/27/17 20:17 97.2 64 18 111/58 96 Intake and Output 05/27/17 05/28/17 19:00 07:00 Intake Total 950 ml 230 ml Output Total 700 ml 600 ml Balance 250 ml -370 ml Intake Oral 840 ml 120 ml IV Total 110 ml 110 ml Output Urine Total 700 ml 600 ml Objective General Appearance: WD/WN Lines, tubes and drains: peripheral HEENT: normocephalic, atraumatic Neck: non-tender, normal alignment Respiratory/Chest: chest wall non-tender, lungs clear Breasts: no masses Cardiovascular/Chest: normal peripheral pulses, normal rate Abdomen: normal bowel sounds, non tender Genitourinary/Rectal: normal genital exam Laboratory Tests 05/28/17 09:50: White Blood Count 9.5, Red Blood Count 4.17L, Hemoglobin 11.7L, Hematocrit 34.4L , Mean Corpuscular Volume 83, Mean Corpuscular Hemoglobin 28.0, Mean Corpuscular Hemoglobin Concent 33.9, Red Cell Distribution Width 13.4, Platelet Count 292, Mean Platelet Volume 7.0, Neutrophils (%) (Auto) 73.2, Lymphocytes (% ) (Auto) 18.0L, Monocytes (%) (Auto) 5.5, Eosinophils (%) (Auto) 2.5, Basophils (%) (Auto) 0.8, Sodium Level 138, Potassium Level 3.9, Chloride Level 104, Carbon Dioxide Level 29, Anion Gap 5, Blood Urea Nitrogen 12, Creatinine 0.5L, Estimat Glomerular Filtration Rate > 60, Glucose Level 107H, Calcium Level 9.0 Current Medications Medications (Trade) Dose Ordered Sig/Henrik Route PRN Reason Start Time Stop Time Status Last Admin Dose Admin Acetaminophen (Tylenol) 650 mg Q4H PRN ORAL fever 05/25/17 04:30 06/22/17 00:29 Acetaminophen/ Hydrocodone Bitart ([place] 5/325) 1 tab Q4H PRN ORAL Moderate Pain (Pain Scale 4-6) 05/25/17 03:00 05/30/17 14:59 05/28/17 13:15 Amlodipine Besylate (Norvasc) 10 mg DAILY ORAL 05/25/17 09:00 06/22/17 08:59 05/28/17 08:56 Aripiprazole (Abilify) 2 mg DAILY ORAL 05/25/17 09:00 06/22/17 08:59 05/28/17 08:55 Clonidine HCl (Catapres tab) 0.2 mg Q6HR ORAL 05/25/17 18:00 06/24/17 17:59 05/28/17 17:34 Dextrose (Dextrose 50%) STAT PRN IV Hypoglycemia 05/25/17 06:30 06/23/17 06:29 Fluoxetine HCl (PROzac) 30 mg DAILY ORAL 05/25/17 09:00 06/22/17 08:59 05/28/17 08:55 Heparin Sodium (Porcine) (Heparin 5000 units/ml) 5,000 units EVERY 12 HOURS SUBQ 05/27/17 09:00 06/26/17 08:59 05/28/17 09:07 Insulin Aspart (NovoLOG) BEFORE MEALS AND HS SUBQ 05/25/17 06:30 06/22/17 06:29 05/28/17 17:31 Insulin Detemir (Levemir) 15 units BID SUBQ 05/28/17 09:00 06/27/17 08:59 05/28/17 17:38 Lorazepam (Ativan) 1 mg Q6H PRN ORAL For Anxiety 05/25/17 15:45 06/01/17 15:44 Losartan Potassium (Cozaar) 100 mg DAILY ORAL 05/25/17 09:00 06/22/17 08:59 05/28/17 08:56 Metoprolol Tartrate (Lopressor) 25 mg Q12HR ORAL 05/25/17 09:00 06/22/17 20:59 05/27/17 20:22 Morphine Sulfate (Morphine Sulfate) 2 mg Q4H PRN IVP Severe Pain (Pain Scale 7-10) 05/25/17 03:00 05/30/17 14:59 05/28/17 05:53 Nateglinide (Starlix) 60 mg TIAC ORAL 05/28/17 06:30 06/27/17 06:29 05/28/17 17:26 Nitroglycerin (Ntg) 0.4 mg Q5M PRN SL Prn Chest Pain 05/25/17 01:15 06/22/17 00:29 Ondansetron HCl (Zofran) 4 mg Q6H PRN IVP Nausea & Vomiting 05/25/17 06:30 06/22/17 00:29 05/28/17 09:20 Polyethylene Glycol (Miralax) 17 gm DAILYPRN PRN ORAL Constipation 05/26/17 00:30 06/22/17 00:29 05/26/17 12:36 Temazepam (Restoril) 15 mg HSPRN PRN ORAL Insomnia 05/26/17 00:30 05/30/17 00:29 BALDEMAR POLANCO May 28, 2017 19:44
[2017-05-28 20:00] VITALS: BP 126/63
[2017-05-28 21:03] VITALS: BP 126/63
--- NOTE | 2017-05-28 22:00 | Consultation ---
DATE OF CONSULTATION: 05/26/2017 NOTE: POOR AUDIO PSYCHOTHERAPY CONSULTATION PROGRESS NOTE CONSULTING PHYSICIAN: Leesa Anderson M.D. TREATING ATTENDING PHYSICIAN: Oneil Curry D.O. HISTORY OF PRESENT ILLNESS: The patient is a 67-year-old male patient, was admitted to the hospital for pneumonia. The patient is very weak as well and agitated. The patient has a history of schizophrenia, paranoid type, dementia. He has been very agitated, irritable, and hopeless. For these reasons, he was referred for psychotherapeutic services. This clinician assessed this patient. The patient is confused, generally very agitated, irritable, and anxious. He has poor frustration tolerance. He is at this time , he has been very restless. The patient is from [facility]. The patient denies suicidal or homicidal thoughts of ideation. PAST MEDICAL HISTORY: Includes history of CVA, diabetes type 2, and hypertension. ALLERGIES: The patient has known drug allergies. SUBSTANCE ABUSE HISTORY: There is no indication for alcohol use, illicit substance use, or smoking cigarettes. PSYCHIATRIC HISTORY: The patient has a history of schizophrenia. The patient has been treated with psychotropic medications in the past. SOCIAL HISTORY: The patient is a 67-year-old male patient from [facility]. Financially sustained through [employer]. He is a single male, recently . MENTAL STATUS EXAMINATION: The patient is alert and oriented x2 to person and place. Mood is irritable. Affect is anxious. Thought process, disorganized. The patient has poor attention and concentration. This clinician assessed the patient, this patient's mental status. encouraging him to participate in treatment milieu. Encouraging the patient to articulate his needs utilizing positive communication skills. Continue behavioral management. This clinician has reviewed the patient's chart. Discussed the treatment with treatment team. Leesa Anderson PsyD. DR: JUAN MIGUEL JOB#: [id number] CC:
[2017-05-28] MEDS ORDERED: Tubing IV Secondary IV ONE (22:29)
--- NOTE | 2017-05-30 12:52 | Discharge Summary ---
Discharge Summary Hospital Course Date of Admission May 22, 2017 at 23:39 Date of Discharge May 28, 2017 at 22:30 Admitting Diagnosis PNEUMONIA,HYPOXIA HPI Glenn Thompson is a 67 year old male who was admitted on May 22, 2017 at 23:39 for Pneumonia/Hypoxia Hospital Course [id number] Discharge Discharge Disposition Patient was discharged to SNF/Subacute Facility(03) Discharge Diagnoses: Yvette Lewis NP May 30, 2017 12:52
--- NOTE | 2017-05-31 01:45 | Discharge Summary 2 SIG ---
DATE OF ADMISSION: 05/22/2017 DATE OF DISCHARGE: 05/28/2017 CONSULTANTS: 1. Ani Barnes M.D. 2. Damon Valentino M.D. 3. Teo Pérez M.D. 4. River Brennan M.D. 5. Rosa Yousif M.D. BRIEF HOSPITAL COURSE: The patient is a 67-year-old male from [facility], who presented to ED for weakness, hypoxia, and sepsis. The patient has medical history significant for old CVA, diabetes mellitus. On evaluation at ED, the patient had low-grade fever, temperature 100.8, heart rate was elevated to 104. At the skilled nursing, he was found to be hypoxic on room air to 85%. Blood work revealed leukocytosis. WBC was 15. Urinalysis showed 5-10 rbc, too many to count wbc with moderate bacteria and many yeast. He was admitted for sepsis. Lactic acid was 2.6. Metformin was placed on hold and was given Starlix and Levemir. He was having low-grade fevers and was initially started on vancomycin. He was followed by Infectious Disease specialist. Vancomycin was discontinued and the patient was placed on cefepime. He had gross hematuria. CT of the abdomen and pelvis showed Chavez catheter balloon inflated within the prostatic urethra with distention of the bladder and bilateral hydroureteronephrosis with perinephric stranding. Findings suggestive of obstructive uropathy. Dr. Brennan was consulted. Chavez catheter position was corrected and Chavez catheter was draining well. It was irrigated by hand and irrigated easily. Recommended to give 2-3 more days of antibiotic. Blood cultures did not isolate any growth. Urine culture with Proteus mirabilis. Cefepime was eventually discontinued. During his stay, he was followed by psychiatrist. He was diagnosed to have major depression with psychotic features, ruled out dementia. Glucose medications were adjusted. Levemir was reduced to 15 units b.i.d. and Starlix to 60 mg before meals b.i.d. He came in with sacral DTI pressure ulcer. Wound care was rendered. He was transferred to skilled nursing. FINAL DIAGNOSES: 1. Sepsis. 2. Bronchitis. 3. Urinary tract infection with acute tubular necrosis. 4. Krishna-Parkinson syndrome. 5. Possible pneumonia. 6. Diabetes mellitus, out of control. 7. Obstructive uropathy with gross hematuria secondary to malposition of Chavez catheter, status post hematuria. 8. Morbid obesity. 9. 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 10. Paranoid schizophrenia. 11. Sacral deep tissue injury, present on admission. DISPOSITION: The patient was transferred to [facility]. DISCHARGE MEDICATIONS: Refer to medication list. Oneil Curry D.O. I have been assigned to dictate discharge summary on this account and I was not involved in the patient's management. Yvette Lewis N.P. DR: Farrah JOB#: [id number] CC:
== END 2017-05-28 22:30 | DRG 871 ==
LOC: EDBD 22:07 → EDUNIT# 22:07 → EMR 22:15 → 2E 23:39 → EDBEDREQ 05-23 01:16 → 2E 05-23 01:52 → 4W 05-25 01:22
DX: A41.9 Sepsis, unspecified organism (principal); J18.9 Pneumonia, unspecified organism; N17.0 Acute kidney failure with tubular necrosis; E46 Unspecified protein-calorie malnutrition; L89.150 Pressure ulcer of sacral region, unstageable; F32.3 Major depressive disorder, single episode, severe with psychotic features; I69.351 Hemiplegia and hemiparesis following cerebral infarction affecting right dominant side; N39.0 Urinary tract infection, site not specified; F20.0 Paranoid schizophrenia; N13.30 Unspecified hydronephrosis; R06.03 Acute respiratory distress; J40 Bronchitis, not specified as acute or chronic; E11.65 Type 2 diabetes mellitus with hyperglycemia; I45.6 Pre-excitation syndrome; R31.0 Gross hematuria; T83.028A Displacement of other urinary catheter, initial encounter; Y84.8 Other medical procedures as the cause of abnormal reaction of the patient, or of later complication, without mention of misadventure at the time of the procedure; E66.01 Morbid (severe) obesity due to excess calories; Z79.4 Long term (current) use of insulin; Z87.891 Personal history of nicotine dependence; E78.00 Pure hypercholesterolemia, unspecified; I73.9 Peripheral vascular disease, unspecified; B96.4 Proteus (mirabilis) (morganii) as the cause of diseases classified elsewhere
CPT/HCPCS: 36415; 51702; 71045; 74177; 80048; 80053; 81003; 82962; 83605; 83690; 83880; 84484; 85025; 87040; 87086; 87181; 93005; 94664; 94760; J1815; J2405; J7620; S5561

== ENCOUNTER 2017-11-01 15:44 | Inpatient (IN) | payer MEDICARE, OTHER ==
[~2017-11-01] VITALS: Ht 185.4 cm; Wt 108.9 kg
[~2017-11-01 15:44] MED LIST changes: +MILK OF MA2400 MG/10 ORAL; +MULTIVITAMINS1 EAC8 ORAL; +TIMOLOL MALEATE5 M2 OP; +VITAMIN C500 M1 ORAL
[2017-11-01] MEDS ORDERED: Aspirin Baby 81mg ORAL ONE (16:00)
[2017-11-01] MEDS ORDERED: NORVASC10 MG ORAL (16:07)
[2017-11-01 16:27] VITALS: BP 164/108
--- NOTE | 2017-11-01 16:31 | Emergency Room Report ---
History of Present Illness General Chief Complaint: General Complaint Source: Patient, Medical Record Present Illness HPI 67-year-old male patient presents ER brought in by ambulance for right arm DVT. Patient is a patient of Dr. Curry. Patient is currently residing at [facility]. Patient has past medical history of acute kidney failure, diabetes, hypertension, cardiomegaly, peripheral vascular disease,schizophrenia , right-sided muscle weakness. Patient has a history of stroke 2 years ago that affected his right side paralyzed. Patient was sent to ER after bedside ultrasound performed at nursing facility found possible DVT, was sent to ER by his primary care doctor. Denies chest pain, shortness of breath, cough. Reports pain in right arm near medial elbow. Denies other acute symptoms. Denies calf pain or swelling. Has not received any aspirin or medication following transfer to Hospital. Patient has history of right ankle and foot amputation. Allergies: Coded Allergies: No Known Allergies (Unverified , 01/08/14) Patient History Past Medical History: see triage record Reviewed Nursing Documentation: PMH: Agreed; PSxH: Agreed Nursing Documentation-PMH Past Medical History: No History, Except For Hx Cardiac Problems: Yes - Cardiomegaly, Hypercholesterolemia, Peripheral Vascular Disease Hx Hypertension: Yes Hx Diabetes: Yes - DM2 Hx Cancer: No Hx Neurological Problems: Yes - OCCIPITAL ENCEPHALOMALACIA,CEREBRAL HEMIPLEGIA , Hemiparesis Hx Cerebrovascular Accident: Yes - CVA/TIA WITH RIGHT HEMIPLEGIA H/O OCCIPITAL ENCEPHALOMALACIA, Review of Systems All Other Systems: negative except mentioned in HPI Physical Exam Vital Signs Date Time Temp Pulse Resp B/P (MAP) Pulse Ox O2 Delivery O2 Flow Rate FiO2 11/01/17 15:34 89 18 164/108 99 Room Air Sp02 EP Interpretation: reviewed, normal General Appearance: well appearing, no apparent distress, alert, GCS 15, non- toxic Head: normocephalic, atraumatic Eyes: bilateral eye normal inspection, bilateral eye PERRL ENT: hearing grossly normal, normal pharynx, no angioedema, normal voice, uvula midline, moist mucus membranes Neck: full range of motion Respiratory: lungs clear, normal breath sounds, no rhonchi, no respiratory distress, no accessory muscle use, no wheezing, speaking full sentences Cardiovascular #1: regular rate, rhythm, no edema Musculoskeletal: back normal, digits/nails normal, gait/station normal, normal range of motion, non-tender, no calf tenderness, other - right side ankle and foot amputation; no erythema and edema of right calf Psychiatric: mood/affect normal Skin: other - 4-5cm palpable area of swelling on right upper extremity near medial elbow, no erythema, no edema, no red streaking Lymphatic: no adenopathy Medical Decision Making PA Attestation Dr. Condon is my supervising Physician whom patient management has been discussed with. Diagnostic Impression: Primary Impression: DVT of upper extremity (deep vein thrombosis) ER Course Pt. presents to the ED c/o rule out DVT of right upper extremity. Ddx considered but are not limited to DVT, PE, thrombophlebitis, cellulitis, abscess. will order labs, ultrasound imaging, EKG, to rule out underlying etiology and DVT. Ordered aspirin. Vital signs: are WNL, pt. is afebrile ER COURSE: physical exam shows a 4-5cm palpable area of swelling on right upper extremity near the medial elbow. No erythema or red streaking noted, cap refill < 2seconds in lower extremity. No signs of infection. EKG shows no ST elevations, no tachycardia no atrial fibrillation. CBC shows mild elevation of WBC CMP unremarkable, no elevation of BUN or creatinine CXR Linear opacity at the right base, likely atelectasis or scarring. Haziness of the pulmonary vascularity may be exaggerated due to low lung volumes Lungs clear to auscultation. Patient denies chest pain, SOB. Duplex US shows brachial vein DVT of right upper extremity. Patient to be admitted to Dr. Curry. Dr. Curry reported that he will provide orders for patient. Will not begin treatment for DVT in ER. Consult with Dr. Curry, patient will be admitted to his service. - Please note that this Emergency Department Report was dictated using [employer] art director technology software, occasionally this can lead to erroneous entry secondary to interpretation by the dictation equipment. Labs Test 11/01/17 16:50 White Blood Count 12.3 K/UL (4.8-10.8) Red Blood Count 4.98 M/UL (4.70-6.10) Hemoglobin 13.4 G/DL (14.2-18.0) Hematocrit 39.6 % (42.0-52.0) Mean Corpuscular Volume 80 FL (80-99) Mean Corpuscular Hemoglobin 26.9 PG (27.0-31.0) Mean Corpuscular Hemoglobin Concent 33.8 G/DL (32.0-36.0) Red Cell Distribution Width 14.9 % (11.6-14.8) Platelet Count 337 K/UL (150-450) Mean Platelet Volume 6.9 FL (6.5-10.1) Neutrophils (%) (Auto) 67.2 % (45.0-75.0) Lymphocytes (%) (Auto) 22.0 % (20.0-45.0) Monocytes (%) (Auto) 6.1 % (1.0-10.0) Eosinophils (%) (Auto) 3.9 % (0.0-3.0) Basophils (%) (Auto) 0.8 % (0.0-2.0) Prothrombin Time 10.0 SEC (9.30-11.50) Prothromb Time International Ratio 0.9 (0.9-1.1) Activated Partial Thromboplast Time 33 SEC (23-33) Sodium Level 138 MMOL/L (136-145) Potassium Level 3.7 MMOL/L (3.5-5.1) Chloride Level 101 MMOL/L (98-107) Carbon Dioxide Level 28 MMOL/L (21-32) Anion Gap 9 mmol/L (5-15) Blood Urea Nitrogen 13 mg/dL (7-18) Creatinine 0.9 MG/DL (0.55-1.30) Estimat Glomerular Filtration Rate > 60 mL/min (>60) Glucose Level 280 MG/DL (74-106) Calcium Level 9.2 MG/DL (8.5-10.1) Total Bilirubin 0.3 MG/DL (0.2-1.0) Aspartate Amino Transf (AST/SGOT) 14 U/L (15-37) Alanine Aminotransferase (ALT/SGPT) 19 U/L (12-78) Alkaline Phosphatase 145 U/L (46-116) Total Creatine Kinase 9 U/L (26-308) Creatine Kinase MB 0.8 NG/ML (0.0-3.6) Creatine Kinase MB Relative Index 8.8 Total Protein 6.9 G/DL (6.4-8.2) Albumin 2.5 G/DL (3.4-5.0) Globulin 4.4 g/dL Albumin/Globulin Ratio 0.6 (1.0-2.7) EKG Diagnostic Results Rate: normal Rhythm: NSR ST Segments: no acute changes ASA given to the pt in ED: Yes FRIDA Caceres PA-C Rhythm Strip Diag. Results EP Interpretation: yes Rate: 88 Rhythm: NSR, no PVC's, no ectopy PA Scribe Henry Caceres PA-C Chest X-Ray Diagnostic Results Chest X-Ray Diagnostic Results : Chest X-Ray Ordered: Yes # of Views/Limited/Complete: 1 View Indication: Other EP Interpretation: Yes PA Xray: Interpretation reviewed, by supervising MD, and agrees with findings. Interpretation: no consolidation, no effusion, no pneumothorax, other - Linear opacity at the right base, likely atelectasis or scarring. Haziness of the pulmonary vascularity may be exaggerated due to low lung volumes Impression: Other - Linear opacity at the right base, likely atelectasis or scarring. Haziness of the pulmonary vascularity may be exaggerated due to low lung volumes FRIDA McneillibGarth Caceres PA-C CT/MRI/US Diagnostic Results CT/MRI/US Diagnostic Results : Imaging Test Ordered: Doppler US right upper extemity Impression acute thrombosis noted in right brachial vein, other remaining veins are patent Last Vital Signs Date Time Temp Pulse Resp B/P (MAP) Pulse Ox O2 Delivery O2 Flow Rate FiO2 11/01/17 15:34 89 18 164/108 99 Room Air Disposition: ADMITTED INPATIENT Condition: Serious Johny Caceres Nov 01, 2017 16:31
[2017-11-01 17:02] LABS: BASOPHILS % (AUTO) 0.8 % (0.0-2.0); EOSINOPHILS % (AUTO) 3.9 % (0.0-3.0); HEMATOCRIT 39.6 % (42.0-52.0); HEMOGLOBIN 13.4 G/DL (14.2-18.0); MEAN CORPUSCULAR VOLUME 80 FL (80-99); MONOCYTES % (AUTO) 6.1 % (1.0-10.0); NEUTROPHILS % (AUTO) 67.2 % (45.0-75.0); PLATELET COUNT 337 K/UL (150-450); RED BLOOD COUNT 4.98 M/UL (4.70-6.10); RED CELL DISTRIBUTION WIDTH 14.9 % (11.6-14.8); WHITE BLOOD COUNT 12.3 K/UL (4.8-10.8)
--- NOTE | 2017-11-01 17:05 | Diagnostic Imaging Report ---
Indication: Chest pain Technique: XRAY Chest 1v Comparison: 05/27/2017 Findings: Lung volumes are low. Heart size and mediastinal contours are unchanged. There is possible cardiomegaly. There is linear atelectasis or scarring at the right base. Questionable mild pulmonary vascular congestion/interstitial edema. No pneumothorax. No acute osseous abnormality. Impression: Linear opacity at the right base, likely atelectasis or scarring. Haziness of the pulmonary vascularity may be exaggerated due to low lung volumes however the possibility of mild vascular congestion/interstitial edema should be excluded clinically.
[2017-11-01 17:12] LABS: ANION GAP 9 mmol/L (5-15); BLOOD UREA NITROGEN 13 mg/dL (7-18); CALCIUM 9.2 MG/DL (8.5-10.1); CARBON DIOXIDE 28 MMOL/L (21-32); CHLORIDE 101 MMOL/L (98-107); CREATININE 0.9 MG/DL (0.55-1.30); POTASSIUM 3.7 MMOL/L (3.5-5.1); SODIUM 138 MMOL/L (136-145)
[2017-11-01 17:25] LABS: INR 0.9 (0.9-1.1)
[2017-11-01 17:34] LABS: ALANINE AMINOTRANSFERASE 19 U/L (12-78); ALBUMIN 2.5 G/DL (3.4-5.0); ALBUMIN/GLOBULIN RATIO 0.6 (1.0-2.7); ALKALINE PHOSPHATASE 145 U/L (46-116); ASPARTATE AMINO TRANSFERASE 14 U/L (15-37); BILIRUBIN,TOTAL 0.3 MG/DL (0.2-1.0); CKMB 0.8 NG/ML (0.0-3.6); CREATINE KINASE 9 U/L (26-308)
[2017-11-01] MEDS ORDERED: LORazepam Inj 2mg/ml 1ml IV PRN (19:00)
[2017-11-01] MEDS ORDERED: Mylanta II UD 30ml ORAL PRN (19:00)
[2017-11-01] MEDS ORDERED: Zolpidem 5mg tab ORAL PRN (19:00)
[2017-11-01] MEDS ORDERED: Miralax 17gm pkt ORAL PRN (19:00)
[2017-11-01 21:19] VITALS: BP 158/85
[2017-11-01] MEDS: Enoxaparin 100mg Inj SUBQ SCH (22:46)
[2017-11-01] MEDS: NovoLOG Insulin Flexpen SUBQ SCH (22:51)
[2017-11-01] MEDS: Morphine Sulfate 2mg/ml Inj IVP PRN (23:34)
[2017-11-02] VITALS (7 sets, daily range): BP systolic 140–155; BP diastolic 80–95
--- NOTE | 2017-11-02 03:45 | Consultation ---
DATE OF CONSULTATION: 11/01/2017 NOTE: POOR AUDIO HEMATOLOGY/ONCOLOGY CONSULTATION CONSULTING PHYSICIAN: Guillermo Ugalde M.D. REQUESTING PHYSICIAN: 1. Oneil Curry D.O. 2. Chinmay Miranda M.D. REASON FOR CONSULTATION: Evaluation of right upper extremity DVT. IDENTIFYING DATA: Dear Dr. Oneil Curry and Dr. Miranda, The patient is a pleasant 67-year-old male with past medical history, which is significant for right lower extremity DVT, currently residing at [facility]. Past medical history is significant for KISHA, diabetes mellitus, hypertension, cardiomegaly, peripheral vascular disease, schizophrenia, right-sided muscle weakness, history of stroke right-sided paralysis, sent to the ER. ultrasound showed possible DVT, in to the ER by PCP. He denies any chest pain or shortness of breath. Pain in the right arm near medial . Denies any fevers, chills, or night sweats. He reports right ankle and foot amputation. Hematology Service was consulted for further evaluation and underlying treatment. Medications have been reviewed. We will begin the patient on Coumadin and Lovenox. PAST MEDICAL HISTORY: Hypertension, hypercholesteremia, cardiomegaly, and peripheral vascular disease. PAST SURGICAL HISTORY: None reported. ALLERGIES: No known drug allergies. REVIEW OF SYSTEMS: CONSTITUTIONAL: No fevers, chills, or night sweats. SKIN: No rashes, bumps, or itching. HEENT: No headache, hearing or visual changes. BREASTS: No lumps, pain, or discharge. PULMONARY: No cough, sputum, or shortness of breath. GASTROINTESTINAL: No nausea, vomiting, or diarrhea. GENITOURINARY: No dysuria, frequency, or urgency. MUSCULOSKELETAL: No joint swelling, muscle pain, or trauma. PHYSICAL EXAMINATION: VITAL SIGNS: Reviewed. GENERAL: No acute distress. PULMONARY: Decreased breath sounds. CARDIOVASCULAR: Regular rate. No S3 or S4. ABDOMEN: Soft, nontender, and nondistended. EXTREMITIES: No cyanosis, swelling, or edema. right upper extremity, 4 to 5 cm swelling in the right upper arm. LABORATORY DATA: BUN of 13 and creatinine 0.9. AST 14 and ALT 19. Albumin of 2.5. INR of . WBC 12.3, hemoglobin 13.3, and platelet count 237,000. ASSESSMENT AND RECOMMENDATIONS: 1. Anemia due to underlying chronic disease. DVT of right upper extremity. The patient is on Coumadin and Lovenox for anemia due to underlying chronic disease. Continue to closely monitor. 2. Elevated blood sugar potentially secondary to diabetes mellitus. Obtain A1c. 3. Mild protein-caloric malnutrition. 4. Weakness and fatigue likely due to underlying anemia. 5. Hypertension. Systolic blood pressure goal less than 140. 6. Cerebrovascular accident/transient ischemic attack with right hemiplegia. History of occipital encephalomalacia. I appreciate consultation. Guillermo Ugalde M.D. DR: BREONNA JOB#: [id number] CC:
[2017-11-02] MEDS: Morphine Sulfate 2mg/ml Inj IVP PRN ×3 (05:28→20:32)
[2017-11-02] MEDS: NovoLOG Insulin Flexpen SUBQ SCH ×4 (05:37→22:04)
[2017-11-02 06:50] LABS: BASOPHILS % (AUTO) 0.9 % (0.0-2.0); EOSINOPHILS % (AUTO) 3.9 % (0.0-3.0); HEMOGLOBIN 13.6 G/DL (14.2-18.0); LYMPHOCYTES % (AUTO) 22.8 % (20.0-45.0); MEAN CORPUSCULAR VOLUME 80 FL (80-99); MONOCYTES % (AUTO) 5.2 % (1.0-10.0); NEUTROPHILS % (AUTO) 67.1 % (45.0-75.0); PLATELET COUNT 297 K/UL (150-450); RED BLOOD COUNT 5.13 M/UL (4.70-6.10); RED CELL DISTRIBUTION WIDTH 14.9 % (11.6-14.8); WHITE BLOOD COUNT 10.1 K/UL (4.8-10.8)
[2017-11-02 07:17] LABS: ALANINE AMINOTRANSFERASE 19 U/L (12-78); ALBUMIN 2.5 G/DL (3.4-5.0); ALBUMIN/GLOBULIN RATIO 0.6 (1.0-2.7); ALKALINE PHOSPHATASE 146 U/L (46-116); ANION GAP 4 mmol/L (5-15); ASPARTATE AMINO TRANSFERASE 16 U/L (15-37); BILIRUBIN,TOTAL 0.3 MG/DL (0.2-1.0); BLOOD UREA NITROGEN 13 mg/dL (7-18); CALCIUM 9.1 MG/DL (8.5-10.1); CARBON DIOXIDE 31 MMOL/L (21-32); CHLORIDE 104 MMOL/L (98-107); CHOLESTEROL 189 MG/DL (< 200); CREATININE 0.5 MG/DL (0.55-1.30); HDL CHOLESTEROL 38 MG/DL (40-60); POTASSIUM 3.3 MMOL/L (3.5-5.1); SODIUM 139 MMOL/L (136-145); TRIGLYCERIDES 195 MG/DL (30-150)
--- NOTE | 2017-11-02 08:06 | Consultation ---
History of Present Illness General Date patient seen: Nov 02, 2017 Time patient seen: 07:15 Chief Complaint: General Complaint Referring physician: dr Curry Reason for Consultation: pulm consult Present Illness HPI 67-y/o male with PMH of CVA with R side hemiplegia, HTN, DM, PVD, hx of R foot amputation, depression, anxiety, schizophrenia, hx of renal failrue, BIBA for probable right arm DVT. Patient was sent to ER for evaluation after ultrasound performed at [facility] found acute DVT RUE Duplex done at ER confirmed acute thrombus RUE bronchial vein Patient denied chest pain, shortness of breath, cough. Patient reported pain in right arm near medial elbow and swelling x 1 day . No other acute symptoms. No calf pain or swelling. VS revealed elevated BP Lab work revealed mild leukocytosis, stable renal parameters, mild anemia CXR with Linear opacity at the right base, likely atelectasis or scarring. Haziness of the pulmonary vascularity may be exaggerated due to low lung volumes however the possibility of mild vascular congestion/interstitial edema should be excluded clinically. Patient started on Lovenox and Coumadin and was admitted for further management Allergies: Coded Allergies: No Known Allergies (Unverified , 01/08/14) Medication History Scheduled Amlodipine Besylate (Norvasc), 10 MG ORAL DAILY, (Reported) Amlodipine Besylate (Norvasc), 10 MG ORAL DAILY, (Reported) Amlodipine Besylate (Norvasc), 10 MG ORAL DAILY, (Reported) Aripiprazole* (Abilify*), 2 MG ORAL DAILY, (Reported) Ascorbic Acid* (Vitamin C*), 500 MG ORAL TWICE A DAY, (Reported) Aspirin* (Aspir 81*), 81 MG ORAL DAILY, (Reported) Brinzolamide (Azopt), 10 ML OP TID, (Reported) Clonidine HCl (Clonidine HCl), 0.2 MG PO Q6HR, (Reported) Cranberry Conc/C/Bacill Coag (Cranberry Tablet), 2 EACH PO DAILY, (Reported) Diazepam (Diazepam), 5 MG ORAL QHS, (Reported) Docusate Sodium* (Colace*), 100 MG ORAL BID, (Reported) Dorzolamide Hcl* (Trusopt*), 1 DROP BOTH EYES BID Fluoxetine Hcl* (Prozac*), 30 MG ORAL DAILY, (Reported) Furosemide* (Lasix*), 20 MG ORAL DAILY, (Reported) Insulin Glargine (Lantus), 12 SUBQ Q12HR, (Reported) Insulin Human Lispro (Humalog), 0 SUBQ BID, (Reported) Lactulose (Lactulose*), 20 GM PO DAILY Levofloxacin* (Levaquin*), 500 MG ORAL DAILY, (Reported) Losartan Potassium (Cozaar), 100 MG ORAL DAILY, (Reported) Losartan Potassium* (Cozaar*), 100 MG ORAL DAILY, (Reported) Magnesium Hydroxide* (Milk Of Magnesia*), Unknown Dose ORAL DAILY, (Reported) Metformin Hcl* (Glucophage*), 500 MG ORAL TIAC Metformin Hcl* (Glucophage*), 500 MG ORAL TID, (Reported) Metoprolol Tartrate* (Metoprolol Tartrate*), 50 MG ORAL DAILY, (Reported) Moxifloxacin HCl (Vigamox), 1 DROP BOTH EYES Q6HR Moxifloxacin HCl (Vigamox), 1 DROP BOTH EYES EVERY 6 HOURS, (Reported) Multivitamin With Minerals (Multivitamins With Minerals*), 1 TAB ORAL DAILY, ( Reported) Potassium Chloride (Potassium Chloride), 10 MEQ ORAL DAILY, (Reported) Ranitidine Hcl* (Zantac*), 150 MG ORAL TWICE A DAY Simvastatin (Zocor), 10 MG ORAL BEDTIME, (Reported) Scheduled PRN Acetaminophen* (Tylenol*), 325 MG ORAL Q4H PRN for Mild Pain/Temp > 100.5, ( Reported) Acetaminophen* (Acetaminophen 325MG Tablet*), 325 MG ORAL Q6H PRN for Fever/ Headache/Mild Pain, (Reported) Bisacodyl (Dulcolax), 10 MG RC DAILY PRN for Constipation, (Reported) Clonidine Hcl* (Catapres*), 0.1 MG ORAL EVERY 6 HOURS PRN for For High Blood Pressure, (Reported) Dextran 70/Hypromellose (Artificial Tears), 1 EACH OP EVERY 4 HOURS PRN for Dry Eyes, (Reported) Hydrocodone Bit/Acetaminophen 5-325* (Farrell 5-325*), 1 TAB ORAL Q4H PRN for Moderate Pain (Pain Scale 4-6) Insulin Regular, Human (Humulin R), 0 SUBQ for Sliding Scale, (Reported) Loperamide Hcl (Loperamide), 2 MG PO NEEDED PRN for Diarrhea, (Reported) Miscellaneous Medications Timolol Maleate (Timolol Maleate), Unknown Dose OP, (Reported) Patient History History Provided By: Patient, Medical Record Healthcare decision maker Resuscitation status Advanced Directive on File No Past Medical/Surgical History Past Medical/Surgical History: (1) ATN (acute tubular necrosis) (2) CVA (cerebral vascular accident) (3) Type II diabetes mellitus, uncontrolled (4) Sepsis (5) Thalamic pain syndrome (6) Acute ischemic VBA brainstem stroke (7) Trigeminal neuralgia Review of Systems Constitutional: Reports: weakness Eye: Reports: no symptoms ENT: Reports: no symptoms Respiratory: Reports: no symptoms Cardiovascular: Reports: other - PVD, s/p R foot amputation Gastrointestinal: Reports: no symptoms Genitourinary: Reports: other - scrotsl edema Musculoskeletal: Reports: other - hemiplegia Skin: Reports: dryness Psychiatric: Reports: other - schizophrenia Neurological: Reports: other - hx of CVA, Endocrine: Reports: other - DM Hematologic/Lymphatic: Reports: no symptoms ROS Narrative patient is a poor historian nearly all PMD obtained from the chart Physical Exam General Appearance: no apparent distress, obese Lines, tubes and drains: peripheral HEENT: normocephalic, atraumatic, anicteric Neck: supple Respiratory/Chest: lungs clear, no respiratory distress Cardiovascular/Chest: normal rate Abdomen: normal bowel sounds, non tender - obese, soft Genitourinary/Rectal: other - scrotal edema Extremities: no calf tenderness, normal capillary refill, other - R foot amputation Neurologic: abnormal gait, alert, responsive Musculoskeletal: other - RLU with edema +1, Last 24 Hour Vital Signs Date Time Temp Pulse Resp B/P (MAP) Pulse Ox O2 Delivery O2 Flow Rate FiO2 11/02/17 05:58 96.6 11/02/17 05:28 96.6 11/02/17 04:00 96.6 67 20 140/80 (100) 91 96.6 11/02/17 03:43 Room Air 11/02/17 00:00 98.6 72 18 145/82 (103) 92 98.6 11/01/17 23:34 98.2 11/01/17 21:19 98.2 75 18 158/85 (109) 94 98.2 11/01/17 18:58 98.0 18 153/90 99 Room Air 98.0 11/01/17 16:27 98.0 18 164/108 99 Room Air 98.0 11/01/17 15:34 89 18 164/108 99 Room Air Intake and Output 11/01/17 11/02/17 19:00 07:00 Intake Total 0 ml Balance 0 ml Intake Oral 0 ml Laboratory Tests Test 11/01/17 16:50 11/02/17 05:40 White Blood Count 12.3 K/UL (4.8-10.8) H 10.1 K/UL (4.8-10.8) Red Blood Count 4.98 M/UL (4.70-6.10) 5.13 M/UL (4.70-6.10) Hemoglobin 13.4 G/DL (14.2-18.0) L 13.6 G/DL (14.2-18.0) L Hematocrit 39.6 % (42.0-52.0) L 41.0 % (42.0-52.0) L Mean Corpuscular Volume 80 FL (80-99) 80 FL (80-99) Mean Corpuscular Hemoglobin 26.9 PG (27.0-31.0) L 26.6 PG (27.0-31.0) L Mean Corpuscular Hemoglobin Concent 33.8 G/DL (32.0-36.0) 33.2 G/DL (32.0-36.0) Red Cell Distribution Width 14.9 % (11.6-14.8) H 14.9 % (11.6-14.8) H Platelet Count 337 K/UL (150-450) 297 K/UL (150-450) Mean Platelet Volume 6.9 FL (6.5-10.1) 7.1 FL (6.5-10.1) Neutrophils (%) (Auto) 67.2 % (45.0-75.0) 67.1 % (45.0-75.0) Lymphocytes (%) (Auto) 22.0 % (20.0-45.0) 22.8 % (20.0-45.0) Monocytes (%) (Auto) 6.1 % (1.0-10.0) 5.2 % (1.0-10.0) Eosinophils (%) (Auto) 3.9 % (0.0-3.0) H 3.9 % (0.0-3.0) H Basophils (%) (Auto) 0.8 % (0.0-2.0) 0.9 % (0.0-2.0) Prothrombin Time 10.0 SEC (9.30-11.50) 10.6 SEC (9.30-11.50) Prothromb Time International Ratio 0.9 (0.9-1.1) 1.0 (0.9-1.1) Activated Partial Thromboplast Time 33 SEC (23-33) Sodium Level 138 MMOL/L (136-145) 139 MMOL/L (136-145) Potassium Level 3.7 MMOL/L (3.5-5.1) 3.3 MMOL/L (3.5-5.1) L Chloride Level 101 MMOL/L (98-107) 104 MMOL/L (98-107) Carbon Dioxide Level 28 MMOL/L (21-32) 31 MMOL/L (21-32) Anion Gap 9 mmol/L (5-15) 4 mmol/L (5-15) L Blood Urea Nitrogen 13 mg/dL (7-18) 13 mg/dL (7-18) Creatinine 0.9 MG/DL (0.55-1.30) 0.5 MG/DL (0.55-1.30) L Estimat Glomerular Filtration Rate > 60 mL/min (>60) > 60 mL/min (>60) Glucose Level 280 MG/DL (74-106) H 191 MG/DL (74-106) H Calcium Level 9.2 MG/DL (8.5-10.1) 9.1 MG/DL (8.5-10.1) Total Bilirubin 0.3 MG/DL (0.2-1.0) 0.3 MG/DL (0.2-1.0) Aspartate Amino Transf (AST/SGOT) 14 U/L (15-37) L 16 U/L (15-37) Alanine Aminotransferase (ALT/SGPT) 19 U/L (12-78) 19 U/L (12-78) Alkaline Phosphatase 145 U/L (46-116) H 146 U/L (46-116) H Total Creatine Kinase 9 U/L (26-308) L Creatine Kinase MB 0.8 NG/ML (0.0-3.6) Creatine Kinase MB Relative Index 8.8 Total Protein 6.9 G/DL (6.4-8.2) 6.7 G/DL (6.4-8.2) Albumin 2.5 G/DL (3.4-5.0) L 2.5 G/DL (3.4-5.0) L Globulin 4.4 g/dL 4.2 g/dL Albumin/Globulin Ratio 0.6 (1.0-2.7) L 0.6 (1.0-2.7) L Triglycerides Level 195 MG/DL (30-150) H Cholesterol Level 189 MG/DL (< 200) LDL Cholesterol 133 mg/dL (<100) H HDL Cholesterol 38 MG/DL (40-60) L Cholesterol/HDL Ratio 5.0 (3.3-4.4) H Height (Feet): 6 Height (Inches): 1.00 Weight (Pounds): 240 Medications Current Medications Medications (Trade) Dose Ordered Sig/Henrik Route PRN Reason Start Time Stop Time Status Last Admin Dose Admin Acetaminophen (Tylenol) 650 mg Q4H PRN ORAL fever 11/01/17 19:00 12/01/17 18:59 Al Hydroxide/Mg Hydroxide (Mylanta II) 30 ml Q6H PRN ORAL dyspepsia 11/01/17 19:00 12/01/17 18:59 Amlodipine Besylate (Norvasc) 10 mg DAILY ORAL 11/02/17 09:00 12/02/17 08:59 Aripiprazole (Abilify) 2 mg DAILY ORAL 11/02/17 09:00 12/02/17 08:59 Atorvastatin Calcium (Lipitor) 10 mg BEDTIME ORAL 11/02/17 21:00 12/02/17 20:59 UNV Dextrose (Dextrose 50%) 25 ml STAT PRN IV Hypoglycemia 11/01/17 19:00 12/01/17 18:59 Dextrose (Dextrose 50%) 50 ml STAT PRN IV Hypoglycemia 11/01/17 19:15 12/01/17 19:14 Enoxaparin Sodium (Lovenox) 170 mg Q24H SUBQ 11/01/17 19:30 12/01/17 19:29 11/01/17 22:46 Fluoxetine HCl (PROzac) 30 mg DAILY ORAL 11/02/17 09:00 12/02/17 08:59 Furosemide (Lasix) 20 mg DAILY ORAL 11/02/17 09:00 12/02/17 08:59 Insulin Aspart (NovoLOG) BEFORE MEALS AND HS SUBQ 11/01/17 21:00 12/01/17 20:59 11/02/17 05:37 Lorazepam (Ativan 2mg/ml 1ml) 0.5 mg Q4H PRN IV For Anxiety 11/01/17 19:00 11/08/17 18:59 Losartan Potassium (Cozaar) 100 mg DAILY ORAL 11/02/17 09:00 12/02/17 08:59 Metoprolol Tartrate (Lopressor) 50 mg DAILY ORAL 11/02/17 09:00 12/02/17 08:59 Morphine Sulfate (Morphine Sulfate) 1 mg Q4H PRN IVP For Pain 11/01/17 19:00 11/08/17 18:59 11/02/17 05:28 Ondansetron HCl (Zofran) 4 mg Q6H PRN IVP Nausea & Vomiting 11/01/17 19:00 12/01/17 18:59 Polyethylene Glycol (Miralax) 17 gm HSPRN PRN ORAL Constipation 11/01/17 19:00 12/01/17 18:59 Potassium Chloride (K-Dur) 40 meq ONCE ONCE ORAL 11/02/17 08:00 11/02/17 08:01 UNV Warfarin Sodium (Coumadin per pharmacy) 1 ea DAILY PRN MISC Per rx protocol 11/01/17 18:45 12/01/17 18:44 Warfarin Sodium (Coumadin) 5 mg COUMADIN ORAL 11/02/17 17:00 11/02/17 18:00 Zolpidem Tartrate (Ambien) 5 mg HSPRN PRN ORAL Insomnia 11/01/17 19:00 11/08/17 18:59 Assessment/Plan Assessment/Plan ASSESSMENT Acute DVT right upper extremity brachial vein hypertensive urgency diabetes mellitus peripheral vascular disease with R foot amputation hypokalemia mixed hyperlipidemia schizophrenia history of CVA with right hemiplegia Mild anemia scrotal edema PLAN OF CARE Med Surg floor Anticoagulation is a Lovenox and Coumadin to bring to therapeutic window 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
[2017-11-02] MEDS: Metoprolol Tartrate 50mg tab ORAL SCH (10:27)
[2017-11-02] MEDS: ARIPiprazole 2mg tab ORAL SCH (10:27)
[2017-11-02] MEDS: FLUoxetine 10mg cap ORAL SCH (10:27)
[2017-11-02] MEDS: Losartan 50mg tab ORAL SCH (10:28)
--- NOTE | 2017-11-02 13:19 | General Progress Note ---
Progress Note Progress Note [id number] full note dictated Kerry Jane MD Nov 02, 2017 13:19
[2017-11-02] MEDS ORDERED: Warfarin Sodium 5mg ORAL SCH ×2 (17:00)
--- NOTE | 2017-11-02 18:45 | History and Physical Report ---
DATE OF ADMISSION: 11/02/2017 TIME: 8 a.m. CONSULTANTS: 1. Guillermo Ugalde M.D. 2. Ani Barnes M.D. 3. Cherelle Guerrero M.D. CHIEF COMPLAINT: DVT, right upper extremity. BRIEF HISTORY: This is a 67-year-old male, who lives [facility], presents with right arm swelling and pain, came to [facility], diagnosed with DVT of right upper extremity, and admitted to medical floor for further treatment. Currently, slightly confused in bed, not talking much. PAST MEDICAL HISTORY: Includes schizophrenia, neuropathic pain, chronic pain, congestive heart failure, diabetes type 2, cerebrovascular accident, acute tubular necrosis, and weakness. PAST SURGICAL HISTORY: Unknown. The patient refused to answer. MEDICATIONS: Include Lipitor, Coumadin, Norvasc, Abilify, Prozac, Lasix, Cozaar, Lopressor, K-Dur, NovoLog, Lovenox, morphine, Zofran, Ambien, Ativan, and Mylanta. ALLERGIES: Denies. SOCIAL HISTORY: The patient refused to answer. REVIEW OF SYSTEMS: Unavailable. PHYSICAL EXAMINATION: GENERAL: Slightly confused in bed, oriented x1, in no acute distress. VITAL SIGNS: Temperature is 97 degrees, pulse 68, respirations 20, and blood pressure 155/90. CARDIOVASCULAR: No murmur. LUNGS: Distant and clear. ABDOMEN: Bowel sounds positive. Nontender. Nondistended. EXTREMITIES: No cyanosis or clubbing. Bilateral lower extremity, 1+ edema. Right upper arm slightly swollen and slightly nontender. LABORATORY DATA: Labs, at this time, show initial white count 12, now is 10, H and H are 13 and 41, and platelets 297,000. BMP shows potassium 3.3. BUN and creatinine are 13 and 0.5. Glucose 191. Alkaline phosphatase 147. Albumin 2.5. INR is 1.0. ASSESSMENT: 1. Deep venous thrombosis, right upper extremity. 2. Schizophrenia. 3. Chronic pain. 4. Hypokalemia. 5. Edema of bilateral lower extremity. 6. Congestive heart failure. 7. Diabetes. 8. Hypertension. 9. Cerebrovascular accident. 10. Weakness. PLAN: 1. Continue previous medications. 2. Anticoagulate. 3. Blood pressure, blood sugar, and pain control. 4. OT, PT, and dietary evaluation. 5. CBC and BMP in the morning. 6. We will continue to follow this patient medically. Oneil Curry D.O. DR: ANIL JOB#: [id number] CC:
--- NOTE | 2017-11-02 20:15 | Cardiology Progress Note ---
Assessment/Plan Assessment/Plan The patient is seen and examined, full consult note is dictated. Objective Last 24 Hour Vital Signs Date Time Temp Pulse Resp B/P (MAP) Pulse Ox O2 Delivery O2 Flow Rate FiO2 11/02/17 17:21 98.1 78 20 155/90 (111) 98 98.1 11/02/17 16:00 98.1 78 20 155/90 (111) 98 98.1 11/02/17 14:15 99.1 11/02/17 13:45 99.1 11/02/17 12:00 99.1 63 18 150/95 (113) 96 99.1 11/02/17 10:28 155/90 11/02/17 10:28 68 155/90 11/02/17 10:27 68 155/90 11/02/17 08:30 Room Air 11/02/17 08:00 97.7 68 20 155/90 (111) 97 97.7 11/02/17 05:28 96.6 11/02/17 04:00 96.6 67 20 140/80 (100) 91 96.6 11/02/17 03:43 Room Air 11/02/17 00:00 98.6 72 18 145/82 (103) 92 98.6 11/01/17 23:34 98.2 11/01/17 21:19 98.2 75 18 158/85 (109) 94 98.2 Intake and Output 11/01/17 11/02/17 19:00 07:00 Intake Total 0 ml Balance 0 ml Intake Oral 0 ml Laboratory Tests Test 11/02/17 05:40 White Blood Count 10.1 K/UL (4.8-10.8) Red Blood Count 5.13 M/UL (4.70-6.10) Hemoglobin 13.6 G/DL (14.2-18.0) L Hematocrit 41.0 % (42.0-52.0) L Mean Corpuscular Volume 80 FL (80-99) Mean Corpuscular Hemoglobin 26.6 PG (27.0-31.0) L Mean Corpuscular Hemoglobin Concent 33.2 G/DL (32.0-36.0) Red Cell Distribution Width 14.9 % (11.6-14.8) H Platelet Count 297 K/UL (150-450) Mean Platelet Volume 7.1 FL (6.5-10.1) Neutrophils (%) (Auto) 67.1 % (45.0-75.0) Lymphocytes (%) (Auto) 22.8 % (20.0-45.0) Monocytes (%) (Auto) 5.2 % (1.0-10.0) Eosinophils (%) (Auto) 3.9 % (0.0-3.0) H Basophils (%) (Auto) 0.9 % (0.0-2.0) Prothrombin Time 10.6 SEC (9.30-11.50) Prothromb Time International Ratio 1.0 (0.9-1.1) Sodium Level 139 MMOL/L (136-145) Potassium Level 3.3 MMOL/L (3.5-5.1) L Chloride Level 104 MMOL/L (98-107) Carbon Dioxide Level 31 MMOL/L (21-32) Anion Gap 4 mmol/L (5-15) L Blood Urea Nitrogen 13 mg/dL (7-18) Creatinine 0.5 MG/DL (0.55-1.30) L Estimat Glomerular Filtration Rate > 60 mL/min (>60) Glucose Level 191 MG/DL (74-106) H Calcium Level 9.1 MG/DL (8.5-10.1) Total Bilirubin 0.3 MG/DL (0.2-1.0) Aspartate Amino Transf (AST/SGOT) 16 U/L (15-37) Alanine Aminotransferase (ALT/SGPT) 19 U/L (12-78) Alkaline Phosphatase 146 U/L (46-116) H Total Protein 6.7 G/DL (6.4-8.2) Albumin 2.5 G/DL (3.4-5.0) L Globulin 4.2 g/dL Albumin/Globulin Ratio 0.6 (1.0-2.7) L Triglycerides Level 195 MG/DL (30-150) H Cholesterol Level 189 MG/DL (< 200) LDL Cholesterol 133 mg/dL (<100) H HDL Cholesterol 38 MG/DL (40-60) L Cholesterol/HDL Ratio 5.0 (3.3-4.4) H Suraj Tate MD Nov 02, 2017 20:15
[2017-11-02] MEDS: Enoxaparin 100mg Inj SUBQ SCH (21:14)
--- NOTE | 2017-11-02 22:45 | Consultation ---
DATE OF CONSULTATION: 11/02/2017 NEPHROLOGY CONSULTATION CONSULTING PHYSICIAN: Kerry Jane M.D. REFERRING PHYSICIAN: Oneil Curry M.D. REASON FOR CONSULTATION: History of renal failure and hypokalemia. HISTORY OF PRESENT ILLNESS: The patient is a 67-year-old male unfortunate with extensive past medical history including CVA via right-sided hemiparesis, diabetes, hypertension, history of peripheral vascular disease, and right foot amputation, depression, anxiety, and schizophrenia who was brought into [facility] for evaluation of right arm DVT. The patient was to have and DVT as an outpatient and was transferred to ER. In the ER, the patient found to have an hypokalemia and also found to have an elevated blood pressure. The patient consequently was admitted to the hospital. I was called for management of renal disease and electrolyte imbalance. PAST MEDICAL HISTORY: 1. History of acute renal failure. 2. History of CVA with right-sided hemiparesis. 3. History of peripheral vascular disease status post right foot amputation. 4. Sepsis. 5. History of schizophrenia. 6. History of depression. 7. History of diabetes. 8. History of DVT in the past. ALLERGIES: No known drug allergies. MEDICATIONS: Home medications are includin. Norvasc 10 mg p.o. daily. 2. Abilify 2 mg daily. 3. Vitamin C one tablet p.o. daily. 4. Aspirin 81 mg p.o. daily. 5. Clonidine 0.2 mg p.r.n. 6. Diazepam 5 mg p.r.n. 7. Fluoxetine or Prozac 30 mg p.o. daily 8. Lasix 20 mg daily. 9. Insulin by sliding scale. 10. Losartan 100 mg daily. 11. Magnesium oxide p.r.n. 12. Metformin 500 mg p.o. b.i.d. 13. Metoprolol 50 mg p.o. b.i.d. 14. Vigamox one drop every six hours. 15. Potassium chloride 10 mEq daily. 16. Ranitidine 150 mg p.o. daily. 17. Zocor 10 mg p.o. daily 18. Tylenol 650 mg q.6 h. p.r.n. pain. 19. Bisacodyl p.r.n. constipation. FAMILY HISTORY: Noncontributory. REVIEW OF SYSTEMS: GENERAL: He complained of generalized weakness. Denies any fever, chills, or night sweats. HEAD AND NECK: Denies any dysphagia, odynophagia, blurry vision, headache, or neck stiffness. PULMONARY: No shortness of breath, cough or sputum. CARDIOVASCULAR: Denies any chest pain or palpitation. GASTROINTESTINAL: No nausea, vomiting, or diarrhea. GENITOURINARY: Denies any dysuria, frequency, or hematuria. PHYSICAL EXAMINATION: VITAL SIGNS: The patient had temperature of 96, blood pressure of 140/80, pulse rate of 67. HEAD AND NECK: No JVP. No LAD. No thyromegaly. Extraocular movement intact. Pupils are reactive to light and accommodation. LUNGS: Decreased breathing sound on the both sides. CARDIAC: Regular rate and rhythm. S1 and S2. No murmur. No rub. ABDOMEN: Soft, nontender, and nondistended. EXTREMITIES: BKA of right leg and has 2 to 3+ edema. LABORATORY AND DIAGNOSTIC DATA: WBC count of 12,000, hemoglobin of 13.4, hematocrit 39, platelet count of 377. Chemistry revealed sodium 138, potassium 3.7 on admission 3.4 today, chloride 101, bicarb 28, BUN of 13, creatinine 0.9, glucose of 280, calcium of 9.2. AST is 14 and ALT of 19. Cholesterol panel, triglyceride 195, cholesterol of 189, and LDL of 133, HDL of 38. ASSESSMENT: 1. Hypokalemia. 2. History of acute renal failure, rule out diabetic nephropathy. 3. Hypertensive urgency. 4. Uncontrolled diabetes. 5. Peripheral vascular disease. 6. Schizophrenia. 7. History of CVA with right-sided paralysis. 8. Lower extremity edema. PLAN: Plan for the patient to obtain UA. Check the random urine protein creatinine ratio to calculate the proteinuria. Check the microalbumin and replace the potassium. Check the magnesium level. Monitor renal function and electrolytes closely. Again, I would like to thank, Dr. Oneil Curry, for allowing to participate in the care of this patient. Kerry Jane M.D. DR: Anastasiia JOB#: [id number] CC:
[2017-11-03] VITALS (7 sets, daily range): BP systolic 132–178; BP diastolic 78–99
[2017-11-03] MEDS: Morphine Sulfate 2mg/ml Inj IVP PRN ×4 (04:07→20:01)
[2017-11-03] MEDS: NovoLOG Insulin Flexpen SUBQ SCH ×4 (06:43→20:20)
[2017-11-03 06:54] LABS: BASOPHILS % (AUTO) 0.9 % (0.0-2.0); EOSINOPHILS % (AUTO) 5.6 % (0.0-3.0); HEMATOCRIT 42.4 % (42.0-52.0); MEAN CORPUSCULAR VOLUME 80 FL (80-99); MONOCYTES % (AUTO) 5.5 % (1.0-10.0); PLATELET COUNT 310 K/UL (150-450); RED BLOOD COUNT 5.33 M/UL (4.70-6.10); RED CELL DISTRIBUTION WIDTH 15.1 % (11.6-14.8)
[2017-11-03 07:02] LABS: ANION GAP 5 mmol/L (5-15); BLOOD UREA NITROGEN 13 mg/dL (7-18); CALCIUM 9.1 MG/DL (8.5-10.1); CARBON DIOXIDE 33 MMOL/L (21-32); CHLORIDE 103 MMOL/L (98-107); CREATINE KINASE 10 U/L (26-308); CREATININE 0.6 MG/DL (0.55-1.30); POTASSIUM 3.5 MMOL/L (3.5-5.1); SODIUM 141 MMOL/L (136-145)
--- NOTE | 2017-11-03 07:57 | General Progress Note ---
Assessment/Plan Problem List: (1) Edema ICD Codes: R60.9 - Edema, unspecified SNOMED: 870699128, 416584932 (2) Chronic pain ICD Codes: G89.29 - Other chronic pain SNOMED: 67941375 (3) CHF (congestive heart failure) ICD Codes: I50.9 - Heart failure, unspecified SNOMED: 48600278 (4) Weakness generalized ICD Codes: R53.1 - Weakness SNOMED: 81000788 (5) DM (diabetes mellitus screen) ICD Codes: Z13.1 - DM (diabetes mellitus screen) SNOMED: 333347958 (6) DVT of upper extremity (deep vein thrombosis) ICD Codes: I82.629 - Acute embolism and thrombosis of deep veins of unspecified upper extremity SNOMED: 035710023 (7) ATN (acute tubular necrosis) ICD Codes: N17.0 - Acute kidney failure with tubular necrosis SNOMED: 25500200 (8) CVA (cerebral vascular accident) ICD Codes: I63.9 - Cerebral infarction, unspecified SNOMED: 421977032 Status: unchanged Assessment/Plan ot pt diet anticoag bp bs pain control cbc bmp am Subjective Constitutional: Reports: weakness Allergies: Coded Allergies: No Known Allergies (Unverified , 01/08/14) All Systems: reviewed and negative except above Subjective sleepy in bed Objective Last 24 Hour Vital Signs Date Time Temp Pulse Resp B/P (MAP) Pulse Ox O2 Delivery O2 Flow Rate FiO2 11/03/17 04:52 96.8 79 20 132/89 (103) 96 96.8 11/03/17 00:53 97.3 70 20 156/90 (112) 94 97.3 11/02/17 21:00 Room Air 11/02/17 20:42 96.3 69 20 154/89 (110) 92 96.3 11/02/17 17:21 98.1 78 20 155/90 (111) 98 98.1 11/02/17 16:00 98.1 78 20 155/90 (111) 98 98.1 11/02/17 14:15 99.1 11/02/17 13:45 99.1 11/02/17 12:00 99.1 63 18 150/95 (113) 96 99.1 11/02/17 10:28 155/90 11/02/17 10:28 68 155/90 11/02/17 10:27 68 155/90 11/02/17 08:30 Room Air 11/02/17 08:00 97.7 68 20 155/90 (111) 97 97.7 Intake and Output 11/02/17 11/03/17 19:00 07:00 Intake Total 400 ml Balance 400 ml Intake Oral 400 ml # Voids 3 5 # Bowel Movements 2 Laboratory Tests 11/02/17 21:30: Urine Eosinophils None seen, Urine Random Creatinine [Pending], Urine Random Microalbumin [Pending], Urine Random Total Protein 323H, Urine Creatinine 63.1, Urine Microalbumin/Creatinine Ratio [Pending] 11/03/17 06:00: White Blood Count 10.0, Red Blood Count 5.33, Hemoglobin 14.0L, Hematocrit 42.4 , Mean Corpuscular Volume 80, Mean Corpuscular Hemoglobin 26.2L, Mean Corpuscular Hemoglobin Concent 33.0, Red Cell Distribution Width 15.1H, Platelet Count 310, Mean Platelet Volume 7.1, Neutrophils (%) (Auto) 66.0, Lymphocytes (%) (Auto) 22.0, Monocytes (%) (Auto) 5.5, Eosinophils (%) (Auto) 5.6H, Basophils (%) (Auto) 0.9, Prothrombin Time 10.2, Prothromb Time International Ratio 1.0, Sodium Level 141, Potassium Level 3.5, Chloride Level 103, Carbon Dioxide Level 33H, Anion Gap 5, Blood Urea Nitrogen 13, Creatinine 0.6, Estimat Glomerular Filtration Rate > 60, Glucose Level 229H, Hemoglobin A1c 8.2H, Calcium Level 9.1, Magnesium Level 1.7L, Total Creatine Kinase 10L Height (Feet): 6 Height (Inches): 1.00 Weight (Pounds): 240 General Appearance: lethargic EENT: normal ENT inspection Neck: normal alignment Cardiovascular: normal peripheral pulses, normal rate, regular rhythm Respiratory/Chest: chest wall non-tender, lungs clear, normal breath sounds Abdomen: normal bowel sounds, non tender, soft Extremities: normal inspection Edema: 1+ Arm (L), 1+ Arm (R), 1+ Leg (L), 1+ Leg (R), 1+ Pedal (L), 1+ Pedal ( R), 1+ Generalized Edema: trace edema Neurologic: motor weakness Skin: normal pigmentation, warm/dry Oneil Curry DO Nov 03, 2017 07:57
--- NOTE | 2017-11-03 08:39 | Pulmonology Progress Note ---
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 HHN prn BP management with multiple regimen of CCB, BB and ARB, add prn a/HTN med Lipid panel with elevated LDL and TG , added statin and fish oil, CK OK cardio follows Blood sugar management with SSI, hemoglobin A1c 8.2 not at goal, added Levemir Monitor H&H with goal to keep hemoglobin above 7 Supportive care elevate scrotum monitor renal parameters, lytes, avoid nephrotoxic K stable after replacement, replace Mg today Pain management Bowel regimen psych meds resumed, consider psych eval- per PMD dietary eval PT/OT DNR/DNI status case discussed and evaluated by supervising physician Subjective Allergies: Coded Allergies: No Known Allergies (Unverified , 01/08/14) Subjective leukocytosis resolved, afebrile INR subtherapeutic K stable after replacement Mg -1.7 Objective Last 24 Hour Vital Signs Date Time Temp Pulse Resp B/P (MAP) Pulse Ox O2 Delivery O2 Flow Rate FiO2 11/03/17 04:52 96.8 79 20 132/89 (103) 96 96.8 11/03/17 00:53 97.3 70 20 156/90 (112) 94 97.3 11/02/17 21:00 Room Air 11/02/17 20:42 96.3 69 20 154/89 (110) 92 96.3 11/02/17 17:21 98.1 78 20 155/90 (111) 98 98.1 11/02/17 16:00 98.1 78 20 155/90 (111) 98 98.1 11/02/17 14:15 99.1 11/02/17 13:45 99.1 11/02/17 12:00 99.1 63 18 150/95 (113) 96 99.1 11/02/17 10:28 155/90 11/02/17 10:28 68 155/90 11/02/17 10:27 68 155/90 Intake and Output 11/02/17 11/03/17 19:00 07:00 Intake Total 400 ml Balance 400 ml Intake Oral 400 ml # Voids 3 5 # Bowel Movements 2 Objective General Appearance: no apparent distress, obese Lines, tubes and drains: peripheral HEENT: normocephalic, atraumatic, anicteric Neck: supple Respiratory/Chest: lungs clear, no respiratory distress Cardiovascular/Chest: normal rate Abdomen: normal bowel sounds, non tender - obese, soft Genitourinary/Rectal: other - scrotal edema Extremities: no calf tenderness, normal capillary refill, other - R foot amputation Neurologic: abnormal gait, alert, responsive Musculoskeletal: RLU with edema +1, Laboratory Tests 11/02/17 21:30: Urine Eosinophils None seen, Urine Random Creatinine [Pending], Urine Random Microalbumin [Pending], Urine Random Total Protein 323H, Urine Creatinine 63.1, Urine Microalbumin/Creatinine Ratio [Pending] 11/03/17 06:00: White Blood Count 10.0, Red Blood Count 5.33, Hemoglobin 14.0L, Hematocrit 42.4 , Mean Corpuscular Volume 80, Mean Corpuscular Hemoglobin 26.2L, Mean Corpuscular Hemoglobin Concent 33.0, Red Cell Distribution Width 15.1H, Platelet Count 310, Mean Platelet Volume 7.1, Neutrophils (%) (Auto) 66.0, Lymphocytes (%) (Auto) 22.0, Monocytes (%) (Auto) 5.5, Eosinophils (%) (Auto) 5.6H, Basophils (%) (Auto) 0.9, Prothrombin Time 10.2, Prothromb Time International Ratio 1.0, Sodium Level 141, Potassium Level 3.5, Chloride Level 103, Carbon Dioxide Level 33H, Anion Gap 5, Blood Urea Nitrogen 13, Creatinine 0.6, Estimat Glomerular Filtration Rate > 60, Glucose Level 229H, Hemoglobin A1c 8.2H, Calcium Level 9.1, Magnesium Level 1.7L, Total Creatine Kinase 10L Current Medications Medications (Trade) Dose Ordered Sig/Henrik Route PRN Reason Start Time Stop Time Status Last Admin Dose Admin Acetaminophen (Tylenol) 650 mg Q4H PRN ORAL fever 11/01/17 19:00 12/01/17 18:59 Al Hydroxide/Mg Hydroxide (Mylanta II) 30 ml Q6H PRN ORAL dyspepsia 11/01/17 19:00 12/01/17 18:59 Amlodipine Besylate (Norvasc) 10 mg DAILY ORAL 11/02/17 09:00 12/02/17 08:59 11/02/17 10:28 Aripiprazole (Abilify) 2 mg DAILY ORAL 11/02/17 09:00 12/02/17 08:59 11/02/17 10:27 Atorvastatin Calcium (Lipitor) 10 mg BEDTIME ORAL 11/02/17 21:00 12/02/17 20:59 11/02/17 21:49 Dextrose (Dextrose 50%) 25 ml STAT PRN IV Hypoglycemia 11/01/17 19:00 12/01/17 18:59 Dextrose (Dextrose 50%) 50 ml STAT PRN IV Hypoglycemia 11/01/17 19:15 12/01/17 19:14 Enoxaparin Sodium (Lovenox) 170 mg Q24H SUBQ 11/01/17 19:30 12/01/17 19:29 11/02/17 21:14 Fish Oil (Fish Oil) 1,000 mg DAILY ORAL 11/03/17 09:00 12/03/17 08:59 Fluoxetine HCl (PROzac) 30 mg DAILY ORAL 11/02/17 09:00 12/02/17 08:59 11/02/17 10:27 Furosemide (Lasix) 20 mg DAILY ORAL 11/02/17 09:00 12/02/17 08:59 11/02/17 10:27 Hydralazine HCl (Apresoline) 10 mg Q6HR PRN ORAL sbp above 160 11/02/17 10:45 12/02/17 10:44 Insulin Aspart (NovoLOG) BEFORE MEALS AND HS SUBQ 11/01/17 21:00 12/01/17 20:59 11/03/17 06:43 Lorazepam (Ativan 2mg/ml 1ml) 0.5 mg Q4H PRN IV For Anxiety 11/01/17 19:00 11/08/17 18:59 Losartan Potassium (Cozaar) 100 mg DAILY ORAL 11/02/17 09:00 12/02/17 08:59 11/02/17 10:28 Metoprolol Tartrate (Lopressor) 50 mg DAILY ORAL 11/02/17 09:00 12/02/17 08:59 11/02/17 10:27 Morphine Sulfate (Morphine Sulfate) 1 mg Q4H PRN IVP For Pain 11/01/17 19:00 11/08/17 18:59 11/03/17 04:07 Ondansetron HCl (Zofran) 4 mg Q6H PRN IVP Nausea & Vomiting 11/01/17 19:00 12/01/17 18:59 Polyethylene Glycol (Miralax) 17 gm HSPRN PRN ORAL Constipation 11/01/17 19:00 12/01/17 18:59 Warfarin Sodium (Coumadin per pharmacy) 1 ea DAILY PRN MISC Per rx protocol 11/01/17 18:45 12/01/17 18:44 Warfarin Sodium (Coumadin) 5 mg COUMADIN ORAL 11/03/17 17:00 11/08/17 16:59 Zolpidem Tartrate (Ambien) 5 mg HSPRN PRN ORAL Insomnia 11/01/17 19:00 11/08/17 18:59 Danita Blunt NP Nov 03, 2017 08:39
[2017-11-03] MEDS: ARIPiprazole 2mg tab ORAL SCH (09:06)
[2017-11-03] MEDS: Losartan 50mg tab ORAL SCH (09:07)
[2017-11-03] MEDS: Metoprolol Tartrate 50mg tab ORAL SCH (09:07)
[2017-11-03] MEDS: FLUoxetine 10mg cap ORAL SCH (09:08)
[2017-11-03] MEDS: Levemir Flexpen SUBQ SCH (10:44)
--- NOTE | 2017-11-03 13:31 | Cardiology Report ---
APPROVED REPORT EKG Measurement Heart [id number] Sinus rhythm with 1st degree AV block Left axis deviation Pulmonary disease pattern Abnormal ECG
--- NOTE | 2017-11-03 14:27 | General Progress Note ---
Assessment/Plan Assessment/Plan 1. DVT of right upper extremity. The patient is on Coumadin and Lovenox --> remains subtherpaeutic --> goal inr 2-3 --> outpatient f.u repeat imaging in 3 mo 2. Elevated blood sugar potentially secondary to diabetes mellitus. a1c elevated ==> a1c goal <7 3. Mild protein-caloric malnutrition. 4. Weakness and fatigue likely due to underlying anemia. 5. Hypertension. Systolic blood pressure goal less than 140. 6. Cerebrovascular accident/transient ischemic attack with right hemiplegia. History of occipital encephalomalacia. Subjective Date patient seen: Nov 02, 2017 Allergies: Coded Allergies: No Known Allergies (Unverified , 01/08/14) All Systems: reviewed and negative except above Subjective no events on coumadin Objective Last 24 Hour Vital Signs Date Time Temp Pulse Resp B/P (MAP) Pulse Ox O2 Delivery O2 Flow Rate FiO2 11/03/17 12:00 97.5 75 16 175/97 (123) 96 97.5 11/03/17 09:08 79 178/99 11/03/17 09:07 79 178/99 11/03/17 09:07 178/99 11/03/17 09:00 Room Air 11/03/17 08:51 98.3 20 178/99 (125) 94 98.3 11/03/17 04:52 96.8 79 20 132/89 (103) 96 96.8 11/03/17 00:53 97.3 70 20 156/90 (112) 94 97.3 11/02/17 21:00 Room Air 11/02/17 20:42 96.3 69 20 154/89 (110) 92 96.3 11/02/17 17:21 98.1 78 20 155/90 (111) 98 98.1 11/02/17 16:00 98.1 78 20 155/90 (111) 98 98.1 Intake and Output 11/02/17 11/03/17 19:00 07:00 Intake Total 400 ml Balance 400 ml Intake Oral 400 ml # Voids 3 5 # Bowel Movements 2 Laboratory Tests 11/02/17 21:30: Urine Eosinophils None seen, Urine Random Creatinine [Pending], Urine Random Microalbumin [Pending], Urine Random Total Protein 323H, Urine Creatinine 63.1, Urine Microalbumin/Creatinine Ratio [Pending] 11/03/17 06:00: White Blood Count 10.0, Red Blood Count 5.33, Hemoglobin 14.0L, Hematocrit 42.4 , Mean Corpuscular Volume 80, Mean Corpuscular Hemoglobin 26.2L, Mean Corpuscular Hemoglobin Concent 33.0, Red Cell Distribution Width 15.1H, Platelet Count 310, Mean Platelet Volume 7.1, Neutrophils (%) (Auto) 66.0, Lymphocytes (%) (Auto) 22.0, Monocytes (%) (Auto) 5.5, Eosinophils (%) (Auto) 5.6H, Basophils (%) (Auto) 0.9, Prothrombin Time 10.2, Prothromb Time International Ratio 1.0, Sodium Level 141, Potassium Level 3.5, Chloride Level 103, Carbon Dioxide Level 33H, Anion Gap 5, Blood Urea Nitrogen 13, Creatinine 0.6, Estimat Glomerular Filtration Rate > 60, Glucose Level 229H, Hemoglobin A1c 8.2H, Calcium Level 9.1, Magnesium Level 1.7L, Total Creatine Kinase 10L Height (Feet): 6 Height (Inches): 1.00 Weight (Pounds): 240 General Appearance: alert EENT: TMs normal Neck: supple Cardiovascular: no gallop/murmur Respiratory/Chest: normal breath sounds Abdomen: non tender Extremities: normal range of motion Edema: 1+ Leg (L), 1+ Leg (R) Neurologic: alert Skin: warm/dry Guillermo Ugalde MD Nov 03, 2017 14:27
[2017-11-03] MEDS ORDERED: Triamterene/Hctz 37.5/25 cap ORAL SCH (16:00)
--- NOTE | 2017-11-03 16:31 | Nephrology Progress Note ---
Assessment/Plan Assessment 1. Hypokalemia. 2. History of acute renal failure, rule out diabetic nephropathy. 3. Hypertensive urgency. 4. Uncontrolled diabetes. 5. Peripheral vascular disease. 6. Schizophrenia. 7. History of CVA with right-sided paralysis. 8. Lower extremity edema. Plan plan replace mg monitoring renal function avoid NSAID Subjective Constitutional: Reports: no symptoms HEENT: Reports: no symptoms Genitourinary: Reports: no symptoms Neurologic/Psychiatric: Reports: no symptoms Subjective no acute events Objective Objective Last 24 Hour Vital Signs Date Time Temp Pulse Resp B/P (MAP) Pulse Ox O2 Delivery O2 Flow Rate FiO2 11/03/17 12:30 68 134/78 (96) 11/03/17 12:00 97.5 75 16 175/97 (123) 96 97.5 11/03/17 09:08 79 178/99 11/03/17 09:07 79 178/99 11/03/17 09:07 178/99 11/03/17 09:00 Room Air 11/03/17 08:51 98.3 20 178/99 (125) 94 98.3 11/03/17 04:52 96.8 79 20 132/89 (103) 96 96.8 11/03/17 00:53 97.3 70 20 156/90 (112) 94 97.3 11/02/17 21:00 Room Air 11/02/17 20:42 96.3 69 20 154/89 (110) 92 96.3 11/02/17 17:21 98.1 78 20 155/90 (111) 98 98.1 Intake and Output 11/02/17 11/03/17 19:00 07:00 Intake Total 400 ml Balance 400 ml Intake Oral 400 ml # Voids 3 5 # Bowel Movements 2 Laboratory Tests 11/02/17 21:30: Urine Eosinophils None seen, Urine Random Creatinine [Pending], Urine Random Microalbumin [Pending], Urine Random Total Protein 323H, Urine Creatinine 63.1, Urine Microalbumin/Creatinine Ratio [Pending] 11/03/17 06:00: White Blood Count 10.0, Red Blood Count 5.33, Hemoglobin 14.0L, Hematocrit 42.4 , Mean Corpuscular Volume 80, Mean Corpuscular Hemoglobin 26.2L, Mean Corpuscular Hemoglobin Concent 33.0, Red Cell Distribution Width 15.1H, Platelet Count 310, Mean Platelet Volume 7.1, Neutrophils (%) (Auto) 66.0, Lymphocytes (%) (Auto) 22.0, Monocytes (%) (Auto) 5.5, Eosinophils (%) (Auto) 5.6H, Basophils (%) (Auto) 0.9, Prothrombin Time 10.2, Prothromb Time International Ratio 1.0, Sodium Level 141, Potassium Level 3.5, Chloride Level 103, Carbon Dioxide Level 33H, Anion Gap 5, Blood Urea Nitrogen 13, Creatinine 0.6, Estimat Glomerular Filtration Rate > 60, Glucose Level 229H, Hemoglobin A1c 8.2H, Calcium Level 9.1, Magnesium Level 1.7L, Total Creatine Kinase 10L Height (Feet): 6 Height (Inches): 1.00 Weight (Pounds): 240 Objective HEAD AND NECK: No JVP. No LAD. No thyromegaly. Extraocular movement intact. Pupils are reactive to light and accommodation. LUNGS: Decreased breathing sound on the both sides. CARDIAC: Regular rate and rhythm. S1 and S2. No murmur. No rub. ABDOMEN: Soft, nontender, and nondistended. EXTREMITIES: BKA of right leg and has 2 to 3+ edema. Kerry Jane MD Nov 03, 2017 16:31
[2017-11-03] MEDS ORDERED: Warfarin Sodium 5mg ORAL SCH (17:00)
--- NOTE | 2017-11-03 17:00 | Progress Note ---
DATE: 11/03/2017 NOTE: "POOR AUDIO QUALITY" SUBJECTIVE: A 67-year-old male patient with deep venous thrombosis. His cognition has declined below baseline, worsened by stress of his medical illness. That is why, his attending physician has requested daily psychiatric consultation. MENTAL STATUS EXAMINATION: This is a 67-year-old male. Appearance disheveled. Attitude, irritable and agitated. Affect guarded and restricted. Intellect poor. Mood depressed and anxious. Motor activity, psychomotor agitation. Attention span is poor. Orientation x2. Speech is pressured. Thought process, disorganized and illogical. Thought content, auditory hallucinations and paranoid delusions. Insight and judgment is poor. DIAGNOSIS: Major depression with psychotic features. PLAN: Treat this patient with Abilify 2 mg a day, Prozac 30 mg a day, Ativan 0.5 mg q.4 hours IV p.r.n. anxiety and agitation. 18 to 20 minutes of cognitive behavioral therapy provided. Chart reviewed and discussed with staff. Rosa Yousif M.D. DR: Micheal JOB#: [id number] CC:
[2017-11-03] MEDS: Enoxaparin 100mg Inj SUBQ SCH (20:03)
--- NOTE | 2017-11-03 21:14 | Cardiology Progress Note ---
Assessment/Plan Assessment/Plan 1. Right DVT, on waRFARING, LVEF >75%. Chest x-ray on this admission with no evidence of pulmonary edema. 2. Diabetes mellitus, consider adding ASA and statins. 3. Hypertension, continue amlodipine, metoprolol and losartan. 4. Prior history of cerebrovascular accident, ASA for secondary preventive measures. Subjective Subjective No cardiac events. Not on telemetry unit. Objective Last 24 Hour Vital Signs Date Time Temp Pulse Resp B/P (MAP) Pulse Ox O2 Delivery O2 Flow Rate FiO2 11/03/17 16:00 97.7 70 19 153/81 (105) 98 97.7 11/03/17 12:30 68 134/78 (96) 11/03/17 12:00 97.5 75 16 175/97 (123) 96 97.5 11/03/17 09:08 79 178/99 11/03/17 09:07 79 178/99 11/03/17 09:07 178/99 11/03/17 09:00 Room Air 11/03/17 08:51 98.3 20 178/99 (125) 94 98.3 11/03/17 04:52 96.8 79 20 132/89 (103) 96 96.8 11/03/17 00:53 97.3 70 20 156/90 (112) 94 97.3 Intake and Output 11/02/17 11/03/17 19:00 07:00 Intake Total 400 ml Balance 400 ml Intake Oral 400 ml # Voids 3 5 # Bowel Movements 2 2D Echo: Echo from Jan 2014: EF 65-70%, RVSP 14 mmHg, Biatrial enlargement. Laboratory Tests Test 11/02/17 21:30 11/03/17 06:00 Urine Eosinophils None seen Urine Random Creatinine Pending Urine Random Microalbumin Pending Urine Random Total Protein 323 MG/DL (< 11.9) H Urine Creatinine 63.1 MG/DL (30.0-125.0) Urine Microalbumin/Creatinine Ratio Pending White Blood Count 10.0 K/UL (4.8-10.8) Red Blood Count 5.33 M/UL (4.70-6.10) Hemoglobin 14.0 G/DL (14.2-18.0) L Hematocrit 42.4 % (42.0-52.0) Mean Corpuscular Volume 80 FL (80-99) Mean Corpuscular Hemoglobin 26.2 PG (27.0-31.0) L Mean Corpuscular Hemoglobin Concent 33.0 G/DL (32.0-36.0) Red Cell Distribution Width 15.1 % (11.6-14.8) H Platelet Count 310 K/UL (150-450) Mean Platelet Volume 7.1 FL (6.5-10.1) Neutrophils (%) (Auto) 66.0 % (45.0-75.0) Lymphocytes (%) (Auto) 22.0 % (20.0-45.0) Monocytes (%) (Auto) 5.5 % (1.0-10.0) Eosinophils (%) (Auto) 5.6 % (0.0-3.0) H Basophils (%) (Auto) 0.9 % (0.0-2.0) Prothrombin Time 10.2 SEC (9.30-11.50) Prothromb Time International Ratio 1.0 (0.9-1.1) Sodium Level 141 MMOL/L (136-145) Potassium Level 3.5 MMOL/L (3.5-5.1) Chloride Level 103 MMOL/L (98-107) Carbon Dioxide Level 33 MMOL/L (21-32) H Anion Gap 5 mmol/L (5-15) Blood Urea Nitrogen 13 mg/dL (7-18) Creatinine 0.6 MG/DL (0.55-1.30) Estimat Glomerular Filtration Rate > 60 mL/min (>60) Glucose Level 229 MG/DL (74-106) H Hemoglobin A1c 8.2 % (4.3-6.0) H Calcium Level 9.1 MG/DL (8.5-10.1) Magnesium Level 1.7 MG/DL (1.8-2.4) L Total Creatine Kinase 10 U/L (26-308) L Objective HEENT: Atraumatic and normocephalic. Anicteric. Pupils are equal, round, and reactive to light and accommodation. Extraocular muscles intact. NECK: JVP less than 5 cm. No carotid bruit. Carotid upstrokes 2+ bilaterally. CARDIOVASCULAR: Normal S1 and S2. Regular rate and rhythm. No murmurs, gallops, or rubs. PMI is at fourth intercostal space in the midclavicular line. LUNGS: Clear to auscultation bilaterally. ABDOMEN: Soft, nontender, and nondistended. No hepatosplenomegaly. Positive bowel sounds. Positive G-tube. EXTREMITIES: No evidence of edema, clubbing, or cyanosis. There is 1+ bilateral edema. 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 Suraj Tate MD Nov 03, 2017 21:14
[2017-11-03] MEDS: HydrALAZINE 10mg Tab ORAL PRN (21:17)
--- NOTE | 2017-11-03 21:30 | Consultation ---
DATE OF CONSULTATION: 11/02/2017 CARDIOLOGY CONSULTATION CONSULTING PHYSICIAN: Suraj Tate M.D. REFERRING PHYSICIAN: Oneil Curry D.O. REASON FOR CONSULTATION: Management of accelerated hypertension. HISTORY OF PRESENT ILLNESS: The patient is a very unfortunate 67-year-old gentleman, who was brought in by ambulance for right arm DVT. The patient resides in [facility] ([facility]] and has history of CVA with right hemiparalysis that occurred about three years ago. Apparently, ultrasound performed in the nursing facility found possible DVT in the right upper extremity. The patient did not have any chest pain or shortness of breath at the time of arrival to the hospital. His vitals however showed blood pressure of 164/108 mmHg and heart rate of 89. Cardiology consultation was made at the request of Dr. Curry for evaluation and management of this condition. PAST MEDICAL HISTORY: History of renal failure, history of diabetes mellitus, history of hypertension, history of cardiomegaly, history of peripheral vascular disease, history of schizophrenia, and history of CVA with right hemiparalysis. PAST SURGICAL HISTORY: None. ALLERGIES: No known drug allergies. MEDICATIONS: List of medications in the nursing facility included acetaminophen 325 mg q.4 h. p.r.n. for temperature above 100.5 degrees, amlodipine 10 mg p.o. daily, Abilify 2 mg p.o. daily, vitamin C 500 mg twice daily, aspirin 81 mg p.o. daily, Dulcolax 10 mg rectal daily p.r.n. constipation, Azopt eye drops three times daily, clonidine 0.2 mg p.o. q.6 h., Catapres 0.1 mg q.6 h. p.r.n. blood pressure above 160, cranberry tablet two tablets p.o. daily, Artificial Tears, diazepam 5 mg p.o. nightly, Colace 100 mg p.o. twice daily, Trusopt eye drops twice daily, Prozac 20 mg p.o. daily, Lasix 20 mg p.o. daily, Castana 5/325 mg one tablet q.4 h. p.r.n. moderate pain, Lantus insulin 12 units subcutaneously q.12 h., Humalog insulin sliding scale, lactulose 20 g p.o. daily, levofloxacin 500 mg daily for seven days, loperamide 2 mg p.o. p.r.n. diarrhea, losartan 100 mg p.o. daily, milk of magnesia 30 mL p.o. daily p.r.n. constipation, Glucophage 500 mg three times daily, metoprolol 50 mg p.o. daily, moxifloxacin one drop to both eyes, multivitamin one tablet p.o. daily, potassium 10 mEq p.o. daily, ranitidine 150 mg twice a day, simvastatin 10 mg p.o. nightly, and timolol eye drops. FAMILY HISTORY: No premature coronary artery disease or arrhythmogenic reported in the first-degree relative. REVIEW OF SYSTEMS: The patient unfortunately is aphasic. He is not capable of providing 12 review of systems. PHYSICAL EXAMINATION: VITAL SIGNS: Blood pressure at the time of arrival to the hospital was 164/108, respirations of 18, pulse of 89, and O2 saturation 99% on room air. GENERAL: The patient is a very unfortunate 67-year-old gentleman, aphasic, in no apparent respiratory distress. HEENT: Atraumatic and normocephalic. Anicteric. Pupils are equal, round, and reactive to light and accommodation. Extraocular muscles intact. NECK: JVP less than 5 cm. No carotid bruit. Carotid upstrokes 2+ bilaterally. CVS: Normal S1 and S2. Regular rate and rhythm. No murmurs, gallops, or rubs. PMI is at fourth intercostal space in the midclavicular line. LUNGS: Clear to auscultation bilaterally. ABDOMEN: Soft, nontender, and nondistended. No hepatosplenomegaly. Positive bowel sounds. EXTREMITIES: There is 0/5 motor function in the right upper and lower extremity, otherwise no evidence of edema, clubbing, or cyanosis. LABORATORY AND DIAGNOSTIC DATA: A 12-lead electrocardiogram, sinus rhythm at [address] and T-wave abnormalities. Chest x-ray showed linear opacity in the right base likely atelectasis or scarring, haziness of the pulmonary vascularis may be exaggerated due to lung volumes, however, possibility of mild vascular congestion or interstitial edema should be considered clinically. Laboratory findings, WBC was 12.3, hemoglobin of 13.4, hematocrit of 39.6, and platelet count is 337,000. Sodium 138, potassium 3.7, chloride 101, bicarbonate 28, BUN of 13, creatinine 0.9, glucose 280, and calcium 9.2. Triglycerides 195, total cholesterol is 189, LDL is 133, HDL is 38. INR was 0.9. ASSESSMENT AND PLAN: The patient is a very unfortunate 67-year-old gentleman, seen in Cardiology consultation at the request of Dr. Curry. 1. Accelerated hypertension. I would continue with hydralazine, amlodipine, losartan, and clonidine p.r.n. We will continue managing the blood pressure on a regular basis. We may have to up titrate the dose of medication for ideal blood pressure of 130/80 mmHg. 2. Right upper extremity DVT on pharmacy dose warfarin to keep the INR between 2 and 3. 3. History of CVA with right hemiparalysis. Continue with aspirin and atorvastatin. 4. History of diabetes mellitus. 5. History of renal failure. 6. History of peripheral vascular disease. 7. History of cardiomegaly. We will obtain 2D echocardiography for assessment of left ventricular systolic function. I would like to thank, Dr. Curry, for allowing me to participate in the care of this patient. Suraj Tate M.D. DR: Trinidad JOB#: [id number] CC:
[2017-11-04] VITALS (7 sets, daily range): BP systolic 125–166; BP diastolic 63–98
[2017-11-04] MEDS: Morphine Sulfate 2mg/ml Inj IVP PRN ×5 (01:31→20:25)
[2017-11-04] MEDS: HydrALAZINE 10mg Tab ORAL PRN (05:11)
[2017-11-04] MEDS: NovoLOG Insulin Flexpen SUBQ SCH ×4 (06:17→20:24)
[2017-11-04] MEDS: Levemir Flexpen SUBQ SCH (06:18)
--- NOTE | 2017-11-04 07:42 | Nephrology Progress Note ---
Assessment/Plan Assessment 1. Hypokalemia. 2. History of acute renal failure, rule out diabetic nephropathy. 3. Hypertensive urgency. 4. Uncontrolled diabetes. 5. Peripheral vascular disease. 6. Schizophrenia. 7. History of CVA with right-sided paralysis. 8. Lower extremity edema. Plan plan replace mg monitoring renal function avoid NSAID Subjective Constitutional: Reports: no symptoms HEENT: Reports: no symptoms Genitourinary: Reports: no symptoms Neurologic/Psychiatric: Reports: no symptoms Subjective no acute events Objective Objective Last 24 Hour Vital Signs Date Time Temp Pulse Resp B/P (MAP) Pulse Ox O2 Delivery O2 Flow Rate FiO2 11/04/17 05:11 166/89 11/04/17 04:30 97.8 74 21 166/89 (114) 92 97.8 11/04/17 00:00 98.1 79 18 153/90 (111) 94 98.1 11/03/17 21:17 163/93 11/03/17 21:00 Room Air 11/03/17 20:00 99.1 73 20 163/93 (116) 98 99.1 11/03/17 16:00 97.7 70 19 153/81 (105) 98 97.7 11/03/17 12:30 68 134/78 (96) 11/03/17 12:00 97.5 75 16 175/97 (123) 96 97.5 11/03/17 09:08 79 178/99 11/03/17 09:07 79 178/99 11/03/17 09:07 178/99 11/03/17 09:00 Room Air 11/03/17 08:51 98.3 20 178/99 (125) 94 98.3 Intake and Output 11/03/17 11/04/17 19:00 07:00 Intake Total 480 ml 400 ml Balance 480 ml 400 ml Intake Oral 480 ml 400 ml # Voids 3 4 Height (Feet): 6 Height (Inches): 1.00 Weight (Pounds): 240 Objective HEAD AND NECK: No JVP. No LAD. No thyromegaly. Extraocular movement intact. Pupils are reactive to light and accommodation. LUNGS: Decreased breathing sound on the both sides. CARDIAC: Regular rate and rhythm. S1 and S2. No murmur. No rub. ABDOMEN: Soft, nontender, and nondistended. EXTREMITIES: BKA of right leg and has 2 to 3+ edema. Kerry Jane MD Nov 04, 2017 07:42
[2017-11-04 09:46] LABS: HEMATOCRIT 41.9 % (42.0-52.0); HEMOGLOBIN 13.7 G/DL (14.2-18.0); LYMPHOCYTES % (AUTO) 24.8 % (20.0-45.0); MEAN CORPUSCULAR VOLUME 80 FL (80-99); MONOCYTES % (AUTO) 5.4 % (1.0-10.0); NEUTROPHILS % (AUTO) 63.9 % (45.0-75.0); PLATELET COUNT 288 K/UL (150-450); RED BLOOD COUNT 5.24 M/UL (4.70-6.10); RED CELL DISTRIBUTION WIDTH 15.2 % (11.6-14.8)
[2017-11-04] MEDS: ARIPiprazole 2mg tab ORAL SCH (10:02)
[2017-11-04] MEDS: Losartan 50mg tab ORAL SCH (10:03)
[2017-11-04] MEDS: Triamterene/Hctz 37.5/25 cap ORAL SCH (10:03)
[2017-11-04] MEDS: Metoprolol Tartrate 50mg tab ORAL SCH (10:04)
[2017-11-04] MEDS: FLUoxetine 10mg cap ORAL SCH (10:05)
[2017-11-04 10:30] LABS: ANION GAP 6 mmol/L (5-15); BLOOD UREA NITROGEN 12 mg/dL (7-18); CALCIUM 8.9 MG/DL (8.5-10.1); CARBON DIOXIDE 30 MMOL/L (21-32); CHLORIDE 102 MMOL/L (98-107); CREATININE 0.5 MG/DL (0.55-1.30); POTASSIUM 3.7 MMOL/L (3.5-5.1); SODIUM 138 MMOL/L (136-145)
--- NOTE | 2017-11-04 11:12 | General Progress Note ---
Assessment/Plan Problem List: (1) Edema ICD Codes: R60.9 - Edema, unspecified SNOMED: 459315881, 733938712 (2) Chronic pain ICD Codes: G89.29 - Other chronic pain SNOMED: 39029359 (3) CHF (congestive heart failure) ICD Codes: I50.9 - Heart failure, unspecified SNOMED: 26124414 (4) Weakness generalized ICD Codes: R53.1 - Weakness SNOMED: 93141111 (5) DM (diabetes mellitus screen) ICD Codes: Z13.1 - DM (diabetes mellitus screen) SNOMED: 704782234 (6) DVT of upper extremity (deep vein thrombosis) ICD Codes: I82.629 - Acute embolism and thrombosis of deep veins of unspecified upper extremity SNOMED: 890888011 (7) ATN (acute tubular necrosis) ICD Codes: N17.0 - Acute kidney failure with tubular necrosis SNOMED: 52983764 (8) CVA (cerebral vascular accident) ICD Codes: I63.9 - Cerebral infarction, unspecified SNOMED: 734324018 Status: stable, progressing Assessment/Plan ot pt diet anticoag bp bs pain control cbc bmp am dc plan snf Subjective Constitutional: Reports: weakness Allergies: Coded Allergies: No Known Allergies (Unverified , 01/08/14) All Systems: reviewed and negative except above Subjective sleepy in bed Objective Last 24 Hour Vital Signs Date Time Temp Pulse Resp B/P (MAP) Pulse Ox O2 Delivery O2 Flow Rate FiO2 11/04/17 10:04 72 142/88 11/04/17 10:04 72 142/88 11/04/17 10:03 142/88 11/04/17 09:48 72 142/88 (106) 11/04/17 09:00 Room Air 11/04/17 08:00 98.1 73 20 154/79 (104) 92 98.1 11/04/17 05:11 166/89 11/04/17 04:30 97.8 74 21 166/89 (114) 92 97.8 11/04/17 00:00 98.1 79 18 153/90 (111) 94 98.1 11/03/17 21:17 163/93 11/03/17 21:00 Room Air 11/03/17 20:00 99.1 73 20 163/93 (116) 98 99.1 11/03/17 16:00 97.7 70 19 153/81 (105) 98 97.7 11/03/17 12:30 68 134/78 (96) 11/03/17 12:00 97.5 75 16 175/97 (123) 96 97.5 Intake and Output 11/03/17 11/04/17 19:00 07:00 Intake Total 480 ml 400 ml Balance 480 ml 400 ml Intake Oral 480 ml 400 ml # Voids 3 4 Laboratory Tests 11/04/17 08:55: White Blood Count 9.0, Red Blood Count 5.24, Hemoglobin 13.7L, Hematocrit 41.9L , Mean Corpuscular Volume 80, Mean Corpuscular Hemoglobin 26.1L, Mean Corpuscular Hemoglobin Concent 32.7, Red Cell Distribution Width 15.2H, Platelet Count 288, Mean Platelet Volume 7.2, Neutrophils (%) (Auto) 63.9, Lymphocytes (%) (Auto) 24.8, Monocytes (%) (Auto) 5.4, Eosinophils (%) (Auto) 5.0H, Basophils (%) (Auto) 1.0, Prothrombin Time 10.5, Prothromb Time International Ratio 1.0, Sodium Level 138, Potassium Level 3.7, Chloride Level 102, Carbon Dioxide Level 30, Anion Gap 6, Blood Urea Nitrogen 12, Creatinine 0.5L, Estimat Glomerular Filtration Rate > 60, Glucose Level 212H, Calcium Level 8.9 Height (Feet): 6 Height (Inches): 1.00 Weight (Pounds): 240 General Appearance: lethargic EENT: normal ENT inspection Neck: normal alignment Cardiovascular: normal peripheral pulses, normal rate, regular rhythm Respiratory/Chest: chest wall non-tender, lungs clear, normal breath sounds Abdomen: normal bowel sounds, non tender, soft Extremities: non-tender Edema: 1+ Arm (L), 1+ Arm (R), 1+ Leg (L), 1+ Leg (R), 1+ Pedal (L), 1+ Pedal ( R), 1+ Generalized Edema: trace edema Neurologic: motor weakness Skin: normal pigmentation, warm/dry Oneil Curry DO Nov 04, 2017 11:12
--- NOTE | 2017-11-04 12:00 | Consultation ---
DATE OF CONSULTATION: 11/02/2017 HISTORY OF PRESENT ILLNESS: This is a 67-year-old male patient admitted to the hospital secondary to deep vein thrombosis. This patient was admitted to the hospital. He has an overlying history of depression with psychotic features, rule out bipolar II, and he also has altered mental status. His cognition has declined below his baseline secondary to stress of his medical illness and the attending physician has requested daily psychiatric consultation to see this patient. I saw and assessed this patient this morning at bedside. He does appear to be confused and disorganized. Mood is labile. He does have some cardiomegaly, peripheral vascular disease, confusion, and mood lability. PAST MEDICAL PROBLEMS: As far as his medical problems, he has hypertension, hyperlipidemia, cardiomegaly, and peripheral vascular disease. ALLERGIES: No known drug allergies. PSYCHIATRIC HISTORY: Bipolar II versus paranoid schizophrenia versus dementia with psychosis. SUBSTANCE ABUSE HISTORY: Denies. SOCIAL HISTORY: This patient is currently financially supported by [employer] and [employer]. Currently living in [facility]. MENTAL STATUS EXAMINATION: This is a 67-year-old male. Appearance is disheveled. Attitude is irritable and agitated. Affect is guarded and restricted. Intellect is poor. Mood is depressed and anxious. Motor activity, psychomotor agitation. Attention span is poor. Orientation x2. Speech is pressured. Thought process disorganized, logical. Thought content, auditory hallucinations, paranoid delusions. Insight and judgment are poor. DISCHARGE DIAGNOSES: 1. Major depressive disorder with psychotic features, rule out bipolar II. 2. Medical, deep venous thrombosis. 3. Psychosocial stressors, financial. PLAN: Treat this patient with psychotropic medication regimen consisting of Abilify 2 mg p.o. daily, Prozac 30 mg daily, and Ativan 0.5 mg every 6 hours p.r.n. anxiety and agitation. A 20 minutes of cognitive behavior therapy was provided this morning 02:24 negative thinking 02:25 more positive thinking in order to reduce depression and anxiety. I would like to thank Dr. Oneil Curry for this interesting consultation. Chart reviewed and discussed with staff. Seen and assessed in his room. Rosa Yousif M.D. DR: Amelie JOB#: [id number] CC:
--- NOTE | 2017-11-04 12:01 | General Progress Note ---
Assessment/Plan Status: stable Assessment/Plan 1. DVT of right upper extremity. The patient is on Coumadin and Lovenox --> remains subtherpaeutic --> goal inr 2-3 --> outpatient f.u repeat imaging in 3 mo 2. Elevated blood sugar potentially secondary to diabetes mellitus. a1c elevated ==> a1c goal <7 3. Mild protein-caloric malnutrition. 4. Weakness and fatigue likely due to underlying anemia. 5. Hypertension. Systolic blood pressure goal less than 140. 6. Cerebrovascular accident/transient ischemic attack with right hemiplegia. History of occipital encephalomalacia. Subjective Date patient seen: Nov 03, 2017 ROS Limited/Unobtainable: Yes Allergies: Coded Allergies: No Known Allergies (Unverified , 01/08/14) All Systems: reviewed and negative except above Subjective Pt awake and alert. No acute events. Pt c/o R arm pain. Objective Last 24 Hour Vital Signs Date Time Temp Pulse Resp B/P (MAP) Pulse Ox O2 Delivery O2 Flow Rate FiO2 11/04/17 10:04 72 142/88 11/04/17 10:04 72 142/88 11/04/17 10:03 142/88 11/04/17 09:48 72 142/88 (106) 11/04/17 09:00 Room Air 11/04/17 08:00 98.1 73 20 154/79 (104) 92 98.1 11/04/17 05:11 166/89 11/04/17 04:30 97.8 74 21 166/89 (114) 92 97.8 11/04/17 00:00 98.1 79 18 153/90 (111) 94 98.1 11/03/17 21:17 163/93 11/03/17 21:00 Room Air 11/03/17 20:00 99.1 73 20 163/93 (116) 98 99.1 11/03/17 16:00 97.7 70 19 153/81 (105) 98 97.7 11/03/17 12:30 68 134/78 (96) 11/03/17 12:00 97.5 75 16 175/97 (123) 96 97.5 Intake and Output 11/03/17 11/04/17 19:00 07:00 Intake Total 480 ml 400 ml Balance 480 ml 400 ml Intake Oral 480 ml 400 ml # Voids 3 4 Laboratory Tests 11/04/17 08:55: White Blood Count 9.0, Red Blood Count 5.24, Hemoglobin 13.7L, Hematocrit 41.9L , Mean Corpuscular Volume 80, Mean Corpuscular Hemoglobin 26.1L, Mean Corpuscular Hemoglobin Concent 32.7, Red Cell Distribution Width 15.2H, Platelet Count 288, Mean Platelet Volume 7.2, Neutrophils (%) (Auto) 63.9, Lymphocytes (%) (Auto) 24.8, Monocytes (%) (Auto) 5.4, Eosinophils (%) (Auto) 5.0H, Basophils (%) (Auto) 1.0, Prothrombin Time 10.5, Prothromb Time International Ratio 1.0, Sodium Level 138, Potassium Level 3.7, Chloride Level 102, Carbon Dioxide Level 30, Anion Gap 6, Blood Urea Nitrogen 12, Creatinine 0.5L, Estimat Glomerular Filtration Rate > 60, Glucose Level 212H, Calcium Level 8.9 Height (Feet): 6 Height (Inches): 1.00 Weight (Pounds): 240 General Appearance: no apparent distress, alert EENT: PERRL/EOMI Neck: normal alignment Cardiovascular: normal peripheral pulses Respiratory/Chest: no respiratory distress Abdomen: no organomegaly Guillermo Ugalde MD Nov 04, 2017 12:01
--- NOTE | 2017-11-04 12:03 | General Progress Note ---
Assessment/Plan Assessment/Plan 1. DVT of right upper extremity. The patient is on Coumadin and Lovenox --> remains subtherpaeutic --> goal inr 2-3 --> outpatient f.u repeat imaging in 3 mo 2. Elevated blood sugar potentially secondary to diabetes mellitus. a1c elevated ==> a1c goal <7 3. Mild protein-caloric malnutrition. 4. Weakness and fatigue likely due to underlying anemia. 5. Hypertension. Systolic blood pressure goal less than 140. 6. Cerebrovascular accident/transient ischemic attack with right hemiplegia. History of occipital encephalomalacia. The time the note was entered does not necessarily correspond to the time the patient was seen. Subjective Date patient seen: Nov 04, 2017 ROS Limited/Unobtainable: Yes Allergies: Coded Allergies: No Known Allergies (Unverified , 01/08/14) All Systems: reviewed and negative except above Subjective Pt awake and alert. No acute events. No c/o pain. Objective Last 24 Hour Vital Signs Date Time Temp Pulse Resp B/P (MAP) Pulse Ox O2 Delivery O2 Flow Rate FiO2 11/04/17 10:04 72 142/88 11/04/17 10:04 72 142/88 11/04/17 10:03 142/88 11/04/17 09:48 72 142/88 (106) 11/04/17 09:00 Room Air 11/04/17 08:00 98.1 73 20 154/79 (104) 92 98.1 11/04/17 05:11 166/89 11/04/17 04:30 97.8 74 21 166/89 (114) 92 97.8 11/04/17 00:00 98.1 79 18 153/90 (111) 94 98.1 11/03/17 21:17 163/93 11/03/17 21:00 Room Air 11/03/17 20:00 99.1 73 20 163/93 (116) 98 99.1 11/03/17 16:00 97.7 70 19 153/81 (105) 98 97.7 11/03/17 12:30 68 134/78 (96) Intake and Output 11/03/17 11/04/17 19:00 07:00 Intake Total 480 ml 400 ml Balance 480 ml 400 ml Intake Oral 480 ml 400 ml # Voids 3 4 Laboratory Tests 11/04/17 08:55: White Blood Count 9.0, Red Blood Count 5.24, Hemoglobin 13.7L, Hematocrit 41.9L , Mean Corpuscular Volume 80, Mean Corpuscular Hemoglobin 26.1L, Mean Corpuscular Hemoglobin Concent 32.7, Red Cell Distribution Width 15.2H, Platelet Count 288, Mean Platelet Volume 7.2, Neutrophils (%) (Auto) 63.9, Lymphocytes (%) (Auto) 24.8, Monocytes (%) (Auto) 5.4, Eosinophils (%) (Auto) 5.0H, Basophils (%) (Auto) 1.0, Prothrombin Time 10.5, Prothromb Time International Ratio 1.0, Sodium Level 138, Potassium Level 3.7, Chloride Level 102, Carbon Dioxide Level 30, Anion Gap 6, Blood Urea Nitrogen 12, Creatinine 0.5L, Estimat Glomerular Filtration Rate > 60, Glucose Level 212H, Calcium Level 8.9 Height (Feet): 6 Height (Inches): 1.00 Weight (Pounds): 240 General Appearance: no apparent distress, alert EENT: PERRL/EOMI Neck: normal alignment Cardiovascular: normal peripheral pulses Respiratory/Chest: normal breath sounds, no respiratory distress Abdomen: soft, no organomegaly Guillermo Ugalde MD Nov 04, 2017 12:03
--- NOTE | 2017-11-04 13:21 | Pulmonology Progress Note ---
Assessment/Plan Problems: (1) DVT of upper extremity (deep vein thrombosis) (2) DM (diabetes mellitus screen) (3) Chronic pain (4) Thalamic pain syndrome Assessment/Plan on Coumadin and Lovenox INr still subtherapeutic symptomatic treatment sliding sclae diabetic diet pt/ot Subjective ROS Limited/Unobtainable: No Constitutional: Reports: no symptoms HEENT: Repors: no symptoms Respiratory: Reports: no symptoms Allergies: Coded Allergies: No Known Allergies (Unverified , 01/08/14) Objective Last 24 Hour Vital Signs Date Time Temp Pulse Resp B/P (MAP) Pulse Ox O2 Delivery O2 Flow Rate FiO2 11/04/17 12:00 98.0 66 20 134/98 (110) 95 98.0 11/04/17 10:04 72 142/88 11/04/17 10:04 72 142/88 11/04/17 10:03 142/88 11/04/17 09:48 72 142/88 (106) 11/04/17 09:00 Room Air 11/04/17 08:00 98.1 73 20 154/79 (104) 92 98.1 11/04/17 05:11 166/89 11/04/17 04:30 97.8 74 21 166/89 (114) 92 97.8 11/04/17 00:00 98.1 79 18 153/90 (111) 94 98.1 11/03/17 21:17 163/93 11/03/17 21:00 Room Air 11/03/17 20:00 99.1 73 20 163/93 (116) 98 99.1 11/03/17 16:00 97.7 70 19 153/81 (105) 98 97.7 Intake and Output 11/03/17 11/04/17 19:00 07:00 Intake Total 480 ml 400 ml Balance 480 ml 400 ml Intake Oral 480 ml 400 ml # Voids 3 4 General Appearance: WD/WN HEENT: normocephalic, atraumatic Respiratory/Chest: chest wall non-tender, lungs clear Cardiovascular: normal peripheral pulses, normal rate Abdomen: normal bowel sounds, soft, non tender Genitourinary: normal external genitalia Extremities: no cyanosis 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, normal mood/affect Musculoskeletal: normal muscle bulk Laboratory Tests 11/04/17 08:55: White Blood Count 9.0, Red Blood Count 5.24, Hemoglobin 13.7L, Hematocrit 41.9L , Mean Corpuscular Volume 80, Mean Corpuscular Hemoglobin 26.1L, Mean Corpuscular Hemoglobin Concent 32.7, Red Cell Distribution Width 15.2H, Platelet Count 288, Mean Platelet Volume 7.2, Neutrophils (%) (Auto) 63.9, Lymphocytes (%) (Auto) 24.8, Monocytes (%) (Auto) 5.4, Eosinophils (%) (Auto) 5.0H, Basophils (%) (Auto) 1.0, Prothrombin Time 10.5, Prothromb Time International Ratio 1.0, Sodium Level 138, Potassium Level 3.7, Chloride Level 102, Carbon Dioxide Level 30, Anion Gap 6, Blood Urea Nitrogen 12, Creatinine 0.5L, Estimat Glomerular Filtration Rate > 60, Glucose Level 212H, Calcium Level 8.9 Current Medications Medications (Trade) Dose Ordered Sig/Henrik Route PRN Reason Start Time Stop Time Status Last Admin Dose Admin Acetaminophen (Tylenol) 650 mg Q4H PRN ORAL fever 11/01/17 19:00 12/01/17 18:59 Al Hydroxide/Mg Hydroxide (Mylanta II) 30 ml Q6H PRN ORAL dyspepsia 11/01/17 19:00 12/01/17 18:59 Amlodipine Besylate (Norvasc) 10 mg DAILY ORAL 11/02/17 09:00 12/02/17 08:59 11/04/17 10:04 Aripiprazole (Abilify) 2 mg DAILY ORAL 11/02/17 09:00 12/02/17 08:59 11/04/17 10:02 Atorvastatin Calcium (Lipitor) 10 mg BEDTIME ORAL 11/02/17 21:00 12/02/17 20:59 11/03/17 20:19 Dextrose (Dextrose 50%) 25 ml STAT PRN IV Hypoglycemia 11/01/17 19:00 12/01/17 18:59 Dextrose (Dextrose 50%) 50 ml STAT PRN IV Hypoglycemia 11/01/17 19:15 12/01/17 19:14 Enoxaparin Sodium (Lovenox) 170 mg Q24H SUBQ 11/01/17 19:30 12/01/17 19:29 7/15/18 20:03 Fish Oil (Fish Oil) 1,000 mg DAILY ORAL 11/03/17 09:00 12/03/17 08:59 11/04/17 10:03 Fluoxetine HCl (PROzac) 30 mg DAILY ORAL 11/02/17 09:00 12/02/17 08:59 11/04/17 10:05 Furosemide (Lasix) 20 mg DAILY ORAL 11/02/17 09:00 12/02/17 08:59 11/04/17 10:04 Hydralazine HCl (Apresoline) 10 mg Q6HR PRN ORAL sbp above 160 11/02/17 10:45 12/02/17 10:44 11/04/17 05:11 Insulin Aspart (NovoLOG) BEFORE MEALS AND HS SUBQ 11/01/17 21:00 12/01/17 20:59 11/04/17 12:15 Insulin Detemir (Levemir) 10 units DAILY@0700 SUBQ 11/03/17 09:30 12/03/17 09:29 11/04/17 06:18 Lorazepam (Ativan 2mg/ml 1ml) 0.5 mg Q4H PRN IV For Anxiety 11/01/17 19:00 11/08/17 18:59 Losartan Potassium (Cozaar) 100 mg DAILY ORAL 11/02/17 09:00 12/02/17 08:59 11/04/17 10:03 Metoprolol Tartrate (Lopressor) 50 mg DAILY ORAL 11/02/17 09:00 12/02/17 08:59 11/04/17 10:04 Morphine Sulfate (Morphine Sulfate) 1 mg Q4H PRN IVP For Pain 11/01/17 19:00 11/08/17 18:59 11/04/17 10:41 Ondansetron HCl (Zofran) 4 mg Q6H PRN IVP Nausea & Vomiting 11/01/17 19:00 12/01/17 18:59 Polyethylene Glycol (Miralax) 17 gm HSPRN PRN ORAL Constipation 11/01/17 19:00 12/01/17 18:59 Triamterene/HCTZ (Dyazide) 1 cap DAILY ORAL 11/04/17 09:00 12/04/17 08:59 11/04/17 10:03 Warfarin Sodium (Coumadin per pharmacy) 1 ea DAILY PRN MISC Per rx protocol 11/01/17 18:45 12/01/17 18:44 Warfarin Sodium (Coumadin) 7.5 mg COUMADIN ORAL 11/04/17 17:00 11/04/17 18:00 Zolpidem Tartrate (Ambien) 5 mg HSPRN PRN ORAL Insomnia 11/01/17 19:00 11/08/17 18:59 Ani Barnes MD Nov 04, 2017 13:21
[2017-11-04] MEDS ORDERED: Warfarin Sodium 7.5mg ORAL SCH (17:00)
--- NOTE | 2017-11-04 20:07 | Cardiology Progress Note ---
Assessment/Plan Assessment/Plan 1. Right DVT, on warfarin, LVEF >75%. Chest x-ray on this admission with no evidence of pulmonary edema. 2. Diabetes mellitus, consider adding ASA and statins. 3. Hypertension, continue amlodipine, metoprolol and losartan. 4. Prior history of cerebrovascular accident, ASA for secondary preventive measures. Subjective Subjective No cardiac events. Not on telemetry unit. Objective Last 24 Hour Vital Signs Date Time Temp Pulse Resp B/P (MAP) Pulse Ox O2 Delivery O2 Flow Rate FiO2 11/04/17 16:00 98.2 62 20 125/63 (83) 95 98.2 11/04/17 12:00 98.0 66 20 134/98 (110) 95 98.0 11/04/17 10:04 72 142/88 11/04/17 10:04 72 142/88 11/04/17 10:03 142/88 11/04/17 09:48 72 142/88 (106) 11/04/17 09:00 Room Air 11/04/17 08:00 98.1 73 20 154/79 (104) 92 98.1 11/04/17 05:11 166/89 11/04/17 04:30 97.8 74 21 166/89 (114) 92 97.8 11/04/17 00:00 98.1 79 18 153/90 (111) 94 98.1 11/03/17 21:17 163/93 11/03/17 21:00 Room Air Intake and Output 11/03/17 11/04/17 19:00 07:00 Intake Total 480 ml 400 ml Balance 480 ml 400 ml Intake Oral 480 ml 400 ml # Voids 3 4 2D Echo: Echo from Jan 2014: EF 65-70%, RVSP 14 mmHg, Biatrial enlargement. Laboratory Tests Test 11/04/17 08:55 White Blood Count 9.0 K/UL (4.8-10.8) Red Blood Count 5.24 M/UL (4.70-6.10) Hemoglobin 13.7 G/DL (14.2-18.0) L Hematocrit 41.9 % (42.0-52.0) L Mean Corpuscular Volume 80 FL (80-99) Mean Corpuscular Hemoglobin 26.1 PG (27.0-31.0) L Mean Corpuscular Hemoglobin Concent 32.7 G/DL (32.0-36.0) Red Cell Distribution Width 15.2 % (11.6-14.8) H Platelet Count 288 K/UL (150-450) Mean Platelet Volume 7.2 FL (6.5-10.1) Neutrophils (%) (Auto) 63.9 % (45.0-75.0) Lymphocytes (%) (Auto) 24.8 % (20.0-45.0) Monocytes (%) (Auto) 5.4 % (1.0-10.0) Eosinophils (%) (Auto) 5.0 % (0.0-3.0) H Basophils (%) (Auto) 1.0 % (0.0-2.0) Prothrombin Time 10.5 SEC (9.30-11.50) Prothromb Time International Ratio 1.0 (0.9-1.1) Sodium Level 138 MMOL/L (136-145) Potassium Level 3.7 MMOL/L (3.5-5.1) Chloride Level 102 MMOL/L (98-107) Carbon Dioxide Level 30 MMOL/L (21-32) Anion Gap 6 mmol/L (5-15) Blood Urea Nitrogen 12 mg/dL (7-18) Creatinine 0.5 MG/DL (0.55-1.30) L Estimat Glomerular Filtration Rate > 60 mL/min (>60) Glucose Level 212 MG/DL (74-106) H Calcium Level 8.9 MG/DL (8.5-10.1) Objective HEENT: Atraumatic and normocephalic. Anicteric. Pupils are equal, round, and reactive to light and accommodation. Extraocular muscles intact. NECK: JVP less than 5 cm. No carotid bruit. Carotid upstrokes 2+ bilaterally. CARDIOVASCULAR: Normal S1 and S2. Regular rate and rhythm. No murmurs, gallops, or rubs. PMI is at fourth intercostal space in the midclavicular line. LUNGS: Clear to auscultation bilaterally. ABDOMEN: Soft, nontender, and nondistended. No hepatosplenomegaly. Positive bowel sounds. Positive G-tube. EXTREMITIES: No evidence of edema, clubbing, or cyanosis. There is 1+ bilateral edema. 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 Suraj Tate MD Nov 04, 2017 20:07
[2017-11-04] MEDS: Enoxaparin 100mg Inj SUBQ SCH (20:21)
[2017-11-05 00:18] VITALS: BP 147/69
--- NOTE | 2017-11-05 01:30 | Consultation ---
DATE OF CONSULTATION: 11/03/2017 PSYCHOTHERAPY CONSULTATION PROGRESS NOTE CONSULTING PHYSICIAN: Leesa Anderson PsyD. TREATING ATTENDING PHYSICIAN: Oneil Curry D.O. HISTORY OF PRESENT ILLNESS: This patient is a 67-year-old male patient. The patient is from [facility] The patient was brought into the hospital possible DVT of upper extremities. The patient has been confused and disorganized and helpless and for this reason, he was referred to psychotherapeutic services. This clinician assessed this patient. The patient is a poor historian. He is very confused, disorganized, and helpless. Denies any suicidal or homicidal thoughts of ideation. Denies any auditory or visual hallucinations. He has very poor insight into his current medical condition. He is confused and disorganized. This clinician assessed this patient. PAST MEDICAL HISTORY: Includes a history of peripheral vascular disease, hyperlipidemia, cardiomegaly, and hypertension. ALLERGIES: The patient has no known drug allergies. SUBSTANCE ABUSE HISTORY: There is no indication of alcohol use, illicit substance use, or smoking cigarette. PSYCHIATRIC HISTORY: The patient has a history of paranoid schizophrenia and possible dementia with psychosis. SOCIAL HISTORY: The patient is a 67-year-old single male patient from [facility] Financially sustained through [employer]. MENTAL STATUS EXAMINATION: The patient is alert and oriented to person and place. Mood is dysphoric. Affect blunted. Thought process, disorganized. Thought content, confused. He has poor attention and concentration. Poor insight, judgment, and impulse control. DIAGNOSIS: Major depressive disorder, recurrent, moderate with psychotic features. PLAN: This clinician assessed this patient and assessed the patient's mental status. Provide the patient with reality orientation, cognitive therapy and supportive psychotherapy, however, reality orientation is very helpful to the patient. Continue with behavioral management. This clinician has reviewed the patient's chart. Discussed the treatment with treatment team. Leesa Anderson PsyD. : Con JOB#: [id number] CC:
[2017-11-05] MEDS: Morphine Sulfate 2mg/ml Inj IVP PRN ×3 (01:54→14:02)
[2017-11-05 04:51] VITALS: BP 148/76
[2017-11-05] MEDS: NovoLOG Insulin Flexpen SUBQ SCH ×3 (05:43→17:15)
[2017-11-05] MEDS: Levemir Flexpen SUBQ SCH (05:43)
[2017-11-05 07:16] LABS: INR 1.1 (0.9-1.1)
[2017-11-05 07:20] LABS: ANION GAP 5 mmol/L (5-15); BASOPHILS % (AUTO) 1.2 % (0.0-2.0); BLOOD UREA NITROGEN 15 mg/dL (7-18); CALCIUM 9.1 MG/DL (8.5-10.1); CARBON DIOXIDE 32 MMOL/L (21-32); CHLORIDE 102 MMOL/L (98-107); CREATININE 0.6 MG/DL (0.55-1.30); EOSINOPHILS % (AUTO) 4.9 % (0.0-3.0); LYMPHOCYTES % (AUTO) 27.9 % (20.0-45.0); MEAN CORPUSCULAR VOLUME 80 FL (80-99); PLATELET COUNT 282 K/UL (150-450); POTASSIUM 3.8 MMOL/L (3.5-5.1); RED BLOOD COUNT 5.27 M/UL (4.70-6.10); RED CELL DISTRIBUTION WIDTH 15.1 % (11.6-14.8); SODIUM 139 MMOL/L (136-145); WHITE BLOOD COUNT 8.9 K/UL (4.8-10.8)
--- NOTE | 2017-11-05 07:57 | Nephrology Progress Note ---
Assessment/Plan Assessment 1. Hypokalemia. 2. History of acute renal failure, rule out diabetic nephropathy. 3. Hypertensive urgency. 4. Uncontrolled diabetes. 5. Peripheral vascular disease. 6. Schizophrenia. 7. History of CVA with right-sided paralysis. 8. Lower extremity edema. Plan plan replace mg monitoring renal function avoid NSAID Subjective Subjective no acute events Objective Objective Last 24 Hour Vital Signs Date Time Temp Pulse Resp B/P (MAP) Pulse Ox O2 Delivery O2 Flow Rate FiO2 11/05/17 04:51 98.2 67 20 148/76 (100) 95 98.2 11/05/17 02:24 98.1 11/05/17 01:54 98.1 11/05/17 00:18 98.1 73 21 147/69 (95) 94 98.1 11/04/17 21:52 Room Air 11/04/17 20:25 98.2 11/04/17 20:00 98.2 69 20 154/78 (103) 94 98.2 11/04/17 16:00 98.2 62 20 125/63 (83) 95 98.2 11/04/17 12:00 98.0 66 20 134/98 (110) 95 98.0 11/04/17 10:04 72 142/88 11/04/17 10:04 72 142/88 11/04/17 10:03 142/88 11/04/17 09:48 72 142/88 (106) 11/04/17 09:00 Room Air 11/04/17 08:00 98.1 73 20 154/79 (104) 92 98.1 Intake and Output 11/04/17 11/05/17 19:00 07:00 Intake Total 720 ml 480 ml Balance 720 ml 480 ml Intake Oral 720 ml 480 ml # Voids 5 Laboratory Tests 11/04/17 08:55: White Blood Count 9.0, Red Blood Count 5.24, Hemoglobin 13.7L, Hematocrit 41.9L , Mean Corpuscular Volume 80, Mean Corpuscular Hemoglobin 26.1L, Mean Corpuscular Hemoglobin Concent 32.7, Red Cell Distribution Width 15.2H, Platelet Count 288, Mean Platelet Volume 7.2, Neutrophils (%) (Auto) 63.9, Lymphocytes (%) (Auto) 24.8, Monocytes (%) (Auto) 5.4, Eosinophils (%) (Auto) 5.0H, Basophils (%) (Auto) 1.0, Prothrombin Time 10.5, Prothromb Time International Ratio 1.0, Sodium Level 138, Potassium Level 3.7, Chloride Level 102, Carbon Dioxide Level 30, Anion Gap 6, Blood Urea Nitrogen 12, Creatinine 0.5L, Estimat Glomerular Filtration Rate > 60, Glucose Level 212H, Calcium Level 8.9 11/05/17 06:25: White Blood Count 8.9, Red Blood Count 5.27, Hemoglobin 14.0L, Hematocrit 42.0, Mean Corpuscular Volume 80, Mean Corpuscular Hemoglobin 26.5L, Mean Corpuscular Hemoglobin Concent 33.2, Red Cell Distribution Width 15.1H, Platelet Count 282, Mean Platelet Volume 7.2, Neutrophils (%) (Auto) 59.0, Lymphocytes (%) (Auto) 27.9, Monocytes (%) (Auto) 7.0, Eosinophils (%) (Auto) 4.9H, Basophils (%) (Auto ) 1.2, Prothrombin Time 11.1, Prothromb Time International Ratio 1.1, Sodium Level 139, Potassium Level 3.8, Chloride Level 102, Carbon Dioxide Level 32, Anion Gap 5, Blood Urea Nitrogen 15, Creatinine 0.6, Estimat Glomerular Filtration Rate > 60, Glucose Level 193H, Calcium Level 9.1 Height (Feet): 6 Height (Inches): 1.00 Weight (Pounds): 240 Objective HEAD AND NECK: No JVP. No LAD. No thyromegaly. Extraocular movement intact. Pupils are reactive to light and accommodation. LUNGS: Decreased breathing sound on the both sides. CARDIAC: Regular rate and rhythm. S1 and S2. No murmur. No rub. ABDOMEN: Soft, nontender, and nondistended. EXTREMITIES: BKA of right leg and has 2 to 3+ edema. Kerry Jane MD Nov 05, 2017 07:57
[2017-11-05 08:00] VITALS: BP 154/76
[2017-11-05] MEDS: FLUoxetine 10mg cap ORAL SCH (08:21)
[2017-11-05] MEDS: ARIPiprazole 2mg tab ORAL SCH (08:21)
[2017-11-05] MEDS: Metoprolol Tartrate 50mg tab ORAL SCH (08:22)
[2017-11-05] MEDS: Losartan 50mg tab ORAL SCH (08:22)
[2017-11-05] MEDS: Triamterene/Hctz 37.5/25 cap ORAL SCH (08:23)
--- NOTE | 2017-11-05 09:45 | Progress Note ---
DATE: 11/04/2017 SUBJECTIVE: This is a 67-year-old male patient with deep vein thrombosis, 00:09 mood lability, agitation, and irritability. His cognition has declined below baseline. That is why, his attending has requested daily psychiatric consultation. MENTAL STATUS EXAMINATION: This is a 67-year-old male. Appearance is disheveled. Attitude, irritable and agitated. Affect, guarded and restricted. Intellect poor. Mood, depressed and anxious. Motor activity, psychomotor agitation. Attention span is poor. Orientation x2. Speech is pressured. Thought process, disorganized and illogical. Thought content, auditory hallucinations and paranoid delusions. Insight and judgment is poor. 00:39. DIAGNOSIS: Paranoid schizophrenia, acute exacerbation. PLAN: Treat him with Abilify 2 mg daily for further 00:53 and Ativan 0.5 mg every four hours IV as needed for anxiety and depression. Also, 18 to 20 minutes of insight-oriented psychotherapy has been provided in the goal to increase the patient's insight and now that for his symptoms of his mood disorder and 01:16 to reduce depression and anxiety. Chart reviewed and discussed with staff. Seen and assessed at bedside. Rosa Yousif M.D. DR: CARO JOB#: [id number] CC:
[2017-11-05 12:00] VITALS: BP 160/95
--- NOTE | 2017-11-05 12:46 | Pulmonology Progress Note ---
Assessment/Plan Problems: (1) DVT of upper extremity (deep vein thrombosis) (2) DM (diabetes mellitus screen) (3) Chronic pain (4) Thalamic pain syndrome Assessment/Plan on Coumadin and Lovenox INr still subtherapeutic symptomatic treatment sliding sclae diabetic diet pt/ot Subjective ROS Limited/Unobtainable: No Constitutional: Reports: no symptoms HEENT: Repors: no symptoms Allergies: Coded Allergies: No Known Allergies (Unverified , 01/08/14) Objective Last 24 Hour Vital Signs Date Time Temp Pulse Resp B/P (MAP) Pulse Ox O2 Delivery O2 Flow Rate FiO2 11/05/17 12:00 97.0 66 22 160/95 (116) 97 97.0 11/05/17 08:54 98.2 11/05/17 08:24 98.2 11/05/17 08:23 77 154/76 11/05/17 08:22 77 154/76 11/05/17 08:22 154/76 11/05/17 08:15 Room Air 11/05/17 08:00 97.5 77 22 154/76 (102) 93 97.5 11/05/17 04:51 98.2 67 20 148/76 (100) 95 98.2 11/05/17 01:54 98.1 11/05/17 00:18 98.1 73 21 147/69 (95) 94 98.1 11/04/17 21:52 Room Air 11/04/17 20:25 98.2 11/04/17 20:00 98.2 69 20 154/78 (103) 94 98.2 11/04/17 16:00 98.2 62 20 125/63 (83) 95 98.2 Intake and Output 11/04/17 11/05/17 19:00 07:00 Intake Total 720 ml 480 ml Balance 720 ml 480 ml Intake Oral 720 ml 480 ml # Voids 5 General Appearance: cachetic HEENT: normocephalic, atraumatic Respiratory/Chest: lungs clear Cardiovascular: normal peripheral pulses, regular rhythm Abdomen: soft, non tender, no organomegaly Skin: no rash Laboratory Tests 11/05/17 06:25: White Blood Count 8.9, Red Blood Count 5.27, Hemoglobin 14.0L, Hematocrit 42.0, Mean Corpuscular Volume 80, Mean Corpuscular Hemoglobin 26.5L, Mean Corpuscular Hemoglobin Concent 33.2, Red Cell Distribution Width 15.1H, Platelet Count 282, Mean Platelet Volume 7.2, Neutrophils (%) (Auto) 59.0, Lymphocytes (%) (Auto) 27.9, Monocytes (%) (Auto) 7.0, Eosinophils (%) (Auto) 4.9H, Basophils (%) (Auto ) 1.2, Prothrombin Time 11.1, Prothromb Time International Ratio 1.1, Sodium Level 139, Potassium Level 3.8, Chloride Level 102, Carbon Dioxide Level 32, Anion Gap 5, Blood Urea Nitrogen 15, Creatinine 0.6, Estimat Glomerular Filtration Rate > 60, Glucose Level 193H, Calcium Level 9.1 Current Medications Medications (Trade) Dose Ordered Sig/Henrik Route PRN Reason Start Time Stop Time Status Last Admin Dose Admin Acetaminophen (Tylenol) 650 mg Q4H PRN ORAL fever 11/01/17 19:00 12/01/17 18:59 Al Hydroxide/Mg Hydroxide (Mylanta II) 30 ml Q6H PRN ORAL dyspepsia 11/01/17 19:00 12/01/17 18:59 Amlodipine Besylate (Norvasc) 10 mg DAILY ORAL 11/02/17 09:00 12/02/17 08:59 11/05/17 08:23 Aripiprazole (Abilify) 2 mg DAILY ORAL 11/02/17 09:00 12/02/17 08:59 11/05/17 08:21 Atorvastatin Calcium (Lipitor) 10 mg BEDTIME ORAL 11/02/17 21:00 12/02/17 20:59 11/04/17 20:21 Dextrose (Dextrose 50%) 25 ml STAT PRN IV Hypoglycemia 11/01/17 19:00 12/01/17 18:59 Dextrose (Dextrose 50%) 50 ml STAT PRN IV Hypoglycemia 11/01/17 19:15 12/01/17 19:14 Enoxaparin Sodium (Lovenox) 170 mg Q24H SUBQ 11/01/17 19:30 12/01/17 19:29 11/04/17 20:21 Fish Oil (Fish Oil) 1,000 mg DAILY ORAL 11/03/17 09:00 12/03/17 08:59 11/05/17 08:23 Fluoxetine HCl (PROzac) 30 mg DAILY ORAL 11/02/17 09:00 12/02/17 08:59 11/05/17 08:21 Furosemide (Lasix) 20 mg DAILY ORAL 11/02/17 09:00 12/02/17 08:59 11/05/17 08:21 Hydralazine HCl (Apresoline) 10 mg Q6HR PRN ORAL sbp above 160 11/02/17 10:45 12/02/17 10:44 11/04/17 05:11 Insulin Aspart (NovoLOG) BEFORE MEALS AND HS SUBQ 11/01/17 21:00 12/01/17 20:59 11/05/17 11:38 Insulin Detemir (Levemir) 10 units DAILY@0700 SUBQ 11/03/17 09:30 12/03/17 09:29 11/05/17 05:43 Lorazepam (Ativan 2mg/ml 1ml) 0.5 mg Q4H PRN IV For Anxiety 11/01/17 19:00 11/08/17 18:59 Losartan Potassium (Cozaar) 100 mg DAILY ORAL 11/02/17 09:00 12/02/17 08:59 11/05/17 08:22 Metoprolol Tartrate (Lopressor) 50 mg DAILY ORAL 11/02/17 09:00 12/02/17 08:59 11/05/17 08:22 Morphine Sulfate (Morphine Sulfate) 1 mg Q4H PRN IVP For Pain 11/01/17 19:00 11/08/17 18:59 11/05/17 08:24 Ondansetron HCl (Zofran) 4 mg Q6H PRN IVP Nausea & Vomiting 11/01/17 19:00 12/01/17 18:59 Polyethylene Glycol (Miralax) 17 gm HSPRN PRN ORAL Constipation 11/01/17 19:00 12/01/17 18:59 Triamterene/HCTZ (Dyazide) 1 cap DAILY ORAL 11/04/17 09:00 12/04/17 08:59 11/05/17 08:23 Warfarin Sodium (Coumadin per pharmacy) 1 ea DAILY PRN MISC Per rx protocol 11/01/17 18:45 12/01/17 18:44 Zolpidem Tartrate (Ambien) 5 mg HSPRN PRN ORAL Insomnia 11/01/17 19:00 11/08/17 18:59 Ani Barnes MD Nov 05, 2017 12:46
--- NOTE | 2017-11-05 14:57 | General Progress Note ---
Assessment/Plan Problem List: (1) Edema ICD Codes: R60.9 - Edema, unspecified SNOMED: 179651489, 839395895 (2) Chronic pain ICD Codes: G89.29 - Other chronic pain SNOMED: 15688951 (3) CHF (congestive heart failure) ICD Codes: I50.9 - Heart failure, unspecified SNOMED: 85434406 (4) Weakness generalized ICD Codes: R53.1 - Weakness SNOMED: 14716562 (5) DM (diabetes mellitus screen) ICD Codes: Z13.1 - DM (diabetes mellitus screen) SNOMED: 749239371 (6) DVT of upper extremity (deep vein thrombosis) ICD Codes: I82.629 - Acute embolism and thrombosis of deep veins of unspecified upper extremity SNOMED: 060804547 (7) ATN (acute tubular necrosis) ICD Codes: N17.0 - Acute kidney failure with tubular necrosis SNOMED: 20121515 (8) CVA (cerebral vascular accident) ICD Codes: I63.9 - Cerebral infarction, unspecified SNOMED: 976059776 Status: stable, progressing Assessment/Plan ot pt diet anticoag bp bs pain control cbc bmp am dc plan snf Subjective Constitutional: Reports: weakness Allergies: Coded Allergies: No Known Allergies (Unverified , 01/08/14) All Systems: reviewed and negative except above Subjective sleepy in bed Objective Last 24 Hour Vital Signs Date Time Temp Pulse Resp B/P (MAP) Pulse Ox O2 Delivery O2 Flow Rate FiO2 11/05/17 14:02 97.0 11/05/17 12:00 97.0 66 22 160/95 (116) 97 97.0 11/05/17 08:54 98.2 11/05/17 08:24 98.2 11/05/17 08:23 77 154/76 11/05/17 08:22 77 154/76 11/05/17 08:22 154/76 11/05/17 08:15 Room Air 11/05/17 08:00 97.5 77 22 154/76 (102) 93 97.5 11/05/17 04:51 98.2 67 20 148/76 (100) 95 98.2 11/05/17 01:54 98.1 11/05/17 00:18 98.1 73 21 147/69 (95) 94 98.1 11/04/17 21:52 Room Air 11/04/17 20:25 98.2 11/04/17 20:00 98.2 69 20 154/78 (103) 94 98.2 11/04/17 16:00 98.2 62 20 125/63 (83) 95 98.2 Intake and Output 11/04/17 11/05/17 19:00 07:00 Intake Total 720 ml 480 ml Balance 720 ml 480 ml Intake Oral 720 ml 480 ml # Voids 5 Laboratory Tests 11/05/17 06:25: White Blood Count 8.9, Red Blood Count 5.27, Hemoglobin 14.0L, Hematocrit 42.0, Mean Corpuscular Volume 80, Mean Corpuscular Hemoglobin 26.5L, Mean Corpuscular Hemoglobin Concent 33.2, Red Cell Distribution Width 15.1H, Platelet Count 282, Mean Platelet Volume 7.2, Neutrophils (%) (Auto) 59.0, Lymphocytes (%) (Auto) 27.9, Monocytes (%) (Auto) 7.0, Eosinophils (%) (Auto) 4.9H, Basophils (%) (Auto ) 1.2, Prothrombin Time 11.1, Prothromb Time International Ratio 1.1, Sodium Level 139, Potassium Level 3.8, Chloride Level 102, Carbon Dioxide Level 32, Anion Gap 5, Blood Urea Nitrogen 15, Creatinine 0.6, Estimat Glomerular Filtration Rate > 60, Glucose Level 193H, Calcium Level 9.1 Height (Feet): 6 Height (Inches): 1.00 Weight (Pounds): 240 General Appearance: lethargic EENT: normal ENT inspection Neck: normal alignment Cardiovascular: normal peripheral pulses, normal rate, regular rhythm Respiratory/Chest: chest wall non-tender Abdomen: normal bowel sounds, non tender, soft Extremities: normal inspection Edema: 1+ Arm (L), 1+ Arm (R), 1+ Leg (L), 1+ Leg (R), 1+ Pedal (L), 1+ Pedal ( R), 1+ Generalized Edema: trace edema Skin: normal pigmentation, warm/dry Oneil Curry DO Nov 05, 2017 14:56
[2017-11-05] MEDS: HydrALAZINE 10mg Tab ORAL PRN (15:31)
[2017-11-05 16:00] VITALS: BP 164/85
--- NOTE | 2017-11-05 16:14 | General Progress Note ---
Assessment/Plan Status: unchanged Assessment/Plan 1. DVT of right upper extremity. The patient is on Coumadin and Lovenox --> remains subtherpaeutic --> goal inr 2-3 --> outpatient f.u repeat imaging in 3 mo 2. Elevated blood sugar potentially secondary to diabetes mellitus. a1c elevated ==> a1c goal <7 3. Mild protein-caloric malnutrition. 4. Weakness and fatigue likely due to underlying anemia. 5. Hypertension. Systolic blood pressure goal less than 140. 6. Cerebrovascular accident/transient ischemic attack with right hemiplegia. History of occipital encephalomalacia. The time the note was entered does not necessarily correspond to the time the patient was seen. Subjective Date patient seen: Nov 05, 2017 ROS Limited/Unobtainable: Yes Allergies: Coded Allergies: No Known Allergies (Unverified , 01/08/14) All Systems: reviewed and negative except above Subjective Pt awake and alert. No acute events. No c/o pain. Objective Last 24 Hour Vital Signs Date Time Temp Pulse Resp B/P (MAP) Pulse Ox O2 Delivery O2 Flow Rate FiO2 11/05/17 15:31 164/85 11/05/17 14:32 97.0 11/05/17 14:02 97.0 11/05/17 12:00 97.0 66 22 160/95 (116) 97 97.0 11/05/17 08:24 98.2 11/05/17 08:23 77 154/76 11/05/17 08:22 77 154/76 11/05/17 08:22 154/76 11/05/17 08:15 Room Air 11/05/17 08:00 97.5 77 22 154/76 (102) 93 97.5 11/05/17 04:51 98.2 67 20 148/76 (100) 95 98.2 11/05/17 01:54 98.1 11/05/17 00:18 98.1 73 21 147/69 (95) 94 98.1 11/04/17 21:52 Room Air 11/04/17 20:25 98.2 11/04/17 20:00 98.2 69 20 154/78 (103) 94 98.2 Intake and Output 11/04/17 11/05/17 19:00 07:00 Intake Total 720 ml 480 ml Balance 720 ml 480 ml Intake Oral 720 ml 480 ml # Voids 5 Laboratory Tests 11/05/17 06:25: White Blood Count 8.9, Red Blood Count 5.27, Hemoglobin 14.0L, Hematocrit 42.0, Mean Corpuscular Volume 80, Mean Corpuscular Hemoglobin 26.5L, Mean Corpuscular Hemoglobin Concent 33.2, Red Cell Distribution Width 15.1H, Platelet Count 282, Mean Platelet Volume 7.2, Neutrophils (%) (Auto) 59.0, Lymphocytes (%) (Auto) 27.9, Monocytes (%) (Auto) 7.0, Eosinophils (%) (Auto) 4.9H, Basophils (%) (Auto ) 1.2, Prothrombin Time 11.1, Prothromb Time International Ratio 1.1, Sodium Level 139, Potassium Level 3.8, Chloride Level 102, Carbon Dioxide Level 32, Anion Gap 5, Blood Urea Nitrogen 15, Creatinine 0.6, Estimat Glomerular Filtration Rate > 60, Glucose Level 193H, Calcium Level 9.1 Height (Feet): 6 Height (Inches): 1.00 Weight (Pounds): 240 General Appearance: no apparent distress, alert EENT: PERRL/EOMI Neck: normal alignment Cardiovascular: regularly irregular Respiratory/Chest: no respiratory distress Abdomen: normal bowel sounds Guillermo Ugalde MD Nov 05, 2017 16:14
[2017-11-05] MEDS ORDERED: Warfarin Sodium 10mg ORAL SCH (17:00)
[2017-11-05] MEDS ORDERED: ENOXAPARIN120 MG/0.8 SUBQ (18:23)
[2017-11-05] MEDS ORDERED: ENOXAPARIN60 MG/0.6 SUBQ (18:27)
[2017-11-05] MEDS ORDERED: Enoxaparin 60mg Inj SUBQ SCH (19:30)
[2017-11-05] MEDS ORDERED: Enoxaparin 120 mg inj SUBQ SCH (19:30)
--- NOTE | 2017-11-05 23:45 | Progress Note ---
DATE: 11/04/2017 PSYCHOTHERAPY CONSULTATION PROGRESS NOTE TREATING ATTENDING PHYSICIAN: Oneil Curry D.O. SUBJECTIVE: The patient is a 67-year-old male patient diagnosed with paranoid schizophrenia. The patient has been irritable, anxious and agitated. He is fatigued, disorganized, and helpless. He is oriented to person, place and time . Provide the patient with reality orientation. The patient is alert and oriented to place and time. Mood is irritable. Affect is congruent. Thought process, disorganized. This clinician assessed this patient, assessed the patient's mental status. Provide the patient with reality orientation and supportive psychotherapy. Encouraged him coping skills on this patient. Continue with behavioral management. This clinician has reviewed the patient's chart and discussed with the treatment team and nursing staff. Leesa Anderson PsyD. DR: KARLENE JOB#: [id number] CC:
--- NOTE | 2017-11-05 23:56 | Cardiology Progress Note ---
Assessment/Plan Assessment/Plan 1. Right DVT, on waRFARING, LVEF >75%. Chest x-ray on this admission with no evidence of pulmonary edema. 2. Diabetes mellitus. 3. Hypertension, continue amlodipine, metoprolol and losartan. 4. Prior history of cerebrovascular accident, ASA for secondary preventive measures. Subjective Subjective Denies chest pain or SOB. Objective Last 24 Hour Vital Signs Date Time Temp Pulse Resp B/P (MAP) Pulse Ox O2 Delivery O2 Flow Rate FiO2 11/05/17 16:00 97.5 74 20 164/85 (111) 95 97.5 11/05/17 15:31 164/85 11/05/17 14:32 97.0 11/05/17 14:02 97.0 11/05/17 12:00 97.0 66 22 160/95 (116) 97 97.0 11/05/17 08:24 98.2 11/05/17 08:23 77 154/76 11/05/17 08:22 77 154/76 11/05/17 08:22 154/76 11/05/17 08:15 Room Air 11/05/17 08:00 97.5 77 22 154/76 (102) 93 97.5 11/05/17 04:51 98.2 67 20 148/76 (100) 95 98.2 11/05/17 01:54 98.1 11/05/17 00:18 98.1 73 21 147/69 (95) 94 98.1 Intake and Output 11/04/17 11/05/17 19:00 07:00 Intake Total 720 ml 480 ml Balance 720 ml 480 ml Intake Oral 720 ml 480 ml # Voids 5 2D Echo: Echo from Jan 2014: EF 65-70%, RVSP 14 mmHg, Biatrial enlargement. Laboratory Tests Test 11/05/17 06:25 White Blood Count 8.9 K/UL (4.8-10.8) Red Blood Count 5.27 M/UL (4.70-6.10) Hemoglobin 14.0 G/DL (14.2-18.0) L Hematocrit 42.0 % (42.0-52.0) Mean Corpuscular Volume 80 FL (80-99) Mean Corpuscular Hemoglobin 26.5 PG (27.0-31.0) L Mean Corpuscular Hemoglobin Concent 33.2 G/DL (32.0-36.0) Red Cell Distribution Width 15.1 % (11.6-14.8) H Platelet Count 282 K/UL (150-450) Mean Platelet Volume 7.2 FL (6.5-10.1) Neutrophils (%) (Auto) 59.0 % (45.0-75.0) Lymphocytes (%) (Auto) 27.9 % (20.0-45.0) Monocytes (%) (Auto) 7.0 % (1.0-10.0) Eosinophils (%) (Auto) 4.9 % (0.0-3.0) H Basophils (%) (Auto) 1.2 % (0.0-2.0) Prothrombin Time 11.1 SEC (9.30-11.50) Prothromb Time International Ratio 1.1 (0.9-1.1) Sodium Level 139 MMOL/L (136-145) Potassium Level 3.8 MMOL/L (3.5-5.1) Chloride Level 102 MMOL/L (98-107) Carbon Dioxide Level 32 MMOL/L (21-32) Anion Gap 5 mmol/L (5-15) Blood Urea Nitrogen 15 mg/dL (7-18) Creatinine 0.6 MG/DL (0.55-1.30) Estimat Glomerular Filtration Rate > 60 mL/min (>60) Glucose Level 193 MG/DL (74-106) H Calcium Level 9.1 MG/DL (8.5-10.1) Objective HEENT: Atraumatic and normocephalic. Anicteric. Pupils are equal, round, and reactive to light and accommodation. Extraocular muscles intact. NECK: JVP less than 5 cm. No carotid bruit. Carotid upstrokes 2+ bilaterally. CARDIOVASCULAR: Normal S1 and S2. Regular rate and rhythm. No murmurs, gallops, or rubs. PMI is at fourth intercostal space in the midclavicular line. LUNGS: Clear to auscultation bilaterally. ABDOMEN: Soft, nontender, and nondistended. No hepatosplenomegaly. Positive bowel sounds. Positive G-tube. EXTREMITIES: No evidence of edema, clubbing, or cyanosis. There is 1+ bilateral edema. 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 Suraj Tate MD Nov 05, 2017 23:56
--- NOTE | 2017-11-07 12:34 | Discharge Summary ---
Discharge Summary Discharge Summary _ DATE OF ADMISSION: 11/01/2017 DATE OF DISCHARGE: 11/05/2017 REASON FOR ADMISSION: 67 years old male with past medical history significant for CVA with right- sided hemiplegia, hypertension, diabetes mellitus, peripheral vascular disease, history of right foot amputation, depression, anxiety, schizophrenia, history of renal failure, brought in by ambulance for probable right arm DVT. Patient was sent to emergency department for evaluation, after [facility] revealed acute DVT right upper extremity. Venous duplex done in emergency department and demonstrated acute thrombus right upper extremity brachial vein. Patient denied chest pain, shortness of breath ,cough. Patient reported right arm pain and swelling for one day. No other acute symptoms. Vital signs reveal elevated blood pressure. Laboratory workup revealed mild leukocytosis, stable renal parameters and mild anemia. Chest x-ray revealed linear opacity in the right base likely atelectasis versus scarring. Pulmonary vasculature may be exaggerated to low lung volumes. However the possibility mild vascular congestion/interstitial edema on was a possibility. Patient started on Lovenox and Coumadin and was admitted for further management. With diagnoses of acute DVT right upper extremity brachial vein, hypertensive urgency, diabetes mellitus, peripheral vascular disease with right foot amputation, schizophrenia, history of CVA with right hemiplegia, mild anemia, scrotal edema. CONSULTANTS: clinical abstractor Dr. Tate pulmonary Dr. Barnes tanning consultant high school history teacher/oncologist Dr. Ugalde psychiatrist [facility] COURSE: Patient admitted to Med Surg floor. Patient was continued on anticoagulation with Lovenox and Coumadin to bridge to therapeutic window. The INR remained subtherapeutic. Outboard Motor Inspector followed. Supplemental oxygen provided as needed to keep pulse oximetry above 92%. Pulmonary toilet was on standby as needed. Blood pressure was managed with multiply regimen of antihypertensive medications, including calcium channel jaciel, beta jaciel and ARB . As needed antihypertensive medication was on board as well. Blood pressure was brought under control. Advertising Specialist closely followed. ECHO with preserved ejection fraction . Lipid panel revealed elevated LDL and triglyceride. Patient started on statin and fish oil. ASA continued along with statin added for secondary CVA prophayxlis. Maintenance dose of Lasix continued with close monitoring of renal parameters and volumes. Scrotum was elevated. Renal parameters and electrolytes were closely monitored, nephrotoxins avoided , electrolytes replaced as needed. Standard Machine Stitcher closely followed Due to the patient's history of acute renal failure and history of diabetes mellitus out of control, tanning consultant wanted to rule out diabetic nephropathy . Random urine protein was significantly elevated . Patient had significant proteinuria , and needs further close monitoring of renal parameters and avoidance of nephrotoxins as outpatient, as well as tight blood sugar control. Blood sugar was managed with sliding scale of insulin . Hemoglobin A1c 8.2 , not at goal. Patient needs further optimization of anti-glycemic regimen to bring hemoglobin A1c under goal. Hemoglobin and hematocrit were clsoely monitored with goal to keep hemoglobin above 7. Outboard Motor Inspector stated that patient can be discharge on Lovenox and Coumadin.\ Patient will need to repeat Venous Dupelex in 3 months. Supportive care provided. Pain management was addressed . Bowel regimen instituted Psychiatry seen and evaluated patient , diagnosed patient with paranoid schizophrenia with acute exacerbation. Psychiatric medication regimen was optimized as per psychiatrist. Dietary recommendations implemented in plan of care. Patient was working with physical and occupational therapists. Patient with DNR/DNI status . Patient clinically improved and was stable for discharge to jail facility. FINAL DIAGNOSES: Acute DVT right upper extremity brachial vein Hypertensive urgency, resolved Diabetes mellitus out of control Peripheral vascular disease with right foot amputation Electrolytes imbalance Mixed hyperlipidemia History of CVA with right hemiplegia Mild anemia Scrotal edema Schizophrenia in acute exacerbation nutrition History of acute renal failure rule out diabetic nephropathy Thalamic pain syndrome DISCHARGE MEDICATIONS: See Medication Reconciliation list. Patient was discharged on Lovenox and Coumadin to bridge to INR 2-3, after that discontinue Lovenox and continue Coumadin to keep INR in therapeutic range DISCHARGE INSTRUCTIONS: [facility] was discharged to jail facility, follow-up with medical doctor at the facility. Keep INR in therapeutic range. Repeat Venous duplex in 3 months. I have been assigned to dictate discharge summary for this account. I was not involved in the patient's management. Danita Blunt NP Nov 07, 2017 12:34
== END 2017-11-05 20:30 | DRG 299 ==
LOC: EDBD 15:44 → EMR 16:40 → 4W 17:51 → EDBEDREQ 18:18
DX: I82.621 Acute embolism and thrombosis of deep veins of right upper extremity (principal); N17.0 Acute kidney failure with tubular necrosis; F32.3 Major depressive disorder, single episode, severe with psychotic features; F20.0 Paranoid schizophrenia; I69.351 Hemiplegia and hemiparesis following cerebral infarction affecting right dominant side; E44.1 Mild protein-calorie malnutrition; G89.29 Other chronic pain; I73.9 Peripheral vascular disease, unspecified; Z89.431 Acquired absence of right foot; E87.6 Hypokalemia; E83.42 Hypomagnesemia; D64.9 Anemia, unspecified; E11.65 Type 2 diabetes mellitus with hyperglycemia; I16.0 Hypertensive urgency; I11.0 Hypertensive heart disease with heart failure; G89.0 Central pain syndrome; I50.9 Heart failure, unspecified; Z66 Do not resuscitate; Z79.01 Long term (current) use of anticoagulants; Z79.4 Long term (current) use of insulin; E78.2 Mixed hyperlipidemia
CPT/HCPCS: 36415; 71045; 80048; 80053; 80061; 82043; 82044; 82550; 82553; 82570; 82962; 83036; 83735; 85025; 85610; 85730; 89050; 93005; 93970; 99285; J1815; J8499; S5561

== ENCOUNTER 2018-04-28 16:59 | Inpatient (IN) | payer MEDICARE, OTHER ==
[~2018-04-28] VITALS: Ht 185.4 cm; Wt 108.0 kg
[~2018-04-28 16:59] MED LIST changes: +ENOXAPARIN120 MG/0.8 SUBQ; +ENOXAPARIN60 MG/0.6 SUBQ
--- NOTE | 2018-04-28 17:10 | NUR ---
ED Nurse Note: patient came in to [facility], c/o right upper arm swelling, r/o dvt on the right arm.
[2018-04-28 17:20] VITALS: BP 131/72
[2018-04-28 18:17] LABS: BASOPHILS % (AUTO) 0.9 % (0.0-2.0); EOSINOPHILS % (AUTO) 5.6 % (0.0-3.0); HEMOGLOBIN 14.2 G/DL (14.2-18.0); LYMPHOCYTES % (AUTO) 31.2 % (20.0-45.0); MEAN CORPUSCULAR VOLUME 86 FL (80-99); MONOCYTES % (AUTO) 6.4 % (1.0-10.0); NEUTROPHILS % (AUTO) 55.9 % (45.0-75.0); PLATELET COUNT 272 K/UL (150-450); RED BLOOD COUNT 4.89 M/UL (4.70-6.10); RED CELL DISTRIBUTION WIDTH 13.7 % (11.6-14.8); WHITE BLOOD COUNT 10.5 K/UL (4.8-10.8)
[2018-04-28 18:35] LABS: ANION GAP 10 mmol/L (5-15); BLOOD UREA NITROGEN 20 mg/dL (7-18); CALCIUM 9.5 MG/DL (8.5-10.1); CARBON DIOXIDE 26 MMOL/L (21-32); CHLORIDE 104 MMOL/L (98-107); CREATININE 0.8 MG/DL (0.55-1.30); POTASSIUM 4.3 MMOL/L (3.5-5.1); SODIUM 140 MMOL/L (136-145)
[2018-04-28 18:40] LABS: ALANINE AMINOTRANSFERASE 15 U/L (12-78); ALBUMIN 2.8 G/DL (3.4-5.0); ALBUMIN/GLOBULIN RATIO 0.7 (1.0-2.7); ALKALINE PHOSPHATASE 155 U/L (46-116); ASPARTATE AMINO TRANSFERASE 14 U/L (15-37); BILIRUBIN,TOTAL 0.4 MG/DL (0.2-1.0)
--- NOTE | 2018-04-28 19:20 | NUR ---
ED Nurse Note: ATTEMPTED TO CHECK PATIENT'S BACK AND DO VRE/CRE SWAB WITH OTHER NURSE, BUT PATIENT REFUSED TO BE TURNED AND TOUCHED, PATIENT BECAME COMBATIVE WHEN ATTEMPTED TO BE TOUCHED. ENDORSED TO PM NURSE THAT UNABLE TO DO VRE/CRE SWAB DUE TO THIS.
--- NOTE | 2018-04-28 19:21 | NUR ---
HAND-OFF: Report given to OMID RYAN .
[2018-04-28] MEDS ORDERED: Morphine Sulfate 4mg/ml Inj (IV/IM USE ONLY) IVP ONE (19:30)
[2018-04-28 19:35] VITALS: BP 160/68
[2018-04-28] MEDS ORDERED: FLUOXETINE HCL10 MG ORAL (20:29)
[2018-04-28] MEDS ORDERED: Milk of Magnesia 30ml Ud ORAL PRN (20:30)
[2018-04-28] MEDS ORDERED: Metoclopramide 10mg/2ml Inj IVP PRN (20:30)
[2018-04-28] MEDS ORDERED: Mylanta II UD 30ml ORAL PRN (20:30)
[2018-04-28] MEDS ORDERED: NORCO 10-325 T1 EACH ORAL (20:30)
[2018-04-28] MEDS ORDERED: Zolpidem 5mg tab ORAL PRN (20:30)
[2018-04-28] MEDS ORDERED: COUMADIN1 MG ORAL (20:38)
[2018-04-28] MEDS ORDERED: SIMVASTATIN20 MG ORAL (20:38)
[2018-04-28] MEDS ORDERED: POTASSIUM CHLO10 MEQ ORAL (20:38)
[2018-04-28] MEDS ORDERED: MILK OF MA400 MG/51 ORAL (20:38)
[2018-04-28] MEDS ORDERED: CALCIUM 500 +1 EAC7 PO (20:40)
[2018-04-28 20:51] VITALS: BP 148/88
--- NOTE | 2018-04-28 21:00 | NUR ---
ER Nurse Note: Pt calm, VSS, a&ox3. Pain meds given; toteraled well. Will continue to montior.
[2018-04-28 22:00] VITALS: BP 146/84
[2018-04-28] MEDS: Docusate 100mg cap ORAL SCH (22:00)
--- NOTE | 2018-04-28 22:00 | Emergency Room Report ---
History of Present Illness General Chief Complaint: General Complaint Source: Medical Record, EMS Present Illness HPI Patient is a 67-year-old male presented after increased right upper extremity swelling. Patient with prior history of CVA. Patient had a residual right- sided weakness. Patient had previous history of deep venous thrombosis. He was sent in by halfway for further evaluation. Allergies: Coded Allergies: No Known Allergies (Unverified , 01/08/14) Patient History Reviewed Nursing Documentation: PMH: Agreed; PSxH: Agreed Nursing Documentation-PMH Hx Cardiac Problems: Yes Hx Hypertension: Yes Hx Diabetes: Yes - DM2 Hx Cancer: No Hx Neurological Problems: Yes - OCCIPITAL ENCEPHALOMALACIA,CEREBRAL HEMIPLEGIA , Hemiparesis Hx Cerebrovascular Accident: Yes Hx Dysphasia: Yes Hx Weakness: Yes Review of Systems All Other Systems: negative except mentioned in HPI Physical Exam Vital Signs Date Time Temp Pulse Resp B/P (MAP) Pulse Ox O2 Delivery O2 Flow Rate FiO2 04/28/18 17:01 98.2 61 18 131/72 93 Room Air Sp02 EP Interpretation: reviewed, normal General Appearance: normal inspection, well appearing, no apparent distress, alert, GCS 15 Head: atraumatic ENT: normal ENT inspection, hearing grossly normal, normal voice Neck: normal inspection, full range of motion, supple, no bony tend Respiratory: normal inspection, lungs clear, normal breath sounds, no respiratory distress, no retraction, no wheezing Cardiovascular #1: regular rate, rhythm, no edema Gastrointestinal: normal inspection, normal bowel sounds, non tender, soft, no guarding, no hernia Genitourinary: no CVA tenderness Musculoskeletal: normal inspection, back normal, normal range of motion Neurologic: normal inspection, alert, oriented x3, responsive, hearings reporter III-XII nml as tested, motor strength/tone normal, speech normal Psychiatric: normal inspection, judgement/insight normal, mood/affect normal Skin: normal inspection, normal color, no rash Medical Decision Making Diagnostic Impression: Primary Impression: Edema Additional Impressions: Right arm pain History of CVA (cerebrovascular accident) ER Course . Patient presented for right upper extremity swelling. Differential diagnosis includes is not limited to DVT, venous obstruction, dependent edema, CHF among others. Because of complexity of patient's case laboratory testing and imaging studies were ordered. Duplex ultrasound of the right upper extremity showed evidence of right upper extremity edema. With possible mass there is no evident DVT. The patient was noted to have prior history of CVA and some of this edema may be related to patient's hemiplegia on the right side. Dr. Oneil Curry was contacted and patient will be admitted for further evaluation and treatment of upper extremity swelling. EKG interpreted by me showed normal sinus rhythm with a rate of [address] or T wave changes noted. Labs Test 04/28/18 18:00 White Blood Count 10.5 K/UL (4.8-10.8) Red Blood Count 4.89 M/UL (4.70-6.10) Hemoglobin 14.2 G/DL (14.2-18.0) Hematocrit 42.0 % (42.0-52.0) Mean Corpuscular Volume 86 FL (80-99) Mean Corpuscular Hemoglobin 29.1 PG (27.0-31.0) Mean Corpuscular Hemoglobin Concent 33.9 G/DL (32.0-36.0) Red Cell Distribution Width 13.7 % (11.6-14.8) Platelet Count 272 K/UL (150-450) Mean Platelet Volume 7.0 FL (6.5-10.1) Neutrophils (%) (Auto) 55.9 % (45.0-75.0) Lymphocytes (%) (Auto) 31.2 % (20.0-45.0) Monocytes (%) (Auto) 6.4 % (1.0-10.0) Eosinophils (%) (Auto) 5.6 % (0.0-3.0) Basophils (%) (Auto) 0.9 % (0.0-2.0) Prothrombin Time 10.3 SEC (9.30-11.50) Prothromb Time International Ratio 1.0 (0.9-1.1) Activated Partial Thromboplast Time 29 SEC (23-33) D-Dimer 0.26 mg/L FEU (0.00-0.49) Sodium Level 140 MMOL/L (136-145) Potassium Level 4.3 MMOL/L (3.5-5.1) Chloride Level 104 MMOL/L (98-107) Carbon Dioxide Level 26 MMOL/L (21-32) Anion Gap 10 mmol/L (5-15) Blood Urea Nitrogen 20 mg/dL (7-18) Creatinine 0.8 MG/DL (0.55-1.30) Estimat Glomerular Filtration Rate > 60 mL/min (>60) Glucose Level 221 MG/DL (74-106) Calcium Level 9.5 MG/DL (8.5-10.1) Total Bilirubin 0.4 MG/DL (0.2-1.0) Aspartate Amino Transf (AST/SGOT) 14 U/L (15-37) Alanine Aminotransferase (ALT/SGPT) 15 U/L (12-78) Alkaline Phosphatase 155 U/L (46-116) Total Protein 7.0 G/DL (6.4-8.2) Albumin 2.8 G/DL (3.4-5.0) Globulin 4.2 g/dL Albumin/Globulin Ratio 0.7 (1.0-2.7) EKG Diagnostic Results Rate: normal Rhythm: NSR ST Segments: no acute changes Last Vital Signs Date Time Temp Pulse Resp B/P (MAP) Pulse Ox O2 Delivery O2 Flow Rate FiO2 04/28/18 20:51 98.2 64 17 148/88 97 Room Air Status: improved Disposition: HOME, SELF-CARE Condition: Stable Referrals: Oneil Curry DO (PCP) Lance Castillo MD Apr 28, 2018 22:00
--- NOTE | 2018-04-28 22:00 | NUR ---
ER Nurse Note: Report given to CONNOR Alexander. Pt a&ox3, VSS, no signs of distress. IV patent. Pt has a necklace with a georges around neck; remains with pt. Will endorse care for continuity of care.
[2018-04-28 22:15] VITALS: BP 155/86
--- NOTE | 2018-04-28 22:15 | NUR ---
NURSE NOTES: Received report from Naina RYAN. Pt brought from ER. Initial assessment done. Pt A+Ox3 w/slurred speech. V/S: T 97.7 HR:70 BP:155/86 O2:96 R:18. Pt denies any pain or discomfort. No s/s of distress of discomfort noted. Right upper extremity DVT. 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 Pt calls appropriately and will notify me of any changes. Bed in low and locked position, call light within reach, bedside table within reach. Continue to monitor.
--- NOTE | 2018-04-28 22:24 | NUR ---
NURSE NOTES: Paged Dr. Curry of new admit pt. paged me back right away and told me to contact Dr. Barnes for orders.Will page Dr. Barnes right away.
--- NOTE | 2018-04-28 22:25 | NUR ---
Paged of new admit pt. Awaiting orders.
[2018-04-29] VITALS: BP 160/89
[2018-04-29] MEDS: HYDROmorphone 1mg/ml Carpuject IVP PRN ×4 (00:29→20:38)
[2018-04-29 04:00] VITALS: BP 156/94
--- NOTE | 2018-04-29 07:30 | NUR ---
NURSE NOTES: received patient report from irene pena. patient is on bed awake. no acute distress noted. noted to have right sided weakness. no arrythmias reported during the night. SR on the monitor. bed is low and locked for safety. will continue to monitor.
--- NOTE | 2018-04-29 07:31 | NUR ---
HAND-OFF: Report given to Renea RYAN. endorsed plan of care.
[2018-04-29 07:40] LABS: BASOPHILS % (AUTO) 1.1 % (0.0-2.0); EOSINOPHILS % (AUTO) 4.7 % (0.0-3.0); HEMOGLOBIN 15.2 G/DL (14.2-18.0); LYMPHOCYTES % (AUTO) 26.4 % (20.0-45.0); MEAN CORPUSCULAR VOLUME 85 FL (80-99); MONOCYTES % (AUTO) 5.5 % (1.0-10.0); NEUTROPHILS % (AUTO) 62.4 % (45.0-75.0); PLATELET COUNT 301 K/UL (150-450); WHITE BLOOD COUNT 11.1 K/UL (4.8-10.8)
[2018-04-29 08:00] VITALS: BP 183/96
[2018-04-29 08:02] LABS: ANION GAP 8 mmol/L (5-15); BLOOD UREA NITROGEN 17 mg/dL (7-18); CALCIUM 9.9 MG/DL (8.5-10.1); CARBON DIOXIDE 31 MMOL/L (21-32); CHLORIDE 105 MMOL/L (98-107); CREATININE 0.7 MG/DL (0.55-1.30); POTASSIUM 3.6 MMOL/L (3.5-5.1); SODIUM 143 MMOL/L (136-145)
--- NOTE | 2018-04-29 08:21 | NUR ---
NURSE NOTES: left a message to dr restrepo regarding patients admission orders. awaiting callback and new orders.
[2018-04-29] MEDS: Docusate 100mg cap ORAL SCH ×2 (08:45→20:59)
--- NOTE | 2018-04-29 10:35 | NUR ---
NURSE NOTES: dilaudid 1mg/1ml was pulled out from pyxis. was scanned and opened but IV line was pulled out by the patient. witness waste was done by KIMBERLY phipps. and was disposed per protocol.
--- NOTE | 2018-04-29 11:03 | Consultation ---
History of Present Illness General Date patient seen: Apr 29, 2018 Chief Complaint: General Complaint Present Illness HPI 67-year-old male with hx of CVA and residual right sided weakness, DVT, senior care resident presented to ER with CC of right upper extremity swelling. He was sent in by senior care for further evaluation. Pt is admitted for possible DVT or mass on right arm. Allergies: Coded Allergies: No Known Allergies (Unverified , 01/08/14) Medication History Scheduled Aripiprazole* (Abilify*), 2 MG ORAL DAILY, (Reported) Ascorbic Acid* (Vitamin C*), 500 MG ORAL TWICE A DAY, (Reported) Aspirin* (Aspir 81*), 81 MG ORAL DAILY, (Reported) Calcium Carbonate/Vitamin D3 (Calcium 500 + Vit D3 400 Tab), 1 EACH PO BID, ( Reported) Clonidine HCl (Clonidine HCl), 0.2 MG PO Q8HR, (Reported) Cranberry Conc/C/Bacill Coag (Cranberry Tablet), 1 EACH PO DAILY, (Reported) Docusate Sodium* (Colace*), 100 MG ORAL BID, (Reported) Dorzolamide Hcl* (Trusopt*), 1 DROP BOTH EYES BID Fluoxetine Hcl* (Fluoxetine Hcl*), 30 MG ORAL DAILY, (Reported) Furosemide* (Lasix*), 20 MG ORAL DAILY, (Reported) Insulin Glargine (Lantus), 20 UNITS SUBQ Q2H, (Reported) Insulin Human Lispro (Humalog), 0 SUBQ QID, (Reported) Losartan Potassium (Cozaar), 100 MG ORAL DAILY, (Reported) Metformin Hcl* (Glucophage*), 500 MG ORAL TID, (Reported) Metoprolol Tartrate* (Metoprolol Tartrate*), 50 MG ORAL DAILY, (Reported) Multivitamin With Minerals (Multivitamins With Minerals*), 1 TAB ORAL DAILY, ( Reported) Potassium Chloride* (K-Dur*), 10 MEQ ORAL DAILY, (Reported) Ranitidine Hcl* (Zantac*), 150 MG ORAL TWICE A DAY Simvastatin (Zocor), 20 MG ORAL BEDTIME, (Reported) Timolol Maleate (Timolol Maleate), 5 ML OP DAILY, (Reported) Warfarin Sod* (Coumadin*), 11 MG ORAL DAILY, (Reported) Scheduled PRN Acetaminophen* (Tylenol*), 325 MG ORAL Q4H PRN for Mild Pain/Temp > 100.5, ( Reported) Acetaminophen* (Acetaminophen 325MG Tablet*), 325 MG ORAL Q8HR PRN for Moderate Pain (Pain Scale 4-6), (Reported) Bisacodyl (Dulcolax), 10 MG RC DAILY PRN for Constipation, (Reported) Clonidine Hcl* (Catapres*), 0.1 MG ORAL EVERY 6 HOURS PRN for For High Blood Pressure, (Reported) Dextran 70/Hypromellose (Artificial Tears), 1 EACH OP Q6HR PRN for Dry Eyes, ( Reported) Hydrocodone Bit/Acetaminophen 10-325* (Howells 10-325*), 1 TAB ORAL Q4H PRN for For Pain, (Reported) Magnesium Hydroxide* (Milk Of Magnesia*), 30 ML ORAL Q4HR PRN for Constipation, (Reported) Discontinued Medications Fluoxetine Hcl* (Prozac*), 30 MG ORAL DAILY, (Reported) Discontinued Reason: Prescription changed Magnesium Hydroxide* (Milk Of Magnesia*), Unknown Dose ORAL DAILY, (Reported) Discontinued Reason: Prescription changed Patient History Healthcare decision maker Resuscitation status Advanced Directive on File Past Medical/Surgical History Past Medical/Surgical History: (1) Neuropathic pain (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 (4) History of CVA (cerebrovascular accident) Review of Systems Constitutional: Reports: no symptoms Eye: Reports: no symptoms Physical Exam General Appearance: WD/WN Lines, tubes and drains: peripheral HEENT: normocephalic, atraumatic Neck: non-tender, normal alignment, supple Respiratory/Chest: chest wall non-tender, lungs clear Breasts: no masses Cardiovascular/Chest: normal peripheral pulses Abdomen: normal bowel sounds, non tender Genitourinary/Rectal: normal genital exam, normal rectal exam Extremities: normal range of motion Last 24 Hour Vital Signs Date Time Temp Pulse Resp B/P (MAP) Pulse Ox O2 Delivery O2 Flow Rate FiO2 04/29/18 09:39 193/93 04/29/18 09:00 Room Air 04/29/18 08:00 68 04/29/18 04:35 71 04/29/18 04:00 97.9 74 19 156/94 (114) 96 04/29/18 01:56 Room Air 04/29/18 01:00 97.7 1/8/19 00:41 70 04/29/18 00:00 98.3 72 19 160/89 (112) 96 04/28/18 22:15 97.7 70 18 155/86 (109) 96 04/28/18 22:15 66 04/28/18 22:00 98.2 64 17 148/88 97 Room Air 04/28/18 22:00 98.1 64 17 146/84 97 Room Air 04/28/18 20:51 98.2 64 17 148/88 97 Room Air 04/28/18 20:27 98.4 04/28/18 19:35 98.4 60 16 160/68 95 Room Air 04/28/18 17:21 61 18 Room Air 04/28/18 17:20 98.2 62 18 131/72 93 Room Air 04/28/18 17:01 98.2 61 18 131/72 93 Room Air Intake and Output 04/28/18 04/29/18 18:59 06:59 # Voids 2 # Bowel Movements 2 Laboratory Tests Test 04/28/18 18:00 04/29/18 07:15 White Blood Count 10.5 K/UL (4.8-10.8) 11.1 K/UL (4.8-10.8) H Red Blood Count 4.89 M/UL (4.70-6.10) 5.20 M/UL (4.70-6.10) Hemoglobin 14.2 G/DL (14.2-18.0) 15.2 G/DL (14.2-18.0) Hematocrit 42.0 % (42.0-52.0) 44.0 % (42.0-52.0) Mean Corpuscular Volume 86 FL (80-99) 85 FL (80-99) Mean Corpuscular Hemoglobin 29.1 PG (27.0-31.0) 29.1 PG (27.0-31.0) Mean Corpuscular Hemoglobin Concent 33.9 G/DL (32.0-36.0) 34.5 G/DL (32.0-36.0) Red Cell Distribution Width 13.7 % (11.6-14.8) 14.0 % (11.6-14.8) Platelet Count 272 K/UL (150-450) 301 K/UL (150-450) Mean Platelet Volume 7.0 FL (6.5-10.1) 7.7 FL (6.5-10.1) Neutrophils (%) (Auto) 55.9 % (45.0-75.0) 62.4 % (45.0-75.0) Lymphocytes (%) (Auto) 31.2 % (20.0-45.0) 26.4 % (20.0-45.0) Monocytes (%) (Auto) 6.4 % (1.0-10.0) 5.5 % (1.0-10.0) Eosinophils (%) (Auto) 5.6 % (0.0-3.0) H 4.7 % (0.0-3.0) H Basophils (%) (Auto) 0.9 % (0.0-2.0) 1.1 % (0.0-2.0) Prothrombin Time 10.3 SEC (9.30-11.50) 10.6 SEC (9.30-11.50) Prothromb Time International Ratio 1.0 (0.9-1.1) 1.0 (0.9-1.1) Activated Partial Thromboplast Time 29 SEC (23-33) 34 SEC (23-33) H D-Dimer 0.26 mg/L FEU (0.00-0.49) Sodium Level 140 MMOL/L (136-145) 143 MMOL/L (136-145) Potassium Level 4.3 MMOL/L (3.5-5.1) 3.6 MMOL/L (3.5-5.1) Chloride Level 104 MMOL/L (98-107) 105 MMOL/L (98-107) Carbon Dioxide Level 26 MMOL/L (21-32) 31 MMOL/L (21-32) Anion Gap 10 mmol/L (5-15) 8 mmol/L (5-15) Blood Urea Nitrogen 20 mg/dL (7-18) H 17 mg/dL (7-18) Creatinine 0.8 MG/DL (0.55-1.30) 0.7 MG/DL (0.55-1.30) Estimat Glomerular Filtration Rate > 60 mL/min (>60) > 60 mL/min (>60) Glucose Level 221 MG/DL (74-106) H 187 MG/DL (74-106) H Calcium Level 9.5 MG/DL (8.5-10.1) 9.9 MG/DL (8.5-10.1) Total Bilirubin 0.4 MG/DL (0.2-1.0) Aspartate Amino Transf (AST/SGOT) 14 U/L (15-37) L Alanine Aminotransferase (ALT/SGPT) 15 U/L (12-78) Alkaline Phosphatase 155 U/L (46-116) H Total Protein 7.0 G/DL (6.4-8.2) Albumin 2.8 G/DL (3.4-5.0) L Globulin 4.2 g/dL Albumin/Globulin Ratio 0.7 (1.0-2.7) L Height (Feet): 6 Height (Inches): 1.00 Weight (Pounds): 234 Medications Current Medications Medications (Trade) Dose Ordered Sig/Henrik Route PRN Reason Start Time Stop Time Status Last Admin Dose Admin Acetaminophen (Tylenol) 650 mg Q4H PRN ORAL Mild Pain (Pain Scale 1-3) 04/28/18 20:30 05/28/18 20:29 Al Hydroxide/Mg Hydroxide (Mylanta II) 30 ml Q6H PRN ORAL dyspepsia 04/28/18 20:30 05/28/18 20:29 Clonidine HCl (Catapres Tab) 0.1 mg Q6H PRN ORAL For High Blood Pressure 04/29/18 09:45 05/29/18 09:44 04/29/18 09:39 Dextrose (Dextrose 50%) 25 ml Q30M PRN IV Hypoglycemia 04/28/18 20:30 05/28/18 20:29 Dextrose (Dextrose 50%) 50 ml Q30M PRN IV Hypoglycemia 04/28/18 20:30 05/28/18 20:29 Docusate Sodium (Colace) 100 mg EVERY 12 HOURS ORAL 04/28/18 21:00 05/28/18 20:59 04/29/18 08:45 Hydromorphone HCl (Dilaudid) 1 mg Q6H PRN IVP Moderate Pain (Pain Scale 4-6) 04/28/18 20:30 05/05/18 20:29 04/29/18 00:29 Magnesium Hydroxide (Mom) 30 ml HSPRN PRN ORAL Constipation 04/28/18 20:30 05/28/18 20:29 Metoclopramide HCl (Reglan) 10 mg Q6H PRN IVP Nausea & Vomiting 04/28/18 20:30 05/28/18 20:29 Zolpidem Tartrate (Ambien) 5 mg HSPRN PRN ORAL Insomnia 04/28/18 20:30 05/05/18 20:29 Assessment/Plan Problem List: (1) Mass of right upper extremity ICD Codes: R22.31 - Localized swelling, mass and lump, right upper limb SNOMED: 259980650 (2) DM (diabetes mellitus screen) ICD Codes: Z13.1 - DM (diabetes mellitus screen) SNOMED: 379458318 (3) Thalamic pain syndrome ICD Codes: G89.0 - Thalamic pain syndrome SNOMED: 662451157 (4) History of CVA (cerebrovascular accident) ICD Codes: Z86.73 - Personal history of transient ischemic attack (TIA), and cerebral infarction without residual deficits SNOMED: 284832133 Assessment/Plan imaging studies hematology to see symptomatic treatment dvt prophylaxis check electrolytes Ani Barnes MD Apr 29, 2018 11:03
--- NOTE | 2018-04-29 11:42 | NUR ---
NURSE NOTES: leftv a message anette restrepo regarding BP still high 201/93. awaitng callback and new orders.
--- NOTE | 2018-04-29 11:46 | Diagnostic Imaging Report ---
Indication: Right lower extremity pain and swelling. Technique: Duplex Doppler imaging of the veins in the right upper extremity performed. FINDINGS: The right jugular and subclavian veins demonstrate normal color flow and waveform signal. No evidence of thrombosis. Continuation to the axillary vein, brachial, cephalic and basilic veins show no evidence of thrombosis with good compressibility, normal color flow and waveform analysis. There is a 5 cm hypovascular mass in the region of the elbow adjacent to the brachial artery and vein. The nature of this soft tissue mass is not known. Evaluation with CT or MRI may be of benefit. IMPRESSION: No evidence of thrombosis involving the right upper extremity in question. 5 cm mass in the upper arm. Etiology is unknown. Hematoma, abscess, solid tumor or lymph node are among the considerations. Clinical correlation is needed. MRI or CT may be helpful for further evaluation as warranted clinically.
[2018-04-29 12:00] VITALS: BP 199/93
[2018-04-29] MEDS ORDERED: cloNIDine 0.2mg Tab ORAL SCH ×2 (12:19→14:00)
--- NOTE | 2018-04-29 14:31 | Cardiology Report ---
APPROVED REPORT EKG Measurement Heart [id number] sinus rhythm Left axis deviation Possible Lateral infarct, age undetermined Inferior infarct, age undetermined Abnormal ECG
--- NOTE | 2018-04-29 14:50 | NUR ---
CASE MANAGEMENT: REVIEW 67/M BIBA FROM [facility] CC: POSSIBLE DVT SI: RIGHT UPPER EXTREMITY MASS T 98.2 HR 60 RR 16 BP 155/86 SAT 95% ROOM AIR WBC 10.5 BUN 20 GLUCOSE 221 IS: MORPHINE 4MG IV X1 INTERQUAL CRITERIA MET: PATIENT ADMITTED TO TELEMETRY UNIT 04/28/2018 DCP: PATIENT IS FROM [facility]
--- NOTE | 2018-04-29 17:00 | Consultation ---
DATE OF CONSULTATION: 04/29/2018 INITIAL PSYCHIATRIC CONSULTATION HISTORY OF PRESENT ILLNESS: This is a 67-year-old male patient who was admitted to the hospital secondary to this patient also has problem with right upper extremity swelling and he has a history of status post CVA as well. The patient came in confused, disorganized, status post deep vein thrombosis. He came in from his skilled nursing. However, this patient does have some confusion, disorganized thought process. He also has overlying history of bipolar 2 disorder, rule out paranoid schizophrenia. That is why there was a daily psychiatric consultation requested for this patient. I saw and assessed this patient at bedside. He is confused. He does have some disorganized thought process and mood lability, experiencing auditory hallucinations and some paranoia, but denies any suicidal or homicidal ideations at this time. PAST MEDICAL HISTORY: The patient does have a diabetes type 2, right arm pain, history of CVA, sepsis. MEDICATIONS: As far as his psychotropic medications on admission, this patient is currently on psychotropic medication regimen of Prozac 30 mg p.o. daily. He is also on a medication regimen of Abilify 2 mg daily. ALLERGIES: No known drug allergies at this time. SUBSTANCE ABUSE HISTORY: Denies. PAIN ASSESSMENT: 0/10 pain. DEVELOPMENTAL PROBLEMS: No known developmental problems at this time. SOCIAL HISTORY: This patient is currently living in a skilled nursing, specifically he is at [facility]. Financially supported by [facility] and [employer] MENTAL STATUS EXAMINATION: This is a 67-year-old male. Appearance is disheveled. Attitude is irritable and agitated. Affect is guarded and restricted. Intellect is poor. Mood is depressed and anxious. Motor activity, psychomotor agitation. Attention span is poor. Orientation x2. Speech is pressured. Thought process disorganized and illogical. Insight and judgment are poor. DIAGNOSES: 1. Major depression with psychotic features, rule out paranoid schizophrenia. 2. Medical, hyperlipidemia, 3. Psychosocial stressors, financial. PLAN: Treat him with Abilify 2 mg day, Prozac 30 mg daily, and Ativan 1 every 6 hours. Provided with 20 minutes of cognitive behavioral therapy to help him identify automatic negative thoughts and help him to convert negative thoughts to more positive thinking to reduce depression, anxiety, and mood lability and help him to have more adaptive behavior pattern. Seen and assessed at bedside. I would like to thank Dr. Oneil Curry for this . Rosa Yousif M.D. DR: Amelie JOB#: [id number] CC:
[2018-04-29] MEDS: NovoLOG Insulin Flexpen SUBQ SCH ×2 (17:04→20:59)
[2018-04-29 18:00] VITALS: BP 160/96
--- NOTE | 2018-04-29 18:00 | NUR ---
NURSE NOTES: left a message to dr van regarding dvt prophylaxis for this patient. awaitng callback and new orders.
--- NOTE | 2018-04-29 19:30 | NUR ---
HAND-OFF: Report given to mickey pena.
--- NOTE | 2018-04-29 19:30 | NUR ---
NURSE NOTES: Received report from aD Romero RN. Pt is resting in the bed w/o respiratory distress in RA. C/O pain 6/10 in R. arm. Will follow up with pain med. Safety measures are applied with bed alarm on, bed in lowest position with side rails up x3, and breaks are engaged. Call light and side table are w/in reach. Will follow plans of care.
[2018-04-29 20:00] VITALS: BP 131/81
--- NOTE | 2018-04-29 20:15 | History and Physical Report ---
DATE OF ADMISSION: 04/28/2018 TIME SEEN: At 3 p.m. ATTENDING PHYSICIAN: Oneil Curry D.O. CONSULTANTS: 1. Ani Barnes M.D. 2. Guillermo Ugalde M.D. 3. Rosa Yousif M.D. CHIEF COMPLAINT: Right arm swelling, mass, pain, DVT. BRIEF HISTORY: The patient is a 67-year-old male [facility], presents with one week of increased right arm swelling and pain, diagnosed with possible DVT, admitted to the telemetry for further care. Currently, slightly anxious in bed, oriented x2, in no acute distress. PAST MEDICAL HISTORY: Include neuropathic pain, CVA, ATN, DM 2. PAST SURGICAL HISTORY: Unknown. ALLERGIES: Unknown. MEDICATIONS: Include Abilify, Ecotrin, Prozac, Lasix, Cozaar, Catapres, NovoLog, Tylenol, Dilaudid, Reglan, and Ambien. SOCIAL HISTORY: No smoking. No alcohol. No intravenous drug abuse. FAMILY HISTORY: Noncontributory. PHYSICAL EXAMINATION: GENERAL: Slightly anxious in bed, oriented x2, in no acute distress. VITAL SIGNS: Temperature is 97 degrees, pulse 77, respirations 20, and blood pressure 199/93. CARDIOVASCULAR: No murmur. LUNGS: Distant. Poor exchange. ABDOMEN: Bowel sounds positive. Nontender, nondistended. EXTREMITIES: Showed no cyanosis, clubbing, or edema except the right arm, slightly swollen in right arm area. NEUROLOGIC: The patient moves all extremities, but slightly weak. LABORATORY DATA: Labs at this time white count 11, otherwise CBC is normal. BMP show glucose 187, otherwise normal. PTT 34 and INR is 1.0. ASSESSMENT: 1. Right arm pain, swelling, mass, possible DVT. 2. Neuropathic pain. 3. Cerebrovascular accident. 4. Hypertension. 5. Diabetes. PLAN: 1. Blood pressure, blood sugar, pain control. 2. Dietary followup. 3. Anticoagulate as needed per hematology. 4. CBC, BMP in the morning. 5. We will continue to follow this patient. Oneil Curry D.O. DR: HERMES JOB#: [id number] CC:
[2018-04-29] MEDS: Heparin 5000 units/ml inj SUBQ SCH (20:58)
[2018-04-29] MEDS: cloNIDine 0.2mg Tab ORAL SCH (23:43)
[2018-04-30] VITALS: BP 151/87
[2018-04-30] MEDS: HYDROmorphone 1mg/ml Carpuject IVP PRN ×4 (03:34→23:06)
[2018-04-30 04:00] VITALS: BP 134/73
[2018-04-30] MEDS: cloNIDine 0.2mg Tab ORAL SCH ×3 (06:43→21:52)
[2018-04-30] MEDS: NovoLOG Insulin Flexpen SUBQ SCH ×4 (06:44→21:47)
--- NOTE | 2018-04-30 07:00 | Consultation ---
History of Present Illness General Date patient seen: Apr 30, 2018 Chief Complaint: General Complaint Present Illness Allergies: Coded Allergies: No Known Allergies (Unverified , 01/08/14) Medication History Scheduled Aripiprazole* (Abilify*), 2 MG ORAL DAILY, (Reported) Ascorbic Acid* (Vitamin C*), 500 MG ORAL TWICE A DAY, (Reported) Aspirin* (Aspir 81*), 81 MG ORAL DAILY, (Reported) Calcium Carbonate/Vitamin D3 (Calcium 500 + Vit D3 400 Tab), 1 EACH PO BID, ( Reported) Clonidine HCl (Clonidine HCl), 0.2 MG PO Q8HR, (Reported) Cranberry Conc/C/Bacill Coag (Cranberry Tablet), 1 EACH PO DAILY, (Reported) Docusate Sodium* (Colace*), 100 MG ORAL BID, (Reported) Dorzolamide Hcl* (Trusopt*), 1 DROP BOTH EYES BID Fluoxetine Hcl* (Fluoxetine Hcl*), 30 MG ORAL DAILY, (Reported) Furosemide* (Lasix*), 20 MG ORAL DAILY, (Reported) Insulin Glargine (Lantus), 20 UNITS SUBQ Q2H, (Reported) Insulin Human Lispro (Humalog), 0 SUBQ QID, (Reported) Losartan Potassium (Cozaar), 100 MG ORAL DAILY, (Reported) Metformin Hcl* (Glucophage*), 500 MG ORAL TID, (Reported) Metoprolol Tartrate* (Metoprolol Tartrate*), 50 MG ORAL DAILY, (Reported) Multivitamin With Minerals (Multivitamins With Minerals*), 1 TAB ORAL DAILY, ( Reported) Potassium Chloride* (K-Dur*), 10 MEQ ORAL DAILY, (Reported) Ranitidine Hcl* (Zantac*), 150 MG ORAL TWICE A DAY Simvastatin (Zocor), 20 MG ORAL BEDTIME, (Reported) Timolol Maleate (Timolol Maleate), 5 ML OP DAILY, (Reported) Warfarin Sod* (Coumadin*), 11 MG ORAL DAILY, (Reported) Scheduled PRN Acetaminophen* (Tylenol*), 325 MG ORAL Q4H PRN for Mild Pain/Temp > 100.5, ( Reported) Acetaminophen* (Acetaminophen 325MG Tablet*), 325 MG ORAL Q8HR PRN for Moderate Pain (Pain Scale 4-6), (Reported) Bisacodyl (Dulcolax), 10 MG RC DAILY PRN for Constipation, (Reported) Clonidine Hcl* (Catapres*), 0.1 MG ORAL EVERY 6 HOURS PRN for For High Blood Pressure, (Reported) Dextran 70/Hypromellose (Artificial Tears), 1 EACH OP Q6HR PRN for Dry Eyes, ( Reported) Hydrocodone Bit/Acetaminophen 10-325* ([place] 10-325*), 1 TAB ORAL Q4H PRN for For Pain, (Reported) Magnesium Hydroxide* (Milk Of Magnesia*), 30 ML ORAL Q4HR PRN for Constipation, (Reported) Discontinued Medications Fluoxetine Hcl* (Prozac*), 30 MG ORAL DAILY, (Reported) Discontinued Reason: Prescription changed Magnesium Hydroxide* (Milk Of Magnesia*), Unknown Dose ORAL DAILY, (Reported) Discontinued Reason: Prescription changed Patient History Healthcare decision maker Resuscitation status Advanced Directive on File Physical Exam Last 24 Hour Vital Signs Date Time Temp Pulse Resp B/P (MAP) Pulse Ox O2 Delivery O2 Flow Rate FiO2 04/30/18 06:43 134/73 04/30/18 04:00 98.1 69 18 134/73 (93) 97 04/30/18 03:32 74 04/30/18 00:00 97.4 79 20 151/87 (108) 97 04/29/18 23:43 131/81 04/29/18 23:19 76 04/29/18 21:00 Room Air 04/29/18 20:01 87 04/29/18 20:00 98.7 88 20 131/81 (98) 95 04/29/18 18:00 97.6 79 20 160/96 (117) 95 04/29/18 16:00 80 04/29/18 12:25 199/94 04/29/18 12:00 97.3 77 20 199/93 (128) 95 04/29/18 11:34 76 04/29/18 09:39 193/93 04/29/18 09:00 Room Air 04/29/18 08:00 98.7 72 18 183/96 (125) 95 04/29/18 08:00 68 Intake and Output 04/29/18 04/30/18 19:00 07:00 Intake Total 840 ml Balance 840 ml Intake Oral 840 ml # Voids 5 2 Laboratory Tests Test 04/29/18 07:15 White Blood Count 11.1 K/UL (4.8-10.8) H Red Blood Count 5.20 M/UL (4.70-6.10) Hemoglobin 15.2 G/DL (14.2-18.0) Hematocrit 44.0 % (42.0-52.0) Mean Corpuscular Volume 85 FL (80-99) Mean Corpuscular Hemoglobin 29.1 PG (27.0-31.0) Mean Corpuscular Hemoglobin Concent 34.5 G/DL (32.0-36.0) Red Cell Distribution Width 14.0 % (11.6-14.8) Platelet Count 301 K/UL (150-450) Mean Platelet Volume 7.7 FL (6.5-10.1) Neutrophils (%) (Auto) 62.4 % (45.0-75.0) Lymphocytes (%) (Auto) 26.4 % (20.0-45.0) Monocytes (%) (Auto) 5.5 % (1.0-10.0) Eosinophils (%) (Auto) 4.7 % (0.0-3.0) H Basophils (%) (Auto) 1.1 % (0.0-2.0) Prothrombin Time 10.6 SEC (9.30-11.50) Prothromb Time International Ratio 1.0 (0.9-1.1) Activated Partial Thromboplast Time 34 SEC (23-33) H Sodium Level 143 MMOL/L (136-145) Potassium Level 3.6 MMOL/L (3.5-5.1) Chloride Level 105 MMOL/L (98-107) Carbon Dioxide Level 31 MMOL/L (21-32) Anion Gap 8 mmol/L (5-15) Blood Urea Nitrogen 17 mg/dL (7-18) Creatinine 0.7 MG/DL (0.55-1.30) Estimat Glomerular Filtration Rate > 60 mL/min (>60) Glucose Level 187 MG/DL (74-106) H Calcium Level 9.9 MG/DL (8.5-10.1) Height (Feet): 6 Height (Inches): 1.00 Weight (Pounds): 238 Medications Current Medications Medications (Trade) Dose Ordered Sig/Henrik Route PRN Reason Start Time Stop Time Status Last Admin Dose Admin Acetaminophen (Tylenol) 650 mg Q4H PRN ORAL Mild Pain (Pain Scale 1-3) 04/28/18 20:30 05/28/18 20:29 Al Hydroxide/Mg Hydroxide (Mylanta II) 30 ml Q6H PRN ORAL dyspepsia 04/28/18 20:30 05/28/18 20:29 Aripiprazole (Abilify) 2 mg DAILY ORAL 04/30/18 09:00 05/30/18 08:59 Aspirin (Ecotrin) 81 mg DAILY ORAL 04/30/18 09:00 05/30/18 08:59 Clonidine HCl (Catapres Tab) 0.1 mg Q6H PRN ORAL For High Blood Pressure 04/29/18 09:45 05/29/18 09:44 04/29/18 09:39 Clonidine HCl (Catapres tab) 0.2 mg Q8HR ORAL 04/29/18 22:00 05/29/18 21:59 04/30/18 06:43 Dextrose (Dextrose 50%) 25 ml Q30M PRN IV Hypoglycemia 04/28/18 20:30 05/28/18 20:29 Dextrose (Dextrose 50%) 50 ml Q30M PRN IV Hypoglycemia 04/28/18 20:30 05/28/18 20:29 Docusate Sodium (Colace) 100 mg EVERY 12 HOURS ORAL 04/28/18 21:00 05/28/18 20:59 04/29/18 08:45 Fluoxetine HCl (PROzac) 30 mg DAILY ORAL 04/30/18 09:00 05/30/18 08:59 Furosemide (Lasix) 20 mg DAILY ORAL 04/30/18 09:00 05/30/18 08:59 Heparin Sodium (Porcine) (Heparin 5000 units/ml) 5,000 units EVERY 12 HOURS SUBQ 04/29/18 21:00 05/29/18 20:59 04/29/18 20:58 Hydromorphone HCl (Dilaudid) 1 mg Q6H PRN IVP Moderate Pain (Pain Scale 4-6) 04/28/18 20:30 05/05/18 20:29 04/30/18 03:34 Insulin Aspart (NovoLOG) BEFORE MEALS AND HS SUBQ 04/29/18 16:30 05/29/18 16:29 04/30/18 06:44 Losartan Potassium (Cozaar) 100 mg DAILY ORAL 04/30/18 09:00 05/30/18 08:59 Magnesium Hydroxide (Mom) 30 ml HSPRN PRN ORAL Constipation 04/28/18 20:30 05/28/18 20:29 Metoclopramide HCl (Reglan) 10 mg Q6H PRN IVP Nausea & Vomiting 04/28/18 20:30 05/28/18 20:29 Zolpidem Tartrate (Ambien) 5 mg HSPRN PRN ORAL Insomnia 04/28/18 20:30 05/05/18 20:29 Assessment/Plan Assessment/Plan Oncology Consult Late entry, patient was seen on 04/29 DOS: 04/29/18 REFrancisco Javier MD: Janie Curry C: Arm r mass, r/o malignancy HPI 67-year-old male with hx of CVA and residual right sided weakness, DVT, prison resident presented to ER with CC of right upper extremity swelling. [facility] was [facility] in by prison for further evaluation. Pt is admitted for possible DVT or mass on right arm. CT of the arm has been ordered and not yet done it appears Allergies: No Known Allergies (Unverified , 01/08/14) Medication History Scheduled Aripiprazole* (Abilify*), 2 MG ORAL DAILY, (Reported) Ascorbic Acid* (Vitamin C*), 500 MG ORAL TWICE A DAY, (Reported) Aspirin* (Aspir 81*), 81 MG ORAL DAILY, (Reported) Calcium Carbonate/Vitamin D3 (Calcium 500 + Vit D3 400 Tab), 1 EACH PO BID, ( Reported) Clonidine HCl (Clonidine HCl), 0.2 MG PO Q8HR, (Reported) Cranberry Conc/C/Bacill Coag (Cranberry Tablet), 1 EACH PO DAILY, (Reported) Docusate Sodium* (Colace*), 100 MG ORAL BID, (Reported) Dorzolamide Hcl* (Trusopt*), 1 DROP BOTH EYES BID Fluoxetine Hcl* (Fluoxetine Hcl*), 30 MG ORAL DAILY, (Reported) Furosemide* (Lasix*), 20 MG ORAL DAILY, (Reported) Insulin Glargine (Lantus), 20 UNITS SUBQ Q2H, (Reported) Insulin Human Lispro (Humalog), 0 SUBQ QID, (Reported) Losartan Potassium (Cozaar), 100 MG ORAL DAILY, (Reported) Metformin Hcl* (Glucophage*), 500 MG ORAL TID, (Reported) Metoprolol Tartrate* (Metoprolol Tartrate*), 50 MG ORAL DAILY, (Reported) Multivitamin With Minerals (Multivitamins With Minerals*), 1 TAB ORAL DAILY, ( Reported) Potassium Chloride* (K-Dur*), 10 MEQ ORAL DAILY, (Reported) Ranitidine Hcl* (Zantac*), 150 MG ORAL TWICE A DAY Simvastatin (Zocor), 20 MG ORAL BEDTIME, (Reported) Timolol Maleate (Timolol Maleate), 5 ML OP DAILY, (Reported) Warfarin Sod* (Coumadin*), 11 MG ORAL DAILY, (Reported) Scheduled PRN Acetaminophen* (Tylenol*), 325 MG ORAL Q4H PRN for Mild Pain/Temp > 100.5, ( Reported) Acetaminophen* (Acetaminophen 325MG Tablet*), 325 MG ORAL Q8HR PRN for Moderate Pain (Pain Scale 4-6), (Reported) Bisacodyl (Dulcolax), 10 MG RC DAILY PRN for Constipation, (Reported) Clonidine Hcl* (Catapres*), 0.1 MG ORAL EVERY 6 HOURS PRN for For High Blood Pressure, (Reported) Dextran 70/Hypromellose (Artificial Tears), 1 EACH OP Q6HR PRN for Dry Eyes, ( Reported) Hydrocodone Bit/Acetaminophen 10-325* ([place] 10-325*), 1 TAB ORAL Q4H PRN for For Pain, (Reported) Magnesium Hydroxide* (Milk Of Magnesia*), 30 ML ORAL Q4HR PRN for Constipation, (Reported) Discontinued Medications Fluoxetine Hcl* (Prozac*), 30 MG ORAL DAILY, (Reported) Discontinued Reason: Prescription changed Magnesium Hydroxide* (Milk Of Magnesia*), Unknown Dose ORAL DAILY, (Reported) Discontinued Reason: Prescription changed Patient History Healthcare decision maker Resuscitation status Advanced Directive on File Past Medical/Surgical History: (1) Neuropathic pain (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 (4) History of CVA (cerebrovascular accident) Review of Systems Constitutional: Reports: no symptoms Eye: Reports: no symptoms Physical Exam General Appearance: WD/WN Lines, tubes and drains: peripheral HEENT: normocephalic, at Neck: non-tender, normal alignment, supple Respiratory/Chest: chest wall non-tender, lungs clear Breasts: no masses noted Cardiovascular/Chest: normal peripheral pulses Abdomen: normal bowel sounds, non tender Genitourinary/Rectal: normal genital exam, normal rectal exam Extremities: normal range of motion Last 24 Hour Vital Signs Date Time Temp Pulse Resp B/P (MAP) Pulse Ox O2 Delivery O2 Flow Rate FiO2 04/30/18 06:43 134/73 04/30/18 04:00 98.1 69 18 134/73 (93) 97 04/30/18 03:32 74 04/30/18 00:00 97.4 79 20 151/87 (108) 97 04/29/18 23:43 131/81 04/29/18 23:19 76 04/29/18 21:00 Room Air 04/29/18 20:01 87 04/29/18 20:00 98.7 88 20 131/81 (98) 95 04/29/18 18:00 97.6 79 20 160/96 (117) 95 04/29/18 16:00 80 04/29/18 12:25 199/94 04/29/18 12:00 97.3 77 20 199/93 (128) 95 04/29/18 11:34 76 04/29/18 09:39 193/93 04/29/18 09:00 Room Air 04/29/18 08:00 98.7 72 18 183/96 (125) 95 04/29/18 08:00 68 Laboratory Tests Test 04/28/18 18:00 04/29/18 07:15 White Blood Count 10.5 K/UL (4.8-10.8) 11.1 K/UL (4.8-10.8) H Red Blood Count 4.89 M/UL (4.70-6.10) 5.20 M/UL (4.70-6.10) Hemoglobin 14.2 G/DL (14.2-18.0) 15.2 G/DL (14.2-18.0) Hematocrit 42.0 % (42.0-52.0) 44.0 % (42.0-52.0) Mean Corpuscular Volume 86 FL (80-99) 85 FL (80-99) Mean Corpuscular Hemoglobin 29.1 PG (27.0-31.0) 29.1 PG (27.0-31.0) Mean Corpuscular Hemoglobin Concent 33.9 G/DL (32.0-36.0) 34.5 G/DL (32.0-36.0) Red Cell Distribution Width 13.7 % (11.6-14.8) 14.0 % (11.6-14.8) Platelet Count 272 K/UL (150-450) 301 K/UL (150-450) Mean Platelet Volume 7.0 FL (6.5-10.1) 7.7 FL (6.5-10.1) Neutrophils (%) (Auto) 55.9 % (45.0-75.0) 62.4 % (45.0-75.0) Lymphocytes (%) (Auto) 31.2 % (20.0-45.0) 26.4 % (20.0-45.0) Monocytes (%) (Auto) 6.4 % (1.0-10.0) 5.5 % (1.0-10.0) Eosinophils (%) (Auto) 5.6 % (0.0-3.0) H 4.7 % (0.0-3.0) H Basophils (%) (Auto) 0.9 % (0.0-2.0) 1.1 % (0.0-2.0) Prothrombin Time 10.3 SEC (9.30-11.50) 10.6 SEC (9.30-11.50) Prothromb Time International Ratio 1.0 (0.9-1.1) 1.0 (0.9-1.1) Activated Partial Thromboplast Time 29 SEC (23-33) 34 SEC (23-33) H D-Dimer 0.26 mg/L FEU (0.00-0.49) Sodium Level 140 MMOL/L (136-145) 143 MMOL/L (136-145) Potassium Level 4.3 MMOL/L (3.5-5.1) 3.6 MMOL/L (3.5-5.1) Chloride Level 104 MMOL/L (98-107) 105 MMOL/L (98-107) Carbon Dioxide Level 26 MMOL/L (21-32) 31 MMOL/L (21-32) Anion Gap 10 mmol/L (5-15) 8 mmol/L (5-15) Blood Urea Nitrogen 20 mg/dL (7-18) H 17 mg/dL (7-18) Creatinine 0.8 MG/DL (0.55-1.30) 0.7 MG/DL (0.55-1.30) Estimat Glomerular Filtration Rate > 60 mL/min (>60) > 60 mL/min (>60) Glucose Level 221 MG/DL (74-106) H 187 MG/DL (74-106) H Calcium Level 9.5 MG/DL (8.5-10.1) 9.9 MG/DL (8.5-10.1) Total Bilirubin 0.4 MG/DL (0.2-1.0) Aspartate Amino Transf (AST/SGOT) 14 U/L (15-37) L Alanine Aminotransferase (ALT/SGPT) 15 U/L (12-78) Alkaline Phosphatase 155 U/L (46-116) H Total Protein 7.0 G/DL (6.4-8.2) Albumin 2.8 G/DL (3.4-5.0) L Globulin 4.2 g/dL Albumin/Globulin Ratio 0.7 (1.0-2.7) L Height (Feet): 6 Height (Inches): 1.00 Weight (Pounds): 234 Medications Current Medications Medications (Trade) Dose Ordered Sig/Henrik Route PRN Reason Start Time Stop Time Status Last Admin Dose Admin Acetaminophen (Tylenol) 650 mg Q4H PRN ORAL Mild Pain (Pain Scale 1-3) 04/28/18 20:30 05/28/18 20:29 Al Hydroxide/Mg Hydroxide (Mylanta II) 30 ml Q6H PRN ORAL dyspepsia 04/28/18 20:30 05/28/18 20:29 Clonidine HCl (Catapres Tab) 0.1 mg Q6H PRN ORAL For High Blood Pressure 04/29/18 09:45 05/29/18 09:44 04/29/18 09:39 Dextrose (Dextrose 50%) 25 ml Q30M PRN IV Hypoglycemia 04/28/18 20:30 05/28/18 20:29 Dextrose (Dextrose 50%) 50 ml Q30M PRN IV Hypoglycemia 04/28/18 20:30 05/28/18 20:29 Docusate Sodium (Colace) 100 mg EVERY 12 HOURS ORAL 04/28/18 21:00 05/28/18 20:59 04/29/18 08:45 Hydromorphone HCl (Dilaudid) 1 mg Q6H PRN IVP Moderate Pain (Pain Scale 4-6) 04/28/18 20:30 05/05/18 20:29 04/29/18 00:29 Magnesium Hydroxide (Mom) 30 ml HSPRN PRN ORAL Constipation 04/28/18 20:30 05/28/18 20:29 Metoclopramide HCl (Reglan) 10 mg Q6H PRN IVP Nausea & Vomiting 04/28/18 20:30 05/28/18 20:29 Zolpidem Tartrate (Ambien) 5 mg HSPRN PRN ORAL Insomnia 04/28/18 20:30 05/05/18 20:29 Assessment/Plan # Mass of right upper extremity - reviewed the imaging of the arm and no dvt was noted --> have obtained a ct of the upper arm, r/o malignancy --> will likely need a biopsy, potentially sarcoma versus other localized disease --> obtain cxr to r/o mass as well # DM (diabetes mellitus screen) --> accuchecks qac/qhs # Thalamic pain syndrome # History of CVA (cerebrovascular accident) # Dvt ppx with heparin sq Time of note does not reflect time of encounter Grealty appreciate consultation! Guillermo Ugalde MD Apr 30, 2018 07:00
--- NOTE | 2018-04-30 07:30 | NUR ---
HAND-OFF: Report given to CONNOR Hopkins. Consent for CT w/ contrast is done in the chart.
--- NOTE | 2018-04-30 07:31 | NUR ---
NURSE NOTES: Received patient in bed. Awake, alert, in no apparent distress. Call light within reach. Will continue plan of care.
[2018-04-30 08:00] VITALS: BP 142/73
[2018-04-30 08:24] LABS: BASOPHILS % (AUTO) 1.1 % (0.0-2.0); EOSINOPHILS % (AUTO) 5.2 % (0.0-3.0); HEMATOCRIT 35.7 % (42.0-52.0); HEMOGLOBIN 12.1 G/DL (14.2-18.0); LYMPHOCYTES % (AUTO) 30.4 % (20.0-45.0); MEAN CORPUSCULAR VOLUME 86 FL (80-99); MONOCYTES % (AUTO) 6.2 % (1.0-10.0); NEUTROPHILS % (AUTO) 57.1 % (45.0-75.0); PLATELET COUNT 282 K/UL (150-450); RED BLOOD COUNT 4.14 M/UL (4.70-6.10); RED CELL DISTRIBUTION WIDTH 13.9 % (11.6-14.8); WHITE BLOOD COUNT 13.9 K/UL (4.8-10.8)
[2018-04-30 08:47] LABS: ALANINE AMINOTRANSFERASE 16 U/L (12-78); ALBUMIN 2.6 G/DL (3.4-5.0); ALBUMIN/GLOBULIN RATIO 0.6 (1.0-2.7); ALKALINE PHOSPHATASE 146 U/L (46-116); ANION GAP 6 mmol/L (5-15); ASPARTATE AMINO TRANSFERASE 34 U/L (15-37); BILIRUBIN,TOTAL 0.6 MG/DL (0.2-1.0); BLOOD UREA NITROGEN 24 mg/dL (7-18); CALCIUM 9.2 MG/DL (8.5-10.1); CARBON DIOXIDE 28 MMOL/L (21-32); CHLORIDE 105 MMOL/L (98-107); CREATININE 0.8 MG/DL (0.55-1.30); PHOSPHORUS 3.5 MG/DL (2.5-4.9); POTASSIUM 4.2 MMOL/L (3.5-5.1); SODIUM 139 MMOL/L (136-145)
[2018-04-30] MEDS: ARIPiprazole 2mg tab ORAL SCH (09:38)
--- NOTE | 2018-04-30 09:39 | NUR ---
ST NOTE: BEDSIDE SWALLOW EVAL RECEIVED BEDSIDE SWALLOW EVAL ORDER CHART REVIEWED PRIOR THE EVALUATION PT IS A 68-YEAR-OLD MALE WHO WAS ADMITTED DUE TO R UPPER EXTREMITY MASS. DYSPHAGIA RISK FACTORS: H/O BILATREAL CVAX2 W/ R HEMIPLEGIA, DYSARTHRIA/DYSPHONIA, H/O PNA, H/O PEG, DMII, HTN, GERD, H/O DYSPHAGIA, PSYCH(DEPRESSIVE DISORDER, SCHIZOPHRENIA, MDD AND ANXIETY). CXR PENDING. PLOF: [facility]ID[facility]. PER CHART, NO PREVIOUS DIET WAS NOTED. PER PT'S POLST: FULL CODE, OKAY TO LONG-TERM ARTIFICIAL NUTRITION, INCLUDING FEEDING TUBES. BEDSIDE SWALLOW EVAL AT THE [facility] ON 05/27/17: DIET WAS RECOMMENDED CCHO(MED) MECH SOFT(GROUND) WITH NECTAR THICK LIQUIDS VIDEOSWALLOW STUDY AT [facility] 12/2013: HAD AUDIBLE AND SIGNIFICANT ASP WITH BOTH THIN AND NECTAR THICK LIQUIDS MOSTLY DUE TO DELAYED SWALLOW. AND DIET WAS LIQUIFIED PUREED, LIKE HONEY THICK SOUP CONSISTENCY WITH HONEY THICK LIQUIDS CURRENT STATUS: PT SEEN AT BEDSIDE IN AM. ALERT, REQUIRED ENCOURAGEMENT TO PARTICIPATE, DYSARTHRIA/DYSPHONIA. REPORTED S/S OF ASPIRATION WITH THIN LIQUIDS. GIVEN PO TRIALS: NECTAR THICK(TSP) AND PUREE(TSP) INITIAL IMPRESSION: MODERATE OR WORSENED OROPHARYNGEAL DYSPHAGIA MILD INCREASED ORAL TRANSIT TIME AND OROPHARYNGEAL TRANSIT TIME FAIR LARYNGEAL ELEVATION, NO ORAL RESIDUE AND OVERT S/S OF ASPIRATION. DUE TO PT HAS H/O CVA AND DYSPHAGIA, PT HAS SILENT ASPIRATION RISK. RECOMMENDATIONS: 1. FOR QUALITY OF LIFE, CONTINUE CCHO(MEDIUM) MOIST PUREE WITH NECTAR THICK LIQUIDS DIET 2. STRICT ASPIRATION/REFLUX PRECAUTIONS WITH ASSIST. 3. VIDEOSWALLOW STUDY ONLY IF PT IS WILLING TO PARTICIPATE. (RECEIVED THE ORDER, WILL ATTEMPT) 4. SWALLOW TX AND MANAGEMENT D/W IN-CHARGE NURSE. POSTED ASPIRATION/REFLUX PRECAUTIONS SIGN
[2018-04-30] MEDS: FLUoxetine 10mg cap ORAL SCH (09:40)
[2018-04-30] MEDS: Docusate 100mg cap ORAL SCH ×2 (09:40→21:00)
[2018-04-30] MEDS: Losartan 50mg tab ORAL SCH (09:40)
[2018-04-30] MEDS: Aspirin EC 81mg tab ORAL SCH (09:40)
[2018-04-30] MEDS: Heparin 5000 units/ml inj SUBQ SCH ×2 (09:42→21:51)
--- NOTE | 2018-04-30 09:52 | NUR ---
HAND-OFF: Report given to CONNOR Mei.
--- NOTE | 2018-04-30 09:53 | NUR ---
NURSE NOTES: Receive report from Maira, patient is in bed resting. complain of pain 8/10, wiil administer pain medication. IV is intact and patent. Bed is in lowest position with bedside rails up X3. Brakes engaged for safety. Call light is within reach. Will continue with the plan of care.
--- NOTE | 2018-04-30 10:26 | NUR ---
REHAB MED PT NOTE CONSULT RAULITO ECHAVARRIA, PATIENT CURRENTLY AT BASELINE LEVEL FUNCTION. NO SKILLED NEEDS AT THIS TIME. PATIENT WILL BE DC FROM PT TO NURSING STAFF FOR CONTINUE COMFORT AND CARE DURING STAY. RECOMMEND RETURN TO PRIOR LOCATION. NO FURTHER NEEDS. JS PHILLIPS PT DPT Addendum: 04/30/18 at 1026 by JS PHILLIPS PT Amended: Links added.
[2018-04-30 12:00] VITALS: BP 154/83
--- NOTE | 2018-04-30 12:47 | Pulmonology Progress Note ---
Assessment/Plan Problems: (1) Mass of right upper extremity (2) DM (diabetes mellitus screen) (3) Thalamic pain syndrome (4) History of CVA (cerebrovascular accident) Assessment/Plan CT of upper extremity symptomatic treatment sliding scale diabetic diet med/surg dvt prophylaxis Subjective ROS Limited/Unobtainable: No Constitutional: Reports: no symptoms HEENT: Repors: no symptoms Allergies: Coded Allergies: No Known Allergies (Unverified , 01/08/14) Objective Last 24 Hour Vital Signs Date Time Temp Pulse Resp B/P (MAP) Pulse Ox O2 Delivery O2 Flow Rate FiO2 04/30/18 09:40 142/73 04/30/18 09:00 Room Air 04/30/18 08:00 98.1 77 20 142/73 (96) 95 04/30/18 07:34 80 04/30/18 06:43 134/73 04/30/18 04:00 98.1 69 18 134/73 (93) 97 04/30/18 03:32 74 04/30/18 00:00 97.4 79 20 151/87 (108) 97 04/29/18 23:43 131/81 04/29/18 23:19 76 04/29/18 21:00 Room Air 04/29/18 20:01 87 04/29/18 20:00 98.7 88 20 131/81 (98) 95 04/29/18 18:00 97.6 79 20 160/96 (117) 95 04/29/18 16:00 80 Intake and Output 04/29/18 04/30/18 18:59 06:59 Intake Total 840 ml Balance 840 ml Intake Oral 840 ml # Voids 5 2 Objective General Appearance: WD/WN HEENT: normocephalic, anicteric Respiratory/Chest: chest wall non-tender, lungs clear Breasts: no masses Cardiovascular: normal rate Abdomen: normal bowel sounds, no organomegaly Extremities: no clubbing Neurologic/Psychiatric: apple packing header II-XII grossly normal Laboratory Tests 04/30/18 07:25: White Blood Count 13.9H, Red Blood Count 4.14L, Hemoglobin 12.1L, Hematocrit 35.7L, Mean Corpuscular Volume 86, Mean Corpuscular Hemoglobin 29.3, Mean Corpuscular Hemoglobin Concent 34.0, Red Cell Distribution Width 13.9, Platelet Count 282, Mean Platelet Volume 7.3, Neutrophils (%) (Auto) 57.1, Lymphocytes (% ) (Auto) 30.4, Monocytes (%) (Auto) 6.2, Eosinophils (%) (Auto) 5.2H, Basophils (%) (Auto) 1.1, Sodium Level 139, Potassium Level 4.2, Chloride Level 105, Carbon Dioxide Level 28, Anion Gap 6, Blood Urea Nitrogen 24H, Creatinine 0.8, Estimat Glomerular Filtration Rate > 60, Glucose Level 195H, Calcium Level 9.2, Phosphorus Level 3.5, Magnesium Level 1.7L, Total Bilirubin 0.6, Aspartate Amino Transf (AST/SGOT) 34, Alanine Aminotransferase (ALT/SGPT) 16, Alkaline Phosphatase 146H, Total Protein 6.6, Albumin 2.6L, Globulin 4.0, Albumin/ Globulin Ratio 0.6L Current Medications Medications (Trade) Dose Ordered Sig/Henrik Route PRN Reason Start Time Stop Time Status Last Admin Dose Admin Acetaminophen (Tylenol) 650 mg Q4H PRN ORAL Mild Pain (Pain Scale 1-3) 04/28/18 20:30 05/28/18 20:29 Al Hydroxide/Mg Hydroxide (Mylanta II) 30 ml Q6H PRN ORAL dyspepsia 04/28/18 20:30 05/28/18 20:29 Aripiprazole (Abilify) 2 mg DAILY ORAL 04/30/18 09:00 05/30/18 08:59 04/30/18 09:38 Aspirin (Ecotrin) 81 mg DAILY ORAL 04/30/18 09:00 05/30/18 08:59 04/30/18 09:40 Clonidine HCl (Catapres Tab) 0.1 mg Q6H PRN ORAL For High Blood Pressure 04/29/18 09:45 05/29/18 09:44 04/29/18 09:39 Clonidine HCl (Catapres tab) 0.2 mg Q8HR ORAL 04/29/18 22:00 05/29/18 21:59 04/30/18 06:43 Dextrose (Dextrose 50%) 25 ml Q30M PRN IV Hypoglycemia 04/28/18 20:30 05/28/18 20:29 Dextrose (Dextrose 50%) 50 ml Q30M PRN IV Hypoglycemia 04/28/18 20:30 05/28/18 20:29 Docusate Sodium (Colace) 100 mg EVERY 12 HOURS ORAL 04/28/18 21:00 05/28/18 20:59 04/30/18 09:40 Fluoxetine HCl (PROzac) 30 mg DAILY ORAL 04/30/18 09:00 05/30/18 08:59 04/30/18 09:40 Furosemide (Lasix) 20 mg DAILY ORAL 04/30/18 09:00 05/30/18 08:59 04/30/18 09:40 Heparin Sodium (Porcine) (Heparin 5000 units/ml) 5,000 units EVERY 12 HOURS SUBQ 04/29/18 21:00 05/29/18 20:59 04/30/18 09:42 Hydromorphone HCl (Dilaudid) 1 mg Q6H PRN IVP Moderate Pain (Pain Scale 4-6) 04/28/18 20:30 05/05/18 20:29 04/30/18 09:42 Insulin Aspart (NovoLOG) BEFORE MEALS AND HS SUBQ 04/29/18 16:30 05/29/18 16:29 04/30/18 11:50 Losartan Potassium (Cozaar) 100 mg DAILY ORAL 04/30/18 09:00 05/30/18 08:59 04/30/18 09:40 Magnesium Hydroxide (Mom) 30 ml HSPRN PRN ORAL Constipation 04/28/18 20:30 05/28/18 20:29 Metoclopramide HCl (Reglan) 10 mg Q6H PRN IVP Nausea & Vomiting 04/28/18 20:30 05/28/18 20:29 Zolpidem Tartrate (Ambien) 5 mg HSPRN PRN ORAL Insomnia 04/28/18 20:30 05/05/18 20:29 Ani Barnes MD Apr 30, 2018 12:47
--- NOTE | 2018-04-30 13:22 | NUR ---
RD ASSESSMENT & RECOMMENDATIONS SEE CARE ACTIVITY FOR COMPLETE ASSESSMENT DAILY ESTIMATED NEEDS: Needs based on Cardiac, DM, Obese / 90kg adj 20-25 kcals/kg [id number] total kcals 1-1.5 g protein/kg 90-135 g total protein Fluid per MD, on lasix NUTRITION DIAGNOSIS: 1) Altered nutrition related lab values R/T diabetes as evidenced by elev BGs (187-221), elev POC glu (198-218. CURRENT DIET: CCHO MED, puree NTL PO DIET RECOMMENDATIONS: Cardiac / CCHO MED/ texture as tolerated or per ENGINEERING OPERATOR ADDITIONAL RECOMMENDATIONS: 1) Standing wt as able for accurate CBW 2) Texture per ENGINEERING OPERATOR eval 3) Monitor BGs closely, need to adjust/ increase insulin 4) Add B-complex for max glucose metabolism 5) Check lytes daily on lasix- replete as needed (Low MG 1.7)
--- NOTE | 2018-04-30 14:51 | General Progress Note ---
Assessment/Plan Problem List: (1) Neuropathic pain ICD Codes: M79.2 - Neuropathic pain SNOMED: 573666571 (2) Dysarthria, post-stroke ICD Codes: I69.322 - Dysarthria, post-stroke SNOMED: 3887854 (3) chronic ischemic multiple strokes (4) ATN (acute tubular necrosis) ICD Codes: N17.0 - Acute kidney failure with tubular necrosis SNOMED: 51858567 (5) DM (diabetes mellitus screen) ICD Codes: Z13.1 - DM (diabetes mellitus screen) SNOMED: 253806367 (6) Right arm pain ICD Codes: M79.601 - Pain in right arm SNOMED: 820384778 (7) History of CVA (cerebrovascular accident) ICD Codes: Z86.73 - Personal history of transient ischemic attack (TIA), and cerebral infarction without residual deficits SNOMED: 461392723 (8) Mass of right upper extremity ICD Codes: R22.31 - Localized swelling, mass and lump, right upper limb SNOMED: 919286137 Status: unchanged Assessment/Plan pt diet abx pain control cbc bmp am Subjective Constitutional: Reports: weakness Allergies: Coded Allergies: No Known Allergies (Unverified , 01/08/14) All Systems: reviewed and negative except above Subjective sleepy calm Objective Last 24 Hour Vital Signs Date Time Temp Pulse Resp B/P (MAP) Pulse Ox O2 Delivery O2 Flow Rate FiO2 04/30/18 14:00 154/83 04/30/18 12:00 98.0 72 20 154/83 (106) 96 04/30/18 12:00 68 04/30/18 09:40 142/73 04/30/18 09:00 Room Air 04/30/18 08:00 98.1 77 20 142/73 (96) 95 04/30/18 07:34 80 04/30/18 06:43 134/73 04/30/18 04:00 98.1 69 18 134/73 (93) 97 04/30/18 03:32 74 04/30/18 00:00 97.4 79 20 151/87 (108) 97 04/29/18 23:43 131/81 04/29/18 23:19 76 04/29/18 21:00 Room Air 04/29/18 20:01 87 04/29/18 20:00 98.7 88 20 131/81 (98) 95 04/29/18 18:00 97.6 79 20 160/96 (117) 95 04/29/18 16:00 80 Intake and Output 04/29/18 04/30/18 18:59 06:59 Intake Total 840 ml Balance 840 ml Intake Oral 840 ml # Voids 5 2 Laboratory Tests 04/30/18 07:25: White Blood Count 13.9H, Red Blood Count 4.14L, Hemoglobin 12.1L, Hematocrit 35.7L, Mean Corpuscular Volume 86, Mean Corpuscular Hemoglobin 29.3, Mean Corpuscular Hemoglobin Concent 34.0, Red Cell Distribution Width 13.9, Platelet Count 282, Mean Platelet Volume 7.3, Neutrophils (%) (Auto) 57.1, Lymphocytes (% ) (Auto) 30.4, Monocytes (%) (Auto) 6.2, Eosinophils (%) (Auto) 5.2H, Basophils (%) (Auto) 1.1, Sodium Level 139, Potassium Level 4.2, Chloride Level 105, Carbon Dioxide Level 28, Anion Gap 6, Blood Urea Nitrogen 24H, Creatinine 0.8, Estimat Glomerular Filtration Rate > 60, Glucose Level 195H, Calcium Level 9.2, Phosphorus Level 3.5, Magnesium Level 1.7L, Total Bilirubin 0.6, Aspartate Amino Transf (AST/SGOT) 34, Alanine Aminotransferase (ALT/SGPT) 16, Alkaline Phosphatase 146H, Total Protein 6.6, Albumin 2.6L, Globulin 4.0, Albumin/ Globulin Ratio 0.6L Height (Feet): 6 Height (Inches): 1.00 Weight (Pounds): 238 General Appearance: lethargic EENT: normal ENT inspection Neck: normal alignment Cardiovascular: normal peripheral pulses, normal rate, regular rhythm Respiratory/Chest: chest wall non-tender, lungs clear, normal breath sounds Abdomen: normal bowel sounds, non tender, soft Extremities: normal inspection Edema: 1+ Arm (L), 1+ Arm (R), 1+ Leg (L), 1+ Leg (R), 1+ Pedal (L), 1+ Pedal ( R), 1+ Generalized Edema: trace edema Neurologic: motor weakness Skin: normal pigmentation, warm/dry Oneil Curry DO Apr 30, 2018 14:51
--- NOTE | 2018-04-30 15:00 | Progress Note ---
DATE: 04/30/2018 SUBJECTIVE: The patient is a 67-year-old male patient. This patient is admitted to [facility] secondary to right upper extremity pain and he is also admitted because of his right upper extremity , but he also has other medical complications as well as neuropathic pain, diabetes type 2, but he has had increased mood lability and disorganized thought process worsened by the stress of his medical illness. His cognition has declined below his baseline. That is why, his attending has requested daily psychiatric consultation for this patient. He also has increased depression and mood lability as well. MENTAL STATUS EXAMINATION: This is a 67-year-old male. Appearance is disheveled. Attitude, irritable and agitated. Affect, guarded and restricted. Intellect poor. Mood, depressed and anxious. Motor activity, psychomotor agitation. Attention span is poor. Orientation x2. Speech is pressured. Thought process, disorganized and illogical. Thought content, auditory hallucinations and paranoid delusions. Insight and judgment is poor. DIAGNOSIS: Major depression with psychotic features. PLAN: Treat him with Abilify 2 mg p.o. daily as well as Prozac 30 mg daily and provided him with 20 minutes of cognitive behavioral therapy to him identify his automatic negative thoughts and help him to convert those negative thoughts to more positive thoughts to reduce depression, anxiety, and mood lability. Twenty minutes of cognitive behavioral therapy also to improve his behavior and have a more adaptive behavioral pattern. Chart reviewed. Discussed with staff. Rosa Yousif M.D. DR: Micheal JOB#: [id number] CC:
[2018-04-30 16:00] VITALS: BP 104/78
--- NOTE | 2018-04-30 18:40 | Cardiology Progress Note ---
Assessment/Plan Assessment/Plan The patient is seen and examined, full consult note is dictated. Objective Last 24 Hour Vital Signs Date Time Temp Pulse Resp B/P (MAP) Pulse Ox O2 Delivery O2 Flow Rate FiO2 04/30/18 17:39 98.0 04/30/18 16:00 75 04/30/18 16:00 98.1 76 20 104/78 (87) 97 04/30/18 14:00 154/83 04/30/18 12:00 98.0 72 20 154/83 (106) 96 04/30/18 12:00 68 04/30/18 09:40 142/73 04/30/18 09:00 Room Air 04/30/18 08:00 98.1 77 20 142/73 (96) 95 04/30/18 07:34 80 04/30/18 06:43 134/73 04/30/18 04:00 98.1 69 18 134/73 (93) 97 04/30/18 03:32 74 04/30/18 00:00 97.4 79 20 151/87 (108) 97 04/29/18 23:43 131/81 04/29/18 23:19 76 04/29/18 21:00 Room Air 04/29/18 20:01 87 04/29/18 20:00 98.7 88 20 131/81 (98) 95 Intake and Output 04/29/18 04/30/18 19:00 07:00 Intake Total 840 ml Balance 840 ml Intake Oral 840 ml # Voids 5 2 Laboratory Tests Test 04/30/18 07:25 White Blood Count 13.9 K/UL (4.8-10.8) H Red Blood Count 4.14 M/UL (4.70-6.10) L Hemoglobin 12.1 G/DL (14.2-18.0) L Hematocrit 35.7 % (42.0-52.0) L Mean Corpuscular Volume 86 FL (80-99) Mean Corpuscular Hemoglobin 29.3 PG (27.0-31.0) Mean Corpuscular Hemoglobin Concent 34.0 G/DL (32.0-36.0) Red Cell Distribution Width 13.9 % (11.6-14.8) Platelet Count 282 K/UL (150-450) Mean Platelet Volume 7.3 FL (6.5-10.1) Neutrophils (%) (Auto) 57.1 % (45.0-75.0) Lymphocytes (%) (Auto) 30.4 % (20.0-45.0) Monocytes (%) (Auto) 6.2 % (1.0-10.0) Eosinophils (%) (Auto) 5.2 % (0.0-3.0) H Basophils (%) (Auto) 1.1 % (0.0-2.0) Sodium Level 139 MMOL/L (136-145) Potassium Level 4.2 MMOL/L (3.5-5.1) Chloride Level 105 MMOL/L (98-107) Carbon Dioxide Level 28 MMOL/L (21-32) Anion Gap 6 mmol/L (5-15) Blood Urea Nitrogen 24 mg/dL (7-18) H Creatinine 0.8 MG/DL (0.55-1.30) Estimat Glomerular Filtration Rate > 60 mL/min (>60) Glucose Level 195 MG/DL (74-106) H Calcium Level 9.2 MG/DL (8.5-10.1) Phosphorus Level 3.5 MG/DL (2.5-4.9) Magnesium Level 1.7 MG/DL (1.8-2.4) L Total Bilirubin 0.6 MG/DL (0.2-1.0) Aspartate Amino Transf (AST/SGOT) 34 U/L (15-37) Alanine Aminotransferase (ALT/SGPT) 16 U/L (12-78) Alkaline Phosphatase 146 U/L (46-116) H Total Protein 6.6 G/DL (6.4-8.2) Albumin 2.6 G/DL (3.4-5.0) L Globulin 4.0 g/dL Albumin/Globulin Ratio 0.6 (1.0-2.7) L Suraj Tate MD Apr 30, 2018 18:40
--- NOTE | 2018-04-30 19:54 | NUR ---
HAND-OFF: Report given to CONNOR Jacob.
--- NOTE | 2018-04-30 19:56 | NUR ---
HAND-OFF: Report given to CONNOR Jacob.
--- NOTE | 2018-04-30 19:57 | NUR ---
NURSE NOTES: Received pt from CONNOR Poon. Pt awake, alert, and talkative. Bed in lowest position. Call light within reach. Will continue to monitor.
[2018-04-30 20:00] VITALS: BP 138/86
--- NOTE | 2018-04-30 20:21 | General Progress Note ---
Assessment/Plan Assessment/Plan # Mass of right upper extremity - reviewed the imaging of the arm and no dvt was noted --> have obtained a ct of the upper arm, r/o malignancy --> will likely need a biopsy, potentially sarcoma versus other localized disease --> obtain cxr to r/o mass as well # Anemia of chronic disease --> trend as needed # DM (diabetes mellitus screen) --> accuchecks qac/qhs # Thalamic pain syndrome # History of CVA (cerebrovascular accident) # Dvt ppx with heparin sq Time of note does not reflect time of encounter Grealty appreciate consultation! Subjective Constitutional: Denies: no symptoms, chills, diaphoresis, fever, malaise, weakness, other HEENT: Denies: no symptoms, eye pain, blurred vision, tearing, double vision, ear pain, ear discharge, nose pain, nose congestion, throat pain, throat swelling, mouth pain, mouth swelling, other Cardiovascular: Denies: no symptoms, chest pain, edema, irregular heart rate, lightheadedness, palpitations, syncope, other Gastrointestinal/Abdominal: Denies: no symptoms, abdomen distended, abdominal pain, black stools, tarry stools, blood in stool, constipated, diarrhea, difficulty swallowing, nausea, poor appetite, poor fluid intake, rectal bleeding , vomiting, other Genitourinary: Denies: no symptoms, burning, discharge, frequency, flank pain, hematuria, incontinence, pain, urgency, other Endocrine: Denies: no symptoms, excessive sweating, flushing, intolerance to cold, intolerance to heat, increased hunger, increased thirst, increased urine, unexplained weight gain, unexplained weight loss, other Hematologic/Lymphatic: Denies: no symptoms, anemia, easy bleeding, easy bruising, other Allergies: Coded Allergies: No Known Allergies (Unverified , 01/08/14) Subjective 04/30: pending ct scan of the arm, results pending Objective Last 24 Hour Vital Signs Date Time Temp Pulse Resp B/P (MAP) Pulse Ox O2 Delivery O2 Flow Rate FiO2 04/30/18 17:39 98.0 04/30/18 16:00 75 04/30/18 16:00 98.1 76 20 104/78 (87) 97 04/30/18 14:00 154/83 04/30/18 12:00 98.0 72 20 154/83 (106) 96 04/30/18 12:00 68 04/30/18 09:40 142/73 04/30/18 09:00 Room Air 04/30/18 08:00 98.1 77 20 142/73 (96) 95 04/30/18 07:34 80 04/30/18 06:43 134/73 04/30/18 04:00 98.1 69 18 134/73 (93) 97 04/30/18 03:32 74 04/30/18 00:00 97.4 79 20 151/87 (108) 97 04/29/18 23:43 131/81 04/29/18 23:19 76 04/29/18 21:00 Room Air Intake and Output 04/29/18 04/30/18 19:00 07:00 Intake Total 840 ml Balance 840 ml Intake Oral 840 ml # Voids 5 2 Laboratory Tests 04/30/18 07:25: White Blood Count 13.9H, Red Blood Count 4.14L, Hemoglobin 12.1L, Hematocrit 35.7L, Mean Corpuscular Volume 86, Mean Corpuscular Hemoglobin 29.3, Mean Corpuscular Hemoglobin Concent 34.0, Red Cell Distribution Width 13.9, Platelet Count 282, Mean Platelet Volume 7.3, Neutrophils (%) (Auto) 57.1, Lymphocytes (% ) (Auto) 30.4, Monocytes (%) (Auto) 6.2, Eosinophils (%) (Auto) 5.2H, Basophils (%) (Auto) 1.1, Sodium Level 139, Potassium Level 4.2, Chloride Level 105, Carbon Dioxide Level 28, Anion Gap 6, Blood Urea Nitrogen 24H, Creatinine 0.8, Estimat Glomerular Filtration Rate > 60, Glucose Level 195H, Calcium Level 9.2, Phosphorus Level 3.5, Magnesium Level 1.7L, Total Bilirubin 0.6, Aspartate Amino Transf (AST/SGOT) 34, Alanine Aminotransferase (ALT/SGPT) 16, Alkaline Phosphatase 146H, Pro-B-Type Natriuretic Peptide 228H, Total Protein 6.6, Albumin 2.6L, Globulin 4.0, Albumin/Globulin Ratio 0.6L Height (Feet): 6 Height (Inches): 1.00 Weight (Pounds): 238 Objective General Appearance: WD/WN Lines, tubes and drains: peripheral HEENT: normocephalic, at Neck: non-tender, normal alignment, supple Respiratory/Chest: chest wall non-tender, lungs clear Breasts: no masses noted Cardiovascular/Chest: normal peripheral pulses Abdomen: normal bowel sounds, non tender Extremities: normal range of motion, right arm swelling around elbow++ Guillermo Ugalde MD Apr 30, 2018 20:21
--- NOTE | 2018-04-30 21:45 | Consultation ---
DATE OF CONSULTATION: 04/30/2018 CARDIOLOGY CONSULTATION CONSULTING PHYSICIAN: Suraj Tate M.D. REFERRING PHYSICIAN: Oneil Curry D.O. REASON FOR CONSULTATION: Management of heart failure. HISTORY OF PRESENT ILLNESS: The patient is a very unfortunate 68-year-old gentleman, who is a resident of a nursing facility. He was brought in here for evaluation and management of bilateral lower extremity edema more on the right side than the left side. The patient unfortunately is aphasic due to prior history of CVA and right hemiparalysis. History of coronary artery disease risk factors including hypertension and diabetes. At the time of arrival to the hospital, blood pressure was 131/70 mmHg, heart rate was 61. His 12-lead electrocardiogram was significant for sinus rhythm at rate of 67 with left axis deviation and left anterior fascicular block. There were no acute ischemic features. Chest x-ray was not done in the emergency department. The patient was however admitted to telemetry for evaluation and management of bilateral lower extremity edema. PAST MEDICAL HISTORY: 1. CVA with right hemiparalysis. 2. History of hypertension. 3. History of diabetes mellitus. 4. History of aphasia. ALLERGIES: No known drug allergies. MEDICATIONS: List of medications from nursing facility including acetaminophen 325 mg q.4 hours p.r.n. mild temperature above 100.5 and mild pain, Abilify 2 mg p.o. daily, vitamin C 500 mg twice daily, aspirin 81 mg daily, Dulcolax 10 mg rectal daily p.r.n. constipation, calcium carbonate and vitamin D3 500 and 400 one tablet twice daily, clonidine 0.2 mg q.8 hours and 0.1 mg q.6 hours p.r.n. systolic blood pressure of 160, cranberry tablet 1 tablet daily, Artificial Tears, Colace 100 mg p.o. twice daily, Trusopt drops, fluoxetine 30 mg p.o. daily, Lasix 20 mg p.o. daily, hydrocodone/acetaminophen 10/325 one tablet q.4 hours p.r.n. pain, insulin glargine 20 units subcutaneously daily, insulin Humalog as needed, Cozaar 100 mg p.o. daily, milk of magnesia 30 mL q.4 hours p.r.n. constipation, metformin 500 mg 3 times a day, multivitamin one tablet p.o. daily, K-Dur 10 mEq p.o. daily, ranitidine 150 mg twice daily, Zocor 20 mg p.o. nightly, timolol eyedrops, and warfarin 11 mg p.o. daily. SOCIAL HISTORY: Denies any tobacco, alcohol, or illicit drug use. PAST SURGICAL HISTORY: None. REVIEW OF SYSTEMS: Unfortunately, the patient is aphasic and 12-system review cannot be done. PHYSICAL EXAMINATION: VITAL SIGNS: Blood pressure at time of arrival to the hospital 131/72, respirations 18, pulse of 61, temperature 98.3 degrees Fahrenheit, and O2 saturation 92% on room air. GENERAL: The patient is a very unfortunate 67-year-old gentleman, who is awake and alert, following commands, aphasic, in no apparent respiratory distress. HEENT: Atraumatic and normocephalic. Anicteric. Pupils are equal, round, and reactive to light and accommodation. Extraocular muscles are intact. NECK: JVP less than 5 cm. No carotid bruit. Carotid upstroke is 2+ bilaterally. CARDIOVASCULAR SYSTEM: Normal S1, S2. Regular rate and rhythm. No murmurs, gallops, or rubs. PMI is at fourth intercostal space at midclavicular line. LUNGS: Bibasilar crackles. ABDOMEN: Soft, nontender, and nondistended. No hepatosplenomegaly. Positive bowel sounds. EXTREMITIES: There is right transmetatarsal amputation and 1 to 2+ bilateral lower extremity edema. LABORATORY FINDINGS: WBC 10.5, hemoglobin 14.2, hematocrit of 42.0, platelet count is 272,000. Chemistry, sodium 140, potassium is 4.3, chloride 104, bicarbonate 26, BUN of 20, creatinine 0.8, glucose 221, calcium is 9.5, magnesium 1.7. INR is 1.0. Chest x-ray not available. ASSESSMENT AND PLAN: The patient is a very unfortunate 68-year-old gentleman who was seen in Cardiology consultation. 1. Bilateral lower extremity edema, right greater than left. Lung examination reveals some bibasilar crackles. I would like to obtain chest x-ray. In April 2017, the patient underwent some cardiac workup including 2D echocardiography which showed normal LV systolic function with LVEF of about 60% to 65%. We will obtain another 2D echocardiography to assess LV systolic and diastolic function. 2. History of left CVA with right hemiparalysis, hemiplegia. We will continue aspirin and statin in this patient. 3. Right upper extremity edema. Duplex of right upper extremity venous system showed no evidence of thrombus. 4. History of hypertension. We would like to continue the patient on clonidine as needed for now. I would like to thank Dr. Curry for allowing me to participate in the care of this patient. Suraj Tate M.D. DR: Parker JOB#: [id number] CC:
[2018-05-01] VITALS (7 sets, daily range): BP systolic 127–174; BP diastolic 75–105
--- NOTE | 2018-05-01 02:15 | Consultation ---
DATE OF CONSULTATION: 04/29/2018 NOTE: POOR AUDIO PSYCHOTHERAPY CONSULTATION PROGRESS NOTE CONSULTING PHYSICIAN: Leesa Anderson PsyD. TREATING ATTENDING PHYSICIAN: Oneil Curry D.O. HISTORY OF PRESENT ILLNESS: This is a 67-year-old male from [facility]. The patient was found to have . The patient has pain and diagnosed with possible DVT. The patient has been anxious, and for these reasons, the patient referred for psychotherapeutic services. This clinician assessed the patient. The patient is disorganized and confused. The patent has a difficult time articulating his thoughts, he is very disoriented and . The patient continues and confused. The patient does have a history of bipolar disorder and has been . The patient has no suicidal or homicidal thoughts of ideation, no . PAST MEDICAL HISTORY: Includes a history of CVA, diabetes, neuropathic pain. ALLERGIES: The patient has no known drug allergies. SUBSTANCE ABUSE HISTORY: The patient denies history of alcohol use, illicit substances, or smoking cigarettes. PAST PSYCHIATRIC HISTORY: The patient has a history of bipolar disorder and has been treated with psychotropic medications in the past. SOCIAL HISTORY: The patient is a 67-year-old single male patient from [facility], financially sustained through [employer]. MENTAL STATUS EXAMINATION: The patient is alert and oriented to person and place. Mood is irritable. Affect is labile. Thought process is disorganized. Thought content, confused. The patient has poor attention and concentration. Poor insight, judgment, and impulse control. . The patient is confused and disoriented. Provided the patient with supportive psychotherapy to help with helplessness and hopelessness and disorganized and to person, place, time, and situation. DIAGNOSIS: Bipolar 2 disorder, depressed severe without psychotic features. PLAN: Continue with behavioral management. This clinician has reviewed the patient's chart. Discussed the treatment with treatment team. Leesa Anderson PsyD. DR: Con JOB#: [id number] CC:
[2018-05-01] MEDS: cloNIDine 0.2mg Tab ORAL SCH ×3 (05:53→21:54)
[2018-05-01] MEDS: NovoLOG Insulin Flexpen SUBQ SCH ×4 (05:56→21:07)
[2018-05-01] MEDS: HYDROmorphone 1mg/ml Carpuject IVP PRN ×2 (06:02→16:13)
--- NOTE | 2018-05-01 07:16 | NUR ---
HAND-OFF: Report given to CONNOR Poon. Pt stable.
--- NOTE | 2018-05-01 07:31 | NUR ---
NURSE NOTES: Receive report from Nidia RYAN in bed resting. Denies any pain at this time. IV is intact and patent. Bed is in lowest position with bedside rails up X3. Brakes engaged for safety. Call light is within reach. Will continue with the plan of care.
[2018-05-01] MEDS: Aspirin EC 81mg tab ORAL SCH (08:27)
[2018-05-01] MEDS: ARIPiprazole 2mg tab ORAL SCH (08:27)
[2018-05-01] MEDS: Losartan 50mg tab ORAL SCH (08:27)
[2018-05-01] MEDS: Docusate 100mg cap ORAL SCH ×2 (08:27→21:05)
[2018-05-01] MEDS: FLUoxetine 10mg cap ORAL SCH (08:28)
[2018-05-01] MEDS: Heparin 5000 units/ml inj SUBQ SCH ×2 (08:29→21:06)
[2018-05-01 08:33] LABS: ANION GAP 12 mmol/L (5-15); BLOOD UREA NITROGEN 24 mg/dL (7-18); CALCIUM 9.3 MG/DL (8.5-10.1); CARBON DIOXIDE 21 MMOL/L (21-32); CHLORIDE 106 MMOL/L (98-107); CREATININE 0.7 MG/DL (0.55-1.30); POTASSIUM 4.4 MMOL/L (3.5-5.1); SODIUM 139 MMOL/L (136-145)
--- NOTE | 2018-05-01 10:28 | NUR ---
RADIOLOGY DEPT CHEST X-RAY DONE.-P.DYE
--- NOTE | 2018-05-01 10:40 | NUR ---
NURSE NOTES: Patient was transferred to Rm 310-2, report given to Rubina Cool RN. final assembler boat removed. Patient is stable.
[2018-05-01] MEDS ORDERED: Mylanta II UD 30ml ORAL PRN (11:00)
[2018-05-01] MEDS ORDERED: Metoclopramide 10mg/2ml Inj IVP PRN (11:00)
--- NOTE | 2018-05-01 11:00 | NUR ---
NURSE NOTES: Received report from CONNOR Donovan. Belongings checked with outgoing nurse. No respiratory discomfort noted. Denies any pain at this time. Patient in bedrest and call light within reach. Will continue to monitor.
[2018-05-01 11:28] LABS: BASOPHILS % (AUTO) 0.9 % (0.0-2.0); EOSINOPHILS % (AUTO) 6.5 % (0.0-3.0); HEMATOCRIT 41.1 % (42.0-52.0); LYMPHOCYTES % (AUTO) 19.7 % (20.0-45.0); MEAN CORPUSCULAR VOLUME 85 FL (80-99); MONOCYTES % (AUTO) 6.1 % (1.0-10.0); NEUTROPHILS % (AUTO) 66.9 % (45.0-75.0); PLATELET COUNT 281 K/UL (150-450); RED BLOOD COUNT 4.81 M/UL (4.70-6.10); RED CELL DISTRIBUTION WIDTH 13.8 % (11.6-14.8); WHITE BLOOD COUNT 11.6 K/UL (4.8-10.8)
--- NOTE | 2018-05-01 13:10 | General Progress Note ---
Assessment/Plan Problem List: (1) Neuropathic pain ICD Codes: M79.2 - Neuropathic pain SNOMED: 791852085 (2) Dysarthria, post-stroke ICD Codes: I69.322 - Dysarthria, post-stroke SNOMED: 4537546 (3) chronic ischemic multiple strokes (4) ATN (acute tubular necrosis) ICD Codes: N17.0 - Acute kidney failure with tubular necrosis SNOMED: 04662826 (5) DM (diabetes mellitus screen) ICD Codes: Z13.1 - DM (diabetes mellitus screen) SNOMED: 804870241 (6) Right arm pain ICD Codes: M79.601 - Pain in right arm SNOMED: 117278497 (7) History of CVA (cerebrovascular accident) ICD Codes: Z86.73 - Personal history of transient ischemic attack (TIA), and cerebral infarction without residual deficits SNOMED: 055456828 (8) Mass of right upper extremity ICD Codes: R22.31 - Localized swelling, mass and lump, right upper limb SNOMED: 812279558 Status: unchanged Assessment/Plan pt diet abx pain control cbc bmp am Subjective Constitutional: Reports: weakness Allergies: Coded Allergies: No Known Allergies (Unverified , 01/08/14) All Systems: reviewed and negative except above Subjective sleepy calm Objective Last 24 Hour Vital Signs Date Time Temp Pulse Resp B/P (MAP) Pulse Ox O2 Delivery O2 Flow Rate FiO2 05/01/18 12:00 99.3 101 20 171/105 (127) 95 05/01/18 09:00 Room Air 05/01/18 08:27 156/99 05/01/18 08:00 98.3 89 18 136/99 (111) 96 05/01/18 05:53 148/79 05/01/18 04:00 97.8 76 18 148/79 (102) 95 05/01/18 00:00 97.8 77 20 133/84 (100) 94 04/30/18 21:00 Room Air 04/30/18 20:00 98.2 86 20 138/86 (103) 93 04/30/18 17:39 98.0 04/30/18 16:00 75 04/30/18 16:00 98.1 76 20 104/78 (87) 97 04/30/18 14:00 154/83 Intake and Output 04/30/18 05/01/18 18:59 06:59 Intake Total 480 ml Balance 480 ml Intake Oral 480 ml # Voids 3 3 Laboratory Tests 05/01/18 06:10: Sodium Level 139, Potassium Level 4.4, Chloride Level 106, Carbon Dioxide Level 21, Anion Gap 12, Blood Urea Nitrogen 24H, Creatinine 0.7, Estimat Glomerular Filtration Rate > 60, Glucose Level 149H, Calcium Level 9.3 05/01/18 11:15: White Blood Count 11.6H, Red Blood Count 4.81, Hemoglobin 14.0L, Hematocrit 41.1L, Mean Corpuscular Volume 85, Mean Corpuscular Hemoglobin 29.1, Mean Corpuscular Hemoglobin Concent 34.1, Red Cell Distribution Width 13.8, Platelet Count 281, Mean Platelet Volume 7.2, Neutrophils (%) (Auto) 66.9, Lymphocytes (% ) (Auto) 19.7L, Monocytes (%) (Auto) 6.1, Eosinophils (%) (Auto) 6.5H, Basophils (%) (Auto) 0.9 Height (Feet): 6 Height (Inches): 1.00 Weight (Pounds): 238 General Appearance: lethargic EENT: normal ENT inspection Neck: normal alignment Cardiovascular: normal peripheral pulses, normal rate, regular rhythm Respiratory/Chest: chest wall non-tender, lungs clear, normal breath sounds Abdomen: normal bowel sounds, non tender, soft Extremities: normal inspection Edema: no edema noted Arm (L), no edema noted Arm (R), no edema noted Leg (L), no edema noted Leg (R), no edema noted Pedal (L), no edema noted Pedal (R), no edema noted Generalized Neurologic: motor weakness Skin: normal pigmentation, warm/dry Oneil Curry DO May 01, 2018 13:10
--- NOTE | 2018-05-01 13:48 | NUR ---
CASE MANAGEMENT:REVIEW 05/01/18 SI: RUE MASS AND PAIN 99.3 101 20 171/105 95% ON RA WBC+11.6 IS: ASA PO QD PROZAC PO QD LASIX PO QD COZAAR PO QD HEPARIN SQ Q12 CLONIDINE PO Q8 : MED/SURG STATUS 3 EAST DCP: FROM [facility]
--- NOTE | 2018-05-01 14:25 | Pulmonology Progress Note ---
Assessment/Plan Problems: (1) Mass of right upper extremity (2) DM (diabetes mellitus screen) (3) Thalamic pain syndrome (4) History of CVA (cerebrovascular accident) Assessment/Plan no new complains all reviewed symptomatic treatment sliding scale diabetic diet med/surg dvt prophylaxis Subjective ROS Limited/Unobtainable: No Allergies: Coded Allergies: No Known Allergies (Unverified , 01/08/14) Objective Last 24 Hour Vital Signs Date Time Temp Pulse Resp B/P (MAP) Pulse Ox O2 Delivery O2 Flow Rate FiO2 05/01/18 14:07 171/105 05/01/18 12:00 99.3 101 20 171/105 (127) 95 05/01/18 09:00 Room Air 05/01/18 08:27 156/99 05/01/18 08:00 98.3 89 18 136/99 (111) 96 05/01/18 05:53 148/79 05/01/18 04:00 97.8 76 18 148/79 (102) 95 05/01/18 00:00 97.8 77 20 133/84 (100) 94 04/30/18 21:00 Room Air 04/30/18 20:00 98.2 86 20 138/86 (103) 93 04/30/18 17:39 98.0 04/30/18 16:00 75 04/30/18 16:00 98.1 76 20 104/78 (87) 97 Intake and Output 04/30/18 05/01/18 18:59 06:59 Intake Total 480 ml Balance 480 ml Intake Oral 480 ml # Voids 3 3 Objective General Appearance: WD/WN HEENT: normocephalic, anicteric Respiratory/Chest: chest wall non-tender, lungs clear Breasts: no masses Cardiovascular: normal rate Abdomen: normal bowel sounds, no organomegaly Extremities: no clubbing 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 Complete Laboratory Tests 05/01/18 06:10: Sodium Level 139, Potassium Level 4.4, Chloride Level 106, Carbon Dioxide Level 21, Anion Gap 12, Blood Urea Nitrogen 24H, Creatinine 0.7, Estimat Glomerular Filtration Rate > 60, Glucose Level 149H, Calcium Level 9.3 05/01/18 11:15: White Blood Count 11.6H, Red Blood Count 4.81, Hemoglobin 14.0L, Hematocrit 41.1L, Mean Corpuscular Volume 85, Mean Corpuscular Hemoglobin 29.1, Mean Corpuscular Hemoglobin Concent 34.1, Red Cell Distribution Width 13.8, Platelet Count 281, Mean Platelet Volume 7.2, Neutrophils (%) (Auto) 66.9, Lymphocytes (% ) (Auto) 19.7L, Monocytes (%) (Auto) 6.1, Eosinophils (%) (Auto) 6.5H, Basophils (%) (Auto) 0.9 Current Medications Medications (Trade) Dose Ordered Sig/Henrik Route PRN Reason Start Time Stop Time Status Last Admin Dose Admin Acetaminophen (Tylenol) 650 mg Q4H PRN ORAL Mild Pain (Pain Scale 1-3) 05/01/18 11:00 05/28/18 10:59 Al Hydroxide/Mg Hydroxide (Mylanta II) 30 ml Q6H PRN ORAL dyspepsia 05/01/18 11:00 05/28/18 10:59 Aripiprazole (Abilify) 2 mg DAILY ORAL 05/02/18 09:00 05/30/18 08:59 Aspirin (Ecotrin) 81 mg DAILY ORAL 05/02/18 09:00 05/30/18 08:59 Clonidine HCl (Catapres Tab) 0.1 mg Q6H PRN ORAL For High Blood Pressure 05/01/18 11:00 05/29/18 10:59 Clonidine HCl (Catapres tab) 0.2 mg Q8HR ORAL 05/01/18 14:00 05/29/18 21:59 05/01/18 14:07 Dextrose (Dextrose 50%) 25 ml Q30M PRN IV Hypoglycemia 05/01/18 11:00 05/28/18 20:29 Dextrose (Dextrose 50%) 50 ml Q30M PRN IV Hypoglycemia 05/01/18 11:00 05/28/18 20:29 Docusate Sodium (Colace) 100 mg EVERY 12 HOURS ORAL 05/01/18 21:00 05/28/18 20:59 Fluoxetine HCl (PROzac) 30 mg DAILY ORAL 05/02/18 09:00 05/30/18 08:59 Furosemide (Lasix) 20 mg DAILY ORAL 05/02/18 09:00 05/30/18 08:59 Heparin Sodium (Porcine) (Heparin 5000 units/ml) 5,000 units EVERY 12 HOURS SUBQ 05/01/18 21:00 05/29/18 20:59 Hydromorphone HCl (Dilaudid) 1 mg Q6H PRN IVP Moderate Pain (Pain Scale 4-6) 05/01/18 12:30 05/05/18 12:29 Insulin Aspart (NovoLOG) BEFORE MEALS AND HS SUBQ 05/01/18 11:30 05/29/18 16:29 Losartan Potassium (Cozaar) 100 mg DAILY ORAL 05/02/18 09:00 05/30/18 08:59 Magnesium Hydroxide (Mom) 30 ml HSPRN PRN ORAL Constipation 05/01/18 20:30 05/28/18 20:29 Metoclopramide HCl (Reglan) 10 mg Q6H PRN IVP Nausea & Vomiting 05/01/18 11:00 05/28/18 10:59 Zolpidem Tartrate (Ambien) 5 mg HSPRN PRN ORAL Insomnia 05/01/18 20:30 05/05/18 20:29 Ani Barnes MD May 01, 2018 14:25
--- NOTE | 2018-05-01 17:23 | Diagnostic Imaging Report ---
Indication: Dyspnea Technique: One view of the chest Comparison: 11/01/2017 Findings: There is right perihilar atelectasis. Lungs and pleural spaces are otherwise clear. Heart size is normal. There is tortuous and ectatic Impression: Right basilar atelectasis. No acute process otherwise
--- NOTE | 2018-05-01 19:00 | Progress Note ---
DATE: 05/01/2018 SUBJECTIVE: This is a 68-year-old male patient with right upper extremity mass . He still has altered mental status, confusion, mood lability, worsened by stress of his medical illness that is why his attending has requested daily psychiatric consultation. MENTAL STATUS EXAMINATION: This is a 68-year-old male. Appearance is disheveled. Attitude, irritable and agitated. Affect, guarded and restricted. Intellect poor. Mood, depressed and anxious. Motor activity, psychomotor agitation. Attention span is poor. Orientation x2. Speech is low volume. Thought process, disorganized and illogical. Insight and judgment is poor. DIAGNOSIS: Major depression with psychotic features. PLAN: Treat him with Abilify 2 mg p.o. daily as well as Prozac 30 mg daily. Provided him with 20 minutes of cognitive behavioral therapy to him identify his automatic negative thoughts and help him to convert those negative thoughts to more positive thinking to reduce depression, anxiety, and mood lability and also help him to have more adaptive behavioral pattern. Seen and assessed at bedside. Rosa Yousif M.D. DR: Amelie JOB#: [id number] CC:
--- NOTE | 2018-05-01 19:26 | NUR ---
HAND-OFF: Report given to MACHO Castellon.
--- NOTE | 2018-05-01 19:27 | NUR ---
NURSE NOTES:Patient received from Rubina ANDRADE R.N. Patient in [facility] Alberto/A/OX3 . Patient denies any pain at this time . no sob / no n/v noted . LFA#22 H/L patent and intact. call light within reach . bed in low position at all times .will continue to monitor patient .
[2018-05-01] MEDS ORDERED: Milk of Magnesia 30ml Ud ORAL PRN (20:30)
[2018-05-01] MEDS ORDERED: Zolpidem 5mg tab ORAL PRN (20:30)
--- NOTE | 2018-05-01 21:29 | General Progress Note ---
Assessment/Plan Assessment/Plan # Mass of right upper extremity - reviewed the imaging of the arm and no dvt was noted --> have obtained a ct of the upper arm, r/o malignancy --> will likely need a biopsy, potentially sarcoma versus other localized disease --> obtain cxr to r/o mass as well # Anemia of chronic disease --> trend as needed # DM (diabetes mellitus screen) --> accuchecks qac/qhs # Thalamic pain syndrome # History of CVA (cerebrovascular accident) # Dvt ppx with heparin sq Time of note does not reflect time of encounter Grealty appreciate consultation! Subjective Constitutional: Denies: no symptoms, chills, diaphoresis, fever, malaise, weakness, other HEENT: Denies: no symptoms, eye pain, blurred vision, tearing, double vision, ear pain, ear discharge, nose pain, nose congestion, throat pain, throat swelling, mouth pain, mouth swelling, other Cardiovascular: Denies: no symptoms, chest pain, edema, irregular heart rate, lightheadedness, palpitations, syncope, other Respiratory: Denies: no symptoms, cough, orthopnea, shortness of breath, SOB with excertion, SOB at rest, sputum, stridor, wheezing, other Gastrointestinal/Abdominal: Denies: no symptoms, abdomen distended, abdominal pain, black stools, tarry stools, blood in stool, constipated, diarrhea, difficulty swallowing, nausea, poor appetite, poor fluid intake, rectal bleeding , vomiting, other Genitourinary: Denies: no symptoms, burning, discharge, frequency, flank pain, hematuria, incontinence, pain, urgency, other Neurologic/Psychiatric: Denies: no symptoms, anxiety, depressed, emotional problems, headache, numbness, paresthesia, pre-existing deficit, seizure, tingling, tremors, weakness, other Endocrine: Denies: no symptoms, excessive sweating, flushing, intolerance to cold, intolerance to heat, increased hunger, increased thirst, increased urine, unexplained weight gain, unexplained weight loss, other Hematologic/Lymphatic: Denies: no symptoms, anemia, easy bleeding, easy bruising, other Allergies: Coded Allergies: No Known Allergies (Unverified , 01/08/14) Subjective 04/30: pending ct scan of the arm, results pending 05/01:pt is seen by bedside, awake and confused, wbc 11.1, pending ct scan results Objective Last 24 Hour Vital Signs Date Time Temp Pulse Resp B/P (MAP) Pulse Ox O2 Delivery O2 Flow Rate FiO2 05/01/18 20:00 98.2 97 20 148/75 (99) 95 05/01/18 18:30 104 127/86 (100) 05/01/18 17:39 171/105 05/01/18 16:00 99.6 101 20 174/96 (122) 95 05/01/18 14:07 171/105 05/01/18 13:30 Room Air 05/01/18 12:00 99.3 101 20 171/105 (127) 95 05/01/18 09:00 Room Air 05/01/18 08:27 156/99 05/01/18 08:00 98.3 89 18 136/99 (111) 96 05/01/18 05:53 148/79 05/01/18 04:00 97.8 76 18 148/79 (102) 95 05/01/18 00:00 97.8 77 20 133/84 (100) 94 Intake and Output 04/30/18 05/01/18 19:00 07:00 Intake Total 480 ml Balance 480 ml Intake Oral 480 ml # Voids 3 3 Laboratory Tests 05/01/18 06:10: Sodium Level 139, Potassium Level 4.4, Chloride Level 106, Carbon Dioxide Level 21, Anion Gap 12, Blood Urea Nitrogen 24H, Creatinine 0.7, Estimat Glomerular Filtration Rate > 60, Glucose Level 149H, Calcium Level 9.3 05/01/18 11:15: White Blood Count 11.6H, Red Blood Count 4.81, Hemoglobin 14.0L, Hematocrit 41.1L, Mean Corpuscular Volume 85, Mean Corpuscular Hemoglobin 29.1, Mean Corpuscular Hemoglobin Concent 34.1, Red Cell Distribution Width 13.8, Platelet Count 281, Mean Platelet Volume 7.2, Neutrophils (%) (Auto) 66.9, Lymphocytes (% ) (Auto) 19.7L, Monocytes (%) (Auto) 6.1, Eosinophils (%) (Auto) 6.5H, Basophils (%) (Auto) 0.9 Height (Feet): 6 Height (Inches): 1.00 Weight (Pounds): 238 Objective General Appearance: WD/WN Lines, tubes and drains: peripheral HEENT: normocephalic, at Neck: non-tender, normal alignment, supple Respiratory/Chest: chest wall non-tender, lungs clear Breasts: no masses noted Cardiovascular/Chest: normal peripheral pulses Abdomen: normal bowel sounds, non tender Extremities: normal range of motion, right arm swelling around elbow++ Guillermo Ugalde MD May 01, 2018 21:29
--- NOTE | 2018-05-01 23:36 | Cardiology Progress Note ---
Assessment/Plan Assessment/Plan 1. Bilateral lower extremity edema, right greater than left. CXR shows no evidence of CHF, 2D echocardiography showed normal LV systolic function and diastolic function. 2. History of left CVA with right hemiparalysis, hemiplegia, continue aspirin and statin. 3. Right upper extremity edema. Duplex of right upper extremity venous bsystem showed no evidence of thrombus. 4. History of hypertension, clonidine tab ordered as needed for now. Subjective Subjective Sinus rhythm at rate of 97. Objective Last 24 Hour Vital Signs Date Time Temp Pulse Resp B/P (MAP) Pulse Ox O2 Delivery O2 Flow Rate FiO2 05/01/18 21:54 138/73 05/01/18 21:00 Room Air 05/01/18 20:00 98.2 97 20 148/75 (99) 95 05/01/18 18:30 104 127/86 (100) 05/01/18 17:39 171/105 05/01/18 16:00 99.6 101 20 174/96 (122) 95 05/01/18 14:07 171/105 05/01/18 13:30 Room Air 05/01/18 12:00 99.3 101 20 171/105 (127) 95 05/01/18 09:00 Room Air 05/01/18 08:27 156/99 05/01/18 08:00 98.3 89 18 136/99 (111) 96 05/01/18 05:53 148/79 05/01/18 04:00 97.8 76 18 148/79 (102) 95 05/01/18 00:00 97.8 77 20 133/84 (100) 94 Intake and Output 04/30/18 05/01/18 19:00 07:00 Intake Total 480 ml Balance 480 ml Intake Oral 480 ml # Voids 3 3 2D Echo: LVEF 55-60%, Mild LVH, Mod LAE, Normal LV diastolic fxn, RVSP 11 mmHg Laboratory Tests Test 05/01/18 06:10 05/01/18 11:15 Sodium Level 139 MMOL/L (136-145) Potassium Level 4.4 MMOL/L (3.5-5.1) Chloride Level 106 MMOL/L (98-107) Carbon Dioxide Level 21 MMOL/L (21-32) Anion Gap 12 mmol/L (5-15) Blood Urea Nitrogen 24 mg/dL (7-18) H Creatinine 0.7 MG/DL (0.55-1.30) Estimat Glomerular Filtration Rate > 60 mL/min (>60) Glucose Level 149 MG/DL (74-106) H Calcium Level 9.3 MG/DL (8.5-10.1) White Blood Count 11.6 K/UL (4.8-10.8) H Red Blood Count 4.81 M/UL (4.70-6.10) Hemoglobin 14.0 G/DL (14.2-18.0) L Hematocrit 41.1 % (42.0-52.0) L Mean Corpuscular Volume 85 FL (80-99) Mean Corpuscular Hemoglobin 29.1 PG (27.0-31.0) Mean Corpuscular Hemoglobin Concent 34.1 G/DL (32.0-36.0) Red Cell Distribution Width 13.8 % (11.6-14.8) Platelet Count 281 K/UL (150-450) Mean Platelet Volume 7.2 FL (6.5-10.1) Neutrophils (%) (Auto) 66.9 % (45.0-75.0) Lymphocytes (%) (Auto) 19.7 % (20.0-45.0) L Monocytes (%) (Auto) 6.1 % (1.0-10.0) Eosinophils (%) (Auto) 6.5 % (0.0-3.0) H Basophils (%) (Auto) 0.9 % (0.0-2.0) Objective HEENT: Atraumatic and normocephalic. Anicteric. Pupils are equal, round, and reactive to light and accommodation. Extraocular muscles are intact. NECK: JVP less than 5 cm. No carotid bruit. Carotid upstroke is 2+ bilaterally. CARDIOVASCULAR SYSTEM: Normal S1, S2. Regular rate and rhythm. No murmurs, gallops, or rubs. PMI is at fourth intercostal space at midclavicular line. LUNGS: Bibasilar crackles. ABDOMEN: Soft, nontender, and nondistended. No hepatosplenomegaly. Positive bowel sounds. EXTREMITIES: There is right transmetatarsal amputation and 1 to 2+ bilateral lower extremity edema. Suraj Tate MD May 01, 2018 23:36
[2018-05-02] VITALS (7 sets, daily range): BP systolic 131–160; BP diastolic 75–98
[2018-05-02] MEDS: HYDROmorphone 1mg/ml Carpuject IVP PRN ×4 (01:34→21:32)
[2018-05-02] MEDS: cloNIDine 0.2mg Tab ORAL SCH ×3 (06:31→21:31)
[2018-05-02] MEDS: NovoLOG Insulin Flexpen SUBQ SCH ×4 (06:32→20:42)
[2018-05-02 07:33] LABS: BASOPHILS % (AUTO) 0.8 % (0.0-2.0); EOSINOPHILS % (AUTO) 8.6 % (0.0-3.0); HEMATOCRIT 42.1 % (42.0-52.0); HEMOGLOBIN 14.3 G/DL (14.2-18.0); LYMPHOCYTES % (AUTO) 22.7 % (20.0-45.0); MEAN CORPUSCULAR VOLUME 86 FL (80-99); MONOCYTES % (AUTO) 6.7 % (1.0-10.0); NEUTROPHILS % (AUTO) 61.3 % (45.0-75.0); PLATELET COUNT 307 K/UL (150-450); RED BLOOD COUNT 4.88 M/UL (4.70-6.10); WHITE BLOOD COUNT 10.9 K/UL (4.8-10.8)
--- NOTE | 2018-05-02 07:33 | NUR ---
NURSE NOTES: Received report from MACHO Castellon. Patient asleep and call light within reach. Will continue to monitor.
--- NOTE | 2018-05-02 07:33 | NUR ---
HAND-OFF: Report given to ALVARO ANDRADE R.N.patient in stable condition.
[2018-05-02 07:51] LABS: ANION GAP 9 mmol/L (5-15); BLOOD UREA NITROGEN 22 mg/dL (7-18); CALCIUM 9.6 MG/DL (8.5-10.1); CARBON DIOXIDE 29 MMOL/L (21-32); CHLORIDE 106 MMOL/L (98-107); CREATININE 0.9 MG/DL (0.55-1.30); POTASSIUM 3.4 MMOL/L (3.5-5.1); SODIUM 143 MMOL/L (136-145)
[2018-05-02] MEDS: FLUoxetine 10mg cap ORAL SCH (08:31)
[2018-05-02] MEDS: Losartan 50mg tab ORAL SCH (08:31)
[2018-05-02] MEDS: ARIPiprazole 2mg tab ORAL SCH (08:32)
[2018-05-02] MEDS: Aspirin EC 81mg tab ORAL SCH (08:32)
[2018-05-02] MEDS: Docusate 100mg cap ORAL SCH ×3 (08:32→20:39)
[2018-05-02] MEDS: Heparin 5000 units/ml inj SUBQ SCH ×2 (08:33→20:42)
--- NOTE | 2018-05-02 09:45 | Progress Note ---
DATE: 05/02/2018 SUBJECTIVE: The patient continues to be confused and disorganized. He is a 68-year-old male patient with right upper extremity mass and he has altered mental status, confusion, mood lability, worsened by stress of his medical illness, and altered mental status. Because his cognition has declined below his baseline, his attending has requested daily psychiatric consultation. MENTAL STATUS EXAMINATION: This is a 68-year-old male. Appearance is disheveled. Attitude, irritable and agitated. Affect, guarded and restricted. Intellect poor. Mood, depressed and anxious. Motor activity, psychomotor agitation. Attention span is poor. Orientation x2. Speech is pressured. Thought process, disorganized and logical. Thought content, auditory hallucinations and paranoid delusions. Insight and judgment are poor. DIAGNOSIS: Major depression with psychotic features, rule out dementia with psychosis. PLAN: Plan for this patient is to treat him with a medication regimen of Abilify 2 mg p.o. daily and Prozac dose of 30 mg p.o. daily. Provide him with 20 minutes of cognitive behavioral therapy to him identify his automatic negative thoughts and help him to convert those negative thoughts to more positive thoughts to reduce depression, anxiety, and suicidality. Chart reviewed discussed with staff. Seen and assessed in his room. Twenty minutes of cognitive behavioral therapy provided. Rosa Yousif M.D. DR: EMANUEL JOB#: [id number] CC:
--- NOTE | 2018-05-02 10:24 | NUR ---
NURSE NOTES: Dr. Ugalde saw the patient and ordered U/A and RN FAMILY. Noted and carried out.
--- NOTE | 2018-05-02 12:19 | General Progress Note ---
Assessment/Plan Problem List: (1) Neuropathic pain ICD Codes: M79.2 - Neuropathic pain SNOMED: 071531080 (2) Dysarthria, post-stroke ICD Codes: I69.322 - Dysarthria, post-stroke SNOMED: 6684438 (3) chronic ischemic multiple strokes (4) ATN (acute tubular necrosis) ICD Codes: N17.0 - Acute kidney failure with tubular necrosis SNOMED: 12796042 (5) DM (diabetes mellitus screen) ICD Codes: Z13.1 - DM (diabetes mellitus screen) SNOMED: 159566408 (6) Right arm pain ICD Codes: M79.601 - Pain in right arm SNOMED: 043162262 (7) History of CVA (cerebrovascular accident) ICD Codes: Z86.73 - Personal history of transient ischemic attack (TIA), and cerebral infarction without residual deficits SNOMED: 891032949 (8) Mass of right upper extremity ICD Codes: R22.31 - Localized swelling, mass and lump, right upper limb SNOMED: 046694997 Status: stable, progressing Assessment/Plan pt diet abx pain control cbc bmp am Subjective Constitutional: Reports: weakness Allergies: Coded Allergies: No Known Allergies (Unverified , 01/08/14) All Systems: reviewed and negative except above Subjective sleepy calm Objective Last 24 Hour Vital Signs Date Time Temp Pulse Resp B/P (MAP) Pulse Ox O2 Delivery O2 Flow Rate FiO2 05/02/18 09:00 Room Air 05/02/18 08:31 160/98 05/02/18 08:00 98.3 98 20 160/98 (118) 93 05/02/18 06:31 138/85 05/02/18 04:00 98.2 84 18 138/85 (102) 95 05/02/18 00:00 98.6 96 18 131/89 (103) 94 05/01/18 21:54 138/73 05/01/18 21:00 Room Air 05/01/18 20:00 98.2 97 20 148/75 (99) 95 05/01/18 18:30 104 127/86 (100) 05/01/18 17:39 171/105 05/01/18 16:00 99.6 101 20 174/96 (122) 95 05/01/18 14:07 171/105 05/01/18 13:30 Room Air Intake and Output 05/01/18 05/02/18 19:00 07:00 Intake Total 460 ml 520 ml Output Total 200 ml 200 ml Balance 260 ml 320 ml Intake Oral 460 ml 520 ml Output Urine Total 200 ml 200 ml # Voids 2 2 Laboratory Tests 05/02/18 06:40: White Blood Count 10.9H, Red Blood Count 4.88, Hemoglobin 14.3, Hematocrit 42.1 , Mean Corpuscular Volume 86, Mean Corpuscular Hemoglobin 29.4, Mean Corpuscular Hemoglobin Concent 34.0, Red Cell Distribution Width 14.0, Platelet Count 307, Mean Platelet Volume 8.0, Neutrophils (%) (Auto) 61.3, Lymphocytes (% ) (Auto) 22.7, Monocytes (%) (Auto) 6.7, Eosinophils (%) (Auto) 8.6H, Basophils (%) (Auto) 0.8, Sodium Level 143, Potassium Level 3.4L, Chloride Level 106, Carbon Dioxide Level 29, Anion Gap 9, Blood Urea Nitrogen 22H, Creatinine 0.9, Estimat Glomerular Filtration Rate > 60, Glucose Level 181H, Calcium Level 9.6 Height (Feet): 6 Height (Inches): 1.00 Weight (Pounds): 238 General Appearance: lethargic EENT: normal ENT inspection Neck: normal alignment Cardiovascular: normal peripheral pulses, normal rate, regular rhythm Respiratory/Chest: chest wall non-tender, decreased breath sounds Abdomen: normal bowel sounds, non tender, soft Extremities: normal inspection Edema: 1+ Arm (L), 1+ Arm (R), 1+ Leg (L), 1+ Leg (R), 1+ Pedal (L), 1+ Pedal ( R), 1+ Generalized Neurologic: motor weakness Skin: normal pigmentation, warm/dry Oneil Curry DO May 02, 2018 12:19
--- NOTE | 2018-05-02 13:29 | General Progress Note ---
Assessment/Plan Assessment/Plan # Mass of right upper extremity - reviewed the imaging of the arm and no dvt was noted --> have obtained a ct of the upper arm, r/o malignancy HAS been ordered stat --> will likely need a biopsy, potentially sarcoma versus other localized disease --> obtain ct r/o mass as well # Anemia of chronic disease --> trend as needed # DM (diabetes mellitus screen) --> accuchecks qac/qhs # Thalamic pain syndrome # History of CVA (cerebrovascular accident) # Dvt ppx with heparin sq Time of note does not reflect time of encounter Grealty appreciate consultation! Subjective Constitutional: Denies: no symptoms, chills, diaphoresis, fever, malaise, weakness, other HEENT: Denies: no symptoms, eye pain, blurred vision, tearing, double vision, ear pain, ear discharge, nose pain, nose congestion, throat pain, throat swelling, mouth pain, mouth swelling, other Cardiovascular: Denies: no symptoms, chest pain, edema, irregular heart rate, lightheadedness, palpitations, syncope, other Respiratory: Denies: no symptoms, cough, orthopnea, shortness of breath, SOB with excertion, SOB at rest, sputum, stridor, wheezing, other Gastrointestinal/Abdominal: Denies: no symptoms, abdomen distended, abdominal pain, black stools, tarry stools, blood in stool, constipated, diarrhea, difficulty swallowing, nausea, poor appetite, poor fluid intake, rectal bleeding , vomiting, other Genitourinary: Denies: no symptoms, burning, discharge, frequency, flank pain, hematuria, incontinence, pain, urgency, other Allergies: Coded Allergies: No Known Allergies (Unverified , 01/08/14) Subjective 04/30: pending ct scan of the arm, results pending 05/01:pt is seen by bedside, awake and confused, wbc 11.1, pending ct scan results 05/[address] scan scan upper ext Objective Last 24 Hour Vital Signs Date Time Temp Pulse Resp B/P (MAP) Pulse Ox O2 Delivery O2 Flow Rate FiO2 05/02/18 12:00 97.8 92 19 157/97 (117) 95 05/02/18 09:00 Room Air 05/02/18 08:31 160/98 05/02/18 08:00 98.3 98 20 160/98 (118) 93 05/02/18 06:31 138/85 05/02/18 04:00 98.2 84 18 138/85 (102) 95 05/02/18 00:00 98.6 96 18 131/89 (103) 94 05/01/18 21:54 138/73 05/01/18 21:00 Room Air 05/01/18 20:00 98.2 97 20 148/75 (99) 95 05/01/18 18:30 104 127/86 (100) 05/01/18 17:39 171/105 05/01/18 16:00 99.6 101 20 174/96 (122) 95 05/01/18 14:07 171/105 05/01/18 13:30 Room Air Intake and Output 05/01/18 05/02/18 19:00 07:00 Intake Total 460 ml 520 ml Output Total 200 ml 200 ml Balance 260 ml 320 ml Intake Oral 460 ml 520 ml Output Urine Total 200 ml 200 ml # Voids 2 2 Laboratory Tests 05/02/18 06:40: White Blood Count 10.9H, Red Blood Count 4.88, Hemoglobin 14.3, Hematocrit 42.1 , Mean Corpuscular Volume 86, Mean Corpuscular Hemoglobin 29.4, Mean Corpuscular Hemoglobin Concent 34.0, Red Cell Distribution Width 14.0, Platelet Count 307, Mean Platelet Volume 8.0, Neutrophils (%) (Auto) 61.3, Lymphocytes (% ) (Auto) 22.7, Monocytes (%) (Auto) 6.7, Eosinophils (%) (Auto) 8.6H, Basophils (%) (Auto) 0.8, Sodium Level 143, Potassium Level 3.4L, Chloride Level 106, Carbon Dioxide Level 29, Anion Gap 9, Blood Urea Nitrogen 22H, Creatinine 0.9, Estimat Glomerular Filtration Rate > 60, Glucose Level 181H, Calcium Level 9.6 Height (Feet): 6 Height (Inches): 1.00 Weight (Pounds): 238 General Appearance: alert EENT: normal ENT inspection Neck: normal inspection Objective General Appearance: WD/WN Lines, tubes and drains: peripheral HEENT: normocephalic, at Neck: non-tender, normal alignment, supple Respiratory/Chest: chest wall non-tender, lungs clear Breasts: no masses noted Cardiovascular/Chest: normal peripheral pulses Abdomen: normal bowel sounds, non tender Extremities: normal range of motion, right arm swelling around elbow++ Guillermo Ugalde MD May 02, 2018 13:29
--- NOTE | 2018-05-02 14:36 | Pulmonology Progress Note ---
Assessment/Plan Problems: (1) Mass of right upper extremity (2) DM (diabetes mellitus screen) (3) Thalamic pain syndrome (4) History of CVA (cerebrovascular accident) Assessment/Plan no new complains all reviewed symptomatic treatment sliding scale diabetic diet med/surg dvt prophylaxis Subjective ROS Limited/Unobtainable: No Constitutional: Reports: no symptoms HEENT: Repors: no symptoms Respiratory: Reports: no symptoms Allergies: Coded Allergies: No Known Allergies (Unverified , 01/08/14) Objective Last 24 Hour Vital Signs Date Time Temp Pulse Resp B/P (MAP) Pulse Ox O2 Delivery O2 Flow Rate FiO2 05/02/18 14:14 157/97 05/02/18 12:00 97.8 92 19 157/97 (117) 95 05/02/18 09:00 Room Air 05/02/18 08:31 160/98 05/02/18 08:00 98.3 98 20 160/98 (118) 93 05/02/18 06:31 138/85 05/02/18 04:00 98.2 84 18 138/85 (102) 95 05/02/18 00:00 98.6 96 18 131/89 (103) 94 05/01/18 21:54 138/73 05/01/18 21:00 Room Air 05/01/18 20:00 98.2 97 20 148/75 (99) 95 05/01/18 18:30 104 127/86 (100) 05/01/18 17:39 171/105 05/01/18 16:00 99.6 101 20 174/96 (122) 95 Intake and Output 05/01/18 05/02/18 18:59 06:59 Intake Total 460 ml 520 ml Output Total 200 ml 200 ml Balance 260 ml 320 ml Intake Oral 460 ml 520 ml Output Urine Total 200 ml 200 ml # Voids 2 2 Objective General Appearance: WD/WN HEENT: normocephalic, anicteric Respiratory/Chest: chest wall non-tender, lungs clear Breasts: no masses Cardiovascular: normal rate Abdomen: normal bowel sounds, no organomegaly Extremities: no clubbing 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 Laboratory Tests 05/02/18 06:40: White Blood Count 10.9H, Red Blood Count 4.88, Hemoglobin 14.3, Hematocrit 42.1 , Mean Corpuscular Volume 86, Mean Corpuscular Hemoglobin 29.4, Mean Corpuscular Hemoglobin Concent 34.0, Red Cell Distribution Width 14.0, Platelet Count 307, Mean Platelet Volume 8.0, Neutrophils (%) (Auto) 61.3, Lymphocytes (% ) (Auto) 22.7, Monocytes (%) (Auto) 6.7, Eosinophils (%) (Auto) 8.6H, Basophils (%) (Auto) 0.8, Sodium Level 143, Potassium Level 3.4L, Chloride Level 106, Carbon Dioxide Level 29, Anion Gap 9, Blood Urea Nitrogen 22H, Creatinine 0.9, Estimat Glomerular Filtration Rate > 60, Glucose Level 181H, Calcium Level 9.6 Current Medications Medications (Trade) Dose Ordered Sig/Henrik Route PRN Reason Start Time Stop Time Status Last Admin Dose Admin Acetaminophen (Tylenol) 650 mg Q4H PRN ORAL Mild Pain (Pain Scale 1-3) 05/01/18 11:00 05/28/18 10:59 Al Hydroxide/Mg Hydroxide (Mylanta II) 30 ml Q6H PRN ORAL dyspepsia 05/01/18 11:00 05/28/18 10:59 Aripiprazole (Abilify) 2 mg DAILY ORAL 05/02/18 09:00 05/30/18 08:59 05/02/18 08:32 Aspirin (Ecotrin) 81 mg DAILY ORAL 05/02/18 09:00 05/30/18 08:59 05/02/18 08:32 Clonidine HCl (Catapres Tab) 0.1 mg Q6H PRN ORAL For High Blood Pressure 05/01/18 11:00 05/29/18 10:59 05/01/18 17:39 Clonidine HCl (Catapres tab) 0.2 mg Q8HR ORAL 05/01/18 14:00 05/29/18 21:59 05/02/18 14:14 Dextrose (Dextrose 50%) 25 ml Q30M PRN IV Hypoglycemia 05/01/18 11:00 05/28/18 20:29 Dextrose (Dextrose 50%) 50 ml Q30M PRN IV Hypoglycemia 05/01/18 11:00 05/28/18 20:29 Docusate Sodium (Colace) 100 mg EVERY 12 HOURS ORAL 05/01/18 21:00 2/6/19 20:59 05/01/18 21:05 Fluoxetine HCl (PROzac) 30 mg DAILY ORAL 05/02/18 09:00 05/30/18 08:59 05/02/18 08:31 Furosemide (Lasix) 20 mg DAILY ORAL 05/02/18 09:00 05/30/18 08:59 05/02/18 08:31 Heparin Sodium (Porcine) (Heparin 5000 units/ml) 5,000 units EVERY 12 HOURS SUBQ 05/01/18 21:00 05/29/18 20:59 05/02/18 08:33 Hydromorphone HCl (Dilaudid) 1 mg Q6H PRN IVP Moderate Pain (Pain Scale 4-6) 05/01/18 12:30 05/05/18 12:29 05/02/18 13:42 Insulin Aspart (NovoLOG) BEFORE MEALS AND HS SUBQ 05/01/18 11:30 05/29/18 16:29 05/02/18 12:14 Losartan Potassium (Cozaar) 100 mg DAILY ORAL 05/02/18 09:00 05/30/18 08:59 05/02/18 08:31 Magnesium Hydroxide (Mom) 30 ml HSPRN PRN ORAL Constipation 05/01/18 20:30 05/28/18 20:29 Metoclopramide HCl (Reglan) 10 mg Q6H PRN IVP Nausea & Vomiting 05/01/18 11:00 05/28/18 10:59 Zolpidem Tartrate (Ambien) 5 mg HSPRN PRN ORAL Insomnia 05/01/18 20:30 05/05/18 20:29 Ani Barnes MD May 02, 2018 14:36
--- NOTE | 2018-05-02 16:30 | NUR ---
NURSE NOTES: Patient off the unit for CT of upper lower extremity. Got phone call from radiology that was not successful due to patient's arm was contracted. Dr. Ugalde notified.
--- NOTE | 2018-05-02 18:00 | NUR ---
NURSE NOTES: Could not collect urine due to incontinent. Dr. Ugalde notified and ordered in and out cath. Patient refused.
--- NOTE | 2018-05-02 18:30 | NUR ---
NURSE NOTES: Potassium 3.4. Called Dr. Oneil Curry and left the message. Waiting call him back.
--- NOTE | 2018-05-02 18:30 | NUR ---
NURSE NOTES: Notified Dr. Ugalde and ordered cancel U/A and u-cul. Noted and carried out.
--- NOTE | 2018-05-02 19:07 | NUR ---
NURSE NOTES:Patient received A/A/OX3 with episode of forgetful . patient in bed . no s/s of distress . patient incontinent of urine keep clean and dry patient turned and repositioned to prevent skin breakdown . overlay matres and heel protectors in placed. safety maintained .call light within reach . bed in low position at all times . bed alarm on .will continue to monitor. Addendum: 05/02/18 at 1928 by GIULIA MONTERO LVN Patient received from Rubina ANDRADE R.N.
--- NOTE | 2018-05-02 19:25 | Cardiology Progress Note ---
Assessment/Plan Assessment/Plan 1. Bilateral lower extremity edema, right greater than left. CXR shows no evidence of CHF, 2D echocardiography showed normal LV systolic function and diastolic function. 2. History of left CVA with right hemiparalysis, hemiplegia, continue aspirin and statin. 3. Right upper extremity edema. Duplex of right upper extremity venous bsystem showed no evidence of thrombus. 4. History of hypertension, refusing BP medications. Subjective Subjective Sinus rhythm at rate of 92. Objective Last 24 Hour Vital Signs Date Time Temp Pulse Resp B/P (MAP) Pulse Ox O2 Delivery O2 Flow Rate FiO2 05/02/18 16:00 98.7 92 19 154/75 (101) 96 05/02/18 14:14 157/97 05/02/18 12:00 97.8 92 19 157/97 (117) 95 05/02/18 09:00 Room Air 05/02/18 08:31 160/98 05/02/18 08:00 98.3 98 20 160/98 (118) 93 05/02/18 06:31 138/85 05/02/18 04:00 98.2 84 18 138/85 (102) 95 05/02/18 00:00 98.6 96 18 131/89 (103) 94 05/01/18 21:54 138/73 05/01/18 21:00 Room Air 05/01/18 20:00 98.2 97 20 148/75 (99) 95 Intake and Output 05/01/18 05/02/18 18:59 06:59 Intake Total 460 ml 520 ml Output Total 200 ml 200 ml Balance 260 ml 320 ml Intake Oral 460 ml 520 ml Output Urine Total 200 ml 200 ml # Voids 2 2 2D Echo: LVEF 55-60%, Mild LVH, Mod LAE, Normal LV diastolic fxn, RVSP 11 mmHg Laboratory Tests Test 05/02/18 06:40 White Blood Count 10.9 K/UL (4.8-10.8) H Red Blood Count 4.88 M/UL (4.70-6.10) Hemoglobin 14.3 G/DL (14.2-18.0) Hematocrit 42.1 % (42.0-52.0) Mean Corpuscular Volume 86 FL (80-99) Mean Corpuscular Hemoglobin 29.4 PG (27.0-31.0) Mean Corpuscular Hemoglobin Concent 34.0 G/DL (32.0-36.0) Red Cell Distribution Width 14.0 % (11.6-14.8) Platelet Count 307 K/UL (150-450) Mean Platelet Volume 8.0 FL (6.5-10.1) Neutrophils (%) (Auto) 61.3 % (45.0-75.0) Lymphocytes (%) (Auto) 22.7 % (20.0-45.0) Monocytes (%) (Auto) 6.7 % (1.0-10.0) Eosinophils (%) (Auto) 8.6 % (0.0-3.0) H Basophils (%) (Auto) 0.8 % (0.0-2.0) Sodium Level 143 MMOL/L (136-145) Potassium Level 3.4 MMOL/L (3.5-5.1) L Chloride Level 106 MMOL/L (98-107) Carbon Dioxide Level 29 MMOL/L (21-32) Anion Gap 9 mmol/L (5-15) Blood Urea Nitrogen 22 mg/dL (7-18) H Creatinine 0.9 MG/DL (0.55-1.30) Estimat Glomerular Filtration Rate > 60 mL/min (>60) Glucose Level 181 MG/DL (74-106) H Calcium Level 9.6 MG/DL (8.5-10.1) Objective HEENT: Atraumatic and normocephalic. Anicteric. Pupils are equal, round, and reactive to light and accommodation. Extraocular muscles are intact. NECK: JVP less than 5 cm. No carotid bruit. Carotid upstroke is 2+ bilaterally. CARDIOVASCULAR SYSTEM: Normal S1, S2. Regular rate and rhythm. No murmurs, gallops, or rubs. PMI is at fourth intercostal space at midclavicular line. LUNGS: Bibasilar crackles. ABDOMEN: Soft, nontender, and nondistended. No hepatosplenomegaly. Positive bowel sounds. EXTREMITIES: There is right transmetatarsal amputation and 1 to 2+ bilateral lower extremity edema. Suraj Tate MD May 02, 2018 19:25
--- NOTE | 2018-05-02 19:30 | NUR ---
NURSE NOTES: Dr. Oneil Curry did not call back. Called one more time and left the message. Endorsed to night nurse MACHO Castellon.
--- NOTE | 2018-05-02 19:49 | NUR ---
HAND-OFF: Report given to MACHO Castellon.
[2018-05-03] VITALS (7 sets, daily range): BP systolic 128–183; BP diastolic 78–99
[2018-05-03] MEDS: cloNIDine 0.2mg Tab ORAL SCH ×3 (06:05→22:04)
[2018-05-03] MEDS: NovoLOG Insulin Flexpen SUBQ SCH ×4 (06:07→22:08)
--- NOTE | 2018-05-03 07:20 | NUR ---
HAND-OFF: Report given to Anayeli Kelsey
--- NOTE | 2018-05-03 07:30 | NUR ---
NURSE NOTES: Received report from Cande PRITCHARD. During rounds patient is asleep, no s/s acute distress noted. RR even and unlabored. IV asymptomatic and locked, Patient on overlay mattress with heel protectors on prophylactically. Per report, patient is oriented x3-4 with confusion. Fall precautions maintained. Side rails upx2, bed low and locked, call light in reach. Will continue to monitor.
[2018-05-03 07:37] LABS: BASOPHILS % (AUTO) 1.1 % (0.0-2.0); EOSINOPHILS % (AUTO) 11.9 % (0.0-3.0); HEMATOCRIT 40.8 % (42.0-52.0); HEMOGLOBIN 13.7 G/DL (14.2-18.0); LYMPHOCYTES % (AUTO) 24.1 % (20.0-45.0); MEAN CORPUSCULAR VOLUME 87 FL (80-99); MONOCYTES % (AUTO) 5.5 % (1.0-10.0); NEUTROPHILS % (AUTO) 57.4 % (45.0-75.0); PLATELET COUNT 253 K/UL (150-450); RED BLOOD COUNT 4.69 M/UL (4.70-6.10); RED CELL DISTRIBUTION WIDTH 14.1 % (11.6-14.8); WHITE BLOOD COUNT 10.3 K/UL (4.8-10.8)
[2018-05-03 07:50] LABS: ANION GAP 9 mmol/L (5-15); BLOOD UREA NITROGEN 21 mg/dL (7-18); CALCIUM 9.6 MG/DL (8.5-10.1); CARBON DIOXIDE 28 MMOL/L (21-32); CHLORIDE 106 MMOL/L (98-107); CREATININE 0.8 MG/DL (0.55-1.30); POTASSIUM 3.5 MMOL/L (3.5-5.1); SODIUM 143 MMOL/L (136-145)
[2018-05-03] MEDS: HYDROmorphone 1mg/ml Carpuject IVP PRN ×2 (08:23→18:40)
--- NOTE | 2018-05-03 09:16 | General Progress Note ---
Assessment/Plan Problem List: (1) Neuropathic pain ICD Codes: M79.2 - Neuropathic pain SNOMED: 365749665 (2) Dysarthria, post-stroke ICD Codes: I69.322 - Dysarthria, post-stroke SNOMED: 3823347 (3) chronic ischemic multiple strokes (4) ATN (acute tubular necrosis) ICD Codes: N17.0 - Acute kidney failure with tubular necrosis SNOMED: 96785429 (5) DM (diabetes mellitus screen) ICD Codes: Z13.1 - DM (diabetes mellitus screen) SNOMED: 002638680 (6) Right arm pain ICD Codes: M79.601 - Pain in right arm SNOMED: 838808745 (7) History of CVA (cerebrovascular accident) ICD Codes: Z86.73 - Personal history of transient ischemic attack (TIA), and cerebral infarction without residual deficits SNOMED: 583539508 (8) Mass of right upper extremity ICD Codes: R22.31 - Localized swelling, mass and lump, right upper limb SNOMED: 479188344 Status: stable, progressing Assessment/Plan pt diet abx pain control cbc bmp am dc plan Subjective Constitutional: Reports: weakness Allergies: Coded Allergies: No Known Allergies (Unverified , 01/08/14) All Systems: reviewed and negative except above Subjective sleepy calm Objective Last 24 Hour Vital Signs Date Time Temp Pulse Resp B/P (MAP) Pulse Ox O2 Delivery O2 Flow Rate FiO2 05/03/18 08:00 97.6 81 15 176/99 (124) 100 05/03/18 06:05 137/76 05/03/18 04:00 98.2 88 19 128/78 (95) 99 05/03/18 00:00 99.0 83 19 135/80 (98) 98 05/02/18 22:02 98.2 05/02/18 21:31 137/76 05/02/18 21:28 98.2 81 19 137/76 (96) 99 05/02/18 21:00 Room Air 05/02/18 20:00 99.2 79 19 133/76 (95) 98 05/02/18 16:00 98.7 92 19 154/75 (101) 96 05/02/18 14:14 157/97 05/02/18 12:00 97.8 92 19 157/97 (117) 95 Intake and Output 1/11/19 1/12/19 19:00 07:00 Intake Total 1000 ml 620 ml Balance 1000 ml 620 ml Intake Oral 1000 ml 520 ml IV Total 100 ml # Voids 7 6 Laboratory Tests 05/03/18 06:26: White Blood Count 10.3, Red Blood Count 4.69L, Hemoglobin 13.7L, Hematocrit 40.8L, Mean Corpuscular Volume 87, Mean Corpuscular Hemoglobin 29.3, Mean Corpuscular Hemoglobin Concent 33.6, Red Cell Distribution Width 14.1, Platelet Count 253, Mean Platelet Volume 7.0, Neutrophils (%) (Auto) 57.4, Lymphocytes (% ) (Auto) 24.1, Monocytes (%) (Auto) 5.5, Eosinophils (%) (Auto) 11.9H, Basophils (%) (Auto) 1.1, Sodium Level 143, Potassium Level 3.5, Chloride Level 106, Carbon Dioxide Level 28, Anion Gap 9, Blood Urea Nitrogen 21H, Creatinine 0.8, Estimat Glomerular Filtration Rate > 60, Glucose Level 195H, Calcium Level 9.6 Height (Feet): 6 Height (Inches): 1.00 Weight (Pounds): 238 General Appearance: lethargic EENT: normal ENT inspection Neck: normal alignment Cardiovascular: normal peripheral pulses, normal rate, regular rhythm Respiratory/Chest: chest wall non-tender, lungs clear, normal breath sounds Abdomen: normal bowel sounds, non tender, soft Extremities: normal inspection Edema: 1+ Arm (L), 1+ Arm (R), 1+ Leg (L), 1+ Leg (R), 1+ Pedal (L), 1+ Pedal ( R), 1+ Generalized Edema: trace edema Neurologic: motor weakness Skin: normal pigmentation, warm/dry Oneil Curry DO May 03, 2018 09:16
--- NOTE | 2018-05-03 09:46 | NUR ---
NURSE NOTES: Patient is refusing all his 0900 medications at this time. Educated patient that it is important to take his medications to maintain adequate BP and safety, patient still refuses, stating "I take my medications when I want to at home". Educated patient that I will return later to see if he will take his medications. Will continue to monitor.
[2018-05-03] MEDS ORDERED: Tubing IV Secondary IV ONE (10:32)
[2018-05-03] MEDS ORDERED: NS 275ml ONE (10:32)
--- NOTE | 2018-05-03 10:36 | NUR ---
NURSE NOTES: Patient refusing to sign IV contrast consent. Patient is also refusing to have CT. Dr. Felix is aware and MD stated to keep order active and reassess if patient will consent to CT at later time. Will continue to monitor.
[2018-05-03] MEDS: Losartan 50mg tab ORAL SCH (11:00)
[2018-05-03] MEDS: ARIPiprazole 2mg tab ORAL SCH (11:00)
[2018-05-03] MEDS: Docusate 100mg cap ORAL SCH ×2 (11:00→22:04)
[2018-05-03] MEDS: FLUoxetine 10mg cap ORAL SCH (11:00)
[2018-05-03] MEDS: Heparin 5000 units/ml inj SUBQ SCH ×2 (11:00→22:07)
[2018-05-03] MEDS: Aspirin EC 81mg tab ORAL SCH (11:00)
--- NOTE | 2018-05-03 11:07 | NUR ---
NURSE NOTES: Patient still refusing all [address] Curry that patient is refusing all meds. is aware.
--- NOTE | 2018-05-03 13:03 | NUR ---
NURSE NOTES: Patient BP 183/98. Patient currently asymptomatic, does not report headache or blurred vision. Dr. Curry is aware that patient refused all morning blood pressure medications. Patient is currently refusing PRN Clonidine. Educated patient on the importance of bringing down the blood pressure, patient states he understands, but still refuses the medication. Called Dr. Tate and left voicemail with MD informing of patient's increased BP and that patient is refusing all meds. Awaiting callback. Will continue to monitor.
--- NOTE | 2018-05-03 14:16 | NUR ---
NURSE NOTES: Patient still noncompliant with medication regimen. Refusing [address] Yousif and informed MD that patient is noncompliant with care and refusing all meds. MD aware and ordered for PET team evaluation. Order entered.
--- NOTE | 2018-05-03 14:23 | NUR ---
NURSE NOTES: Received call from Dr. Tate. aware patient's BP is elevated and patient is refusing all medications. No further orders from MD at this time. Will continue to monitor.
--- NOTE | 2018-05-03 15:35 | General Progress Note ---
Assessment/Plan Assessment/Plan # Mass of right upper extremity - reviewed the imaging of the arm and no dvt was noted --> will likely need a biopsy, potentially sarcoma versus other localized disease --> obtain ct r/o mass as well, but he has been refusing it after multiple attempts # Anemia of chronic disease --> trend as needed --> w/u has been reviewed # DM (diabetes mellitus screen) --> accuchecks qac/qhs # Thalamic pain syndrome # History of CVA (cerebrovascular accident) # Dvt ppx with heparin sq Time of note does not reflect time of encounter Grealty appreciate consultation! Subjective Constitutional: Denies: no symptoms, chills, diaphoresis, fever, malaise, weakness, other HEENT: Denies: no symptoms, eye pain, blurred vision, tearing, double vision, ear pain, ear discharge, nose pain, nose congestion, throat pain, throat swelling, mouth pain, mouth swelling, other Cardiovascular: Denies: no symptoms, chest pain, edema, irregular heart rate, lightheadedness, palpitations, syncope, other Respiratory: Denies: no symptoms, cough, orthopnea, shortness of breath, SOB with excertion, SOB at rest, sputum, stridor, wheezing, other Genitourinary: Denies: no symptoms, burning, discharge, frequency, flank pain, hematuria, incontinence, pain, urgency, other Endocrine: Denies: no symptoms, excessive sweating, flushing, intolerance to cold, intolerance to heat, increased hunger, increased thirst, increased urine, unexplained weight gain, unexplained weight loss, other Hematologic/Lymphatic: Denies: no symptoms, anemia, easy bleeding, easy bruising, other Allergies: Coded Allergies: No Known Allergies (Unverified , 01/08/14) Subjective 04/30: pending ct scan of the arm, results pending 05/01:pt is seen by bedside, awake and confused, wbc 11.1, pending ct scan results 05/[address] scan scan upper ext 05/03: refusing all meds and refusing to get ct arm with contrast Objective Last 24 Hour Vital Signs Date Time Temp Pulse Resp B/P (MAP) Pulse Ox O2 Delivery O2 Flow Rate FiO2 05/03/18 14:00 183/98 05/03/18 12:30 99.7 87 18 183/98 (126) 100 05/03/18 11:00 166/92 05/03/18 09:24 76 166/92 (116) 05/03/18 09:00 Room Air 05/03/18 08:53 97.6 05/03/18 08:00 97.6 81 15 176/99 (124) 100 05/03/18 06:05 137/76 05/03/18 04:00 98.2 88 19 128/78 (95) 99 05/03/18 00:00 99.0 83 19 135/80 (98) 98 05/02/18 21:31 137/76 05/02/18 21:28 98.2 81 19 137/76 (96) 99 05/02/18 21:00 Room Air 05/02/18 20:00 99.2 79 19 133/76 (95) 98 05/02/18 16:00 98.7 92 19 154/75 (101) 96 Intake and Output 05/02/18 05/03/18 19:00 07:00 Intake Total 1000 ml 620 ml Balance 1000 ml 620 ml Intake Oral 1000 ml 520 ml IV Total 100 ml # Voids 7 6 Laboratory Tests 05/03/18 06:26: White Blood Count 10.3, Red Blood Count 4.69L, Hemoglobin 13.7L, Hematocrit 40.8L, Mean Corpuscular Volume 87, Mean Corpuscular Hemoglobin 29.3, Mean Corpuscular Hemoglobin Concent 33.6, Red Cell Distribution Width 14.1, Platelet Count 253, Mean Platelet Volume 7.0, Neutrophils (%) (Auto) 57.4, Lymphocytes (% ) (Auto) 24.1, Monocytes (%) (Auto) 5.5, Eosinophils (%) (Auto) 11.9H, Basophils (%) (Auto) 1.1, Sodium Level 143, Potassium Level 3.5, Chloride Level 106, Carbon Dioxide Level 28, Anion Gap 9, Blood Urea Nitrogen 21H, Creatinine 0.8, Estimat Glomerular Filtration Rate > 60, Glucose Level 195H, Calcium Level 9.6 Height (Feet): 6 Height (Inches): 1.00 Weight (Pounds): 238 Objective General Appearance: WD/WN Lines, tubes and drains: peripheral HEENT: normocephalic, at Neck: non-tender, normal alignment, supple Respiratory/Chest: chest wall non-tender, lungs clear Breasts: no masses noted Cardiovascular/Chest: normal peripheral pulses Abdomen: normal bowel sounds, non tender Extremities: normal range of motion, right arm swelling around elbow++ Guillermo Ugalde MD May 03, 2018 15:35
--- NOTE | 2018-05-03 16:56 | Cardiology Progress Note ---
Assessment/Plan Assessment/Plan 1. Bilateral lower extremity edema, right greater than left. CXR shows no evidence of CHF, 2D echocardiography showed normal LV systolic function and diastolic function. 2. History of left CVA with right hemiparalysis, hemiplegia, continue aspirin and statin. 3. Right upper extremity edema. Duplex of right upper extremity venous bsystem showed no evidence of thrombus. 4. History of hypertension, continue losartan, clonidine and furosemide. Subjective Subjective Sinus rhythm at rate of 91. Objective Last 24 Hour Vital Signs Date Time Temp Pulse Resp B/P (MAP) Pulse Ox O2 Delivery O2 Flow Rate FiO2 05/03/18 16:00 98.5 91 15 144/94 (111) 100 05/03/18 14:00 183/98 05/03/18 12:30 99.7 87 18 183/98 (126) 100 05/03/18 11:00 166/92 05/03/18 09:24 76 166/92 (116) 05/03/18 09:00 Room Air 05/03/18 08:53 97.6 05/03/18 08:00 97.6 81 15 176/99 (124) 100 05/03/18 06:05 137/76 05/03/18 04:00 98.2 88 19 128/78 (95) 99 05/03/18 00:00 99.0 83 19 135/80 (98) 98 05/02/18 21:31 137/76 05/02/18 21:28 98.2 81 19 137/76 (96) 99 05/02/18 21:00 Room Air 05/02/18 20:00 99.2 79 19 133/76 (95) 98 Intake and Output 05/02/18 05/03/18 19:00 07:00 Intake Total 1000 ml 620 ml Balance 1000 ml 620 ml Intake Oral 1000 ml 520 ml IV Total 100 ml # Voids 7 6 2D Echo: LVEF 55-60%, Mild LVH, Mod LAE, Normal LV diastolic fxn, RVSP 11 mmHg Laboratory Tests Test 05/03/18 06:26 White Blood Count 10.3 K/UL (4.8-10.8) Red Blood Count 4.69 M/UL (4.70-6.10) L Hemoglobin 13.7 G/DL (14.2-18.0) L Hematocrit 40.8 % (42.0-52.0) L Mean Corpuscular Volume 87 FL (80-99) Mean Corpuscular Hemoglobin 29.3 PG (27.0-31.0) Mean Corpuscular Hemoglobin Concent 33.6 G/DL (32.0-36.0) Red Cell Distribution Width 14.1 % (11.6-14.8) Platelet Count 253 K/UL (150-450) Mean Platelet Volume 7.0 FL (6.5-10.1) Neutrophils (%) (Auto) 57.4 % (45.0-75.0) Lymphocytes (%) (Auto) 24.1 % (20.0-45.0) Monocytes (%) (Auto) 5.5 % (1.0-10.0) Eosinophils (%) (Auto) 11.9 % (0.0-3.0) H Basophils (%) (Auto) 1.1 % (0.0-2.0) Sodium Level 143 MMOL/L (136-145) Potassium Level 3.5 MMOL/L (3.5-5.1) Chloride Level 106 MMOL/L (98-107) Carbon Dioxide Level 28 MMOL/L (21-32) Anion Gap 9 mmol/L (5-15) Blood Urea Nitrogen 21 mg/dL (7-18) H Creatinine 0.8 MG/DL (0.55-1.30) Estimat Glomerular Filtration Rate > 60 mL/min (>60) Glucose Level 195 MG/DL (74-106) H Calcium Level 9.6 MG/DL (8.5-10.1) Objective HEENT: Atraumatic and normocephalic. Anicteric. Pupils are equal, round, and reactive to light and accommodation. Extraocular muscles are intact. NECK: JVP less than 5 cm. No carotid bruit. Carotid upstroke is 2+ bilaterally. CARDIOVASCULAR SYSTEM: Normal S1, S2. Regular rate and rhythm. No murmurs, gallops, or rubs. PMI is at fourth intercostal space at midclavicular line. LUNGS: Bibasilar crackles. ABDOMEN: Soft, nontender, and nondistended. No hepatosplenomegaly. Positive bowel sounds. EXTREMITIES: There is right transmetatarsal amputation and 1 to 2+ bilateral lower extremity edema. Suraj Tate MD May 03, 2018 16:56
--- NOTE | 2018-05-03 19:00 | NUR ---
NURSE NOTES: [facility] .
--- NOTE | 2018-05-03 19:37 | NUR ---
NURSE NOTES:Patient received from ALEXIA Kelsey Patient in bed .A/A/OX2. With forgetful.patient no s/s of distress . explained to patient the important to take he's B/P Medications . patient verbalized with understanding . patient incontinent of urine keep clean and dry . patient turned and reposition for comfort . overlay LFA and heel protector in placed. [id number] / H/L patent and intact . call light within reach. bed in low position at all times . will continue to monitor.
--- NOTE | 2018-05-03 19:37 | NUR ---
HAND-OFF: Report given to Cande PRITCHARD. Patient stable.
--- NOTE | 2018-05-03 21:37 | Pulmonology Progress Note ---
Assessment/Plan Problems: (1) Mass of right upper extremity (2) DM (diabetes mellitus screen) (3) Thalamic pain syndrome (4) History of CVA (cerebrovascular accident) Assessment/Plan no new complains all reviewed symptomatic treatment sliding scale diabetic diet med/surg dvt prophylaxis Subjective Allergies: Coded Allergies: No Known Allergies (Unverified , 01/08/14) Objective Last 24 Hour Vital Signs Date Time Temp Pulse Resp B/P (MAP) Pulse Ox O2 Delivery O2 Flow Rate FiO2 05/03/18 19:10 98.5 05/03/18 16:00 98.5 91 15 144/94 (111) 100 05/03/18 14:00 183/98 05/03/18 12:30 99.7 87 18 183/98 (126) 100 05/03/18 11:00 166/92 05/03/18 09:24 76 166/92 (116) 05/03/18 09:00 Room Air 05/03/18 08:00 97.6 81 15 176/99 (124) 100 05/03/18 06:05 137/76 05/03/18 04:00 98.2 88 19 128/78 (95) 99 05/03/18 00:00 99.0 83 19 135/80 (98) 98 Intake and Output 05/02/18 05/03/18 18:59 06:59 Intake Total 1000 ml 620 ml Balance 1000 ml 620 ml Intake Oral 1000 ml 520 ml IV Total 100 ml # Voids 7 6 Objective General Appearance: WD/WN HEENT: normocephalic, anicteric Respiratory/Chest: chest wall non-tender, lungs clear Breasts: no masses Cardiovascular: normal rate Abdomen: normal bowel sounds, no organomegaly Extremities: no clubbing 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 Laboratory Tests 05/03/18 06:26: White Blood Count 10.3, Red Blood Count 4.69L, Hemoglobin 13.7L, Hematocrit 40.8L, Mean Corpuscular Volume 87, Mean Corpuscular Hemoglobin 29.3, Mean Corpuscular Hemoglobin Concent 33.6, Red Cell Distribution Width 14.1, Platelet Count 253, Mean Platelet Volume 7.0, Neutrophils (%) (Auto) 57.4, Lymphocytes (% ) (Auto) 24.1, Monocytes (%) (Auto) 5.5, Eosinophils (%) (Auto) 11.9H, Basophils (%) (Auto) 1.1, Sodium Level 143, Potassium Level 3.5, Chloride Level 106, Carbon Dioxide Level 28, Anion Gap 9, Blood Urea Nitrogen 21H, Creatinine 0.8, Estimat Glomerular Filtration Rate > 60, Glucose Level 195H, Calcium Level 9.6 Current Medications Medications (Trade) Dose Ordered Sig/Henrik Route PRN Reason Start Time Stop Time Status Last Admin Dose Admin Acetaminophen (Tylenol) 650 mg Q4H PRN ORAL Mild Pain (Pain Scale 1-3) 05/01/18 11:00 05/28/18 10:59 Al Hydroxide/Mg Hydroxide (Mylanta II) 30 ml Q6H PRN ORAL dyspepsia 05/01/18 11:00 05/28/18 10:59 Aripiprazole (Abilify) 2 mg DAILY ORAL 05/02/18 09:00 05/30/18 08:59 05/02/18 08:32 Aspirin (Ecotrin) 81 mg DAILY ORAL 05/02/18 09:00 05/30/18 08:59 05/02/18 08:32 Clonidine HCl (Catapres Tab) 0.1 mg Q6H PRN ORAL For High Blood Pressure 05/01/18 11:00 05/29/18 10:59 05/01/18 17:39 Clonidine HCl (Catapres tab) 0.2 mg Q8HR ORAL 05/01/18 14:00 05/29/18 21:59 05/03/18 06:05 Dextrose (Dextrose 50%) 25 ml Q30M PRN IV Hypoglycemia 05/01/18 11:00 05/28/18 20:29 Dextrose (Dextrose 50%) 50 ml Q30M PRN IV Hypoglycemia 05/01/18 11:00 05/28/18 20:29 Docusate Sodium (Colace) 100 mg EVERY 12 HOURS ORAL 05/01/18 21:00 05/28/18 20:59 05/02/18 20:39 Fluoxetine HCl (PROzac) 30 mg DAILY ORAL 05/02/18 09:00 05/30/18 08:59 05/02/18 08:31 Furosemide (Lasix) 20 mg DAILY ORAL 05/02/18 09:00 05/30/18 08:59 05/02/18 08:31 Heparin Sodium (Porcine) (Heparin 5000 units/ml) 5,000 units EVERY 12 HOURS SUBQ 05/01/18 21:00 05/29/18 20:59 05/02/18 20:42 Hydromorphone HCl (Dilaudid) 1 mg Q6H PRN IVP Moderate Pain (Pain Scale 4-6) 05/01/18 12:30 05/05/18 12:29 05/03/18 18:40 Insulin Aspart (NovoLOG) BEFORE MEALS AND HS SUBQ 05/01/18 11:30 05/29/18 16:29 05/03/18 17:00 Losartan Potassium (Cozaar) 100 mg DAILY ORAL 05/02/18 09:00 05/30/18 08:59 05/02/18 08:31 Magnesium Hydroxide (Mom) 30 ml HSPRN PRN ORAL Constipation 05/01/18 20:30 05/28/18 20:29 Metoclopramide HCl (Reglan) 10 mg Q6H PRN IVP Nausea & Vomiting 05/01/18 11:00 05/28/18 10:59 Zolpidem Tartrate (Ambien) 5 mg HSPRN PRN ORAL Insomnia 05/01/18 20:30 05/05/18 20:29 Ani Barnes MD May 03, 2018 21:37
--- NOTE | 2018-05-03 22:04 | NUR ---
NURSE NOTES: patient scheduled medications taken at 21:00 pm . patient eat 100% house snacks . will continue to monitor patient .
--- NOTE | 2018-05-03 22:15 | Progress Note ---
DATE: 05/03/2018 SUBJECTIVE: This is a 68-year-old male patient who continues to have some depression, confusion, and mood lability. He has got no logical plan for his own self-care. He has got activity and that is why he does require inpatient treatment at this time. He has altered mental status, secondary to right upper extremity mass. MENTAL STATUS EXAMINATION: A 68-year-old male. Appearance is disheveled. Attitude, irritable and agitated. Affect, guarded and restricted. Intellect poor. Mood depressed and anxious. Motor activity, psychomotor agitation. Attention span is poor. Orientation x2. Speech is pressured. Thought process is disorganized and illogical. Thought content, auditory hallucinations and paranoid delusions. Insight and judgment is poor. DIAGNOSIS: Bipolar 2. PLAN: Treat him with Abilify ____ mg daily and Prozac ____ mg daily, and provide him with 20 minutes of cognitive behavioral therapy to help him identify his automatic negative thoughts and to help him convert his negative thoughts to more positive thoughts to reduce depression, anxiety, and suicidality. A 20 minutes of cognitive behavioral therapy provided for the patient. Chart reviewed. Discussed with staff. Seen and assessed at bedside. Rosa Yousif M.D. DR: ISABELL JOB#: [id number] CC:
--- NOTE | 2018-05-03 22:30 | NUR ---
NURSE NOTES:Patient VSS, Afebrile no s/s distress .denies any pain at this time . sleeping comfortably in bed . will continue to monitor patient .
[2018-05-04] VITALS: BP 154/90
[2018-05-04] MEDS: HYDROmorphone 1mg/ml Carpuject IVP PRN ×4 (00:33→22:09)
[2018-05-04 04:00] VITALS: BP 150/87
[2018-05-04] MEDS: cloNIDine 0.2mg Tab ORAL SCH ×3 (06:02→23:16)
[2018-05-04] MEDS: NovoLOG Insulin Flexpen SUBQ SCH ×4 (06:04→21:46)
--- NOTE | 2018-05-04 07:00 | NUR ---
NURSE NOTES: Received pt from CONNOR Castellon. Pt in bed, awake, resting, talkative, no apparent distress noted, call light within reach, bed in lowest position.
--- NOTE | 2018-05-04 07:00 | Progress Note ---
DATE: 05/04/2018 SUBJECTIVE: The patient is a 68-year-old male patient. He has got right upper extremity pain, but he has got some confusion, altered mental status, and mood lability. That is why, his attending has requested daily psychiatric consultation. . MENTAL STATUS EXAMINATION: The patient is a 68-year-old male. Appearance is disheveled. Attitude, irritable and agitated. Affect, guarded and restricted. Intellect poor. Mood depressed and anxious. Motor activity, psychomotor agitation. Attention span is poor. Orientation x2. Speech is pressured. Thought process, disorganized and illogical. Thought content, auditory hallucinations and paranoid delusions. Insight and judgment is poor. DIAGNOSIS: History of paranoid schizophrenia with acute exacerbation. PLAN: Treat him with Abilify mg daily and Prozac 30 mg daily. Provided him with 20 minutes of cognitive behavioral therapy to him identify his automatic negative thoughts and help him to convert those negative thoughts to more positive thoughts to reduce depression, anxiety, and suicidality. Chart reviewed. Discussed with staff. Seen and assessed in his room. A 20 minutes of cognitive behavioral therapy provided. Rosa Yousif M.D. DR: TREVOR JOB#: [id number] CC:
[2018-05-04 07:30] LABS: BASOPHILS % (AUTO) 0.8 % (0.0-2.0); EOSINOPHILS % (AUTO) 13.2 % (0.0-3.0); HEMOGLOBIN 14.8 G/DL (14.2-18.0); LYMPHOCYTES % (AUTO) 26.1 % (20.0-45.0); MEAN CORPUSCULAR VOLUME 87 FL (80-99); MONOCYTES % (AUTO) 6.5 % (1.0-10.0); NEUTROPHILS % (AUTO) 53.4 % (45.0-75.0); PLATELET COUNT 254 K/UL (150-450); RED BLOOD COUNT 5.06 M/UL (4.70-6.10); RED CELL DISTRIBUTION WIDTH 14.5 % (11.6-14.8); WHITE BLOOD COUNT 10.1 K/UL (4.8-10.8)
--- NOTE | 2018-05-04 07:45 | NUR ---
HAND-OFF: Report given to Lorelei Kelsey Patient in stable conditions.
[2018-05-04 08:00] VITALS: BP 129/73
[2018-05-04 08:12] LABS: ANION GAP 10 mmol/L (5-15); BLOOD UREA NITROGEN 15 mg/dL (7-18); CALCIUM 9.6 MG/DL (8.5-10.1); CARBON DIOXIDE 25 MMOL/L (21-32); CHLORIDE 107 MMOL/L (98-107); CREATININE 0.8 MG/DL (0.55-1.30); POTASSIUM 3.7 MMOL/L (3.5-5.1); SODIUM 142 MMOL/L (136-145)
[2018-05-04] MEDS: ARIPiprazole 2mg tab ORAL SCH (09:35)
[2018-05-04] MEDS: Aspirin EC 81mg tab ORAL SCH (09:35)
[2018-05-04] MEDS: Losartan 50mg tab ORAL SCH (09:35)
[2018-05-04] MEDS: FLUoxetine 10mg cap ORAL SCH (09:35)
[2018-05-04] MEDS: Docusate 100mg cap ORAL SCH ×2 (09:35→21:07)
[2018-05-04] MEDS: Heparin 5000 units/ml inj SUBQ SCH ×2 (09:40→21:08)
--- NOTE | 2018-05-04 10:22 | General Progress Note ---
Assessment/Plan Problem List: (1) Neuropathic pain ICD Codes: M79.2 - Neuropathic pain SNOMED: 439693763 (2) Dysarthria, post-stroke ICD Codes: I69.322 - Dysarthria, post-stroke SNOMED: 2395413 (3) chronic ischemic multiple strokes (4) ATN (acute tubular necrosis) ICD Codes: N17.0 - Acute kidney failure with tubular necrosis SNOMED: 69984176 (5) DM (diabetes mellitus screen) ICD Codes: Z13.1 - DM (diabetes mellitus screen) SNOMED: 845059690 (6) Right arm pain ICD Codes: M79.601 - Pain in right arm SNOMED: 075281006 (7) History of CVA (cerebrovascular accident) ICD Codes: Z86.73 - Personal history of transient ischemic attack (TIA), and cerebral infarction without residual deficits SNOMED: 151861934 (8) Mass of right upper extremity ICD Codes: R22.31 - Localized swelling, mass and lump, right upper limb SNOMED: 480317747 Status: stable, progressing Assessment/Plan pt diet abx pain control cbc bmp am dc plan Subjective Constitutional: Reports: weakness Allergies: Coded Allergies: No Known Allergies (Unverified , 01/08/14) All Systems: reviewed and negative except above Subjective sleepy calm Objective Last 24 Hour Vital Signs Date Time Temp Pulse Resp B/P (MAP) Pulse Ox O2 Delivery O2 Flow Rate FiO2 05/04/18 09:35 129/73 05/04/18 08:00 98.4 85 20 129/73 (91) 95 05/04/18 06:02 150/83 05/04/18 04:00 97.0 90 18 150/87 (108) 98 05/04/18 01:03 98.5 05/04/18 00:00 97.5 88 18 154/90 (111) 98 05/03/18 22:04 153/83 05/03/18 21:00 Room Air 05/03/18 20:00 98.0 18 150/82 (104) 99 05/03/18 16:00 98.5 91 15 144/94 (111) 100 05/03/18 14:00 183/98 05/03/18 12:30 99.7 87 18 183/98 (126) 100 05/03/18 11:00 166/92 Intake and Output 05/03/18 05/04/18 19:00 07:00 Intake Total 240 ml 480 ml Balance 240 ml 480 ml Intake Oral 240 ml 480 ml # Voids 2 6 Laboratory Tests 05/04/18 05:38: White Blood Count 10.1, Red Blood Count 5.06, Hemoglobin 14.8, Hematocrit 44.0, Mean Corpuscular Volume 87, Mean Corpuscular Hemoglobin 29.3, Mean Corpuscular Hemoglobin Concent 33.7, Red Cell Distribution Width 14.5, Platelet Count 254, Mean Platelet Volume 7.3, Neutrophils (%) (Auto) 53.4, Lymphocytes (%) (Auto) 26.1, Monocytes (%) (Auto) 6.5, Eosinophils (%) (Auto) 13.2H, Basophils (%) ( Auto) 0.8, Sodium Level 142, Potassium Level 3.7, Chloride Level 107, Carbon Dioxide Level 25, Anion Gap 10, Blood Urea Nitrogen 15, Creatinine 0.8, Estimat Glomerular Filtration Rate > 60, Glucose Level 204H, Calcium Level 9.6 Height (Feet): 6 Height (Inches): 1.00 Weight (Pounds): 238 General Appearance: lethargic EENT: normal ENT inspection Neck: normal alignment Cardiovascular: normal peripheral pulses, normal rate, regular rhythm Respiratory/Chest: chest wall non-tender, lungs clear, normal breath sounds Abdomen: normal bowel sounds, non tender, soft Extremities: normal inspection Edema: no edema noted Arm (L), no edema noted Arm (R), no edema noted Leg (L), no edema noted Leg (R), no edema noted Pedal (L), no edema noted Pedal (R), no edema noted Generalized Neurologic: motor weakness Skin: normal pigmentation, warm/dry Oneil Curry DO May 04, 2018 10:22
[2018-05-04 12:00] VITALS: BP 160/80
--- NOTE | 2018-05-04 15:25 | General Progress Note ---
Assessment/Plan Assessment/Plan # Mass of right upper extremity - reviewed the imaging of the arm and no dvt was noted --> will likely need a biopsy, potentially sarcoma versus other localized disease --> obtain ct r/o mass as well, but he has been refusing it after multiple attempts (refused again) # Anemia of chronic disease --> trend as needed --> w/u has been reviewed # DM (diabetes mellitus screen) --> accuchecks qac/qhs # Thalamic pain syndrome # History of CVA (cerebrovascular accident) # Dvt ppx with heparin sq Time of note does not reflect time of encounter Grealty appreciate consultation! Subjective Constitutional: Denies: no symptoms, chills, diaphoresis, fever, malaise, weakness, other HEENT: Denies: no symptoms, eye pain, blurred vision, tearing, double vision, ear pain, ear discharge, nose pain, nose congestion, throat pain, throat swelling, mouth pain, mouth swelling, other Cardiovascular: Denies: no symptoms, chest pain, edema, irregular heart rate, lightheadedness, palpitations, syncope, other Respiratory: Denies: no symptoms, cough, orthopnea, shortness of breath, SOB with excertion, SOB at rest, sputum, stridor, wheezing, other Gastrointestinal/Abdominal: Denies: no symptoms, abdomen distended, abdominal pain, black stools, tarry stools, blood in stool, constipated, diarrhea, difficulty swallowing, nausea, poor appetite, poor fluid intake, rectal bleeding , vomiting, other Neurologic/Psychiatric: Denies: no symptoms, anxiety, depressed, emotional problems, headache, numbness, paresthesia, pre-existing deficit, seizure, tingling, tremors, weakness, other Endocrine: Denies: no symptoms, excessive sweating, flushing, intolerance to cold, intolerance to heat, increased hunger, increased thirst, increased urine, unexplained weight gain, unexplained weight loss, other Allergies: Coded Allergies: No Known Allergies (Unverified , 01/08/14) Subjective 04/30: pending ct scan of the arm, results pending 05/01:pt is seen by bedside, awake and confused, wbc 11.1, pending ct scan results 05/[address] scan scan upper ext 05/03: refusing all meds and refusing to get ct arm with contrast 05/04: smells of strong urine in the room, no complaints, no f/c Objective Last 24 Hour Vital Signs Date Time Temp Pulse Resp B/P (MAP) Pulse Ox O2 Delivery O2 Flow Rate FiO2 05/04/18 14:43 160/80 05/04/18 12:00 98.1 80 19 160/80 (106) 97 05/04/18 10:07 98.4 05/04/18 09:35 129/73 05/04/18 09:00 Room Air 05/04/18 08:00 98.4 85 20 129/73 (91) 95 05/04/18 06:02 150/83 05/04/18 04:00 97.0 90 18 150/87 (108) 98 05/04/18 00:00 97.5 88 18 154/90 (111) 98 05/03/18 22:04 153/83 05/03/18 21:00 Room Air 05/03/18 20:00 98.0 18 150/82 (104) 99 05/03/18 16:00 98.5 91 15 144/94 (111) 100 Intake and Output 05/03/18 05/04/18 19:00 07:00 Intake Total 240 ml 480 ml Balance 240 ml 480 ml Intake Oral 240 ml 480 ml # Voids 2 6 Laboratory Tests 05/04/18 05:38: White Blood Count 10.1, Red Blood Count 5.06, Hemoglobin 14.8, Hematocrit 44.0, Mean Corpuscular Volume 87, Mean Corpuscular Hemoglobin 29.3, Mean Corpuscular Hemoglobin Concent 33.7, Red Cell Distribution Width 14.5, Platelet Count 254, Mean Platelet Volume 7.3, Neutrophils (%) (Auto) 53.4, Lymphocytes (%) (Auto) 26.1, Monocytes (%) (Auto) 6.5, Eosinophils (%) (Auto) 13.2H, Basophils (%) ( Auto) 0.8, Sodium Level 142, Potassium Level 3.7, Chloride Level 107, Carbon Dioxide Level 25, Anion Gap 10, Blood Urea Nitrogen 15, Creatinine 0.8, Estimat Glomerular Filtration Rate > 60, Glucose Level 204H, Calcium Level 9.6 Height (Feet): 6 Height (Inches): 1.00 Weight (Pounds): 238 Objective General Appearance: WD/WN Lines, tubes and drains: peripheral HEENT: normocephalic, at Neck: non-tender, normal alignment, supple Respiratory/Chest: chest wall non-tender, lungs clear Breasts: no masses noted Cardiovascular/Chest: normal peripheral pulses Abdomen: normal bowel sounds, non tender Extremities: normal range of motion, right arm swelling around elbow++ Guillermo Ugalde MD May 04, 2018 15:25
--- NOTE | 2018-05-04 15:43 | Pulmonology Progress Note ---
Assessment/Plan Problems: (1) Mass of right upper extremity (2) DM (diabetes mellitus screen) (3) Thalamic pain syndrome (4) History of CVA (cerebrovascular accident) Assessment/Plan no new complains all reviewed symptomatic treatment sliding scale diabetic diet med/surg dvt prophylaxis Subjective Allergies: Coded Allergies: No Known Allergies (Unverified , 01/08/14) Objective Last 24 Hour Vital Signs Date Time Temp Pulse Resp B/P (MAP) Pulse Ox O2 Delivery O2 Flow Rate FiO2 05/04/18 14:43 160/80 05/04/18 12:00 98.1 80 19 160/80 (106) 97 05/04/18 10:07 98.4 05/04/18 09:35 129/73 05/04/18 09:00 Room Air 05/04/18 08:00 98.4 85 20 129/73 (91) 95 05/04/18 06:02 150/83 05/04/18 04:00 97.0 90 18 150/87 (108) 98 05/04/18 00:00 97.5 88 18 154/90 (111) 98 05/03/18 22:04 153/83 05/03/18 21:00 Room Air 05/03/18 20:00 98.0 18 150/82 (104) 99 05/03/18 16:00 98.5 91 15 144/94 (111) 100 Intake and Output 05/03/18 05/04/18 19:00 07:00 Intake Total 240 ml 480 ml Balance 240 ml 480 ml Intake Oral 240 ml 480 ml # Voids 2 6 Objective General Appearance: WD/WN HEENT: normocephalic, anicteric Respiratory/Chest: chest wall non-tender, lungs clear Breasts: no masses Cardiovascular: normal rate Abdomen: normal bowel sounds, no organomegaly Extremities: no clubbing 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 Laboratory Tests 05/04/18 05:38: White Blood Count 10.1, Red Blood Count 5.06, Hemoglobin 14.8, Hematocrit 44.0, Mean Corpuscular Volume 87, Mean Corpuscular Hemoglobin 29.3, Mean Corpuscular Hemoglobin Concent 33.7, Red Cell Distribution Width 14.5, Platelet Count 254, Mean Platelet Volume 7.3, Neutrophils (%) (Auto) 53.4, Lymphocytes (%) (Auto) 26.1, Monocytes (%) (Auto) 6.5, Eosinophils (%) (Auto) 13.2H, Basophils (%) ( Auto) 0.8, Sodium Level 142, Potassium Level 3.7, Chloride Level 107, Carbon Dioxide Level 25, Anion Gap 10, Blood Urea Nitrogen 15, Creatinine 0.8, Estimat Glomerular Filtration Rate > 60, Glucose Level 204H, Calcium Level 9.6 Current Medications Medications (Trade) Dose Ordered Sig/Henrik Route PRN Reason Start Time Stop Time Status Last Admin Dose Admin Acetaminophen (Tylenol) 650 mg Q4H PRN ORAL Mild Pain (Pain Scale 1-3) 05/01/18 11:00 05/28/18 10:59 Al Hydroxide/Mg Hydroxide (Mylanta II) 30 ml Q6H PRN ORAL dyspepsia 05/01/18 11:00 05/28/18 10:59 Aripiprazole (Abilify) 2 mg DAILY ORAL 05/02/18 09:00 05/30/18 08:59 05/04/18 09:35 Aspirin (Ecotrin) 81 mg DAILY ORAL 05/02/18 09:00 05/30/18 08:59 05/04/18 09:35 Clonidine HCl (Catapres Tab) 0.1 mg Q6H PRN ORAL For High Blood Pressure 05/01/18 11:00 05/29/18 10:59 05/01/18 17:39 Clonidine HCl (Catapres tab) 0.2 mg Q8HR ORAL 05/01/18 14:00 05/29/18 21:59 05/04/18 14:43 Dextrose (Dextrose 50%) 25 ml Q30M PRN IV Hypoglycemia 05/01/18 11:00 05/28/18 20:29 Dextrose (Dextrose 50%) 50 ml Q30M PRN IV Hypoglycemia 05/01/18 11:00 05/28/18 20:29 Docusate Sodium (Colace) 100 mg EVERY 12 HOURS ORAL 05/01/18 21:00 05/28/18 20:59 05/04/18 09:35 Fluoxetine HCl (PROzac) 30 mg DAILY ORAL 05/02/18 09:00 05/30/18 08:59 05/04/18 09:35 Furosemide (Lasix) 20 mg DAILY ORAL 05/02/18 09:00 05/30/18 08:59 05/04/18 09:36 Heparin Sodium (Porcine) (Heparin 5000 units/ml) 5,000 units EVERY 12 HOURS SUBQ 05/01/18 21:00 05/29/18 20:59 05/04/18 09:40 Hydromorphone HCl (Dilaudid) 1 mg Q6H PRN IVP Moderate Pain (Pain Scale 4-6) 05/01/18 12:30 05/05/18 12:29 05/04/18 09:37 Insulin Aspart (NovoLOG) BEFORE MEALS AND HS SUBQ 05/01/18 11:30 05/29/18 16:29 05/04/18 12:20 Losartan Potassium (Cozaar) 100 mg DAILY ORAL 05/02/18 09:00 05/30/18 08:59 05/04/18 09:35 Magnesium Hydroxide (Mom) 30 ml HSPRN PRN ORAL Constipation 05/01/18 20:30 05/28/18 20:29 Metoclopramide HCl (Reglan) 10 mg Q6H PRN IVP Nausea & Vomiting 05/01/18 11:00 05/28/18 10:59 Zolpidem Tartrate (Ambien) 5 mg HSPRN PRN ORAL Insomnia 05/01/18 20:30 05/05/18 20:29 Ani Barnes MD May 04, 2018 15:43
[2018-05-04 16:00] VITALS: BP 136/99
--- NOTE | 2018-05-04 17:35 | NUR ---
NURSE NOTES: In changing pt, noticed yellow discharge coming from penis, notified Dr. Barnes.
--- NOTE | 2018-05-04 19:22 | NUR ---
HAND-OFF: Report given to CONNOR Clarke.
[2018-05-04 20:00] VITALS: BP 118/69
[2018-05-05] VITALS: BP 124/76
--- NOTE | 2018-05-05 03:13 | NUR ---
NURSE NOTES: URINE COLLECTED FOR UA C/S AND SENT TO LAB.
[2018-05-05 04:00] VITALS: BP 141/71
--- NOTE | 2018-05-05 06:14 | NUR ---
NURSE NOTES: RESTED WELL, NO SIGNIFICANT CHANGE OF CONDITION NOTED THROUGHOUT THE NIGHT. SAFETY MAINTAINED. NAD. NO BEHAVIORAL ISSUES NOTED.
[2018-05-05 06:16] LABS: BILIRUBIN, URINE NEGATIVE (NEGATIVE); GLUCOSE, URINE (UA) NEGATIVE (NEGATIVE); KETONES,URINE NEGATIVE (NEGATIVE); LEUKOCYTE ESTERASE ,URINE 3+ (NEGATIVE); NITRITE,URINE NEGATIVE (NEGATIVE); PH,URINE 6.5 (4.5-8.0); PROTEIN,URINE 3+ (NEGATIVE); UROBILINOGEN,URINE 4 MG/DL (0.0-1.0)
[2018-05-05 06:23] LABS: APPEARANCE,URINE CLOUDY; COLOR,URINE YELLOW
[2018-05-05] MEDS: cloNIDine 0.2mg Tab ORAL SCH ×2 (06:28→14:19)
[2018-05-05] MEDS: NovoLOG Insulin Flexpen SUBQ SCH ×2 (06:29→12:23)
[2018-05-05] MEDS: HYDROmorphone 1mg/ml Carpuject IVP PRN (06:53)
--- NOTE | 2018-05-05 07:00 | NUR ---
NURSE NOTES: CONNOR SULLIVAN from GI lab called. Per Kristofer, she spoke with Dr. Salcido and the Colonoscopy today is cancelled. Endorsed to MACHO Clarke to endorse to next nurse.
--- NOTE | 2018-05-05 07:47 | NUR ---
NURSE NOTES: Received report from Tricia. Patient a/o x3 and having breakfast. Denies pain at this time. No respiratory discomfort noted. Patient on bed rest. Call light within reach. Will continue to monitor.
--- NOTE | 2018-05-05 07:48 | NUR ---
HAND-OFF: Report given to CONNOR ANDRADE.
[2018-05-05 08:00] VITALS: BP 134/70
[2018-05-05 08:08] LABS: BASOPHILS % (AUTO) 1.1 % (0.0-2.0); EOSINOPHILS % (AUTO) 13.2 % (0.0-3.0); HEMATOCRIT 37.6 % (42.0-52.0); HEMOGLOBIN 12.7 G/DL (14.2-18.0); LYMPHOCYTES % (AUTO) 30.8 % (20.0-45.0); MEAN CORPUSCULAR VOLUME 87 FL (80-99); MONOCYTES % (AUTO) 6.4 % (1.0-10.0); NEUTROPHILS % (AUTO) 48.5 % (45.0-75.0); PLATELET COUNT 214 K/UL (150-450); RED BLOOD COUNT 4.32 M/UL (4.70-6.10); RED CELL DISTRIBUTION WIDTH 14.6 % (11.6-14.8); WHITE BLOOD COUNT 8.2 K/UL (4.8-10.8)
[2018-05-05 08:29] LABS: ANION GAP 9 mmol/L (5-15); BLOOD UREA NITROGEN 12 mg/dL (7-18); CALCIUM 9.2 MG/DL (8.5-10.1); CARBON DIOXIDE 27 MMOL/L (21-32); CHLORIDE 107 MMOL/L (98-107); CREATININE 0.7 MG/DL (0.55-1.30); POTASSIUM 3.6 MMOL/L (3.5-5.1); SODIUM 143 MMOL/L (136-145)
[2018-05-05] MEDS: FLUoxetine 10mg cap ORAL SCH (08:42)
[2018-05-05] MEDS: Losartan 50mg tab ORAL SCH (08:42)
[2018-05-05] MEDS: Aspirin EC 81mg tab ORAL SCH (08:42)
[2018-05-05] MEDS: ARIPiprazole 2mg tab ORAL SCH (08:42)
[2018-05-05] MEDS: Heparin 5000 units/ml inj SUBQ SCH (08:43)
[2018-05-05] MEDS: Docusate 100mg cap ORAL SCH (08:54)
--- NOTE | 2018-05-05 11:45 | NUR ---
NURSE NOTES: Patient went down to take CT of right upper lower extremity but patient refused. Dr. Ugalde and Dr. Oneil Curry aware.
[2018-05-05 12:00] VITALS: BP 138/81
--- NOTE | 2018-05-05 12:56 | NUR ---
NURSE NOTES: Dilaudid 1mg fell off and Dr. Oneil Curry notified. ordered Dilaudid 1 mg q6 iv prn for pain. Noted and carried out.
--- NOTE | 2018-05-05 14:15 | General Progress Note ---
Assessment/Plan Problem List: (1) Neuropathic pain ICD Codes: M79.2 - Neuropathic pain SNOMED: 372723404 (2) Dysarthria, post-stroke ICD Codes: I69.322 - Dysarthria, post-stroke SNOMED: 5492495 (3) chronic ischemic multiple strokes (4) ATN (acute tubular necrosis) ICD Codes: N17.0 - Acute kidney failure with tubular necrosis SNOMED: 70557715 (5) DM (diabetes mellitus screen) ICD Codes: Z13.1 - DM (diabetes mellitus screen) SNOMED: 543102751 (6) Right arm pain ICD Codes: M79.601 - Pain in right arm SNOMED: 130085143 (7) History of CVA (cerebrovascular accident) ICD Codes: Z86.73 - Personal history of transient ischemic attack (TIA), and cerebral infarction without residual deficits SNOMED: 745160719 (8) Mass of right upper extremity ICD Codes: R22.31 - Localized swelling, mass and lump, right upper limb SNOMED: 261890289 (9) UTI (urinary tract infection) ICD Codes: N39.0 - Urinary tract infection, site not specified SNOMED: 54371800 Assessment/Plan pt diet abx pain control cbc bmp am dc if clear Subjective Constitutional: Reports: weakness Allergies: Coded Allergies: No Known Allergies (Unverified , 01/08/14) All Systems: reviewed and negative except above Subjective sleepy calm Objective Last 24 Hour Vital Signs Date Time Temp Pulse Resp B/P (MAP) Pulse Ox O2 Delivery O2 Flow Rate FiO2 05/05/18 12:00 97.6 60 18 138/81 (100) 99 05/05/18 09:00 Room Air 05/05/18 08:42 134/70 05/05/18 08:00 97.5 66 17 134/70 (91) 99 05/05/18 06:28 148/74 05/05/18 04:00 97.6 62 18 141/71 (94) 99 05/05/18 00:00 98.1 72 18 124/76 (92) 99 05/04/18 23:16 137/76 05/04/18 21:00 Room Air 05/04/18 20:00 97.3 69 18 118/69 (85) 98 05/04/18 16:23 98.1 05/04/18 16:00 98.4 79 18 136/99 (111) 98 05/04/18 14:43 160/80 Intake and Output 05/04/18 05/05/18 19:00 07:00 Intake Total 420 ml 360 ml Balance 420 ml 360 ml Intake Oral 420 ml 360 ml # Voids 3 3 # Bowel Movements 1 Laboratory Tests 05/05/18 03:00: Urine Color Yellow, Urine Appearance Cloudy, Urine pH 6.5, Urine Specific [place] 1.015, Urine Protein 3+H, Urine Glucose (UA) Negative, Urine Ketones Negative, Urine Blood 5+H, Urine Nitrite Negative, Urine Bilirubin Negative, Urine Urobilinogen 4H, Urine Leukocyte Esterase 3+H, Urine RBC TntcH, Urine WBC TntcH, Urine Squamous Epithelial Cells None, Urine Bacteria ManyH 05/05/18 06:10: White Blood Count 8.2, Red Blood Count 4.32L, Hemoglobin 12.7L, Hematocrit 37.6L , Mean Corpuscular Volume 87, Mean Corpuscular Hemoglobin 29.4, Mean Corpuscular Hemoglobin Concent 33.8, Red Cell Distribution Width 14.6, Platelet Count 214, Mean Platelet Volume 7.8, Neutrophils (%) (Auto) 48.5, Lymphocytes (% ) (Auto) 30.8, Monocytes (%) (Auto) 6.4, Eosinophils (%) (Auto) 13.2H, Basophils (%) (Auto) 1.1, Sodium Level 143, Potassium Level 3.6, Chloride Level 107, Carbon Dioxide Level 27, Anion Gap 9, Blood Urea Nitrogen 12, Creatinine 0.7, Estimat Glomerular Filtration Rate > 60, Glucose Level 202H, Calcium Level 9.2 Height (Feet): 6 Height (Inches): 1.00 Weight (Pounds): 238 General Appearance: lethargic EENT: normal ENT inspection Neck: normal alignment Cardiovascular: normal peripheral pulses, normal rate, regular rhythm Respiratory/Chest: chest wall non-tender, lungs clear, normal breath sounds Abdomen: normal bowel sounds, non tender, soft Extremities: normal inspection Edema: no edema noted Arm (L), no edema noted Arm (R), no edema noted Leg (L), no edema noted Leg (R), no edema noted Pedal (L), no edema noted Pedal (R), no edema noted Generalized Neurologic: motor weakness Skin: normal pigmentation, warm/dry Oneil Curry DO May 05, 2018 14:15
[2018-05-05] MEDS ORDERED: HYDROmorphone 1mg/ml Carpuject IVP PRN (14:30)
--- NOTE | 2018-05-05 14:30 | Progress Note ---
DATE: 05/05/2018 SUBJECTIVE: This is a 68-year-old male patient with right upper extremity mass. He has a lot confusion, disorganized thought process, and mood lability worsened by stress of his medical illness. So, his attending has requested daily psychiatric consultation due to decline in cognition below his baseline. MENTAL STATUS EXAMINATION: This is a 68-year-old male. Appearance is disheveled. Attitude, irritable and agitated. Affect, guarded and restricted. Intellect poor. Mood depressed and anxious. Motor activity, psychomotor agitation. Attention span is poor. Orientation x2. Speech is pressured. Thought process disorganized and illogical. Thought content, auditory hallucinations and paranoid delusions. Insight and judgment is poor. DIAGNOSIS: Paranoid schizophrenia acute exacerbation. PLAN: Treat him with Abilify 2 mg p.o. daily and Prozac 30 mg daily. Provided him with 20 minutes of cognitive behavioral therapy to him identify his automatic negative thoughts and help him to convert those negative thoughts to more positive thoughts to reduce depression, anxiety, and suicidality. Chart reviewed. Discussed with staff. Seen and assessed in his room. Rosa Yousif M.D. DR: TREVOR JOB#: [id number] CC:
--- NOTE | 2018-05-05 15:05 | NUR ---
CASE MANAGEMENT: REVIEW SI: RIGHT UPPER EXTREMITY MASS T 97.5 HR 60 RR 60 BP 148/74 SAT 99% ROOM AIR H/H 12.7/37.6 GLUCOSE 202 IS: DILAUDID 1MG IV Q6HR ECOTRIN PO QD LASIX PO QD HEPARIN SQ Q12HR INTERQUAL CRITERIA MET: PATIENT ADMITTED TO TELEMETRY UNIT 04/28/2018 DCP: PATIENT IS FROM [facility]
--- NOTE | 2018-05-05 15:08 | General Progress Note ---
Assessment/Plan Assessment/Plan # Mass of right upper extremity - reviewed the imaging of the arm and no dvt was noted --> will likely need a biopsy, potentially sarcoma versus other localized disease --> obtain ct r/o mass as well, but he has been refusing it after multiple attempts (refused again) # Anemia of chronic disease --> trend as needed --> w/u has been reviewed # DM (diabetes mellitus screen) --> accuchecks qac/qhs # Thalamic pain syndrome # History of CVA (cerebrovascular accident) # Dvt ppx with heparin sq Time of note does not reflect time of encounter Grealty appreciate consultation! Subjective ROS Limited/Unobtainable: No Constitutional: Denies: no symptoms, chills, diaphoresis, fever, malaise, weakness, other HEENT: Denies: no symptoms, eye pain, blurred vision, tearing, double vision, ear pain, ear discharge, nose pain, nose congestion, throat pain, throat swelling, mouth pain, mouth swelling, other Cardiovascular: Denies: no symptoms, chest pain, edema, irregular heart rate, lightheadedness, palpitations, syncope, other Respiratory: Denies: no symptoms, cough, orthopnea, shortness of breath, SOB with excertion, SOB at rest, sputum, stridor, wheezing, other Gastrointestinal/Abdominal: Denies: no symptoms, abdomen distended, abdominal pain, black stools, tarry stools, blood in stool, constipated, diarrhea, difficulty swallowing, nausea, poor appetite, poor fluid intake, rectal bleeding , vomiting, other Genitourinary: Denies: no symptoms, burning, discharge, frequency, flank pain, hematuria, incontinence, pain, urgency, other Neurologic/Psychiatric: Denies: no symptoms, anxiety, depressed, emotional problems, headache, numbness, paresthesia, pre-existing deficit, seizure, tingling, tremors, weakness, other Endocrine: Denies: no symptoms, excessive sweating, flushing, intolerance to cold, intolerance to heat, increased hunger, increased thirst, increased urine, unexplained weight gain, unexplained weight loss, other Hematologic/Lymphatic: Denies: no symptoms, anemia, easy bleeding, easy bruising, other Allergies: Coded Allergies: No Known Allergies (Unverified , 01/08/14) Subjective 04/30: pending ct scan of the arm, results pending 05/01:pt is seen by bedside, awake and confused, wbc 11.1, pending ct scan results 05/[address] scan scan upper ext 05/03: refusing all meds and refusing to get ct arm with contrast 05/04: smells of strong urine in the room, no complaints, no f/c 05/05: Pt is awake and comfortable, denies acute distress. Objective Last 24 Hour Vital Signs Date Time Temp Pulse Resp B/P (MAP) Pulse Ox O2 Delivery O2 Flow Rate FiO2 05/05/18 14:19 138/81 05/05/18 12:00 97.6 60 18 138/81 (100) 99 05/05/18 09:00 Room Air 05/05/18 08:42 134/70 05/05/18 08:00 97.5 66 17 134/70 (91) 99 05/05/18 06:28 148/74 05/05/18 04:00 97.6 62 18 141/71 (94) 99 05/05/18 00:00 98.1 72 18 124/76 (92) 99 05/04/18 23:16 137/76 05/04/18 21:00 Room Air 05/04/18 20:00 97.3 69 18 118/69 (85) 98 05/04/18 16:23 98.1 05/04/18 16:00 98.4 79 18 136/99 (111) 98 Intake and Output 05/04/18 05/05/18 19:00 07:00 Intake Total 420 ml 360 ml Balance 420 ml 360 ml Intake Oral 420 ml 360 ml # Voids 3 3 # Bowel Movements 1 Laboratory Tests 05/05/18 03:00: Urine Color Yellow, Urine Appearance Cloudy, Urine pH 6.5, Urine Specific [place] 1.015, Urine Protein 3+H, Urine Glucose (UA) Negative, Urine Ketones Negative, Urine Blood 5+H, Urine Nitrite Negative, Urine Bilirubin Negative, Urine Urobilinogen 4H, Urine Leukocyte Esterase 3+H, Urine RBC TntcH, Urine WBC TntcH, Urine Squamous Epithelial Cells None, Urine Bacteria ManyH 05/05/18 06:10: White Blood Count 8.2, Red Blood Count 4.32L, Hemoglobin 12.7L, Hematocrit 37.6L , Mean Corpuscular Volume 87, Mean Corpuscular Hemoglobin 29.4, Mean Corpuscular Hemoglobin Concent 33.8, Red Cell Distribution Width 14.6, Platelet Count 214, Mean Platelet Volume 7.8, Neutrophils (%) (Auto) 48.5, Lymphocytes (% ) (Auto) 30.8, Monocytes (%) (Auto) 6.4, Eosinophils (%) (Auto) 13.2H, Basophils (%) (Auto) 1.1, Sodium Level 143, Potassium Level 3.6, Chloride Level 107, Carbon Dioxide Level 27, Anion Gap 9, Blood Urea Nitrogen 12, Creatinine 0.7, Estimat Glomerular Filtration Rate > 60, Glucose Level 202H, Calcium Level 9.2 Height (Feet): 6 Height (Inches): 1.00 Weight (Pounds): 238 Objective General Appearance: WD/WN Lines, tubes and drains: peripheral HEENT: normocephalic, at Neck: non-tender, normal alignment, supple Respiratory/Chest: chest wall non-tender, lungs clear Breasts: no masses noted Cardiovascular/Chest: normal peripheral pulses Abdomen: normal bowel sounds, non tender Extremities: normal range of motion, right arm swelling around elbow++ Guillermo Ugalde MD May 05, 2018 15:08
[2018-05-05 16:00] VITALS: BP 145/74
--- NOTE | 2018-05-05 16:18 | NUR ---
DISCHARGE PLANNED PATIENT IS DISCHARGED BACK TO: [facility] ROOM# 201-C T:[phone] FOR NURSE TO NURSE REPORT [facility] HAS BEEN ARRANGED FOR LUMBER TRIPPER S/W JP [id number] Addendum: 05/05/18 at 1621 by VERONICA ARELLANO CM SKILLED
--- NOTE | 2018-05-05 16:40 | NUR ---
NURSE NOTES: Cleared d/c by Dr. Ugalde, Dr. Barnes, Dr. Robert.
--- NOTE | 2018-05-05 16:43 | Consultation ---
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, DM2, neuropathic pain, SNF resident presented to ED on 04/28 with b/l lower ext edema (R>L), RUE swelling ID is consulted for UTI Allergies: Coded Allergies: No Known Allergies (Unverified , 01/08/14) Medication History Scheduled Aripiprazole* (Abilify*), 2 MG ORAL DAILY, (Reported) Ascorbic Acid* (Vitamin C*), 500 MG ORAL TWICE A DAY, (Reported) Aspirin* (Aspir 81*), 81 MG ORAL DAILY, (Reported) Calcium Carbonate/Vitamin D3 (Calcium 500 + Vit D3 400 Tab), 1 EACH PO BID, ( Reported) Clonidine HCl (Clonidine HCl), 0.2 MG PO Q8HR, (Reported) Cranberry Conc/C/Bacill Coag (Cranberry Tablet), 1 EACH PO DAILY, (Reported) Docusate Sodium* (Colace*), 100 MG ORAL BID, (Reported) Dorzolamide Hcl* (Trusopt*), 1 DROP BOTH EYES BID Fluoxetine Hcl* (Fluoxetine Hcl*), 30 MG ORAL DAILY, (Reported) Furosemide* (Lasix*), 20 MG ORAL DAILY, (Reported) Insulin Glargine (Lantus), 20 UNITS SUBQ Q2H, (Reported) Insulin Human Lispro (Humalog), 0 SUBQ QID, (Reported) Losartan Potassium (Cozaar), 100 MG ORAL DAILY, (Reported) Metformin Hcl* (Glucophage*), 500 MG ORAL TID, (Reported) Metoprolol Tartrate* (Metoprolol Tartrate*), 50 MG ORAL DAILY, (Reported) Multivitamin With Minerals (Multivitamins With Minerals*), 1 TAB ORAL DAILY, ( Reported) Potassium Chloride* (K-Dur*), 10 MEQ ORAL DAILY, (Reported) Ranitidine Hcl* (Zantac*), 150 MG ORAL TWICE A DAY Simvastatin (Zocor), 20 MG ORAL BEDTIME, (Reported) Timolol Maleate (Timolol Maleate), 5 ML OP DAILY, (Reported) Warfarin Sod* (Coumadin*), 11 MG ORAL DAILY, (Reported) Scheduled PRN Acetaminophen* (Tylenol*), 325 MG ORAL Q4H PRN for Mild Pain/Temp > 100.5, ( Reported) Acetaminophen* (Acetaminophen 325MG Tablet*), 325 MG ORAL Q8HR PRN for Moderate Pain (Pain Scale 4-6), (Reported) Bisacodyl (Dulcolax), 10 MG RC DAILY PRN for Constipation, (Reported) Clonidine Hcl* (Catapres*), 0.1 MG ORAL EVERY 6 HOURS PRN for For High Blood Pressure, (Reported) Dextran 70/Hypromellose (Artificial Tears), 1 EACH OP Q6HR PRN for Dry Eyes, ( Reported) Hydrocodone Bit/Acetaminophen 10-325* ([place] 10-325*), 1 TAB ORAL Q4H PRN for For Pain, (Reported) Magnesium Hydroxide* (Milk Of Magnesia*), 30 ML ORAL Q4HR PRN for Constipation, (Reported) Discontinued Medications Fluoxetine Hcl* (Prozac*), 30 MG ORAL DAILY, (Reported) Discontinued Reason: Prescription changed Magnesium Hydroxide* (Milk Of Magnesia*), Unknown Dose ORAL DAILY, (Reported) Discontinued Reason: Prescription changed Patient History Healthcare decision maker Resuscitation status Advanced Directive on File Patient History Narrative Pmhx: as above SHx: The patient denies history of alcohol use, illicit substances, or smoking cigarettes. Fmxh: non contributory Review of Systems All Other Systems: negative except mentioned in HPI Physical Exam Physical Exam Narrative GENERAL: The patient is a very unfortunate 67-year-old gentleman, who is awake and alert, following commands, aphasic, in no apparent respiratory distress. HEENT: Atraumatic and normocephalic. Anicteric. Pupils are equal, round, and reactive to light and accommodation. Extraocular muscles are intact. NECK: JVP less than 5 cm. No carotid bruit. Carotid upstroke is 2+ bilaterally. CARDIOVASCULAR SYSTEM: Normal S1, S2. Regular rate and rhythm. No murmurs, gallops, or rubs. PMI is at fourth intercostal space at midclavicular line. LUNGS: Bibasilar crackles. ABDOMEN: Soft, nontender, and nondistended. No hepatosplenomegaly. Positive bowel sounds. EXTREMITIES: There is right transmetatarsal amputation and 1 to 2+ bilateral lower extremity edema. Last 24 Hour Vital Signs Date Time Temp Pulse Resp B/P (MAP) Pulse Ox O2 Delivery O2 Flow Rate FiO2 05/05/18 14:19 138/81 05/05/18 12:00 97.6 60 18 138/81 (100) 99 05/05/18 09:00 Room Air 05/05/18 08:42 134/70 05/05/18 08:00 97.5 66 17 134/70 (91) 99 05/05/18 06:28 148/74 05/05/18 04:00 97.6 62 18 141/71 (94) 99 05/05/18 00:00 98.1 72 18 124/76 (92) 99 05/04/18 23:16 137/76 05/04/18 21:00 Room Air 05/04/18 20:00 97.3 69 18 118/69 (85) 98 Intake and Output 05/04/18 05/05/18 19:00 07:00 Intake Total 420 ml 360 ml Balance 420 ml 360 ml Intake Oral 420 ml 360 ml # Voids 3 3 # Bowel Movements 1 Laboratory Tests Test 05/05/18 03:00 05/05/18 06:10 Urine Color Yellow Urine Appearance Cloudy Urine pH 6.5 (4.5-8.0) Urine Specific [place] 1.015 (1.005-1.035) Urine Protein 3+ (NEGATIVE) H Urine Glucose (UA) Negative (NEGATIVE) Urine Ketones Negative (NEGATIVE) Urine Blood 5+ (NEGATIVE) H Urine Nitrite Negative (NEGATIVE) Urine Bilirubin Negative (NEGATIVE) Urine Urobilinogen 4 MG/DL (0.0-1.0) H Urine Leukocyte Esterase 3+ (NEGATIVE) H Urine RBC Tntc /HPF (0 - 0) H Urine WBC Tntc /HPF (0 - 0) H Urine Squamous Epithelial Cells None /LPF (NONE/OCC) Urine Bacteria Many /HPF (NONE) H White Blood Count 8.2 K/UL (4.8-10.8) Red Blood Count 4.32 M/UL (4.70-6.10) L Hemoglobin 12.7 G/DL (14.2-18.0) L Hematocrit 37.6 % (42.0-52.0) L Mean Corpuscular Volume 87 FL (80-99) Mean Corpuscular Hemoglobin 29.4 PG (27.0-31.0) Mean Corpuscular Hemoglobin Concent 33.8 G/DL (32.0-36.0) Red Cell Distribution Width 14.6 % (11.6-14.8) Platelet Count 214 K/UL (150-450) Mean Platelet Volume 7.8 FL (6.5-10.1) Neutrophils (%) (Auto) 48.5 % (45.0-75.0) Lymphocytes (%) (Auto) 30.8 % (20.0-45.0) Monocytes (%) (Auto) 6.4 % (1.0-10.0) Eosinophils (%) (Auto) 13.2 % (0.0-3.0) H Basophils (%) (Auto) 1.1 % (0.0-2.0) Sodium Level 143 MMOL/L (136-145) Potassium Level 3.6 MMOL/L (3.5-5.1) Chloride Level 107 MMOL/L (98-107) Carbon Dioxide Level 27 MMOL/L (21-32) Anion Gap 9 mmol/L (5-15) Blood Urea Nitrogen 12 mg/dL (7-18) Creatinine 0.7 MG/DL (0.55-1.30) Estimat Glomerular Filtration Rate > 60 mL/min (>60) Glucose Level 202 MG/DL (74-106) H Calcium Level 9.2 MG/DL (8.5-10.1) Height (Feet): 6 Height (Inches): 1.00 Weight (Pounds): 238 Medications Current Medications Medications (Trade) Dose Ordered Sig/Henrik Route PRN Reason Start Time Stop Time Status Last Admin Dose Admin Acetaminophen (Tylenol) 650 mg Q4H PRN ORAL Mild Pain (Pain Scale 1-3) 05/01/18 11:00 05/28/18 10:59 Al Hydroxide/Mg Hydroxide (Mylanta II) 30 ml Q6H PRN ORAL dyspepsia 05/01/18 11:00 05/28/18 10:59 Aripiprazole (Abilify) 2 mg DAILY ORAL 05/02/18 09:00 05/30/18 08:59 05/05/18 08:42 Aspirin (Ecotrin) 81 mg DAILY ORAL 05/02/18 09:00 05/30/18 08:59 05/05/18 08:42 Clonidine HCl (Catapres Tab) 0.1 mg Q6H PRN ORAL For High Blood Pressure 05/01/18 11:00 05/29/18 10:59 05/01/18 17:39 Clonidine HCl (Catapres tab) 0.2 mg Q8HR ORAL 05/01/18 14:00 05/29/18 21:59 05/05/18 14:19 Dextrose (Dextrose 50%) 25 ml Q30M PRN IV Hypoglycemia 05/01/18 11:00 05/28/18 20:29 Dextrose (Dextrose 50%) 50 ml Q30M PRN IV Hypoglycemia 05/01/18 11:00 05/28/18 20:29 Docusate Sodium (Colace) 100 mg EVERY 12 HOURS ORAL 05/01/18 21:00 05/28/18 20:59 05/04/18 21:07 Fluoxetine HCl (PROzac) 30 mg DAILY ORAL 05/02/18 09:00 05/30/18 08:59 05/05/18 08:42 Furosemide (Lasix) 20 mg DAILY ORAL 05/02/18 09:00 05/30/18 08:59 05/05/18 08:42 Heparin Sodium (Porcine) (Heparin 5000 units/ml) 5,000 units EVERY 12 HOURS SUBQ 05/01/18 21:00 05/29/18 20:59 05/05/18 08:43 Hydromorphone HCl (Dilaudid) 1 mg Q6H PRN IVP For Pain 05/05/18 14:30 05/12/18 14:29 05/05/18 14:24 Insulin Aspart (NovoLOG) BEFORE MEALS AND HS SUBQ 05/01/18 11:30 05/29/18 16:29 05/05/18 12:23 Losartan Potassium (Cozaar) 100 mg DAILY ORAL 05/02/18 09:00 05/30/18 08:59 05/05/18 08:42 Magnesium Hydroxide (Mom) 30 ml HSPRN PRN ORAL Constipation 05/01/18 20:30 05/28/18 20:29 Metoclopramide HCl (Reglan) 10 mg Q6H PRN IVP Nausea & Vomiting 05/01/18 11:00 05/28/18 10:59 Zolpidem Tartrate (Ambien) 5 mg HSPRN PRN ORAL Insomnia 05/01/18 20:30 05/05/18 20:29 Assessment/Plan Assessment/Plan Abx: None Assessment: Afebrile Leukocytosis , SP -CXR: Right basilar atelectasis. No acute process otherwise R arm swelling -R v. duplex: No evidence of thrombosis involving the right upper extremity in question. 5 cm mass in the upper arm. Etiology is unknown. Hematoma, abscess , solid tumor or lymph node are among the considerations. Clinical correlation is needed. MRI or CT may be helpful for further evaluation as warranted clinically. 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 Will continue to follow along with you. Discussed with CONNOR. Adriane Robert M.D. May 05, 2018 16:43
--- NOTE | 2018-05-05 16:50 | NUR ---
NURSE NOTES: Report given to Obi, Nursing table games floor supervisor at [facility].
[2018-05-05] MEDS ORDERED: CEPHALEXIN500 MG ORAL (16:52)
--- NOTE | 2018-05-05 17:10 | NUR ---
NURSE NOTES: Called Dr. Yousif and informed patient will be discharged to [facility].
--- NOTE | 2018-05-05 17:20 | NUR ---
NURSE NOTES: Belongings checked with patient. Discharged with ambulance tech in stable condition.
--- NOTE | 2018-05-05 21:45 | Pulmonology Progress Note ---
Assessment/Plan Problems: (1) Mass of right upper extremity (2) DM (diabetes mellitus screen) (3) Thalamic pain syndrome (4) History of CVA (cerebrovascular accident) Assessment/Plan no new complains all reviewed symptomatic treatment sliding scale diabetic diet med/surg dvt prophylaxis Subjective Allergies: Coded Allergies: No Known Allergies (Unverified , 01/08/14) Objective Last 24 Hour Vital Signs Date Time Temp Pulse Resp B/P (MAP) Pulse Ox O2 Delivery O2 Flow Rate FiO2 05/05/18 16:00 98.1 58 20 145/74 (97) 96 05/05/18 14:19 138/81 05/05/18 12:00 97.6 60 18 138/81 (100) 99 05/05/18 09:00 Room Air 05/05/18 08:42 134/70 05/05/18 08:00 97.5 66 17 134/70 (91) 99 05/05/18 06:28 148/74 05/05/18 04:00 97.6 62 18 141/71 (94) 99 05/05/18 00:00 98.1 72 18 124/76 (92) 99 05/04/18 23:16 137/76 Intake and Output 05/04/18 05/05/18 19:00 07:00 Intake Total 420 ml 360 ml Balance 420 ml 360 ml Intake Oral 420 ml 360 ml # Voids 3 3 # Bowel Movements 1 Objective General Appearance: WD/WN HEENT: normocephalic, anicteric Respiratory/Chest: chest wall non-tender, lungs clear Breasts: no masses Cardiovascular: normal rate Abdomen: normal bowel sounds, no organomegaly Extremities: no clubbing Neurologic/Psychiatric: training and development coordinator II-XII grossly normal Laboratory Tests 05/05/18 03:00: Urine Color Yellow, Urine Appearance Cloudy, Urine pH 6.5, Urine Specific [place] 1.015, Urine Protein 3+H, Urine Glucose (UA) Negative, Urine Ketones Negative, Urine Blood 5+H, Urine Nitrite Negative, Urine Bilirubin Negative, Urine Urobilinogen 4H, Urine Leukocyte Esterase 3+H, Urine RBC TntcH, Urine WBC TntcH, Urine Squamous Epithelial Cells None, Urine Bacteria ManyH 05/05/18 06:10: White Blood Count 8.2, Red Blood Count 4.32L, Hemoglobin 12.7L, Hematocrit 37.6L , Mean Corpuscular Volume 87, Mean Corpuscular Hemoglobin 29.4, Mean Corpuscular Hemoglobin Concent 33.8, Red Cell Distribution Width 14.6, Platelet Count 214, Mean Platelet Volume 7.8, Neutrophils (%) (Auto) 48.5, Lymphocytes (% ) (Auto) 30.8, Monocytes (%) (Auto) 6.4, Eosinophils (%) (Auto) 13.2H, Basophils (%) (Auto) 1.1, Sodium Level 143, Potassium Level 3.6, Chloride Level 107, Carbon Dioxide Level 27, Anion Gap 9, Blood Urea Nitrogen 12, Creatinine 0.7, Estimat Glomerular Filtration Rate > 60, Glucose Level 202H, Calcium Level 9.2 Ani Barnes MD May 05, 2018 21:45
[2018-05-05] MEDS ORDERED: Cephalexin 500mg cap ORAL SCH (22:00)
--- NOTE | 2018-05-06 12:55 | Discharge Summary ---
Discharge Summary Discharge Summary _ Chest, 90 DATE OF ADMISSION: 04/28/2018 DATE OF DISCHARGE: 1419 DISCHARGED BY: Dr. Curry REASON FOR ADMISSION: 68 years old male with past medical history of hypertension, diabetes mellitus type 2, history of CVA with right hemiparesis, history of DVT , dysphagia, encephalomalacia, presented for evaluation due to right upper extremity swelling and bilateral lower extremities swelling. Upon evaluation vital signs were stable. Laboratory workup revealed no leukocytosis, stable hemoglobin and hematocrit. Stable electrolytes and renal parameters. Stable LFT. D-dimer 0.26. Patient was admitted for further management. CONSULTANTS: media librarian Dr. Tate pulmonary Dr. Barnes ID specialist Dr. Asif aviation electronics technician/oncologist Dr. Ugalde psychiatrist Dr. Yousif [facility] COURSE: Patient was admitted. Venous duplex of right upper extremity revealed no evidence of thrombosis. Noted 5 cm mass in the upper arm. Etiology unknown , consider hematoma versus abscess versus solid tumor or lymph node. Pain management was addressed. DVT prophylaxis provided. Building Maintenance Mechanic followed. Patient likely will need biopsy , potentially sarcoma versus other localized disease. Patient was attempted to be scheduled for CT scan to rule out mass, but patient declined testing at this time on multiple attempts. Manager Er followed. Echocardiogram revealed preserved ejection fraction 55-60%. Mild left ventricular hypertrophy. No evidence of pericardial effusion. No evidence of wall motion abnormality. Right ventricular systolic pressure of 11. Chest x-ray revealed right basilar atelectasis. No acute cardiopulmonary process otherwise. No evidence of CHF. Pro BNP 228. Aspirin and statin were continued. Blood pressure was managed with angiotensin receptor jaciel, clonidine and Lasix. Volumes and cardiorenal parameters were closely monitored. Urinalysis was consistent with UTI . ID specialist followed . Patient started on Keflex and to be completed at the long-term facility. Hemoglobin and hematocrit were closely monitored with goal to keep hemoglobin above 7, remained at the baseline. Renal parameters and electrolytes were closely monitored. Electrolytes corrected as needed. Nephrotoxins were avoided. Renal parameters remained stable. Supportive care provided. Pain management was addressed. Bowel regimen instituted. Psychiatrist seen and evaluated patient and diagnosed patient with paranoid schizophrenia with acute exacerbation. Psychiatric medication regimen was optimized. FINAL DIAGNOSES: Right upper extremity mass UTI Anemia of chronic disease Thalamic pain syndrome History of CVA Diabetes mellitus Hypertension Bilateral lower extremity edema Paranoid schizophrenia with acute exacerbation History of DVT Dysarthria, post stroke DISCHARGE MEDICATIONS: See Medication Reconciliation list. DISCHARGE INSTRUCTIONS: Patient was discharged to the long-term facility. Follow up with medical doctor at the facility. I have been assigned to dictate discharge summary for this account. I was not involved in the patient's management. Danita Blunt NP May 06, 2018 12:55
== END 2018-05-05 17:54 | DRG 606 ==
LOC: EDBD 16:59 → EDUNIT# 16:59 → EMR 17:30 → 2E 20:11 → EDBEDREQ 20:20 → 2E 04-29 06:00 → 3E 05-01 11:01
DX: R22.31 Localized swelling, mass and lump, right upper limb (principal); N17.0 Acute kidney failure with tubular necrosis; F31.81 Bipolar II disorder; N39.0 Urinary tract infection, site not specified; I69.351 Hemiplegia and hemiparesis following cerebral infarction affecting right dominant side; F32.3 Major depressive disorder, single episode, severe with psychotic features; F20.0 Paranoid schizophrenia; G89.0 Central pain syndrome; I10 Essential (primary) hypertension; E11.9 Type 2 diabetes mellitus without complications; D63.8 Anemia in other chronic diseases classified elsewhere; R60.9 Edema, unspecified; I69.322 Dysarthria following cerebral infarction; I69.320 Aphasia following cerebral infarction; E78.5 Hyperlipidemia, unspecified
CPT/HCPCS: 36415; 71045; 80048; 80053; 81001; 82962; 83735; 83880; 84100; 85025; 85379; 85610; 85730; 87081; 87086; 87181; 93005; 93306; 93971; 96374; 97803; 99285; J1815